=== PATIENT | female | born 1935 | race Caucasian/White ===

== ENCOUNTER 2017-03-10 08:57 | Inpatient (IN) | payer MEDICARE ==
[~2017-03-10] VITALS: Ht 162.6 cm; Wt 62.2 kg
[2017-03-10] VITALS (21 sets, daily range): BP systolic 81–125; BP diastolic 55–92; PULSE 80–148; RESP 16–28; TEMP 97.3–98.7; O2SAT 78–99
[~2017-03-10 08:57] MED LIST: ASPI325T PO; LEVO.1 PO; MEVA40TA PO
[2017-03-10] MEDS ORDERED: SODIUM CHLOR 0.9% 1000 ML INJ 1,000 ML IV SCH (09:13)
[2017-03-10] MEDS ORDERED: MORPHINE SULFATE 4 MG/ML INJ IV PUSH ONE (09:15)
[2017-03-10] MEDS ORDERED: ONDANSETRON HCL 4 MG/2 ML VIAL IVP ONE (09:15)
[2017-03-10] MEDS ORDERED: SODIUM CHLORIDE 0.9% FLUSH 10 ML FLUSH IVF PRN (09:15)
--- NOTE | 2017-03-10 09:28 | PD ---
HPI Chief Complaint: Abdominal Pain Time Seen by Provider: 09:09 Travel History International Travel<30 days: No Contact w/Intl Traveler<30days: No Traveled to known affect area: No History of Present Illness HPI patient was at pcp (dr vasquez) this am discussing her upper abdomen/epig region discomfort that she has had for almost 2months intermittently, pcp noted high heart rate and sent patient to er...pt denies any sob/cp/n/v/d/fever/cough at this time. PFSH Past Medical History Autoimmune Disease: No Blood Disorders: No Anxiety: No Depression: No Cancer: No Cardiovascular Problems: No Diminished Hearing: No Endocrine: No GERD: Yes Genitourinary: No Musculoskeletal: No Neurologic: No Psychiatric: No Respiratory: No Thyroid Disease: Yes ?: Not Past Surgical History Appendectomy: Yes Hysterectomy: Yes Joint Replacement: Yes (LEFT HIP) Pacemaker: No Other Surgery: Yes (TAILBONE) Social History Alcohol Use: No Tobacco Use: Yes Substance Use: No Allergies-Medications (Allergen,Severity, Reaction): Coded Allergies: No Known Allergies (Verified , 03/10/17) Reported Meds & Prescriptions Reported Meds & Active Scripts Active Reported Synthroid (Levothyroxine Sodium) 100 Mcg Tab 100 Mcg PO DAILY Lovastatin 40 Mg Tab 40 Mg PO DAILY Review of Systems Except as stated in HPI: all other systems reviewed are Neg Cardiovascular: Positive: Palpitations Gastrointestinal: Positive: Abdominal Pain Physical Exam Narrative GENERAL: SKIN: Warm and dry. HEAD: Atraumatic. Normocephalic. EYES: Pupils equal and round. No scleral icterus. No injection or drainage. ENT: No nasal bleeding or discharge. Mucous membranes pink and moist. NECK: Trachea midline. No JVD. CARDIOVASCULAR: tachycardia, irregular rhythm RESPIRATORY: No accessory muscle use. Clear to auscultation. Breath sounds equal bilaterally. GASTROINTESTINAL: Abdomen soft, mild epig region , nondistended. MUSCULOSKELETAL: Extremities without clubbing, cyanosis, or edema. No obvious deformities. NEUROLOGICAL: Awake and alert. No obvious cranial nerve deficits. Motor grossly within normal limits. Five out of 5 muscle strength in the arms and legs. Normal speech. PSYCHIATRIC: Appropriate mood and affect; insight and judgment normal. Data Data Last Documented VS Vital Signs Date Time Temp Pulse Resp B/P (MAP) Pulse Ox O2 Delivery O2 Flow Rate FiO2 03/10/17 11:54 115 17 93/62 (72) 95 Room Air 03/10/17 09:05 97.3 Orders Orders Electrocardiogram (03/10/17 09:13) B-Type Natriuretic Peptide (03/10/17 09:13) Ckmb (Isoenzyme) Profile (03/10/17 09:13) Complete Blood Count With Diff (03/10/17 09:13) Comprehensive Metabolic Panel (03/10/17 09:13) Prothrombin Time / Inr (Pt) (03/10/17 09:13) Act Partial Throm Time (Ptt) (03/10/17 09:13) Troponin I (03/10/17 09:13) Lipase (03/10/17 09:13) Chest, Single Ap (03/10/17 09:13) Ecg Monitoring (03/10/17 09:13) Bilateral Bp Monitoring (03/10/17 09:13) Iv Access Insert/Monitor (03/10/17 09:13) Oximetry (03/10/17 09:13) Oxygen Administration (03/10/17 09:13) Sodium Chloride 0.9% Flush (Ns Flush) (03/10/17 09:15) NPO (03/10/17 09:13) Morphine Inj (Morphine Inj) (03/10/17 09:15) Ondansetron Inj (Zofran Inj) (03/10/17 09:15) Sodium Chlor 0.9% 1000 Ml Inj (Ns 1000 M (03/10/17 09:13) Diltiazem Inj (Cardizem Inj) (03/10/17 09:30) Cta Thor Abd Aorta W Iv C W3d (03/10/17 09:29) Sodium Chlor 0.9% 1000 Ml Inj (Ns 1000 M (03/10/17 10:15) Sodium Chlorid 0.9% 500 Ml Inj (Ns 500 M (03/10/17 10:45) Iohexol 350 Inj (Omnipaque 350 Inj) (03/10/17 11:09) Admit Order (Ed Use Only) (03/10/17 12:01) Labs Laboratory Tests Test 03/10/17 10:04 White Blood Count 12.9 TH/MM3 Red Blood Count 4.15 MIL/MM3 Hemoglobin 11.2 GM/DL Hematocrit 33.9 % Mean Corpuscular Volume 81.6 FL Mean Corpuscular Hemoglobin 26.9 PG Mean Corpuscular Hemoglobin Concent 33.0 % Red Cell Distribution Width 14.4 % Platelet Count 336 TH/MM3 Mean Platelet Volume 9.7 FL Neutrophils (%) (Auto) 79.8 % Lymphocytes (%) (Auto) 9.2 % Monocytes (%) (Auto) 7.5 % Eosinophils (%) (Auto) 2.7 % Basophils (%) (Auto) 0.8 % Neutrophils # (Auto) 10.3 TH/MM3 Lymphocytes # (Auto) 1.2 TH/MM3 Monocytes # (Auto) 1.0 TH/MM3 Eosinophils # (Auto) 0.3 TH/MM3 Basophils # (Auto) 0.1 TH/MM3 CBC Comment DIFF FINAL Differential Comment Prothrombin Time 11.4 SEC Prothromb Time International Ratio 1.0 RATIO Activated Partial Thromboplast Time 21.9 SEC Blood Urea Nitrogen 14 MG/DL Creatinine 1.00 MG/DL Random Glucose 135 MG/DL Total Protein 7.8 GM/DL Albumin 3.2 GM/DL Calcium Level 8.5 MG/DL Alkaline Phosphatase 84 U/L Aspartate Amino Transf (AST/SGOT) 12 U/L Alanine Aminotransferase (ALT/SGPT) 15 U/L Total Bilirubin 0.6 MG/DL Sodium Level 131 MEQ/L Potassium Level 4.1 MEQ/L Chloride Level 95 MEQ/L Carbon Dioxide Level 24.9 MEQ/L Anion Gap 11 MEQ/L Estimat Glomerular Filtration Rate 53 ML/MIN Total Creatine Kinase 31 U/L Troponin I LESS THAN 0.02 NG/ML B-Type Natriuretic Peptide 604 PG/ML Lipase 82 U/L [facility] Medical Decision Making Medical Screen Exam Complete: Yes Emergency Medical Condition: Yes Medical Record Reviewed: Yes Interpretation(s) fib with rvr, inverted t waves on inf lateral leads Differential Diagnosis afib with rvr v stemi v nonstemi v aortic dissection v pancreatitis v sbo v perforated ulcer Narrative Course patient made aware of multiple findings on catscans (2.2 x 1.9 cm spiculated left lower lobe posterior lung mass with apparently centrally necrotic anterior tracheal mediastinal lymph node measuring 2.8 x 2.7 cm. Subcentimeter mediastinal and confluent partially calcified right hilar lymph nodes are more nonspecific may be due to prior granulomatous disease. 2. 2.7 x 2.0 cm left adnexal mass likely corresponding to the ovary. This is abnormal given patients advanced age. Further evaluation may be performed with ultrasound of the pelvis. 3. Otherwise, no evidence for distant metastatic disease. 4. Focal 4 cm length distal descending thoracic aortic aneurysm measuring up to 3.7 cm in axial dimension. 5. No aortic dissection.) patient will be admitted to dr lawton, however due to multiple specialty need patient will be transferred to [facility]. Critical Care Narrative CRITICAL CARE NOTE: With evaluation of the patient, labs, EKG, receipt of radiologic studies, administration of medications, reevaluation the patient and discussion of the patient with the admitting physicians, the total critical care time was [45] minutes. Time to perform other separately billable procedures was not included in the critical care time. Physician Communication Physician Communication discussed case with dr lawton Diagnosis Primary Impression: new onset afib with rvr Additional Impressions: left lower lobe mass left adnexal mass Descending thoracic aortic aneurysm Admitting Information Admitting Physician Requests: Admit Nam Valderrama MD Mar 10, 2017 09:28
[2017-03-10] MEDS ORDERED: DILTIAZEM HCL 25 MG/5 ML VIAL IV ONE ×2 (09:30→14:15)
--- NOTE | 2017-03-10 09:47 | RADRPT ---
EXAM DATE/TIME: 03/10/2017 09:37 [facility] COMPARISON: No previous studies available for comparison. INDICATIONS : Tachycardia, abdominal pain, nasuea. MEDICAL HISTORY : Gastroesophageal reflux disease. Thyroid disease. SURGICAL HISTORY : Appendectomy. Hysterectomy. Left hip. ENCOUNTER: Initial ACUITY: 1 day PAIN SCORE: 0/10 LOCATION: chest FINDINGS: Mild diffuse interstitial prominence. No significant focal pleural or parenchymal opacities. Cardiome diastinal contours are within normal limits. Bony thorax is intact. CONCLUSION: 1. Mild diffuse interstitial prominence, likely chronic. 2. Otherwise, no acute cardiopulmonary disease. Woo Covarrubias MD on March 10, 2017 at 9:44 Board Certified Radiologist. This report was verified electronically.
[2017-03-10] MEDS ORDERED: LEVO.1 PO (10:06)
[2017-03-10] MEDS ORDERED: LOVA40TA PO (10:06)
[2017-03-10] MEDS ORDERED: SODIUM CHLOR 0.9% 1000 ML INJ 1,000 ML IV ONE (10:15)
[2017-03-10 10:16] LABS: AUTOMATED NEUTROPHIL # 10.3 TH/MM3 (1.8-7.7); BASOPHIL # 0.1 TH/MM3 (0-0.2); BASOPHIL % 0.8 % (0.0-2.0); EOSINOPHIL # 0.3 TH/MM3 (0-0.4); EOSINOPHIL % 2.7 % (0.0-4.0); HEMATOCRIT 33.9 % (35.0-46.0); HEMO FLAGS DIFF FINAL; LYMPH % 9.2 % (9.0-44.0); LYMPHOCYTE # 1.2 TH/MM3 (1.0-4.8); MEAN CELL VOLUME 81.6 FL (80.0-100.0); MEAN CORPUSCULAR HEMOGLOBIN 26.9 PG (27.0-34.0); MONO % 7.5 % (0.0-8.0); NEUT % 79.8 % (16.0-70.0); PLATELET COUNT 336 TH/MM3 (150-450); RED BLOOD COUNT 4.15 MIL/MM3 (4.00-5.30); RED CELL DISTRIBUTION WIDTH 14.4 % (11.6-17.2); WHITE BLOOD COUNT 12.9 TH/MM3 (4.0-11.0)
[2017-03-10 10:27] LABS: CHLORIDE 95 MEQ/L (98-107); POTASSIUM 4.1 MEQ/L (3.5-5.1); SODIUM (NA) 131 MEQ/L (136-145)
[2017-03-10 10:30] LABS: ANION GAP 11 MEQ/L (5-15); APTT (PATIENT) 21.9 SEC (24.3-30.1); BICARBONATE 24.9 MEQ/L (21.0-32.0); PROTHROMBIN TIME - PATIENT 11.4 SEC (9.8-11.6)
[2017-03-10 10:31] LABS: BLOOD UREA NITROGEN 14 MG/DL (7-18)
[2017-03-10 10:33] LABS: ALT (GPT) 15 U/L (10-53); AST (GOT) 12 U/L (15-37); GLOMERULAR FILTRATION RATE 53 ML/MIN (>89)
[2017-03-10 10:35] LABS: TOTAL BILIRUBIN ADULT 0.6 MG/DL (0.2-1.0)
[2017-03-10 10:36] LABS: ALKALINE PHOSPHATASE 84 U/L (45-117)
[2017-03-10 10:37] LABS: CREATINE KINASE 31 U/L (26-192)
[2017-03-10] MEDS ORDERED: SODIUM CHLORID 0.9% 500 ML INJ 500 ML IV ONE (10:45)
[2017-03-10] MEDS ORDERED: IOHEXOL 350 MG/ML 10 ML VIAL (for RAD DIAG) IVCONTRAST ONE (11:09)
--- NOTE | 2017-03-10 11:43 | RADRPT ---
EXAM DATE/TIME: 03/10/2017 10:47 [facility] COMPARISON: CHEST SINGLE AP, March 10, 2017, 9:37. INDICATIONS : Mid abdominal pain with nausea for one month. Increased heartrate today. Evaluate fir aortic dissecti on. IV CONTRAST: 95 cc Omnipaque 350 (iohexol) IV RADIATION DOSE: 17.19 CTDIvol (mGy) MEDICAL HISTORY : Gastroesophageal reflux disease. SURGICAL HISTORY : Appendectomy. Hysterectomy.Orthopedic surgery. ENCOUNTER: Initial ACUITY: 1 month PAIN SCALE: 6/10 LOCATION: chest abdomen TECHNIQUE: Volumetric scanning was performed using a multi-row detector CT scanner. The data was post processed with a variety of visualization algorithms including full volume maximum intensity projection, multi -planar sliding thin slab reformation, curved planar reformation, and surface rendering techniques. Using automated exposure control and adjustment of the mA and/or kV according to patient size, radiat ion dose was kept as low as reasonably achievable to obtain optimal diagnostic quality images. DICOM format image data is available electronically for review and comparison. FINDINGS: LUNGS: Abnormal. There is a 2.2 x 1.9 cm spiculated mass in the left lower lobe posteriorly. Adjacent infero lateral linear parenchymal opacity likely reflects scarring. Mild upper lobe predominant centrilobula r emphysema. Small right and trace left pleural effusions. Small calcified granuloma in the right mary g. Mild patchy groundglass opacities in the lower lobes bilaterally likely reflects volume loss. MEDIASTINUM: Abnormal. Large anterior tracheal centrally necrotic lymph node measuring 2.8 x 2.7 cm. Multiple jimmie tional small mediastinal nodes. Partially calcified confluent right hilar lymph nodes. Heart is borde rline in size but otherwise unremarkable without significant pericardial effusion. Central pulmonary arteries are patent. ABDOMEN: Evaluation of the abdominal viscera is limited due to the early arterial technique. The liver and spl een are free of focal defects. The gallbladder and pancreas demonstrate no abnormality. The adrenal g lands are normal. The kidneys demonstrate no evidence of solid renal mass or hydronephrosis. No free fluid or abdominal masses are identified. Mild sigmoid diverticulosis. Subcentimeter retroperitoneal and mesenteric nodes do not meet CT size criteria. Bowel is otherwise unremarkable. PELVIS: Evaluation is limited due to beam hardening artifact from bilateral hip arthroplasties. Bladder is gr ossly unremarkable. Uterus is surgically absent. There is a 2.7 x 2.0 cm mass in the left adnexal reg ion which may reflect the ovary, more prominent than expected given patient's age. Degenerative spond ylosis of the lower lumbar spine. No definite focal lytic or blastic bony lesions. THORACIC AORTA: Descending aorta is normal in caliber without evidence for aneurysm. There is bovine type II vessel a [facility] anatomy. Proximal arch vessels are patent. Thoracic arch is mildly calcified but otherwise patent . Descending thoracic aorta is minimally ectatic measuring up to 2.8 cm with diffuse mixed plaque. Th ere is a focal 4 cm length aneurysm of the distal descending thoracic aorta measuring 3.7 x 3.6 cm in axial dimensions. No aortic dissection. ABDOMINAL AORTA: Abdominal aorta is moderately calcified with focal ectasia distally but is otherwise non-aneurysmal. No aortic dissection. Moderate stenosis at the celiac origin secondary to calcified plaque. SMA and I MA are patent. PELVIC VESSELS: The internal iliac and external iliac vessels are patent without aneurysm or stenosis. CONCLUSION: 1. 2.2 x 1.9 cm spiculated left lower lobe posterior lung mass with apparently centrally necrotic ant erior tracheal mediastinal lymph node measuring 2.8 x 2.7 cm. Subcentimeter mediastinal and confluent partially calcified right hilar lymph nodes are more nonspecific may be due to prior granulomatous d isease. 2. 2.7 x 2.0 cm left adnexal mass likely corresponding to the ovary. This is abnormal given patients advanced age. Further evaluation may be performed with ultrasound of the pelvis. 3. Otherwise, no evidence for distant metastatic disease. 4. Focal 4 cm length distal descending thoracic aortic aneurysm measuring up to 3.7 cm in axial dimen parveen. 5. No aortic dissection. 6. Additional ancillary findings, as above. Woo Covarrubias MD on March 10, 2017 at 11:28 Board Certified Radiologist. This report was verified electronically.
[2017-03-10] MEDS ORDERED: ONDANSETRON HCL 4 MG/2 ML VIAL IV PUSH ONE (13:30)
[2017-03-10 15:04] LABS: BLOOD GAS BASE EXCESS -8.2 mmol/L (-2-2); BLOOD GAS CARBOXYHEMOGLOBIN 1.1 % (0-4); BLOOD GAS HCO3 17 mmol/L (22-26); BLOOD GAS O2 HGB SATURATION 95 % (90-100); BLOOD GAS OXYGEN CONTENT 15.3 Vol % (12.0-20.0); BLOOD GAS PCO2 34 mmHg (38-42); BLOOD GAS PO2 111 mmHg (61-120); BLOOD GAS TOTAL HGB 11.4 G/DL (12.0-16.0); CRITICAL VALUE NO; DRAW SITE RT RADIAL; FIO2 100 %; LITER FLOW 15 L/M; NUMBER OF ARTERIAL PUNCTURES 1; STAT NO; TEMP CORR TO 98.6; ULNAR PULSE PRESENT
[2017-03-10] MEDS ORDERED: METOPROLOL TARTRATE 5 MG/5 ML VIAL ONE (15:07)
[2017-03-10] MEDS ORDERED: AMIODARONE INJ 150 MG in DEXTROSE 5% IN WATER 100ML INJ 100 ML IV ONE ×2 (15:12)
[2017-03-10] MEDS ORDERED: AMIODARONE INJ 450 MG in DEXTROSE 5% IN WATE(EXCEL) INJ 241 ML IV SCH ×2 (15:22)
[2017-03-10] MEDS ORDERED: ASPIRIN 81 MG CHEW TAB CHEW STA (15:23)
[2017-03-10] MEDS ORDERED: FUROSEMIDE 40 MG/4 ML VIAL IV PUSH ONE (15:30)
[2017-03-10] MEDS ORDERED: methylPREDNISolone SOD SUCC 125 MG/2 ML VIAL IV PUSH ONE (15:30)
[2017-03-10] MEDS: ONDANSETRON HCL 4 MG/2 ML VIAL IV PUSH PRN (15:38)
[2017-03-10] MEDS ORDERED: NITROGLYCERIN 0.4 MG SL 25 TABS/BTL SL PRN (15:45)
[2017-03-10] MEDS ORDERED: METOCLOPRAMIDE HCL 10 MG/2 ML VIAL IV PUSH PRN (16:00)
[2017-03-10] MEDS ORDERED: CHLORHEXIDINE GLUCONATE 2 % 1 PACK (2 CLOTHS) TOP PRN (16:00)
[2017-03-10] MEDS ORDERED: LACTULOSE SYRUP 20 GM/30 ML CUP PO PRN (16:00)
[2017-03-10] MEDS ORDERED: MISCELLANEOUS NURSING INFORMATION XX SCH (16:00)
[2017-03-10] MEDS ORDERED: SODIUM CHLORIDE 0.9% FLUSH 10 ML FLUSH IV FLUSH PRN (16:00)
[2017-03-10] MEDS ORDERED: ACETAMINOPHEN 325 MG TAB PO PRN (16:00)
[2017-03-10] MEDS ORDERED: RESP: IPRATROPIUM 0.5 MG/2.5 ML NEB INH PRN (16:00)
[2017-03-10] MEDS ORDERED: BISACODYL 10 MG SUPP RECTAL PRN (16:00)
[2017-03-10] MEDS ORDERED: SENNOSIDES 8.6 MG TAB PO PRN (16:00)
[2017-03-10] MEDS ORDERED: HEPARIN-D5W 25,000 U/250 ML 250 ML IV PRN (16:15)
[2017-03-10] MEDS ORDERED: HEPARIN SODIUM - IV 10,000 UNITS/10 ML VIAL IV PUSH ONE ×2 (16:15→16:45)
--- NOTE | 2017-03-10 16:19 | RADRPT ---
EXAM DATE/TIME: 03/10/2017 15:36 [facility] COMPARISON: CHEST SINGLE AP, March 10, 2017, 9:37. INDICATIONS : Pulmonary edema MEDICAL HISTORY : Gastroesophageal reflux disease. SURGICAL HISTORY : Appendectomy. Hysterectomy. ENCOUNTER: Initial ACUITY: 1 day PAIN SCORE: 0/10 LOCATION: Bilateral chest FINDINGS: The cardiac silhouette is enlarged in transverse diameter. There are findings of congestive heart marlene lure with interstitial and alveolar opacity bilaterally. This is new when compared with the prior exa m. Small bilateral pleural effusions are identified. CONCLUSION: 1. Cardiomegaly and findings of congestive heart failure. This is new when compared with the prior ex am. Chauncey Hutchison MD on March 10, 2017 at 16:17 Board Certified Radiologist. This report was verified electronically.
[2017-03-10] MEDS ORDERED: ETOMIDATE 40 MG/20 ML VIAL ONE (16:23)
[2017-03-10] MEDS ORDERED: SUCCINYLCHOLINE CHLORIDE 200 MG/10 ML VIAL ONE (16:26)
[2017-03-10] MEDS ORDERED: PROPOFOL 500 MG/50 ML INJ 50 ML ONE ×2 (16:47→22:03)
--- NOTE | 2017-03-10 16:51 | EKG ---
Date Performed: 03/10/2017 Time Performed: 09:19:30 PTAGE: 81 years EKG: ATRIAL FIBRILLATION WITH RAPID VENTRICULAR RESPONSE LOW QRS VOLTAGE IN EXTREMITY LEADS ST D EVIATION AND MODERATE T-WAVE ABNORMALITY, CONSIDER LATERAL ISCHEMIA Compared to previous tracing, the patient now is in atrial fibrillation with rapid ventricular rate. ST changes concerning for ischemi a Clinical correlation is recommended ABNORMAL ECG PREVIOUS TRACING : 07/13/2007 16.22 DOCTOR: Arcelia Adhikari Interpretating Date/Time 03/10/2017 16:49:19
[2017-03-10] MEDS ORDERED: TERBUTALINE INJ 1 MG/ML AMP SQ PRN (17:00)
[2017-03-10] MEDS ORDERED: MIDAZOLAM 100 MG/100 ML INJ 100 ML IV PRN (17:00)
[2017-03-10] MEDS: CARVEDILOL 12.5 MG TAB PO SCH (17:00)
[2017-03-10] MEDS ORDERED: fentaNYL DRIP 250 ML IV PRN (17:00)
[2017-03-10 17:10] LABS: BLOOD, URINE NEG (NEG); GLUCOSE,URINE 70 mg/dL (NEG); KETONE, URINE TRACE mg/dL (NEG); MUCUS URINE FEW /lpf (OCC); NITRITE,URINE NEG (NEG); PH, URINE 5.5 (5.0-8.5); SQUAMOUS EPITHELIAL CELL URINE 1 /hpf (0-5); URINE COLOR YELLOW (YELLW/STRAW)
[2017-03-10 17:15] LABS: COMMENT (UR) CATH-CULT NOT IND; CULTURE IF INDICATED CATH CULTURE NOT IND
--- NOTE | 2017-03-10 17:24 | RADRPT ---
EXAM DATE/TIME: 03/10/2017 17:12 [facility] COMPARISON: CHEST SINGLE AP, March 10, 2017, 15:36. INDICATIONS : ET tube placement. Post intubation. MEDICAL HISTORY : Gastroesophageal reflux disease. SURGICAL HISTORY : Appendectomy. ENCOUNTER: Subsequent ACUITY: 1 day PAIN SCORE: 0/10 LOCATION: Bilateral chest FINDINGS: ET tube with tip approximately 4 cm above the vikki. NGT coursing beyond the GE junction with tip om itted from the image. Improved diffuse interstitial prominence and patchy bilateral alveolar opacitie s. Cardiomedi cell contours are stable. Central pulmonary vascularity is indistinct. Remainder of the exam is unchanged. CONCLUSION: 1. ETT in good position. NGT beyond the GE junction with tip not imaged. 2. Improved pulmonary edema pattern. Woo Covarrubias MD on March 10, 2017 at 17:21 Board Certified Radiologist. This report was verified electronically.
[2017-03-10] MEDS ORDERED: MORPHINE SULFATE 8 MG/ML INJ ONE (17:27)
[2017-03-10] MEDS ORDERED: MIDAZOLAM HCL 2 MG/2 ML VIAL IV ONE (17:30)
--- NOTE | 2017-03-10 17:48 | ECHRPT ---
Indication: assess LVF CONCLUSIONS The left ventricular systolic function is severely reduced with an estimated ejection fraction of 10 -15%. There is diffuse global hypokinesis with distinct regional wall motion abnormalities. The right ventricular systoilc function is mildly decreased. Mild mitral valve regurgitation. There is mild tricuspid valve regurgitation. BP: / HR: Rhythm: MEASUREMENTS (Male / Female) Normal Values Technical Quality:Good 2D ECHO LV Diastolic Diameter PLAX 5.6 cm 4.2 - 5.9 / 3.9 - 5.3 cm LV Systolic Diameter PLAX 5.2 cm IVS Diastolic Thickness 0.7 cm 0.6 - 1.0 / 0.6 - 0.9 cm LVPW Diastolic Thickness 0.7 cm 0.6 - 1.0 / 0.6 - 0.9 cm LV Relative Wall Thickness 0.3 RV Internal Dim ED PLAX 2.6 cm M-MODE Aortic Root Diameter MM 3.5 cm LA Systolic Diameter MM 3.1 cm LA Ao Ratio MM 0.9 AV Cusp Separation MM 1.5 cm DOPPLER LV E' Lateral Velocity 5.7 cm/s LV E' Septal Velocity 4.9 cm/s TR Peak Velocity 244.0 cm/s TR Peak Gradient 23.8 mmHg Right Atrial Pressure 10.0 mmHg Pulmonary Artery Systolic Pressu 33.8 mmHg Right Ventricular Systolic Press 33.8 mmHg FINDINGS LEFT VENTRICLE The left ventricular systolic function is severely reduced with an estimated ejection fraction of 10 -15%. There is diffuse global hypokinesis with distinct regional wall motion abnormalities. Wall thickness is normal Mildly dilated left ventricle. RIGHT VENTRICLE The right ventricular size is normal. The right ventricular systoilc function is mildly decreased. LEFT ATRIUM The left atrial size is normal. RIGHT ATRIUM The right atrial size is normal. ATRIAL SEPTUM The interatrial septum not well visualized. AORTA The aortic root and proximal ascending aorta are normal in size on limited imaging. MITRAL VALVE Structurally normal mitral valve. Mild mitral valve regurgitation. AORTIC VALVE Trileaflet aortic valve. No aortic valve stenosis or regurgitation. TRICUSPID VALVE Structurally normal tricuspid valve. There is mild tricuspid valve regurgitation. The estimated pulmonary arterial pressure is 33.8 mmHg. PULMONARY VALVE The pulmonary valve is not well visualized. VESSELS The inferior vena cava is dilated. PERICARDIUM No pericardial effusion. Anthony Verma DO (Electronically Signed) Final Date:10 March 2017 17:47
[2017-03-10 18:44] LABS: BLOOD GAS BASE EXCESS -11.6 mmol/L (-2-2); BLOOD GAS CARBOXYHEMOGLOBIN 0.8 % (0-4); BLOOD GAS HCO3 14 mmol/L (22-26); BLOOD GAS METHEMOGLOBIN 1.1 % (0-2); BLOOD GAS O2 HGB SATURATION 97 % (90-100); BLOOD GAS OXYGEN CONTENT 15.3 Vol % (12.0-20.0); BLOOD GAS PCO2 35 mmHg (38-42); BLOOD GAS PO2 221 mmHg (61-120); BLOOD GAS TOTAL HGB 10.8 G/DL (12.0-16.0); CRITICAL VALUE YES; OXYGEN DEVICE VENTILATOR; TEMP CORR TO 98.6
[2017-03-10 18:45] LABS: DRAW SITE ART LINE; FIO2 100 %; STAT NO; VENT SETTINGS 500/20/PEEP 5
--- NOTE | 2017-03-10 18:56 | RADRPT ---
EXAM DATE/TIME: 03/10/2017 18:08 [facility] COMPARISON: CTA THORACIC ABDOMINAL AORTA W 3D RECON, March 10, 2017, 10:47. CHEST SINGLE AP, March 10, 2017, 17:12. INDICATIONS : Central line and ET tube placement. MEDICAL HISTORY : None. SURGICAL HISTORY : None. ENCOUNTER: Initial ACUITY: 1 day PAIN SCORE: Non-responsive. LOCATION: Bilateral chest FINDINGS: Endotracheal tube is present in satisfactory position with tip several centimeters above the vikki. Nasogastric tube descends into the stomach. A right neck central line descends into the SVC. There is increasing hazy I lateral pleural-parenchymal opacity which may reflect developing parenchymal edema . Cardiac contours are grossly stable accounting for some rotation with soft tissue prominence of the right suprahilar and paratracheal region. Parenchymal left lung mass is not well appreciated. CONCLUSION: Satisfactory central line positioning. No pneumothorax. Worsening aeration. Fermin Gonzalez MD on March 10, 2017 at 18:52 Board Certified Radiologist. This report was verified electronically.
--- NOTE | 2017-03-10 19:00 | RADRPT ---
EXAM DATE/TIME: 03/10/2017 18:19 [facility] COMPARISON: No previous studies available for comparison. INDICATIONS : Shortness of breath. MEDICAL HISTORY : Gastroesophageal reflux disease. Thyroid disease. SURGICAL HISTORY : Hysterectomy.Appendectomy. Left hip fracture repair. Left wrist fracture repair. Tailbone surgery. ENCOUNTER: Initial ACUITY: 1 day PAIN SCORE: Non-responsive LOCATION: Bilateral legs. TECHNIQUE: Venous ultrasound of the left and right leg was performed from the inguinal ligament to the proximal calf. Real-time, color Doppler and spectral tracing, compression and augmentation techniques were us ed. FINDINGS: RIGHT LEG: There is normal compressibility of the deep venous system from the inguinal region to the proximal ca lf. No echogenic clot is seen in the lumen of the common femoral, femoral, popliteal, and posterior tibial veins. There is a normal response of the venous system to proximal and distal augmentation an d respiration. LEFT LEG: There is normal compressibility of the deep venous system from the inguinal region to the proximal ca lf. No echogenic clot is seen in the lumen of the common femoral, femoral, popliteal, and posterior tibial veins. There is a normal response of the venous system to proximal and distal augmentation an d respiration. CONCLUSION: No DVT. Fermin Flores MD on March 10, 2017 at 18:58 Board Certified Radiologist. This report was verified electronically.
[2017-03-10] MEDS ORDERED: SODIUM BICARBONATE 8.4% INJ 50 MEQ/50 ML SYR IV PUSH ONE (19:15)
--- NOTE | 2017-03-10 19:29 | PD.PROCEDR ---
Central Line Procedure REASON FOR PROCEDURE Central venous access PROCEDURE PERFORMED Central line placement: Right IJ CONSENT Informed consent for procedure was obtained from patient's and documented on chart. ANESTHESIA Local injection of 1% Lidocaine DESCRIPTION OF THE PROCEDURE The patient was placed in supine, mild Trendelenburg position. The area was exposed and cleansed with ChloraPrep, times two. Large sterile drape was used to cover the patient, with the site exposed, under sterile conditions including cap, face mask, sterile gown, and sterile gloves. On single attempt, the introducer needle was inserted with negative pressure in syringe and venous flash was obtained. The guide wire was then advanced without any restriction and the needle was removed. The dilator was used without any complications. Using Seldinger technique a 20 cm antimicrobial coated triple lumen catheter was advanced over the guide wire to a depth of 17 centimeters. The guide wire was removed. All ports were aspirated with dark venous blood return and flushed easily with sterile saline. All ports were capped. Antibiotic disc was placed around central line at puncture site. The central line was secured to the skin with two interrupted 2.0 silk sutures. The area was bandaged with sterile see-through central line bandage. RADIOLOGICAL DATA Ultrasound guidance was used to locate the right internal jugular vein. COMPLICATIONS: No apparent complications ESTIMATED BLOOD LOSS: Less than 1 cc. Mejia Marroquin MD Mar 10, 2017 19:29
--- NOTE | 2017-03-10 19:30 | PD.PROCEDR ---
Procedure Note Procedure Procedure: Right axillary arterial catheter placement with ultrasound guidance Preop diagnosis: Cardiogenic shock Postop diagnosis: Same Anesthesia: 1% lidocaine for local infiltration anesthesia Procedure: After sterile prepping and draping using 1% lidocaine for local infiltration anesthesia, right axillary artery was visualized using ultrasound vessel finder and was cannulated using an introducer needle with bright pulsatile blood return. A guidewire was passed through the introducer needle without any resistance and the needle was then removed. A 12 cm 20-gauge arterial catheter was passed over the guidewire by modified Seldinger's technique up to the 12 cm reid and after removal of guidewire catheter was connected to transducer tubing with good waveform being obtained on the monitor. Biopatch was applied to the insertion site and catheter was sutured in place. Sterile Bi0-occlusive dressing was applied to the site. Patient tolerated the procedure well with no immediate competitions noted. Mejia Marroquin MD Mar 10, 2017 19:30
[2017-03-10 19:33] LABS: APTT (PATIENT) 54.9 SEC (24.3-30.1); INTERNATIONAL NORMALIZED RATIO 1.3 RATIO
--- NOTE | 2017-03-10 19:35 | PD.PROCEDR ---
Procedure Note Procedure Procedure: Endotracheal intubation Preop diagnosis: Cardiogenic shock, acute respiratory failure, A. fib Postop diagnosis: Same Sedation used: Etomidate 20 mg, fentanyl 100 mcg, succinylcholine 150 mg IV Procedure: Patient was preoxygenated with 100% oxygen via Ambu bag with bag mask ventilation, following induction of sedation and neuromuscular blockade, laryngoscopy was performed using a glide scope good visualization of vocal cords. An 8 Persian ET tube was passed through the vocal cords under direct visualization up to the 22 centimeter reid and after inflating cuff of ET tube, correct placement was confirmed using bagging with good color change on CO2 detector, 5 point auscultation and chest rise with ventilation. Patient was connected to mechanical ventilation. Patient tolerated the procedure well with no immediate complications noted. Postprocedure chest x-ray was ordered. Mejia Marroquin MD Mar 10, 2017 19:35
[2017-03-10 19:41] LABS: ANION GAP 12 MEQ/L (5-15); AST (GOT) 67 U/L (15-37); BICARBONATE 17.7 MEQ/L (21.0-32.0); BLOOD UREA NITROGEN 15 MG/DL (7-18); CHLORIDE 100 MEQ/L (98-107); GLOMERULAR FILTRATION RATE 44 ML/MIN (>89); SODIUM (NA) 130 MEQ/L (136-145)
[2017-03-10 19:42] LABS: ALT (GPT) 56 U/L (10-53)
[2017-03-10] MEDS ORDERED: GLUCAGON 1 MG/ML VIAL IM/SQ PRN (19:45)
[2017-03-10] MEDS ORDERED: DEXTROSE 50% IN WATER 50 ML SYRINGE IV PRN (19:45)
[2017-03-10 19:46] LABS: ALKALINE PHOSPHATASE 83 U/L (45-117); TOTAL BILIRUBIN ADULT 0.8 MG/DL (0.2-1.0)
[2017-03-10 19:48] LABS: CREATINE KINASE 35 U/L (26-192)
[2017-03-10] MEDS ORDERED: SODIUM BICARBONATE 8.4% INJ 50 MEQ/50 ML SYR IV ONE (20:00)
--- NOTE | 2017-03-10 20:09 | HHI.HP ---
HPI Service Critical Care Medicine Primary Care Physician Ronnell Vasquez MD Admission Diagnosis NEW ONSET AFIB WITH RVR,DESCENDING AORTIC ANEURYSM,LUNG MASS Diagnosis: Travel History International Travel<30 Days: No Contact w/Intl Traveler <30 Da: No Traveled to Known Affected Are: No History of Present Illness History of Present Illness HPI patient was at pcp (dr vasquez) this am discussing her upper abdomen/epig region discomfort that she has had for almost 2months intermittently, pcp noted high heart rate and sent patient to er...pt denies any sob/cp/n/v/d/fever/cough at this time. 81-year-old female who was evaluated by her PCP Dr. Vasquez who she saw for upper abdominal pain which has been going on for about 2 months today. PCP noted high heart rate and sent patient to the ER. Patient was evaluated in the ER at [place]. At that time she denied any chest pain shortness of breath nausea vomiting diarrhea fever or cough per documentation by ER physician. She was noted to be in A. fib with RVR. She was given Cardizem 5 mg IV and subsequently was transferred to [facility]. I was contacted by nursing staff following patient's arrival that her heart rate was in the 160s and she was on a nonrebreather facemask with O2 sats in the 80s. I had not been notified regarding this patient from either [place] [facility] or by any other accepting physician so I immediately went to patient's bedside to evaluate her. I contacted Dr[facility] Casas from [facility] as patient had been reportedly accepted by [facility] however he was not aware of any details. Patient was in obvious respiratory distress at the time of my evaluation. Patient underwent CTA aortogram at [place] [facility] and was found to have a left lower lobe spiculated lung mass with central necrosis suspicious for malignancy as well as a descending thoracic aortic aneurysm less than 4 cm in diameter with no dissection. Dr. Casas requested critical care consult. Patient was given Lopressor 5 mg IV with which her ventricular rate came down in the 90s. She did have borderline blood pressures with systolic SBP 90s. She continued to have worsening shortness of breath and appeared cold and clammy. She denied any chest pain however was complaining of epigastric pain. Per patient's she has lost 24 pounds in 3 months and has had a cough for 4 months. She has had abdominal pain for a year and has previously had an EGD which revealed a gastric ulcer 7 years ago. Patient was loaded with amiodarone and started on amiodarone drip. She is also given aspirin 324 mg stat as her EKG revealed T inversions in the lateral leads concerning for ischemia. Stat 2-D echo was ordered and patient was noted to have a LVEF 10-15% with global hypokinesis. Patient continued to be in significant respiratory distress using accessory muscles of respiration and became very diaphoretic and appeared to be worsening clinically hence was emergently intubated and placed on mechanical ventilation. She was initiated on full anticoagulation with heparin. I emergently placed a right IJ central venous catheter and right axillary a line. Dr. Willis from cardiology was consulted and I personally discussed the case, EKG and echo findings with Dr. Willis who will be evaluating patient. Prior to intubation, patient denied any prior cardiac history or previous history of CAD, arrhythmias or SD. She denied any history of COPD though she has been a long-standing smoker(60 pack years) and quit 3 years ago. History PFSH Past Medical History Autoimmune Disease: No Blood Disorders: No Anxiety: No Depression: No Cancer: No Cardiovascular Problems: No Diminished Hearing: No Endocrine: No GERD: Yes Genitourinary: No Musculoskeletal: No Neurologic: No Psychiatric: No Respiratory: No Thyroid Disease: Yes ?: Not Past Surgical History Appendectomy: Yes Hysterectomy: Yes Joint Replacement: Yes (LEFT HIP) Pacemaker: No Other Surgery: Yes (TAILBONE) Social History Alcohol Use: No Tobacco Use: Yes Substance Use: No Allergies-Medications Allergies-Medications (Allergen,Severity, Reaction): Coded Allergies: No Known Allergies (Verified , 03/10/17) Reported Meds & Prescriptions Reported Meds & Active Scripts Active Reported Synthroid (Levothyroxine Sodium) 100 Mcg Tab 100 Mcg PO DAILY Lovastatin 40 Mg Tab 40 Mg PO DAILY ROS Review of Systems Except as stated in HPI: all other systems reviewed are Neg Physical Exam Vital Signs Vital Signs Date Time Temp Pulse Resp B/P (MAP) Pulse Ox O2 Delivery O2 Flow Rate FiO2 03/10/17 16:38 97 100 03/10/17 16:06 110 108/70 03/10/17 16:00 97.7 88 28 114/57 (76) 96 03/10/17 15:38 147 123/91 03/10/17 14:46 97.6 148 26 125/92 (103) 96 03/10/17 14:27 03/10/17 14:11 122 22 110/82 (91) 92 Nasal Cannula 3.00 03/10/17 13:55 146 20 104/71 (82) 84 Nasal Cannula 2.00 03/10/17 13:40 146 20 104/80 (88) 78 Nasal Cannula 2.00 03/10/17 13:25 146 20 108/76 (87) 83 Nasal Cannula 2.00 03/10/17 13:10 134 20 105/76 (86) Nasal Cannula 2.00 03/10/17 12:55 122 20 98/64 (75) 87 Room Air 03/10/17 12:40 132 21 83/72 (76) 93 Room Air 03/10/17 12:25 130 18 110/69 (83) 89 Room Air 03/10/17 12:10 124 18 93/55 (68) 90 Room Air 03/10/17 11:54 115 17 93/62 (72) 95 Room Air 03/10/17 11:24 105 20 98/65 (76) 03/10/17 09:48 95 Room Air 03/10/17 09:46 92 18 96 Room Air 03/10/17 09:45 96 Room Air 03/10/17 09:31 114 18 81/62 (68) 98 90/71 (77) 03/10/17 09:20 142 18 85/63 (70) 96 Room Air 101/73 (82) 03/10/17 09:05 97.3 140 16 102/77 (85) 99 Physical Exam HEENT/ Neuro: Sedated, orally intubated, Pallor present, no icterus, tongue/ mucosa moist Neck: No JVD Chest/Pulm: on mech vent, good air entry bilaterally, no wheezing or crackles CVS: S1-S2 irregularly irregular, no murmur GI/abdomen: soft, nontender, bowel sounds sluggish Extremities: Cool bilaterally, no edema Skin: Cold and clammy Laboratory Laboratory Tests Test 03/10/17 10:04 03/10/17 14:56 03/10/17 16:10 03/10/17 16:30 White Blood Count 12.9 Red Blood Count 4.15 Hemoglobin 11.2 Hematocrit 33.9 Mean Corpuscular Volume 81.6 Mean Corpuscular Hemoglobin 26.9 Mean Corpuscular Hemoglobin Concent 33.0 Red Cell Distribution Width 14.4 Platelet Count 336 Mean Platelet Volume 9.7 Neutrophils (%) (Auto) 79.8 Lymphocytes (%) (Auto) 9.2 Monocytes (%) (Auto) 7.5 Eosinophils (%) (Auto) 2.7 Basophils (%) (Auto) 0.8 Neutrophils # (Auto) 10.3 Lymphocytes # (Auto) 1.2 Monocytes # (Auto) 1.0 Eosinophils # (Auto) 0.3 Basophils # (Auto) 0.1 CBC Comment DIFF FINAL Differential Comment Prothrombin Time 11.4 Prothromb Time International Ratio 1.0 Activated Partial Thromboplast Time 21.9 Blood Urea Nitrogen 14 Creatinine 1.00 Random Glucose 135 Total Protein 7.8 Albumin 3.2 Calcium Level 8.5 Alkaline Phosphatase 84 Aspartate Amino Transf (AST/SGOT) 12 Alanine Aminotransferase (ALT/SGPT) 15 Total Bilirubin 0.6 Sodium Level 131 Potassium Level 4.1 Chloride Level 95 Carbon Dioxide Level 24.9 Anion Gap 11 Estimat Glomerular Filtration Rate 53 Total Creatine Kinase 31 Troponin I LESS THAN 0.02 B-Type Natriuretic Peptide 604 Lipase 82 Blood Gas Puncture Site RT RADIAL Blood Gas Patient Temperature 98.6 Blood Gas HCO3 17 Blood Gas Base Excess -8.2 Blood Gas Oxygen Saturation 95 Arterial Blood pH 7.32 Arterial Blood Partial Pressure CO2 34 Arterial Blood Partial Pressure O2 111 Arterial Blood Oxygen Content 15.3 Arterial Blood Carboxyhemoglobin 1.1 Arterial Blood Methemoglobin 1.0 Blood Gas Hemoglobin 11.4 Oxygen Delivery Device Non-Rebreathing Mask Blood Gas Liter Flow 15 Blood Gas Inspired Oxygen 100 Urine Color YELLOW Urine Turbidity CLEAR Urine pH 5.5 Urine Specific [place] GREATER THAN 1.050 Urine Protein 30 Urine Glucose (UA) 70 Urine Ketones TRACE Urine Occult Blood NEG Urine Nitrite NEG Urine Bilirubin NEG Urine Urobilinogen LESS THAN 2.0 Urine Leukocyte Esterase NEG Urine RBC 1 Urine WBC 1 Urine Squamous Epithelial Cells 1 Urine Mucus FEW Microscopic Urinalysis Comment CATH-CULT NOT IND Nasal Screen MRSA (PCR) MRSA NOT DETECTED Test 03/10/17 18:00 03/10/17 18:25 Prothrombin Time 14.0 Prothromb Time International Ratio 1.3 Activated Partial Thromboplast Time 54.9 Blood Gas Puncture Site ART LINE Blood Gas Patient Temperature 98.6 Blood Gas HCO3 14 Blood Gas Base Excess -11.6 Blood Gas Oxygen Saturation 97 Arterial Blood pH 7.24 Arterial Blood Partial Pressure CO2 35 Arterial Blood Partial Pressure O2 221 Arterial Blood Oxygen Content 15.3 Arterial Blood Carboxyhemoglobin 0.8 Arterial Blood Methemoglobin 1.1 Blood Gas Hemoglobin 10.8 Oxygen Delivery Device VENTILATOR Blood Gas Ventilator Setting 500/20/PEEP 5 Blood Gas Inspired Oxygen 100 Date/Time Source Procedure Growth Status 03/10/17 16:33 Sputum Endotracheal Gram Stain Pending Received 03/10/17 16:33 Sputum Endotracheal Sputum Culture Pending Received Result Diagram: 03/10/17 1004 03/10/17 1004 Imaging Last Impressions Aorta CTA 03/10/17928 Signed Impressions: Service Date/Time: Friday, March 10, 2017 10:47 - CONCLUSION: 1. 2.2 x 1.9 cm spiculated left lower lobe posterior lung mass with apparently centrally necrotic anterior tracheal mediastinal lymph node measuring 2.8 x 2.7 cm. Subcentimeter mediastinal and confluent partially calcified right hilar lymph nodes are more nonspecific may be due to prior granulomatous disease. 2. 2.7 x 2.0 cm left adnexal mass likely corresponding to the ovary. This is abnormal given patients advanced age. Further evaluation may be performed with ultrasound of the pelvis. 3. Otherwise, no evidence for distant metastatic disease. 4. Focal 4 cm length distal descending thoracic aortic aneurysm measuring up to 3.7 cm in axial dimension. 5. No aortic dissection. 6. Additional ancillary findings, as above. Woo Covarrubias MD Chest X-Ray 03/10/17912 Signed Impressions: Service Date/Time: Friday, March 10, 2017 09:37 - CONCLUSION: 1. Mild diffuse interstitial prominence, likely chronic. 2. Otherwise, no acute cardiopulmonary disease. Woo Covarrubias MD Caprini VTE Risk Assessment Caprini VTE Risk Assessment: Mod/High Risk (score >= 2) Caprini Risk Assessment Model Point Value = 1 Point Value = 2 Point Value = 3 Point Value = 5 Age 41-60 Minor surgery BMI > 25 kg/m2 Swollen legs Varicose veins or History of unexplained or recurrent spontaneous Oral contraceptives or hormone replacement Sepsis (< 1 month) Serious lung disease, including pneumonia (< 1 month) Abnormal pulmonary function Acute myocardial infarction Congestive heart failure (< 1 month) History of inflammatory bowel disease Medical patient at bed rest Age 61-74 Arthroscopic surgery Major open surgery (> 45 min) Laparoscopic surgery (> 45 min) Malignancy Confined to bed (> 72 hours) Immobilizing plaster cast Central venous access Age >= 75 History of VTE Family history of VTE Factor V Leiden Prothrombin [id number] Lupus anticoagulant Anticardiolipin antibodies Elevated serum homocysteine Heparin-induced thrombocytopenia Other congenital or acquired thrombophilia Stroke (< 1 month) Elective arthroplasty Hip, pelvis, or leg fracture Acute spinal cord injury (< 1 month) Prophylaxis Regimen Total Risk Factor Score Risk Level Prophylaxis Regimen 0-1 Low Early ambulation 2 Moderate Order ONE of the following: *Sequential Compression Device (SCD) *Heparin 5000 units SQ BID 3-4 Higher Order ONE of the following medications: *Heparin 5000 units SQ TID *Enoxaparin/Lovenox 40 mg SQ daily (WT < 150 kg, CrCl > 30 mL/min) *Enoxaparin/Lovenox 30 mg SQ daily (WT < 150 kg, CrCl > 10-29 mL/min) *Enoxaparin/Lovenox 30 mg SQ BID (WT < 150 kg, CrCl > 30 mL/min) AND/OR *Sequential Compression Device (SCD) 5 or more Highest Order ONE of the following medications: *Heparin 5000 units SQ TID (Preferred with Epidurals) *Enoxaparin/Lovenox 40 mg SQ daily (WT < 150 kg, CrCl > 30 mL/min) *Enoxaparin/Lovenox 30 mg SQ daily (WT < 150 kg, CrCl > 10-29 mL/min) *Enoxaparin/Lovenox 30 mg SQ BID (WT < 150 kg, CrCl > 30 mL/min) AND *Sequential Compression Device (SCD) Assessment and Plan Assessment and Plan 81-year-old female with: A. fib with RVR Cardiomyopathy with LVEF 10-15% Cardiogenic shock Descending thoracic aortic aneurysm Acute respiratory failure on mechanical ventilation Left lower lobe lung mass suspicious for malignancy Metabolic acidosis Abdominal pain Left adnexal mass (2cm) on CT Hypothyroidism Plan: Neuro: Sedation with Versed and fentanyl while intubated, daily sedation vacation. Cardiovascular: Given Lasix 40 mg IV initially on arrival to ICU however subsequently in view of severe hypotension following intubation received a fluid bolus and was started on Levophed for pressor support. 2-D echo with global hypokinesis with LVEF 10-15%, RV appeared to have normal contractility. Ordered dobutamine gtt. Cycle cardiac enzymes. Patient received aspirin earlier. Started on full anticoagulation with heparin. Because of question of PE however hypotension appears to be secondary to severe LV dysfunction with normal-appearing RV making PE less likely. Also CT aortogram images reviewed and pulmonary trunk well visualized with no evidence of filling defect in pulmonary trunk. Lower extremity venous Dopplers ordered. Dr. Willis to decide further cardiac intervention. Initially started on amiodarone drip however this was held for hypotension subsequently. Will defer vascular surgery consultation regarding thoracic aortic aneurysm to Dr. Willis if he feels it is necessary following his evaluation. Pulmonary: Continue mechanical ventilation, vent bundle. Given Solu-Medrol 125 mg IV stat prior to intubation and will continue steroids no does not appear to have COPD as primary problem at this time. Pulmonary consult requested for left lower lobe lung mass suspicious for malignancy and discussed the case with Dr. Roberson at bedside. If patient stabilizes she will require a lung biopsy for further evaluation. GI/liver: Keep nothing by mouth. OG tube placed to low intermittent wall suction. Will eventually require further evaluation of left adnexal mass. Renal/: Initially given Lasix however in view of severe hypotension given fluid bolus. Strict intake output, monitor and replete electrolytes, follow BUN /creatinine. Starting bicarbonate drip after administering 2 A of bicarbonate for worsening metabolic acidosis. ID: Ordered blood cultures and sputum Gram stain and cultures as well as a UA. Doubt infection as etiology for critical status which appears to be cardiogenic. Heme: Follow CBC and coags. Started heparin for full anticoagulation for possible ACS versus PE in setting of severe cardiomyopathy of unclear etiology. Endocrine: SSI for glycemic control as needed. Check TSH. Will continue Synthroid if TSH within normal limits. Prophylaxis: PPI. Full anticoagulation with heparin gtt. SCDs if lower extremity venous Dopplers negative for DVT. Case discussed with [facility], Dr. willis, Dr. Zamora, patient's at bedside on multiple occasions I have discussed current clinical status with patient's including the fact that patient is extremely critical and he voiced understanding and was agreeable with plan of care. Time spent on critical care 150 minutes including discussion with multiple physicians, ICU staff, patient's (excluding procedures) Mejia Marroquin MD Mar 10, 2017 20:09
[2017-03-10] MEDS: SODIUM BICARBONATE 8.4% INJ 150 MEQ in WATER STERILE FOR INJ 850 ML IV SCH (20:52)
[2017-03-10] MEDS: DOCUSATE SODIUM 50 MG/SENNA 8.6 MG TAB PO SCH (21:00)
[2017-03-10] MEDS: RESP: ALBUTEROL 2.5 MG/IPRATROPIUM 0.5 MG NEB (SCH) NEB (21:11)
[2017-03-10] MEDS: methylPREDNISolone SOD SUCC 125 MG/2 ML VIAL IV PUSH SCH (21:29)
[2017-03-10] MEDS: DOBUTamine INJ 500 MG in DEXTROSE 5% IN WATER INJ 210 ML IV SCH ×2 (21:29)
[2017-03-10] MEDS: SODIUM CHLORIDE 0.9% FLUSH 10 ML FLUSH IV FLUSH SCH (21:30)
[2017-03-10 21:45] LABS: AUTOMATED NEUTROPHIL # 18.1 TH/MM3 (1.8-7.7); BASOPHIL # 0.1 TH/MM3 (0-0.2); BASOPHIL % 0.4 % (0.0-2.0); EOSINOPHIL % 0.1 % (0.0-4.0); HEMATOCRIT 31.9 % (35.0-46.0); HEMO FLAGS DIFF FINAL; LYMPH % 3.9 % (9.0-44.0); LYMPHOCYTE # 0.8 TH/MM3 (1.0-4.8); MEAN CELL VOLUME 83.6 FL (80.0-100.0); MEAN CORPUSCULAR HEMOGLOBIN 27.4 PG (27.0-34.0); MEAN CORPUSCULAR HGB CONC 32.8 % (32.0-36.0); NEUT % 90.6 % (16.0-70.0); PLATELET COUNT 308 TH/MM3 (150-450); RED BLOOD COUNT 3.82 MIL/MM3 (4.00-5.30); RED CELL DISTRIBUTION WIDTH 15.3 % (11.6-17.2)
[2017-03-10] MEDS: NOREPINEPHRINE-DEXTROSE DRIP 250 ML IV PRN (22:17)
[2017-03-10] MEDS: HEPARIN 25,000 UNITS-D5W 250 ML - PREMIX IV SCH (22:18)
[2017-03-10] MEDS: INSULIN ASPART SUPPLEMENTAL SCALE SQ SCH (22:56)
[2017-03-10] MEDS: PANTOPRAZOLE SODIUM 40 MG VIAL IV PUSH SCH (22:57)
[2017-03-11] VITALS (17 sets, daily range): BP systolic 102–146; BP diastolic 58–83; PULSE 87–106; RESP 14–18; TEMP 97.9–98.7; O2SAT 94–99
[2017-03-11] MEDS ORDERED: ALBUMIN HUMAN 25% 25 GM/100 ML BAGP IV ONE ×2 (01:21→02:30)
[2017-03-11] MEDS ORDERED: SODIUM CHLOR 0.9% 1000 ML INJ 1,000 ML IV SCH (01:45)
[2017-03-11] MEDS: NOREPINEPHRINE-DEXTROSE DRIP 250 ML IV PRN ×3 (02:44→18:44)
[2017-03-11] MEDS: PROPOFOL 1000 MG/100 ML IV PRN ×3 (02:45→22:44)
[2017-03-11] MEDS: CHLORHEXIDINE GLUCONATE 2 % 1 PACK (2 CLOTHS) TOP SCH (02:56)
[2017-03-11] MEDS: RESP: ALBUTEROL 2.5 MG/IPRATROPIUM 0.5 MG NEB (SCH) NEB ×4 (03:34→21:27)
[2017-03-11] MEDS: CARVEDILOL 12.5 MG TAB PO SCH ×2 (05:00→17:21)
[2017-03-11 05:16] LABS: BLOOD GAS BASE EXCESS -1.7 mmol/L (-2-2); BLOOD GAS CARBOXYHEMOGLOBIN 1.2 % (0-4); BLOOD GAS HCO3 22 mmol/L (22-26); BLOOD GAS METHEMOGLOBIN 1.2 % (0-2); BLOOD GAS O2 HGB SATURATION 93 % (90-100); BLOOD GAS OXYGEN CONTENT 13.7 Vol % (12.0-20.0); BLOOD GAS PCO2 30 mmHg (38-42); BLOOD GAS PO2 76 mmHg (61-120); BLOOD GAS TOTAL HGB 10.5 G/DL (12.0-16.0); CRITICAL VALUE NO; DRAW SITE ART LINE; FIO2 40 %; OXYGEN DEVICE VENTILATOR; STAT NO; TEMP CORR TO 98.6; VENT SETTINGS AC18/500/5PEEP
[2017-03-11 05:34] LABS: APTT (PATIENT) 55.3 SEC (24.3-30.1)
[2017-03-11 05:51] LABS: AUTOMATED NEUTROPHIL # 16.5 TH/MM3 (1.8-7.7); BASOPHIL # 0.1 TH/MM3 (0-0.2); BASOPHIL % 0.3 % (0.0-2.0); HEMATOCRIT 30.9 % (35.0-46.0); HEMO FLAGS DIFF FINAL; LYMPH % 6.1 % (9.0-44.0); LYMPHOCYTE # 1.1 TH/MM3 (1.0-4.8); MEAN CELL VOLUME 82.9 FL (80.0-100.0); MEAN CORPUSCULAR HEMOGLOBIN 27.9 PG (27.0-34.0); MEAN CORPUSCULAR HGB CONC 33.7 % (32.0-36.0); MONO % 3.9 % (0.0-8.0); NEUT % 89.7 % (16.0-70.0); PLATELET COUNT 242 TH/MM3 (150-450); RED BLOOD COUNT 3.73 MIL/MM3 (4.00-5.30); RED CELL DISTRIBUTION WIDTH 15.1 % (11.6-17.2); WHITE BLOOD COUNT 18.4 TH/MM3 (4.0-11.0)
[2017-03-11] MEDS: INSULIN ASPART SUPPLEMENTAL SCALE SQ SCH ×3 (06:00→18:00)
--- NOTE | 2017-03-11 06:02 | RADRPT ---
EXAM DATE/TIME: 03/11/2017 05:20 [place] COMPARISON: CHEST SINGLE AP, March 10, 2017, 18:08. INDICATIONS : Shortness of breath. MEDICAL HISTORY : None. SURGICAL HISTORY : None. ENCOUNTER: Subsequent ACUITY: 2 days PAIN SCORE: Non-responsive. LOCATION: Bilateral chest FINDINGS: There is left base infiltrate, slightly worse in the interim. Probably a small left pleural effusion. No pneumothorax. Heart size stable, upper limits of normal. Endotracheal tube tip is about 5 cm above the vikki. Nasogastric tube has its tip in the stomach. Th ere is a right internal jugular central venous catheter with tip at the intracaval junction. CONCLUSION: Worsening consolidation and small effusion at the left lung base. Lines and tubes unchanged, as above . Fermin Lux MD on March 11, 2017 at 5:59 Board Certified Radiologist. This report was verified electronically.
[2017-03-11 06:15] LABS: ALKALINE PHOSPHATASE 74 U/L (45-117); ALT (GPT) 1473 U/L (10-53); ANION GAP 10 MEQ/L (5-15); AST (GOT) 2048 U/L (15-37); BICARBONATE 23.9 MEQ/L (21.0-32.0); BLOOD UREA NITROGEN 19 MG/DL (7-18); CHLORIDE 97 MEQ/L (98-107); GLOMERULAR FILTRATION RATE 40 ML/MIN (>89); MAGNESIUM 1.8 MG/DL (1.5-2.5); SODIUM (NA) 131 MEQ/L (136-145)
[2017-03-11 06:17] LABS: CREATINE KINASE 35 U/L (26-192)
[2017-03-11] MEDS: SODIUM BICARBONATE 8.4% INJ 150 MEQ in WATER STERILE FOR INJ 850 ML IV SCH (06:38)
[2017-03-11] MEDS ORDERED: MAGNESIUM SULFATE INJ 4 GM in SODIUM CHLORIDE 0.9% INJ 92 ML IV PRN (07:00)
[2017-03-11] MEDS ORDERED: POTASSIUM PHOSPHATE INJ 30 MMOL in SODIUM CHLOR 0.9% 250 ML INJ 250 ML IV PRN (07:00)
[2017-03-11] MEDS ORDERED: POTASSIUM PHOSPHATE MONOBASIC 500 MG TAB PO PRN (07:00)
[2017-03-11] MEDS ORDERED: POTASSIUM CHLOR 20 MEQ PREMIX 100 ML IV PRN (07:00)
[2017-03-11] MEDS ORDERED: FUROSEMIDE 20 MG/2 ML VIAL IV PUSH SCH (07:00)
[2017-03-11] MEDS ORDERED: POTASSIUM CHLOR 40 MEQ PREMIX 100 ML IV PRN (07:00)
[2017-03-11] MEDS ORDERED: GLUCAGON 1 MG/ML VIAL IM/SQ PRN (07:00)
[2017-03-11] MEDS ORDERED: MAGNESIUM OXIDE 400 MG TAB PO PRN (07:00)
[2017-03-11] MEDS ORDERED: POTASSIUM PHOSPHATE MONOBASIC 500 MG TAB PO/TUBE PRN (07:00)
[2017-03-11] MEDS ORDERED: MAGNESIUM SULFATE INJ 2 GM in SODIUM CHLORIDE 0.9% INJ 96 ML IV PRN (07:00)
[2017-03-11] MEDS ORDERED: SODIUM PHOSPHATE INJ 30 MMOL in SODIUM CHLOR 0.9% 250 ML INJ 240 ML IV PRN (07:00)
[2017-03-11] MEDS ORDERED: DEXTROSE 50% IN WATER 50 ML VIAL(D50) IV PRN (07:00)
--- NOTE | 2017-03-11 07:55 | PD.CONS ---
HPI Service CV Consult Requested By Reason for Consult chest pain, a-fib RVR Primary Care Physician Ronnell Moyer MD History of Present Illness Here after seeing PCP for 2 months of upper abdominal pain. There her heart rate was high and she was sent to the ER. She was then found in A-fib RVR rate 160 and SpO2 80%. She was give IV metoprolol and her heart rate became better controlled although she continued to deteriorate. She was then intubated and mechanically ventilated. Echo was done revealing systolic heart function severely decreased with EF 10% to 15%. She also had t-wave inversion on ECG and prior to being intubated was complaining of chest pain. CTA Aorta has shown lung mass suspicious for malignancy and thoracic aortic aneurysm 4 cm X 3.7 cm . (Diogenes Burrows) Review of Systems ROS Limitations: Intubated (Diogenes Burrows) Past Family Social History Allergies: Coded Allergies: No Known Allergies (Verified , 03/10/17) Past Medical History GERD Thyroid disease Past Surgical History Appendectomy hysterectomy left hip arthroplasty other surgery - tailbone Reported Medications Reported Meds & Active Scripts Active Reported Synthroid (Levothyroxine Sodium) 100 Mcg Tab 100 Mcg PO DAILY Lovastatin 40 Mg Tab 40 Mg PO DAILY Active Ordered Medications Current Medications Medications (Trade) Dose Ordered Sig/Chris Route Start Time Stop Time Status Last Admin Amiodarone HCl 450 mg/Dextrose 250 ml @ 33.33 mls/ hr Q7H31M IV 03/10/17 15:22 Future Hold 03/10/17 16:06 (Zofran Inj) 4 mg Q6HR PRN IV PUSH 03/10/17 15:30 03/10/17 15:38 (SoluMEDROL INJ) 60 mg Q12HR IV PUSH 03/10/17 21:00 03/10/17 21:29 (Nitrostat Sl) 0.4 mg Q5M PRN SL 03/10/17 15:45 (NS Flush) 2 ml UNSCH PRN IV FLUSH 03/10/17 16:00 (NS Flush) 2 ml BID IV FLUSH 03/10/17 21:00 03/10/17 21:30 (Tylenol) 650 mg Q6H PRN PO 03/10/17 16:00 (Morphine Inj) 2 mg Q4H PRN IV PUSH 03/10/17 16:00 (Protonix Inj) 40 mg DAILY IV PUSH 03/10/17 16:00 03/10/17 22:57 (Reglan Inj) 10 mg Q6H PRN IV PUSH 03/10/17 16:00 (Atrovent Neb) 0.5 mg Q6HR NEB INH 03/10/17 16:00 (Atrovent Neb) 0.5 mg Q2HR NEB PRN INH 03/10/17 16:00 Miscellaneous Information 1 Q361D XX 03/10/17 16:00 (Chlorhexidine 2% Cloth) 3 pack Taper DAILY@04 TOP 03/11/17 04:00 03/07/18 03:59 (Chlorhexidine 2% Cloth) 3 pack UNSCH PRN TOP 03/10/17 16:00 (Libia-Colace) 1 tab BID PO 03/10/17 21:00 (Milk Of Magnesia Liq) 30 ml Q12H PRN PO 03/10/17 16:00 (Senokot) 17.2 mg Q12H PRN PO 03/10/17 16:00 (Dulcolax Supp) 10 mg DAILY PRN RECTAL 03/10/17 16:00 (Lactulose Liq) 30 ml DAILY PRN PO 03/10/17 16:00 (Coreg) 12.5 mg Q12H PO 03/10/17 17:00 Heparin Sodium/ Dextrose 250 ml @ 12 mls/hr TITRATE IV 03/10/17 17:00 03/10/17 22:18 Norepinephrine Bitartrate 250 ml @ 7.5 mls/hr TITRATE PRN IV 03/10/17 17:00 03/11/17 02:44 (Brethine Inj) 1 mg UNSCH PRN SQ 03/10/17 17:00 Midazolam HCl 100 ml @ 2 mls/hr TITRATE PRN IV 03/10/17 17:00 Fentanyl Citrate 250 ml @ 5 mls/hr TITRATE PRN IV 03/10/17 17:00 03/11/17 04:18 (Duoneb Neb) 1 ampule Q6HR NEB NEB 03/10/17 22:00 03/11/17 03:34 Sodium Bicarbonate 150 meq/Sterile Water 1,000 ml @ 50 mls/hr Q20H IV 03/10/17 19:30 03/11/17 06:38 Dobutamine HCl 500 mg/Dextrose 250 ml @ 4.86 mls/hr CONTINUOUS IV 03/10/17 19:30 03/10/17 21:29 Propofol 100 ml @ 1.944 mls/ hr TITRATE PRN IV 03/11/17 02:00 03/11/17 02:45 (NovoLOG SUPPLEMENTAL SCALE) 1 Q6HR SQ 03/11/17 12:00 (D50w (Vial) Inj) 25 ml UNSCH PRN IV 03/11/17 07:00 (Glucagon Inj) 1 mg UNSCH PRN IM/SQ 03/11/17 07:00 Potassium Chloride 100 ml @ 50 mls/hr Q2H PRN IV 03/11/17 07:00 Potassium Chloride 100 ml @ 50 mls/hr Q2H PRN IV 03/11/17 07:00 Potassium Chloride 100 ml @ 25 mls/hr UNSCH PRN IV 03/11/17 07:00 Potassium Chloride 100 ml @ 50 mls/hr Q2H PRN IV 03/11/17 07:00 Magnesium Sulfate 4 gm/Sodium Chloride 100 ml @ 50 mls/hr UNSCH PRN IV 03/11/17 07:00 (Mag-Ox) 800 mg UNSCH PRN PO 03/11/17 07:00 Magnesium Sulfate 2 gm/Sodium Chloride 100 ml @ 50 mls/hr UNSCH PRN IV 03/11/17 07:00 (K-Phos) 2,000 mg Q4H PRN PO 03/11/17 07:00 Sodium Phosphate 30 mmol/Sodium Chloride 250 ml @ 42 mls/hr UNSCH PRN IV 03/11/17 07:00 (K-Phos) 2,000 mg UNSCH PRN PO/TUBE 03/11/17 07:00 Potassium Phosphate 30 mmol/ Sodium Chloride 260 ml @ 42 mls/hr UNSCH PRN IV 03/11/17 07:00 (Lasix Inj) 20 mg Q8HR IV PUSH 03/11/17 07:00 (Diogenes Burrows) Physical Exam Vital Signs Vital Signs Date Time Temp Pulse Resp B/P (MAP) Pulse Ox O2 Delivery O2 Flow Rate FiO2 03/11/17 04:00 40 03/11/17 04:00 95 03/11/17 04:00 95 40 03/11/17 04:00 98.7 95 18 141/78 (99) 95 133/80 (97) 03/11/17 03:35 96 40 03/11/17 02:44 82 130/76 03/11/17 00:45 98 50 03/11/17 00:00 50 03/11/17 00:00 98.1 93 18 128/75 (92) 99 03/11/17 00:00 99 50 03/11/17 00:00 93 03/10/17 22:17 104 126/75 03/10/17 21:50 95 60 03/10/17 21:00 60 03/10/17 21:00 97 60 03/10/17 20:00 98.7 80 20 96/57 (70) 92 03/10/17 20:00 80 03/10/17 20:00 92 Mechanical Ventilator 100 03/10/17 20:00 100 03/10/17 16:38 97 100 03/10/17 16:06 110 108/70 03/10/17 16:00 97.7 88 28 114/57 (76) 96 03/10/17 15:38 147 123/91 03/10/17 14:46 97.6 148 26 125/92 (103) 96 03/10/17 14:27 03/10/17 14:11 122 22 110/82 (91) 92 Nasal Cannula 3.00 03/10/17 13:55 146 20 104/71 (82) 84 Nasal Cannula 2.00 03/10/17 13:40 146 20 104/80 (88) 78 Nasal Cannula 2.00 03/10/17 13:25 146 20 108/76 (87) 83 Nasal Cannula 2.00 03/10/17 13:10 134 20 105/76 (86) Nasal Cannula 2.00 03/10/17 12:55 122 20 98/64 (75) 87 Room Air 03/10/17 12:40 132 21 83/72 (76) 93 Room Air 03/10/17 12:25 130 18 110/69 (83) 89 Room Air 03/10/17 12:10 124 18 93/55 (68) 90 Room Air 03/10/17 11:54 115 17 93/62 (72) 95 Room Air 03/10/17 11:24 105 20 98/65 (76) 03/10/17 09:48 95 Room Air 03/10/17 09:46 92 18 96 Room Air 03/10/17 09:45 96 Room Air 03/10/17 09:31 114 18 81/62 (68) 98 90/71 (77) 03/10/17 09:20 142 18 85/63 (70) 96 Room Air 101/73 (82) 03/10/17 09:05 97.3 140 16 102/77 (85) 99 Physical Exam GENERAL: Well-nourished, well-developed patient in no apparent distress. NECK: No JVD. No carotid bruit. CARDIOVASCULAR: Regularly irregular. S1/S2 no murmur, rub, or gallop. RESPIRATORY: No accessory muscle use. Clear to auscultation. Breath sounds equal bilaterally. GASTROINTESTINAL: Abdomen soft, non-tender, nondistended. MUSCULOSKELETAL: Extremities without clubbing, cyanosis, or edema. Laboratory Laboratory Tests Test 03/10/17 10:04 03/10/17 14:56 03/10/17 16:10 03/10/17 16:30 White Blood Count 12.9 Red Blood Count 4.15 Hemoglobin 11.2 Hematocrit 33.9 Mean Corpuscular Volume 81.6 Mean Corpuscular Hemoglobin 26.9 Mean Corpuscular Hemoglobin Concent 33.0 Red Cell Distribution Width 14.4 Platelet Count 336 Mean Platelet Volume 9.7 Neutrophils (%) (Auto) 79.8 Lymphocytes (%) (Auto) 9.2 Monocytes (%) (Auto) 7.5 Eosinophils (%) (Auto) 2.7 Basophils (%) (Auto) 0.8 Neutrophils # (Auto) 10.3 Lymphocytes # (Auto) 1.2 Monocytes # (Auto) 1.0 Eosinophils # (Auto) 0.3 Basophils # (Auto) 0.1 CBC Comment DIFF FINAL Differential Comment Prothrombin Time 11.4 Prothromb Time International Ratio 1.0 Activated Partial Thromboplast Time 21.9 Blood Urea Nitrogen 14 Creatinine 1.00 Random Glucose 135 Total Protein 7.8 Albumin 3.2 Calcium Level 8.5 Alkaline Phosphatase 84 Aspartate Amino Transf (AST/SGOT) 12 Alanine Aminotransferase (ALT/SGPT) 15 Total Bilirubin 0.6 Sodium Level 131 Potassium Level 4.1 Chloride Level 95 Carbon Dioxide Level 24.9 Anion Gap 11 Estimat Glomerular Filtration Rate 53 Total Creatine Kinase 31 Troponin I LESS THAN 0.02 B-Type Natriuretic Peptide 604 Lipase 82 Blood Gas Puncture Site RT RADIAL Blood Gas Patient Temperature 98.6 Blood Gas HCO3 17 Blood Gas Base Excess -8.2 Blood Gas Oxygen Saturation 95 Arterial Blood pH 7.32 Arterial Blood Partial Pressure CO2 34 Arterial Blood Partial Pressure O2 111 Arterial Blood Oxygen Content 15.3 Arterial Blood Carboxyhemoglobin 1.1 Arterial Blood Methemoglobin 1.0 Blood Gas Hemoglobin 11.4 Oxygen Delivery Device Non-Rebreathing Mask Blood Gas Liter Flow 15 Blood Gas Inspired Oxygen 100 Urine Color YELLOW Urine Turbidity CLEAR Urine pH 5.5 Urine Specific [place] GREATER THAN 1.050 Urine Protein 30 Urine Glucose (UA) 70 Urine Ketones TRACE Urine Occult Blood NEG Urine Nitrite NEG Urine Bilirubin NEG Urine Urobilinogen LESS THAN 2.0 Urine Leukocyte Esterase NEG Urine RBC 1 Urine WBC 1 Urine Squamous Epithelial Cells 1 Urine Mucus FEW Microscopic Urinalysis Comment CATH-CULT NOT IND Nasal Screen MRSA (PCR) MRSA NOT DETECTED Test 03/10/17 18:00 03/10/17 18:25 03/10/17 21:15 03/11/17 04:45 Prothrombin Time 14.0 Prothromb Time International Ratio 1.3 Activated Partial Thromboplast Time 54.9 55.3 D-Dimer Quantitative (PE/DVT) 2.35 Blood Urea Nitrogen 15 19 Creatinine 1.19 1.29 Random Glucose 280 248 Total Protein 6.9 6.6 Albumin 2.8 3.2 Calcium Level 7.6 7.6 Phosphorus Level 6.1 4.2 Magnesium Level 2.0 1.8 Alkaline Phosphatase 83 74 Aspartate Amino Transf (AST/SGOT) 67 2048 Alanine Aminotransferase (ALT/SGPT) 56 1473 Total Bilirubin 0.8 1.0 Sodium Level 130 131 Potassium Level 5.0 4.0 Chloride Level 100 97 Carbon Dioxide Level 17.7 23.9 Anion Gap 12 10 Estimat Glomerular Filtration Rate 44 40 Total Creatine Kinase 35 39 35 Troponin I 0.05 0.07 0.07 Blood Gas Puncture Site ART LINE Blood Gas Patient Temperature 98.6 Blood Gas HCO3 14 Blood Gas Base Excess -11.6 Blood Gas Oxygen Saturation 97 Arterial Blood pH 7.24 Arterial Blood Partial Pressure CO2 35 Arterial Blood Partial Pressure O2 221 Arterial Blood Oxygen Content 15.3 Arterial Blood Carboxyhemoglobin 0.8 Arterial Blood Methemoglobin 1.1 Blood Gas Hemoglobin 10.8 Oxygen Delivery Device VENTILATOR Blood Gas Ventilator Setting 500/20/PEEP 5 Blood Gas Inspired Oxygen 100 White Blood Count 20.0 18.4 Red Blood Count 3.82 3.73 Hemoglobin 10.5 10.4 Hematocrit 31.9 30.9 Mean Corpuscular Volume 83.6 82.9 Mean Corpuscular Hemoglobin 27.4 27.9 Mean Corpuscular Hemoglobin Concent 32.8 33.7 Red Cell Distribution Width 15.3 15.1 Platelet Count 308 242 Mean Platelet Volume 8.9 9.8 Neutrophils (%) (Auto) 90.6 89.7 Lymphocytes (%) (Auto) 3.9 6.1 Monocytes (%) (Auto) 5.0 3.9 Eosinophils (%) (Auto) 0.1 0.0 Basophils (%) (Auto) 0.4 0.3 Neutrophils # (Auto) 18.1 16.5 Lymphocytes # (Auto) 0.8 1.1 Monocytes # (Auto) 1.0 0.7 Eosinophils # (Auto) 0.0 0.0 Basophils # (Auto) 0.1 0.1 CBC Comment DIFF FINAL DIFF FINAL Differential Comment Lactic Acid Level 3.7 Thyroid Stimulating Hormone 3rd Gen 0.095 Test 03/11/17 05:05 Blood Gas Puncture Site ART LINE Blood Gas Patient Temperature 98.6 Blood Gas HCO3 22 Blood Gas Base Excess -1.7 Blood Gas Oxygen Saturation 93 Arterial Blood pH 7.47 Arterial Blood Partial Pressure CO2 30 Arterial Blood Partial Pressure O2 76 Arterial Blood Oxygen Content 13.7 Arterial Blood Carboxyhemoglobin 1.2 Arterial Blood Methemoglobin 1.2 Blood Gas Hemoglobin 10.5 Oxygen Delivery Device VENTILATOR Blood Gas Ventilator Setting AC18/500/5PEEP Blood Gas Inspired Oxygen 40 Date/Time Source Procedure Growth Status 03/10/17 19:28 Blood Peripheral Aerobic Blood Culture Pending Received 03/10/17 19:28 Blood Peripheral Anaerobic Blood Culture Pending Received 03/10/17 16:33 Sputum Endotracheal Gram Stain Pending Received 03/10/17 16:33 Sputum Endotracheal Sputum Culture Pending Received (Diogenes Burrows) Result Diagram: 03/11/1744403/11/17444 Assessment and Plan Problem List: (1) Cardiomyopathy ICD Codes: I42.9 - Cardiomyopathy, unspecified (2) Chest pain ICD Codes: R07.9 - Chest pain, unspecified (3) Afib ICD Codes: I48.91 - Unspecified atrial fibrillation (4) Descending thoracic aortic aneurysm ICD Codes: I71.2 - Thoracic aortic aneurysm, without rupture Status: Acute Assessment and Plan A-fib - rate controlled hemodynamic instability - on Levophed 10 mcg/kg/min and dobutamine 3 mcg/kg min , will attempt to incrementally increase dobutamine, watching for arrhythmia, while decreasing Levophed. Chest pain - once of pressors and off the vent will plan coronary angiogram, Cardiomyopathy - likely nonischemic, continue supportive care. (Diogenes Burrows) Assessment and Plan cardiogenic shock acute systolic congestive heart failure cardiomyopathy, new onset, unknown etiology acute respiratory distress Ejection fraction < 20%. Global. Appearance not consistent with Takotsubo cardiomyopathy. acute onset. weight loss for last few months suspect nonischemic etiology. Troponin negative. EKG with nonspecific T wave inversion. Viral vs myocarditis vs ischemic (less likely) vs rate related (less likely). plan : wean levophed. cont dobutamine. continue supportive measures May consider left and right heart cath +/- IABP +/- Impella pending clinical recovery in next 24 hours (Ward Church MD) Diogenes Burrows Mar 11, 2017 07:55 Ward Church MD Mar 11, 2017 11:05
[2017-03-11] MEDS: PANTOPRAZOLE SODIUM 40 MG VIAL IV PUSH SCH (08:06)
[2017-03-11] MEDS: DOCUSATE SODIUM 50 MG/SENNA 8.6 MG TAB PO SCH ×2 (08:07→21:07)
[2017-03-11] MEDS: methylPREDNISolone SOD SUCC 125 MG/2 ML VIAL IV PUSH SCH ×2 (08:07→21:06)
[2017-03-11] MEDS: SODIUM CHLORIDE 0.9% FLUSH 10 ML FLUSH IV FLUSH SCH ×2 (08:07→21:00)
--- NOTE | 2017-03-11 10:28 | EKG ---
Date Performed: 03/10/2017 Time Performed: 15:42:22 PTAGE: 81 years EKG: Atrial fibrillation. Inferior/lateral ST-T changes may be due to myocardial ischemia Genera lized low QRS voltages Abnormal ECG PREVIOUS TRACING : 03/10/2017 09.19 DOCTOR: Ward Church Interpretating Date/Time 03/11/2017 10:27:55
--- NOTE | 2017-03-11 10:35 | HHI.CCPN ---
Subjective Remarks/Hospital Course 03/10: 81-year-old female who was evaluated by her PCP Dr. Moyer who she saw for upper abdominal pain which has been going on for about 2 months today. PCP noted high heart rate and sent patient to the ER. Patient was evaluated in the ER at [place]. At that time she denied any chest pain shortness of breath nausea vomiting diarrhea fever or cough per documentation by ER physician. She was noted to be in A. fib with RVR. She was given Cardizem 5 mg IV and subsequently was transferred to [facility] CVICU. I was contacted by nursing staff following patient's arrival that her heart rate was in the 160s and she was on a nonrebreather facemask with O2 sats in the 80s. I had not been notified regarding this patient from either [facility] or by any other accepting physician so I immediately went to patient's bedside to evaluate her. I contacted Dr. Casas from [facility] as patient had been reportedly accepted by [facility] however he was not aware of any details. Patient was in obvious respiratory distress at the time of my evaluation. Patient underwent CTA aortogram at [facility] and was found to have a left lower lobe spiculated lung mass with central necrosis suspicious for malignancy as well as a descending thoracic aortic aneurysm less than 4 cm in diameter with no dissection. Dr. Casas requested critical care consult. Patient was given Lopressor 5 mg IV with which her ventricular rate came down in the 90s. She did have borderline blood pressures with systolic SBP 90s. She continued to have worsening shortness of breath and appeared cold and clammy. She denied any chest pain however was complaining of epigastric pain. Per patient's she has lost 24 pounds in 3 months and has had a cough for 4 months. She has had abdominal pain for a year and has previously had an EGD which revealed a gastric ulcer 7 years ago. Patient was loaded with amiodarone and started on amiodarone drip. She is also given aspirin 324 mg stat as her EKG revealed T inversions in the lateral leads concerning for ischemia. Stat 2-D echo was ordered and patient was noted to have a LVEF 10-15% with global hypokinesis. Patient continued to be in significant respiratory distress using accessory muscles of respiration and became very diaphoretic and appeared to be worsening clinically hence was emergently intubated and placed on mechanical ventilation. She was initiated on full anticoagulation with heparin. I emergently placed a right IJ central venous catheter and right axillary a line. Dr. Church from cardiology was consulted and I personally discussed the case, EKG and echo findings with Dr. Church who will be evaluating patient. Prior to intubation, patient denied any prior cardiac history or previous history of CAD, arrhythmias or AR. She denied any history of COPD though she has been a long-standing smoker(60 pack years) and quit 3 years ago. 03/11: Remains sedated, orally intubated on mechanical ventilation. Was started on Levophed and dobutamine yesterday for cardiogenic shock as well as bicarbonate drip. Systolic blood pressure running in the 110-120 range, Levophed being titrated down, dobutamine at 2.5 mics per KG per minute - increased to 3 mics per KG per minute. Making urine about 30 cc per hour. Accu -Cheks running in the 200s. On 40% FiO2 PEEP +5. Objective Vital Signs Date Time Temp Pulse Resp B/P (MAP) Pulse Ox O2 Delivery O2 Flow Rate FiO2 03/11/17 09:17 100 124/73 03/11/17 08:00 40 03/11/17 07:43 95 03/11/17 07:00 Mechanical Ventilator 03/11/17 07:00 97.9 14 03/10/17 14:11 3.00 Intake and Output 03/11/17 03/11/17 03/12/17 08:00 16:00 00:00 Intake Total 1382 ml Output Total 305 ml Balance 1077 ml Result Diagram: 03/11/17 0445 03/11/17 0445 Other Results Laboratory Tests Test 03/10/17 14:56 03/10/17 18:25 03/11/17 05:05 Blood Gas Puncture Site RT RADIAL ART LINE ART LINE Blood Gas Patient Temperature 98.6 98.6 98.6 Blood Gas HCO3 17 mmol/L (22-26) 14 mmol/L (22-26) 22 mmol/L (22-26) Blood Gas Base Excess -8.2 mmol/L (-2-2) -11.6 mmol/L (-2-2) -1.7 mmol/L (-2-2) Blood Gas Oxygen Saturation 95 % (90-100) 97 % (90-100) 93 % (90-100) Arterial Blood pH 7.32 (7.380-7.420) 7.24 (7.380-7.420) 7.47 (7.380-7.420) Arterial Blood Partial Pressure CO2 34 mmHg (38-42) 35 mmHg (38-42) 30 mmHg (38-42) Arterial Blood Partial Pressure O2 111 mmHg (61-120) 221 mmHg (61-120) 76 mmHg (61-120) Arterial Blood Oxygen Content 15.3 Vol % (12.0-20.0) 15.3 Vol % (12.0-20.0) 13.7 Vol % (12.0-20.0) Arterial Blood Carboxyhemoglobin 1.1 % (0-4) 0.8 % (0-4) 1.2 % (0-4) Arterial Blood Methemoglobin 1.0 % (0-2) 1.1 % (0-2) 1.2 % (0-2) Blood Gas Hemoglobin 11.4 G/DL (12.0-16.0) 10.8 G/DL (12.0-16.0) 10.5 G/DL (12.0-16.0) Oxygen Delivery Device Non-Rebreathing Mask VENTILATOR VENTILATOR Blood Gas Liter Flow 15 L/M Blood Gas Inspired Oxygen 100 % 100 % 40 % Blood Gas Ventilator Setting 500/20/PEEP 5 AC18/500/5PEEP Imaging Last Impressions Aorta CTA 03/10/17 0929 Signed Impressions: Service Date/Time: Friday, March 10, 2017 10:47 - CONCLUSION: 1. 2.2 x 1.9 cm spiculated left lower lobe posterior lung mass with apparently centrally necrotic anterior tracheal mediastinal lymph node measuring 2.8 x 2.7 cm. Subcentimeter mediastinal and confluent partially calcified right hilar lymph nodes are more nonspecific may be due to prior granulomatous disease. 2. 2.7 x 2.0 cm left adnexal mass likely corresponding to the ovary. This is abnormal given patients advanced age. Further evaluation may be performed with ultrasound of the pelvis. 3. Otherwise, no evidence for distant metastatic disease. 4. Focal 4 cm length distal descending thoracic aortic aneurysm measuring up to 3.7 cm in axial dimension. 5. No aortic dissection. 6. Additional ancillary findings, as above. Woo Covarrubias MD Chest X-Ray 03/10/17 0913 Signed Impressions: Service Date/Time: Friday, March 10, 2017 09:37 - CONCLUSION: 1. Mild diffuse interstitial prominence, likely chronic. 2. Otherwise, no acute cardiopulmonary disease. Woo Covarrubias MD Objective Remarks HEENT/ Neuro: Sedated, orally intubated, Pallor present, no icterus, tongue/ mucosa moist Neck: No JVD Chest/Pulm: on mech vent, good air entry bilaterally, no wheezing or crackles. Scattered rhonchi CVS: S1-S2 irregularly irregular, no murmur GI/abdomen: soft, nontender, bowel sounds sluggish Extremities: warm bilaterally, no edema Skin: warm and dry Urinary Catheter: Yes Assessment to: Continue Chen insert reason: ICU Pt Getting Diuretics Vascular Central Line Catheter: Yes Assessment to: Continue Line: Central Venous Catheter Side: Right Location: Jugular A/P Assessment and Plan 81-year-old female with: A. fib with RVR Cardiomyopathy with LVEF 10-15% Cardiogenic shock Descending thoracic aortic aneurysm Acute respiratory failure on mechanical ventilation Left lower lobe lung mass suspicious for malignancy Suspected COPD Metabolic acidosis Hyperglycemia Abdominal pain Elevated LFTs - suspect shock liver/congestion Left adnexal mass (2cm) on CT Hypothyroidism Plan: Neuro: Sedation with Versed and fentanyl while intubated, daily sedation vacation. Titrate off propofol. Cardiovascular: 2-D echo with global hypokinesis with LVEF 10-15%, RV appeared to have normal contractility. On Levophed and dobutamine drips. Attempt to titrate off Levophed provided MAP greater than 65. Continue full anticoagulation with heparin. CT aortogram images reviewed and pulmonary trunk well visualized with no evidence of filling defect in pulmonary trunk. Lower extremity venous Dopplers negative for DVT. Initially started on amiodarone drip however this was held for hypotension subsequently. Cardiac enzymes negative, suspect nonischemic cardiomyopathy possibly viral. Discussed with Dr. Church - will decide if patient needs cath/ Impella if unable to wean off pressors or wean off vent. CVP 10 Pulmonary: Continue mechanical ventilation, vent bundle. Given Solu-Medrol 125 mg IV stat prior to intubation and will continue steroids. Does not appear to have COPD as primary problem at this time. Pulmonary consult requested for left lower lobe lung mass suspicious for malignancy and discussed the case with Dr. Zamora. If patient stabilizes she will require a lung biopsy for further evaluation. GI/liver: Keep nothing by mouth. OG tube placed to low intermittent wall suction. Will eventually require further evaluation of left adnexal mass. We' ll start trophic feeds later today if Levophed requirement coming down and no intervention planned by cardiology. Follow LFTs. Renal/: Initially given Lasix however in view of severe hypotension given fluid bolus. Strict intake output, monitor and replete electrolytes, follow BUN /creatinine. Decrease bicarbonate drip to 50 cc per hour Lasix 20 mg IV every 8 hourly to attempt even fluid balance . ID: Ordered blood cultures and sputum Gram stain and cultures as well as a UA. Suspect viral etiology for cardiomyopathy. Hemeonc: Follow CBC and coags. Started heparin for full anticoagulation for A. fib in setting of severe cardiomyopathy of unclear etiology. Will need lung biopsy eventually for left lower lobe lung mass which appears suspicious for malignancy as well as further evaluation of left adnexal mass on CT. Endocrine: SSI for glycemic control, changed to high dose SSI. Hold Synthroid as TSH low. Prophylaxis: PPI. Full anticoagulation with heparin gtt. SCDs. Case discussed with SPORTS CLERK, ICU charge,Dr. Church, patient's at bedside I have discussed current clinical status with patient's including the fact that patient is extremely critical and he voiced understanding and was agreeable with plan of care. Time spent on critical care 45 minutes including discussion with multiple physicians, ICU staff, patient's (excluding procedures) Mejia Marroquin MD Mar 11, 2017 10:35
[2017-03-11 12:26] LABS: APTT (PATIENT) 67.1 SEC (24.3-30.1)
--- NOTE | 2017-03-11 13:20 | MB ---
cc: IVAN HARTMAN DATE OF CONSULTATION 03/10/2017 REASON FOR CONSULTATION Respiratory failure and lung mass. PRESENT ILLNESS This is an 81-year-old white female who was admitted via the emergency room with a history of abdominal pains and shortness of breath with nausea and atrial fibrillation with RVR. The patient was initially at [facility] and was in atrial fibrillation and was given Cardizem and transferred to the intensive care unit at [facility]. Heart rate was in the 160's. She was also on non-rebreather mask, but her O2 sats were to low and thus she had to be emergently intubated, placed on ventilator support and sedated. She also had a central line placed. She was sent for a CT aortogram at the [facility] which showed a left lower lobe spiculated lung mass with central necrosis suspicious for a malignant lesion. The patient's heart rate did improve following IV Cardizem and Lopressor, but her blood pressure dropped. She was sedated with Versed and Fentanyl and has been given amiodarone. She is now on ventilator support with an FIO2 of 100% and EKG showed some ischemic changes as well. PAST HISTORY Has included: 1. Arthritis and joint replacement of the left hip. 2. History of fracture of the tail bone. 3. History of a prior appendectomy and hysterectomy. 4. Also has hypothyroidism. 5. Ischemic heart disease 6. Not known to have any significant lung disease. ALLERGIES None listed. HABITS The medication list: 1. Synthroid 100 mcg a day 2. Lovastatin 40 mg daily SYSTEM REVIEW The patient is intubated and unable to respond. FAMILY HISTORY Noncontributory PHYSICAL EXAMINATION This averagely built elderly white female is intubated and sedated assisting the ventilator. VITAL SIGNS: Blood pressure 92/30, heart rate was 100, respirations of 24 temperature 97.9. HEENT: Head normocephalic. Pupils are reactive. Sclerae were injected. Throat was clear. Nasal mucosae edematous. NECK: Supple. No venous distension. Trachea midline. CHEST: Distant breath sounds with expiratory wheezes bilaterally, prolonged expirations. No crackles. HEART: The heart sounds are irregularly irregular. S1-S2 with no murmur. ABDOMEN: Soft, nontender. Bowel sounds are active. No organomegaly. EXTREMITIES: No edema. Peripheral pulses are diminished. Reflexes not elicited as the patient is sedated. SKIN: Dry and cool. IMPRESSION 1. Acute hypoxemic respiratory failure. 2. Atrial fibrillation with RVR 3. Cardiogenic shock. 4. Cardiomyopathy with CHF 5. COPD 6. Left lower lobe lung mass, rule out malignancy 7. Hypothyroidism 8. Ascending aortic aneurysm PLAN The patient has been placed on ventilator support. We will keep her sedated. She will be placed on nebulized DuoNeb solution q.6 h. Antibiotic therapy has been instituted and the patient will have tracheal toilet and suctioning done. Solu-Medrol 60 mg b.i.d. was also started and a follow up chest x-ray obtained. As the patient is stabilized, we will need to get a biopsy of the left lower lung mass. We will continue with anticoagulation and try to control the cardiac rate and rhythm and get a cardiac evaluation completed. Thank you Dr. Marroquin for this consultation. I will follow the case with you. MD JUAN A Tejada/JANUSZ /12:43 PM /1:03 PM
[2017-03-11] MEDS: RESP: IPRATROPIUM 0.5 MG/2.5 ML NEB INH SCH ×2 (16:51→22:00)
[2017-03-11] MEDS: HEPARIN 25,000 UNITS-D5W 250 ML - PREMIX IV SCH (17:23)
--- NOTE | 2017-03-11 18:01 | HHI.PR ---
Subjective Remarks On Vent support. Better today. Has a good output. Objective Vital Signs Date Time Temp Pulse Resp B/P (MAP) Pulse Ox O2 Delivery O2 Flow Rate FiO2 03/11/17 16:52 98 40 03/11/17 16:00 40 03/11/17 15:00 98.7 104 14 121/58 (79) 96 115/72 (86) 03/11/17 15:00 106 03/11/17 15:00 95 Mechanical Ventilator 40 03/11/17 12:19 95 40 03/11/17 12:00 40 03/11/17 11:00 98.3 87 14 131/73 (92) 95 124/70 (88) 03/11/17 11:00 95 Mechanical Ventilator 40 03/11/17 11:00 103 03/11/17 09:47 96 40 03/11/17 09:17 100 124/73 03/11/17 08:00 105 136/77 (96) 124/73 (90) 03/11/17 08:00 40 03/11/17 07:43 95 40 03/11/17 07:00 95 Mechanical Ventilator 40 03/11/17 07:00 94 03/11/17 07:00 97.9 93 14 143/69 (93) 94 123/71 (88) 03/11/17 04:00 40 03/11/17 04:00 95 03/11/17 04:00 95 40 03/11/17 04:00 98.7 95 18 141/78 (99) 95 133/80 (97) 03/11/17 03:35 96 40 03/11/17 02:44 82 130/76 03/11/17 00:45 98 50 03/11/17 00:00 50 03/11/17 00:00 98.1 93 18 128/75 (92) 99 03/11/17 00:00 99 50 03/11/17 00:00 93 03/10/17 22:17 104 126/75 03/10/17 21:50 95 60 03/10/17 21:00 60 03/10/17 21:00 97 60 03/10/17 20:00 98.7 80 20 96/57 (70) 92 03/10/17 20:00 80 03/10/17 20:00 92 Mechanical Ventilator 100 03/10/17 20:00 100 I/O 03/10/17 03/10/17 03/10/17 03/11/17 03/11/17 03/11/17 07:00 15:00 23:00 07:00 15:00 23:00 Intake Total 2000 ml 539 ml 1382 ml 1459 ml Output Total 305 ml 1325 ml Balance 2000 ml 539 ml 1077 ml 134 ml Intake Oral 0 ml IV Total 2000 ml 539 ml 1382 ml 1269 ml Tube Feeding 90 ml Other 100 ml Output Urine Total 305 ml 1200 ml Gastric Drainage Total 125 ml # Bowel Movements 0 0 Result Diagram: 03/11/1744403/11/17 0445 Objective Remarks This averagely built elderly white female is intubated and sedated assisting the ventilator. HEENT: Head normocephalic. Pupils are reactive. Sclerae were injected. Throat was clear. Nasal mucosae edematous. NECK: Supple. No venous distension. Trachea midline. CHEST: Distant breath sounds with expiratory wheezes bilaterally, prolonged expirations. Occ basal crackles. HEART: The heart sounds are irregularly irregular. S1-S2 with no murmur. ABDOMEN: Soft, nontender. Bowel sounds are active. No organomegaly. EXTREMITIES: No edema. Peripheral pulses are diminished. Reflexes not elicited as the patient is sedated. SKIN: Dry and cool. Assessment and Plan Assessment and Plan IMPRESSION 1. Acute hypoxemic respiratory failure. 2. Atrial fibrillation with RVR 3. Cardiogenic shock. 4. Cardiomyopathy with CHF 5. COPD 6. Left lower lobe lung mass, rule out malignancy 7. Hypothyroidism 8. Ascending aortic aneurysm Plan : 1. Wean Fio2 to keep sat >92. 2. Nebs q6h , Duoneb. 3. CPAP trial in am. 4. Cont Diuresis and replace Potassium 5. Dobutamine drip/ Levophed. 6. CXR ,CBC,BMP in am 7. Solumedrol 60 mg IV BID Slime Salazar MD Mar 11, 2017 18:01
[2017-03-11] MEDS: FUROSEMIDE 20 MG/2 ML VIAL IV PUSH SCH (21:06)
[2017-03-11] MEDS: POTASSIUM CHLOR 20 MEQ PREMIX 100 ML IV PRN (22:36)
[2017-03-11] MEDS: SODIUM CHLOR 0.9% 1000 ML INJ 1,000 ML IV SCH (23:52)
[2017-03-12] VITALS (15 sets, daily range): BP systolic 94–130; BP diastolic 53–79; PULSE 96–119; RESP 10–20; TEMP 94.8–97.7; O2SAT 92–99
[2017-03-12] MEDS: CHLORHEXIDINE 0.12% (ORAL KIT) 15 ML CUP MT SCH ×3 (00:25→20:00)
[2017-03-12] MEDS: POTASSIUM CHLOR 20 MEQ PREMIX 100 ML IV PRN (00:36)
[2017-03-12] MEDS: NOREPINEPHRINE-DEXTROSE DRIP 250 ML IV PRN (03:11)
[2017-03-12] MEDS: RESP: IPRATROPIUM 0.5 MG/2.5 ML NEB INH SCH ×4 (03:20→22:00)
[2017-03-12] MEDS: RESP: ALBUTEROL 2.5 MG/IPRATROPIUM 0.5 MG NEB (SCH) NEB ×4 (03:20→22:00)
[2017-03-12] MEDS: CHLORHEXIDINE GLUCONATE 2 % 1 PACK (2 CLOTHS) TOP SCH (04:00)
[2017-03-12 04:49] LABS: BLOOD GAS BASE EXCESS 3.1 mmol/L (-2-2); BLOOD GAS CARBOXYHEMOGLOBIN 1.3 % (0-4); BLOOD GAS HCO3 26 mmol/L (22-26); BLOOD GAS METHEMOGLOBIN 1.1 % (0-2); BLOOD GAS O2 HGB SATURATION 96 % (90-100); BLOOD GAS OXYGEN CONTENT 13.4 Vol % (12.0-20.0); BLOOD GAS PCO2 32 mmHg (38-42); BLOOD GAS PO2 99 mmHg (61-120); BLOOD GAS TOTAL HGB 9.8 G/DL (12.0-16.0); CRITICAL VALUE YES; OXYGEN DEVICE VENTILATOR; TEMP CORR TO 98.6
[2017-03-12 04:50] LABS: DRAW SITE ART LINE; FIO2 40 %; STAT NO; VENT SETTINGS AC 14/500/5PEEP
[2017-03-12 05:00] LABS: AUTOMATED NEUTROPHIL # 22.8 TH/MM3 (1.8-7.7); BASOPHIL % 0.1 % (0.0-2.0); EOSINOPHIL % 0.1 % (0.0-4.0); HEMATOCRIT 30.5 % (35.0-46.0); HEMO FLAGS DIFF FINAL; LYMPH % 4.8 % (9.0-44.0); LYMPHOCYTE # 1.2 TH/MM3 (1.0-4.8); MEAN CORPUSCULAR HEMOGLOBIN 28.2 PG (27.0-34.0); MONO % 4.5 % (0.0-8.0); NEUT % 90.5 % (16.0-70.0); PLATELET COUNT 264 TH/MM3 (150-450); RED BLOOD COUNT 3.67 MIL/MM3 (4.00-5.30); RED CELL DISTRIBUTION WIDTH 15.2 % (11.6-17.2); WHITE BLOOD COUNT 25.2 TH/MM3 (4.0-11.0)
[2017-03-12] MEDS: CARVEDILOL 12.5 MG TAB PO SCH ×2 (05:00→17:36)
[2017-03-12 05:15] LABS: APTT (PATIENT) 71.3 SEC (24.3-30.1)
--- NOTE | 2017-03-12 05:32 | RADRPT ---
EXAM DATE/TIME: 03/12/2017 04:30 [facility] COMPARISON: CHEST SINGLE AP, March 11, 2017, 5:20. INDICATIONS : Shortness of breath, possible pulmonary disease. MEDICAL HISTORY : Gastroesophageal reflux disease. SURGICAL HISTORY : Hysterectomy. Appendectomy. ENCOUNTER: Subsequent ACUITY: 3 days PAIN SCORE: Non-responsive. LOCATION: Bilateral chest FINDINGS: Right base consolidation with small effusion developing. Similar findings seen on the left but not si gnificantly changed from yesterday. No pneumothorax on either side. Heart size stable, upper limits of normal to mildly enlarged. Endotracheal tube tip is approximately 4 cm above the vikki. Nasogastric tube has tip in the stomach . There is a right internal jugular central venous catheter are again seen, tip at the atriocaval magda ction. CONCLUSION: Bibasilar consolidation and small effusions, increased on the right and not significantly changed on the left. Fermin Lux MD on March 12, 2017 at 5:29 Board Certified Radiologist. This report was verified electronically.
[2017-03-12 05:34] LABS: ANION GAP 9 MEQ/L (5-15); AST (GOT) 785 U/L (15-37); BICARBONATE 29.4 MEQ/L (21.0-32.0); BLOOD UREA NITROGEN 19 MG/DL (7-18); CHLORIDE 95 MEQ/L (98-107); GLOMERULAR FILTRATION RATE 47 ML/MIN (>89); MAGNESIUM 1.9 MG/DL (1.5-2.5); SODIUM (NA) 133 MEQ/L (136-145)
[2017-03-12 05:51] LABS: ALKALINE PHOSPHATASE 71 U/L (45-117); ALT (GPT) 1288 U/L (10-53); TOTAL BILIRUBIN ADULT 0.5 MG/DL (0.2-1.0)
[2017-03-12] MEDS: INSULIN ASPART SUPPLEMENTAL SCALE SQ SCH ×4 (06:00→17:38)
[2017-03-12] MEDS: DOBUTamine INJ 500 MG in DEXTROSE 5% IN WATER INJ 210 ML IV SCH ×2 (07:41)
--- NOTE | 2017-03-12 07:49 | PD.CARD.PN ---
Subjective Subjective Remarks intubated, mechanically ventilated (Diogenes Burrows) Objective Vital Signs / I&O Vital Signs Date Time Temp Pulse Resp B/P (MAP) Pulse Ox O2 Delivery O2 Flow Rate FiO2 03/12/17 04:12 97 40 03/12/17 04:00 40 03/12/17 03:11 96 116/62 03/12/17 03:00 96 03/12/17 03:00 97 Mechanical Ventilator 40 03/12/17 03:00 97.7 96 14 116/62 (80) 97 94/54 (67) 03/12/17 01:51 97 40 03/12/17 00:00 40 03/11/17 23:00 97.9 98 14 146/83 (104) 97 121/70 (87) 03/11/17 23:00 97 Mechanical Ventilator 40 03/11/17 23:00 98 03/11/17 22:03 98.6 03/11/17 21:32 98 40 03/11/17 20:00 40 03/11/17 20:00 99 129/66 (87) 102/67 (79) 03/11/17 19:00 99 03/11/17 19:00 98.2 97 14 129/66 (87) 98 102/67 (79) 03/11/17 19:00 98 Mechanical Ventilator 40 03/11/17 18:44 102 118/71 03/11/17 16:52 98 40 03/11/17 16:00 40 03/11/17 15:00 98.7 104 14 121/58 (79) 96 115/72 (86) 03/11/17 15:00 106 03/11/17 15:00 95 Mechanical Ventilator 40 03/11/17 12:19 95 40 03/11/17 12:00 40 03/11/17 11:00 98.3 87 14 131/73 (92) 95 124/70 (88) 03/11/17 11:00 95 Mechanical Ventilator 40 03/11/17 11:00 103 03/11/17 09:47 96 40 03/11/17 09:17 100 124/73 03/11/17 08:00 105 136/77 (96) 124/73 (90) 03/11/17 08:00 40 I/O 10/4/17 10/4/17 03/11/17 03/12/17 03/12/17 03/12/17 07:00 15:00 23:00 07:00 15:00 23:00 Intake Total 1382 ml 1459 ml 3556 ml Output Total 305 ml 1325 ml 1330.0 ml Balance 1077 ml 134 ml 2226.0 ml Intake Oral 0 ml IV Total 1382 ml 1269 ml 3376 ml Tube Feeding 90 ml 180 ml Other 100 ml Output Urine Total 305 ml 1200 ml 1130 ml Gastric Drainage Total 125 ml 100 ml Tube Feeding Residual Discard 100.0 ml # Bowel Movements 0 0 Physical Exam GENERAL: Well-nourished, well-developed patient in no apparent distress. NECK: No JVD. No carotid bruit. CARDIOVASCULAR: Tachy Regularly irregular. S1/S2 no murmur, rub, or gallop. RESPIRATORY: No accessory muscle use. Clear to auscultation. Breath sounds equal bilaterally. GASTROINTESTINAL: Abdomen soft, non-tender, nondistended. MUSCULOSKELETAL: Extremities without clubbing, cyanosis, or edema. Laboratory Laboratory Tests Test 03/11/17 11:05 03/12/17 04:30 03/12/17 04:33 Activated Partial Thromboplast Time 67.1 SEC 71.3 SEC White Blood Count 25.2 TH/MM3 Red Blood Count 3.67 MIL/MM3 Hemoglobin 10.4 GM/DL Hematocrit 30.5 % Mean Corpuscular Volume 83.0 FL Mean Corpuscular Hemoglobin 28.2 PG Mean Corpuscular Hemoglobin Concent 34.0 % Red Cell Distribution Width 15.2 % Platelet Count 264 TH/MM3 Mean Platelet Volume 9.3 FL Neutrophils (%) (Auto) 90.5 % Lymphocytes (%) (Auto) 4.8 % Monocytes (%) (Auto) 4.5 % Eosinophils (%) (Auto) 0.1 % Basophils (%) (Auto) 0.1 % Neutrophils # (Auto) 22.8 TH/MM3 Lymphocytes # (Auto) 1.2 TH/MM3 Monocytes # (Auto) 1.1 TH/MM3 Eosinophils # (Auto) 0.0 TH/MM3 Basophils # (Auto) 0.0 TH/MM3 CBC Comment DIFF FINAL Differential Comment Blood Urea Nitrogen 19 MG/DL Creatinine 1.12 MG/DL Random Glucose 163 MG/DL Total Protein 6.4 GM/DL Albumin 2.9 GM/DL Calcium Level 7.6 MG/DL Phosphorus Level 3.1 MG/DL Magnesium Level 1.9 MG/DL Alkaline Phosphatase 71 U/L Aspartate Amino Transf (AST/SGOT) 785 U/L Alanine Aminotransferase (ALT/SGPT) 1288 U/L Total Bilirubin 0.5 MG/DL Sodium Level 133 MEQ/L Potassium Level 4.0 MEQ/L Chloride Level 95 MEQ/L Carbon Dioxide Level 29.4 MEQ/L Anion Gap 9 MEQ/L Estimat Glomerular Filtration Rate 47 ML/MIN Blood Gas Puncture Site ART LINE Blood Gas Patient Temperature 98.6 Blood Gas HCO3 26 mmol/L Blood Gas Base Excess 3.1 mmol/L Blood Gas Oxygen Saturation 96 % Arterial Blood pH 7.52 Arterial Blood Partial Pressure CO2 32 mmHg Arterial Blood Partial Pressure O2 99 mmHg Arterial Blood Oxygen Content 13.4 Vol % Arterial Blood Carboxyhemoglobin 1.3 % Arterial Blood Methemoglobin 1.1 % Blood Gas Hemoglobin 9.8 G/DL Oxygen Delivery Device VENTILATOR Blood Gas Ventilator Setting AC 14/500/5PEEP Blood Gas Inspired Oxygen 40 % (Diogenes Burrows) Assessment and Plan Problem List: (1) Cardiomyopathy ICD Codes: I42.9 - Cardiomyopathy, unspecified (2) Chest pain ICD Codes: R07.9 - Chest pain, unspecified (3) Afib ICD Codes: I48.91 - Unspecified atrial fibrillation (4) Descending thoracic aortic aneurysm ICD Codes: I71.2 - Thoracic aortic aneurysm, without rupture Status: Acute Assessment and Plan A-fib - not rate controlled secondary to need for pressors hemodynamic instability - on Levophed 5 mcg/kg/min and dobutamine 4 mcg/kg min, will continue to attempt to incrementally increase dobutamine, watching for arrhythmia, while decreasing Levophed. Chest pain - once of pressors and off the vent will plan coronary angiogram, Cardiomyopathy - likely nonischemic, continue supportive care. (Diogenes Burrows) Assessment and Plan improving. extubating weaning pressors cont heparin gtt for now plan for RLHC when clinically improved. ideally, plan when off pressors follow Cr & BP. ideally add entresto as BP tolerates CT guided biopsy of lung mass to follow. concerning for malignancy given weight loss (Ward Church MD) Diogenes Burrows Mar 12, 2017 07:49 Ward Church MD Mar 12, 2017 09:36
[2017-03-12] MEDS: SODIUM CHLORIDE 0.9% FLUSH 10 ML FLUSH IV FLUSH SCH ×2 (08:41→21:00)
[2017-03-12] MEDS: DOCUSATE SODIUM 50 MG/SENNA 8.6 MG TAB PO SCH ×2 (08:44→21:00)
[2017-03-12] MEDS: methylPREDNISolone SOD SUCC 125 MG/2 ML VIAL IV PUSH SCH (08:47)
[2017-03-12] MEDS: PANTOPRAZOLE SODIUM 40 MG VIAL IV PUSH SCH (08:47)
[2017-03-12] MEDS: FUROSEMIDE 20 MG/2 ML VIAL IV PUSH SCH ×2 (08:49→21:07)
[2017-03-12 09:27] LABS: BLOOD GAS BASE EXCESS 3.7 mmol/L (-2-2); BLOOD GAS CARBOXYHEMOGLOBIN 1.3 % (0-4); BLOOD GAS HCO3 27 mmol/L (22-26); BLOOD GAS METHEMOGLOBIN 1.2 % (0-2); BLOOD GAS O2 HGB SATURATION 96 % (90-100); BLOOD GAS OXYGEN CONTENT 14.2 Vol % (12.0-20.0); BLOOD GAS PCO2 35 mmHg (38-42); BLOOD GAS PO2 114 mmHg (61-120); BLOOD GAS TOTAL HGB 10.4 G/DL (12.0-16.0); CRITICAL VALUE NO; DRAW SITE ART LINE; FIO2 40 %; OXYGEN DEVICE VENTILATOR; TEMP CORR TO 98.6; VENT SETTINGS CPAP5/PS10
[2017-03-12 09:28] LABS: STAT NO
[2017-03-12] MEDS ORDERED: DIGOXIN 0.5 MG/2 ML VIAL IV PUSH ONE (09:45)
--- NOTE | 2017-03-12 10:11 | HHI.CCPN ---
Subjective Remarks/Hospital Course 03/10: 81-year-old female who was evaluated by her PCP Dr. Moyer who she saw for upper abdominal pain which has been going on for about 2 months today. PCP noted high heart rate and sent patient to the ER. Patient was evaluated in the ER at [facility]. At that time she denied any chest pain shortness of breath nausea vomiting diarrhea fever or cough per documentation by ER physician. She was noted to be in A. fib with RVR. She was given Cardizem 5 mg IV and subsequently was transferred to [facility]. I was contacted by nursing staff following patient's arrival that her heart rate was in the 160s and she was on a nonrebreather facemask with O2 sats in the 80s. I had not been notified regarding this patient from either [facility] or by any other accepting physician so I immediately went to patient's bedside to evaluate her. I contacted Dr. Casas from [facility] as patient had been reportedly accepted by [facility] however he was not aware of any details. Patient was in obvious respiratory distress at the time of my evaluation. Patient underwent CTA aortogram at [facility] and was found to have a left lower lobe spiculated lung mass with central necrosis suspicious for malignancy as well as a descending thoracic aortic aneurysm less than 4 cm in diameter with no dissection. Dr. Casas requested critical care consult. Patient was given Lopressor 5 mg IV with which her ventricular rate came down in the 90s. She did have borderline blood pressures with systolic SBP 90s. She continued to have worsening shortness of breath and appeared cold and clammy. She denied any chest pain however was complaining of epigastric pain. Per patient's she has lost 24 pounds in 3 months and has had a cough for 4 months. She has had abdominal pain for a year and has previously had an EGD which revealed a gastric ulcer 7 years ago. Patient was loaded with amiodarone and started on amiodarone drip. She is also given aspirin 324 mg stat as her EKG revealed T inversions in the lateral leads concerning for ischemia. Stat 2-D echo was ordered and patient was noted to have a LVEF 10-15% with global hypokinesis. Patient continued to be in significant respiratory distress using accessory muscles of respiration and became very diaphoretic and appeared to be worsening clinically hence was emergently intubated and placed on mechanical ventilation. She was initiated on full anticoagulation with heparin. I emergently placed a right IJ central venous catheter and right axillary a line. Dr. Church from cardiology was consulted and I personally discussed the case, EKG and echo findings with Dr. Church who will be evaluating patient. Prior to intubation, patient denied any prior cardiac history or previous history of CAD, arrhythmias or AR. She denied any history of COPD though she has been a long-standing smoker(60 pack years) and quit 3 years ago. 03/11: Remains sedated, orally intubated on mechanical ventilation. Was started on Levophed and dobutamine yesterday for cardiogenic shock as well as bicarbonate drip. Systolic blood pressure running in the 110-120 range, Levophed being titrated down, dobutamine at 2.5 mics per KG per minute - increased to 3 mics per KG per minute. Making urine about 30 cc per hour. Accu -Cheks running in the 200s. On 40% FiO2 PEEP +5. 03/12: Arouses off sedation, following commands. Orally intubated at the time of my evaluation this morning. On Levophed 3 mics per minute, dobutamine 4 mics per KG per minute this morning. Objective Vital Signs Date Time Temp Pulse Resp B/P (MAP) Pulse Ox O2 Delivery O2 Flow Rate FiO2 03/12/17 08:00 40 03/12/17 08:00 111 118/74 (89) 107/64 (78) 03/12/17 07:53 98 03/12/17 07:00 97.0 10 03/12/17 07:00 Mechanical Ventilator 03/10/17 14:11 3.00 Intake and Output 03/12/17 03/12/17 03/13/17 08:00 16:00 00:00 Intake Total 3218 ml Output Total 1330.0 ml Balance 1888.0 ml Result Diagram: 03/12/17 0430 03/12/17 0430 Other Results Laboratory Tests Test 03/11/17 11:05 03/12/17 04:30 03/12/17 04:33 03/12/17 09:05 Activated Partial Thromboplast Time 67.1 SEC 71.3 SEC White Blood Count 25.2 TH/MM3 Red Blood Count 3.67 MIL/MM3 Hemoglobin 10.4 GM/DL Hematocrit 30.5 % Mean Corpuscular Volume 83.0 FL Mean Corpuscular Hemoglobin 28.2 PG Mean Corpuscular Hemoglobin Concent 34.0 % Red Cell Distribution Width 15.2 % Platelet Count 264 TH/MM3 Mean Platelet Volume 9.3 FL Neutrophils (%) (Auto) 90.5 % Lymphocytes (%) (Auto) 4.8 % Monocytes (%) (Auto) 4.5 % Eosinophils (%) (Auto) 0.1 % Basophils (%) (Auto) 0.1 % Neutrophils # (Auto) 22.8 TH/MM3 Lymphocytes # (Auto) 1.2 TH/MM3 Monocytes # (Auto) 1.1 TH/MM3 Eosinophils # (Auto) 0.0 TH/MM3 Basophils # (Auto) 0.0 TH/MM3 CBC Comment DIFF FINAL Differential Comment Blood Urea Nitrogen 19 MG/DL Creatinine 1.12 MG/DL Random Glucose 163 MG/DL Total Protein 6.4 GM/DL Albumin 2.9 GM/DL Calcium Level 7.6 MG/DL Phosphorus Level 3.1 MG/DL Magnesium Level 1.9 MG/DL Alkaline Phosphatase 71 U/L Aspartate Amino Transf (AST/SGOT) 785 U/L Alanine Aminotransferase (ALT/SGPT) 1288 U/L Total Bilirubin 0.5 MG/DL Sodium Level 133 MEQ/L Potassium Level 4.0 MEQ/L Chloride Level 95 MEQ/L Carbon Dioxide Level 29.4 MEQ/L Anion Gap 9 MEQ/L Estimat Glomerular Filtration Rate 47 ML/MIN Blood Gas Puncture Site ART LINE ART LINE Blood Gas Patient Temperature 98.6 98.6 Blood Gas HCO3 26 mmol/L 27 mmol/L Blood Gas Base Excess 3.1 mmol/L 3.7 mmol/L Blood Gas Oxygen Saturation 96 % 96 % Arterial Blood pH 7.52 7.50 Arterial Blood Partial Pressure CO2 32 mmHg 35 mmHg Arterial Blood Partial Pressure O2 99 mmHg 114 mmHg Arterial Blood Oxygen Content 13.4 Vol % 14.2 Vol % Arterial Blood Carboxyhemoglobin 1.3 % 1.3 % Arterial Blood Methemoglobin 1.1 % 1.2 % Blood Gas Hemoglobin 9.8 G/DL 10.4 G/DL Oxygen Delivery Device VENTILATOR VENTILATOR Blood Gas Ventilator Setting AC 14/500/5PEEP CPAP5/PS10 Blood Gas Inspired Oxygen 40 % 40 % Imaging Last Impressions Aorta CTA 03/10/17 4106 Signed Impressions: Service Date/Time: Friday, March 10, 2017 10:47 - CONCLUSION: 1. 2.2 x 1.9 cm spiculated left lower lobe posterior lung mass with apparently centrally necrotic anterior tracheal mediastinal lymph node measuring 2.8 x 2.7 cm. Subcentimeter mediastinal and confluent partially calcified right hilar lymph nodes are more nonspecific may be due to prior granulomatous disease. 2. 2.7 x 2.0 cm left adnexal mass likely corresponding to the ovary. This is abnormal given patients advanced age. Further evaluation may be performed with ultrasound of the pelvis. 3. Otherwise, no evidence for distant metastatic disease. 4. Focal 4 cm length distal descending thoracic aortic aneurysm measuring up to 3.7 cm in axial dimension. 5. No aortic dissection. 6. Additional ancillary findings, as above. Woo Covarrubias MD Chest X-Ray 03/10/17 0913 Signed Impressions: Service Date/Time: Friday, March 10, 2017 09:37 - CONCLUSION: 1. Mild diffuse interstitial prominence, likely chronic. 2. Otherwise, no acute cardiopulmonary disease. Woo Covarrubias MD Objective Remarks Drips: Propofol/fentanyl off. Levophed 3 mics per minute, dobutamine 4 mics per KG per minute HEENT/ Neuro: Sedated, orally intubated, Pallor present, no icterus, tongue/ mucosa moist Neck: Right IJ central line in place Chest/Pulm: good air entry bilaterally, no wheezing or crackles. Scattered rhonchi. Extubated to nasal cannula CVS: S1-S2 irregularly irregular, no murmur GI/abdomen: soft, nontender, bowel sounds sluggish Extremities: warm bilaterally, no edema Skin: warm and dry Urinary Catheter: Yes Assessment to: Continue Vascular Central Line Catheter: Yes Assessment to: Continue Line: Central Venous Catheter Side: Right Location: Jugular A/P Assessment and Plan 81-year-old female with: A. fib with RVR Cardiomyopathy with LVEF 10-15% Cardiogenic shock Descending thoracic aortic aneurysm Acute respiratory failure on mechanical ventilation Left lower lobe lung mass suspicious for malignancy Suspected COPD Metabolic acidosis Hyperglycemia Abdominal pain Elevated LFTs - suspect shock liver/congestion Left adnexal mass (2cm) on CT Hypothyroidism Plan: Neuro: Started on sedation. Continue neuro checks Cardiovascular: 2-D echo with global hypokinesis with LVEF 10-15%, RV appeared to have normal contractility. On Levophed and dobutamine drips. Attempt to titrate off Levophed provided MAP greater than 65. Attempt to titrate down on dobutamine as tolerated. Continue full anticoagulation with heparin. Digoxin 0.5 mg IV stat ordered for A. fib with RVR on 03/12 for better rate control. CT aortogram images reviewed and pulmonary trunk well visualized with no evidence of filling defect in pulmonary trunk. Lower extremity venous Dopplers negative for DVT. Initially started on amiodarone drip however this was held for hypotension subsequently. Cardiac enzymes negative, suspect nonischemic cardiomyopathy possibly viral. Discussed with Dr. Cuhrch - planning cardiac catheterization on 03/13. Limited 2-D echo ordered for 03/12 to follow up on LVEF. Pulmonary: Extubated to nasal cannula. Does not appear to have COPD as primary problem at this time. Pulmonary following for left lower lobe lung mass suspicious for malignancy and discussed the case with Dr. Zamora. If patient stabilizes she will require a lung biopsy for further evaluation. Will start tapering Solu-Medrol GI/liver: Will eventually require further evaluation of left adnexal mass. LFTs improving. Was tolerating trophic feeds which were held this morning for extubation. If respiratory status remains stable we will consider advancing oral diet. Renal/: Initially given Lasix however in view of severe hypotension given fluid bolus. Strict intake output, monitor and replete electrolytes, follow BUN /creatinine. KVO IV fluids now and continue diuresis with Lasix. ID: Ordered blood cultures and sputum Gram stain and cultures as well as a UA. Suspect viral etiology for cardiomyopathy. Hemeonc: Follow CBC and coags. Started heparin for full anticoagulation for A. fib in setting of severe cardiomyopathy of unclear etiology. Will need lung biopsy eventually for left lower lobe lung mass which appears suspicious for malignancy as well as further evaluation of left adnexal mass on CT. Endocrine: SSI for glycemic control, changed to high dose SSI. Hold Synthroid as TSH low. Prophylaxis: PPI. Full anticoagulation with heparin gtt. SCDs. Case discussed with [employer], ICU charge,Dr. Church. Condition remains critical, patient remains in A. fib with RVR currently with hypotension requiring pressors and inotropes for cardiogenic shock due to severe cardiomyopathy with LVEF 10-15% Time spent on critical care 30 minutes including discussion with multiple physicians, ICU staff, patient's (excluding procedures) Mejia Marroquin MD Mar 12, 2017 10:11
[2017-03-12] MEDS: HEPARIN 25,000 UNITS-D5W 250 ML - PREMIX IV SCH (13:16)
--- NOTE | 2017-03-12 16:00 | ECHRPT ---
Indication: vegetations CONCLUSIONS Moderately dilated left ventricle. The left ventricular systolic function is severely reduced with an estimated ejection fraction less than 20%. The left atrial size is mildly dilated. Moderate mitral annular calcification. Moderate mitral valve stenosis. The tricuspid valve is not well visualized. The pulmonary valve is not well visualized. BP: 98 / 56 HR: 70 Rhythm: Sinus MEASUREMENTS (Male / Female) Normal Values Technical Quality:Fair 2D ECHO LV Diastolic Diameter PLAX 5.7 cm 4.2 - 5.9 / 3.9 - 5.3 cm LV Systolic Diameter PLAX 5.1 cm IVS Diastolic Thickness 1.0 cm 0.6 - 1.0 / 0.6 - 0.9 cm LVPW Diastolic Thickness 1.0 cm 0.6 - 1.0 / 0.6 - 0.9 cm LV Relative Wall Thickness 0.3 FINDINGS LEFT VENTRICLE Moderately dilated left ventricle. The left ventricular systolic function is severely reduced with an estimated ejection fraction less than 20%. RIGHT VENTRICLE Normal right ventricular size and systolic function. LEFT ATRIUM The left atrial size is mildly dilated. RIGHT ATRIUM The right atrial size is normal. ATRIAL SEPTUM Normal atrial septal thickness without atrial level shunting by limited color doppler interrogation. AORTA The aortic root and proximal ascending aorta are normal in size on limited imaging. MITRAL VALVE Structurally normal mitral valve. Moderate mitral annular calcification. Moderate mitral valve stenosis. AORTIC VALVE Trileaflet aortic valve. No aortic valve stenosis or regurgitation. TRICUSPID VALVE The tricuspid valve is not well visualized. PULMONARY VALVE The pulmonary valve is not well visualized. VESSELS The inferior vena cava is normal in size. PERICARDIUM No pericardial effusion. Ward Church MD, FACC (Electronically Signed) Final Date:12 March 2017 15:59
[2017-03-12] MEDS: ONDANSETRON HCL 4 MG/2 ML VIAL IV PUSH PRN (18:07)
--- NOTE | 2017-03-12 18:56 | HHI.PR ---
Subjective Remarks Extubated and on O2 4 L. Better today. Has a good output. Will go for cardiac cath. Objective Vital Signs Date Time Temp Pulse Resp B/P (MAP) Pulse Ox O2 Delivery O2 Flow Rate FiO2 03/12/17 17:56 97 Nasal Cannula 4.00 03/12/17 15:00 97.7 118 16 105/59 (74) 94 101/58 (72) 03/12/17 15:00 112 03/12/17 15:00 94 Nasal Cannula 4.00 03/12/17 11:00 97.5 109 16 107/53 (71) 95 98/56 (70) 03/12/17 11:00 108 03/12/17 11:00 95 Nasal Cannula 4.00 03/12/17 09:30 94 Nasal Cannula 2 03/12/17 08:00 40 03/12/17 08:00 111 118/74 (89) 107/64 (78) 03/12/17 07:53 98 40 03/12/17 07:10 96 40 03/12/17 07:00 109 03/12/17 07:00 97.0 111 10 118/74 (89) 96 107/64 (78) 03/12/17 07:00 96 Mechanical Ventilator 40 03/12/17 04:12 97 40 03/12/17 04:00 40 03/12/17 03:11 96 116/62 03/12/17 03:00 96 03/12/17 03:00 97 Mechanical Ventilator 40 03/12/17 03:00 97.7 96 14 116/62 (80) 97 94/54 (67) 03/12/17 01:51 97 40 03/12/17 00:00 40 03/11/17 23:00 97.9 98 14 146/83 (104) 97 121/70 (87) 03/11/17 23:00 97 Mechanical Ventilator 40 03/11/17 23:00 98 03/11/17 22:03 98.6 03/11/17 21:32 98 40 03/11/17 20:00 40 03/11/17 20:00 99 129/66 (87) 102/67 (79) 03/11/17 19:00 99 03/11/17 19:00 98.2 97 14 129/66 (87) 98 102/67 (79) 03/11/17 19:00 98 Mechanical Ventilator 40 I/O 03/11/17 03/11/17 03/11/17 03/12/17 03/12/17 03/12/17 07:00 15:00 23:00 07:00 15:00 23:00 Intake Total 1382 ml 1459 ml 3556 ml 97 ml 965 ml Output Total 305 ml 1325 ml 1330.0 ml 670 ml Balance 1077 ml 134 ml 2226.0 ml 97 ml 295 ml Intake Oral 0 ml 240 ml IV Total 1382 ml 1269 ml 3376 ml 97 ml 710 ml Tube Feeding 90 ml 180 ml 15 ml Other 100 ml Output Urine Total 305 ml 1200 ml 1130 ml 670 ml Gastric Drainage Total 125 ml 100 ml 0 ml Tube Feeding Residual Discard 100.0 ml # Bowel Movements 0 0 1 Result Diagram: 03/12/1742903/12/17429 Objective Remarks This averagely built elderly white female is alert and on O2 N/C HEENT: Head normocephalic. Pupils are reactive. Sclerae were clear. Throat was clear. Nasal mucosae edematous. NECK: Supple. No venous distension. Trachea midline. CHEST: Distant breath sounds with expiratory wheezes bilaterally, prolonged expirations,and basal crackles. HEART: The heart sounds are irregularly irregular. S1-S2 with no murmur. ABDOMEN: Soft, nontender. Bowel sounds are active. No organomegaly. EXTREMITIES: No edema. Peripheral pulses are diminished. Reflexes 1 + SKIN: Dry and cool. Assessment and Plan Assessment and Plan IMPRESSION 1. Acute hypoxemic respiratory failure. 2. Atrial fibrillation with RVR 3. Cardiogenic shock. 4. Cardiomyopathy with CHF 5. COPD 6. Left lower lobe lung mass, rule out malignancy 7. Hypothyroidism 8. Ascending aortic aneurysm Plan : 1. Wean Fio2 to keep sat >92. 2. Nebs q6h , Duoneb. 3. Cardiac cath per DR Church 4. Cont Diuresis and replace Potassium 5. Dobutamine drip 6. CXR ,CBC,BMP in am 7. Solumedrol 40 mg IV BID Slime Salazar MD Mar 12, 2017 18:56
[2017-03-12] MEDS: SODIUM CHLOR 0.9% 1000 ML INJ 1,000 ML IV SCH (19:45)
[2017-03-12] MEDS: methylPREDNISolone SOD SUCC 40 MG/1 ML VIAL IV PUSH SCH (21:07)
[2017-03-12] MEDS ORDERED: ACETAMINOPHEN/CODEINE ELIX 120 MG/12 MG/5 ML CUP PO ONE (22:30)
[2017-03-13] VITALS (15 sets, daily range): BP systolic 77–131; BP diastolic 53–69; PULSE 81–128; RESP 15–22; TEMP 98–98.4; O2SAT 91–98
[2017-03-13] MEDS: RESP: ALBUTEROL 2.5 MG/IPRATROPIUM 0.5 MG NEB (SCH) NEB ×4 (04:00→22:00)
[2017-03-13] MEDS: CHLORHEXIDINE GLUCONATE 2 % 1 PACK (2 CLOTHS) TOP SCH (04:00)
[2017-03-13] MEDS: RESP: IPRATROPIUM 0.5 MG/2.5 ML NEB INH SCH ×4 (04:24→22:30)
[2017-03-13] MEDS ORDERED: PIPERACIL-TAZO 4.5 GM PREMIX 100 ML IV SCH (04:45)
[2017-03-13] MEDS ORDERED: Vancomycin Consult Pharmacy 1 EA OTHER SCH (04:45)
[2017-03-13 04:52] LABS: BLOOD GAS BASE EXCESS 2.7 mmol/L (-2-2); BLOOD GAS CARBOXYHEMOGLOBIN 1.2 % (0-4); BLOOD GAS HCO3 27 mmol/L (22-26); BLOOD GAS METHEMOGLOBIN 1.2 % (0-2); BLOOD GAS O2 HGB SATURATION 96 % (90-100); BLOOD GAS PCO2 44 mmHg (38-42); BLOOD GAS PO2 113 mmHg (61-120); BLOOD GAS TOTAL HGB 10.2 G/DL (12.0-16.0); CRITICAL VALUE NO; DRAW SITE ART LINE; LITER FLOW 15 L/M; STAT YES; TEMP CORR TO 98.6
[2017-03-13] MEDS ORDERED: VANCOMYCIN INJ 1,000 MG in SODIUM CHLOR 0.9% 250 ML INJ 250 ML IV ONE (05:00)
[2017-03-13] MEDS ORDERED: AZITHROMYCIN INJ 500 MG in SODIUM CHLOR 0.9% 250 ML INJ 250 ML IV SCH (05:00)
[2017-03-13 05:12] LABS: HEMATOCRIT 30.8 % (35.0-46.0); MEAN CELL VOLUME 83.9 FL (80.0-100.0); MEAN CORPUSCULAR HEMOGLOBIN 27.8 PG (27.0-34.0); MEAN CORPUSCULAR HGB CONC 33.1 % (32.0-36.0); PLATELET COUNT 252 TH/MM3 (150-450); RED BLOOD COUNT 3.67 MIL/MM3 (4.00-5.30); RED CELL DISTRIBUTION WIDTH 15.8 % (11.6-17.2); REVIEW FLAG FINAL; WHITE BLOOD COUNT 24.6 TH/MM3 (4.0-11.0)
--- NOTE | 2017-03-13 05:23 | RADRPT ---
EXAM DATE/TIME: 03/13/2017 04:51 [facility] COMPARISON: CHEST SINGLE AP, March 12, 2017, 4:30. INDICATIONS : Shortness of breath MEDICAL HISTORY : Gastroesophageal reflux disease. SURGICAL HISTORY : Hysterectomy. Appendectomy. ENCOUNTER: Subsequent ACUITY: 3 days PAIN SCORE: 8/10 LOCATION: Bilateral chest FINDINGS: Single portable frontal view the chest shows diffuse bilateral pulmonary infiltrates more pronounced at the bases. Small effusions. Heart is mildly enlarged. Right-sided central line. A catheter overlie s the lower right chest which could relate to a small caliber right thoracostomy tube. CONCLUSION: Radiographic appearance consistent with pulmonary edema. Clifford Kahn Jr., MD on March 13, 2017 at 5:21 Board Certified Radiologist. This report was verified electronically.
[2017-03-13 05:24] LABS: APTT (PATIENT) 81.4 SEC (24.3-30.1)
[2017-03-13] MEDS ORDERED: BUMETANIDE INJ 1 MG/4 ML VIAL IV PUSH ONE (05:45)
[2017-03-13] MEDS: INSULIN ASPART SUPPLEMENTAL SCALE SQ SCH ×4 (06:00→18:00)
[2017-03-13] MEDS ORDERED: PIPERACIL-TAZO 3.375 GM PREMIX 50 ML IV SCH (06:00)
--- NOTE | 2017-03-13 07:31 | HHI.CCPN ---
Subjective Remarks/Hospital Course 03/10: 81-year-old female who was evaluated by her PCP Dr. Moyer who she saw for upper abdominal pain which has been going on for about 2 months today. PCP noted high heart rate and sent patient to the ER. Patient was evaluated in the ER at [facility]. At that time she denied any chest pain shortness of breath nausea vomiting diarrhea fever or cough per documentation by ER physician. She was noted to be in A. fib with RVR. She was given Cardizem 5 mg IV and subsequently was transferred to [facility] CVICU. I was contacted by nursing staff following patient's arrival that her heart rate was in the 160s and she was on a nonrebreather facemask with O2 sats in the 80s. I had not been notified regarding this patient from either [facility] ER or by any other accepting physician so I immediately went to patient's bedside to evaluate her. I contacted Dr. Casas from [facility] as patient had been reportedly accepted by [facility] however he was not aware of any details. Patient was in obvious respiratory distress at the time of my evaluation. Patient underwent CTA aortogram at [facility] ER and was found to have a left lower lobe spiculated lung mass with central necrosis suspicious for malignancy as well as a descending thoracic aortic aneurysm less than 4 cm in diameter with no dissection. Dr. Casas requested critical care consult. Patient was given Lopressor 5 mg IV with which her ventricular rate came down in the 90s. She did have borderline blood pressures with systolic SBP 90s. She continued to have worsening shortness of breath and appeared cold and clammy. She denied any chest pain however was complaining of epigastric pain. Per patient's she has lost 24 pounds in 3 months and has had a cough for 4 months. She has had abdominal pain for a year and has previously had an EGD which revealed a gastric ulcer 7 years ago. Patient was loaded with amiodarone and started on amiodarone drip. She is also given aspirin 324 mg stat as her EKG revealed T inversions in the lateral leads concerning for ischemia. Stat 2-D echo was ordered and patient was noted to have a LVEF 10-15% with global hypokinesis. Patient continued to be in significant respiratory distress using accessory muscles of respiration and became very diaphoretic and appeared to be worsening clinically hence was emergently intubated and placed on mechanical ventilation. She was initiated on full anticoagulation with heparin. I emergently placed a right IJ central venous catheter and right axillary a line. Dr. Church from cardiology was consulted and I personally discussed the case, EKG and echo findings with Dr. Church who will be evaluating patient. Prior to intubation, patient denied any prior cardiac history or previous history of CAD, arrhythmias or TN. She denied any history of COPD though she has been a long-standing smoker(60 pack years) and quit 3 years ago. 03/11: Remains sedated, orally intubated on mechanical ventilation. Was started on Levophed and dobutamine yesterday for cardiogenic shock as well as bicarbonate drip. Systolic blood pressure running in the 110-120 range, Levophed being titrated down, dobutamine at 2.5 mics per KG per minute - increased to 3 mics per KG per minute. Making urine about 30 cc per hour. Accu -Cheks running in the 200s. On 40% FiO2 PEEP +5. 03/12: Arouses off sedation, following commands. Orally intubated at the time of my evaluation this morning. On Levophed 3 mics per minute, dobutamine 4 mics per KG per minute this morning. 03/13: Beta-2 nasal cannula yesterday. Was on 4 L nasal cannula overnight. This morning became more short of breath and was placed on BiPAP. She is given Bumex 1 mg IV as well as empiric antibiotics including bank/Zosyn/Zithromax were initiated. Chest x-ray reveals worsening pulmonary edema. No fevers overnight. Patient is awake and alert on BiPAP with full face mask at the time of my evaluation. She appears to be tolerating it well currently. Remains in atrial fibrillation. On dobutamine at 2 mics per KG per minute. Objective Vital Signs Date Time Temp Pulse Resp B/P (MAP) Pulse Ox O2 Delivery O2 Flow Rate FiO2 03/13/17 04:24 91 Nasal Cannula 5.00 03/13/17 03:44 128 03/13/17 03:00 98.3 20 131/66 (87) 115/69 (84) 03/12/17 08:00 40 Intake and Output 03/13/17 03/13/17 03/14/17 08:00 16:00 00:00 Intake Total 1266 ml Output Total 425 ml Balance 841 ml Result Diagram: 03/13/17 0445 03/12/17 0430 Other Results Laboratory Tests Test 03/12/17 09:05 03/13/17 04:35 03/13/17 04:45 Blood Gas Puncture Site ART LINE ART LINE Blood Gas Patient Temperature 98.6 98.6 Blood Gas HCO3 27 mmol/L 27 mmol/L Blood Gas Base Excess 3.7 mmol/L 2.7 mmol/L Blood Gas Oxygen Saturation 96 % 96 % Arterial Blood pH 7.50 7.40 Arterial Blood Partial Pressure CO2 35 mmHg 44 mmHg Arterial Blood Partial Pressure O2 114 mmHg 113 mmHg Arterial Blood Oxygen Content 14.2 Vol % 14.0 Vol % Arterial Blood Carboxyhemoglobin 1.3 % 1.2 % Arterial Blood Methemoglobin 1.2 % 1.2 % Blood Gas Hemoglobin 10.4 G/DL 10.2 G/DL Oxygen Delivery Device VENTILATOR Non-Rebreathing Mask Blood Gas Ventilator Setting CPAP5/PS10 Blood Gas Inspired Oxygen 40 % Blood Gas Liter Flow 15 L/M White Blood Count 24.6 TH/MM3 Red Blood Count 3.67 MIL/MM3 Hemoglobin 10.2 GM/DL Hematocrit 30.8 % Mean Corpuscular Volume 83.9 FL Mean Corpuscular Hemoglobin 27.8 PG Mean Corpuscular Hemoglobin Concent 33.1 % Red Cell Distribution Width 15.8 % Platelet Count 252 TH/MM3 Mean Platelet Volume 9.4 FL Activated Partial Thromboplast Time 81.4 SEC Imaging Last 48 hours Impressions Chest X-Ray 03/13/17 0000 Signed Impressions: Service Date/Time: Monday, March 13, 2017 04:51 - CONCLUSION: Radiographic appearance consistent with pulmonary edema. Clifford Kahn Jr., MD Chest X-Ray 03/12/17 0600 Signed Impressions: Service Date/Time: March 04:30 - CONCLUSION: Bibasilar consolidation and small effusions, increased on the right and not significantly changed on the left. Fermin Lux MD Last Impressions Aorta CTA 03/10/17 09 Signed Impressions: Service Date/Time: Friday, March 10, 2017 10:47 - CONCLUSION: 1. 2.2 x 1.9 cm spiculated left lower lobe posterior lung mass with apparently centrally necrotic anterior tracheal mediastinal lymph node measuring 2.8 x 2.7 cm. Subcentimeter mediastinal and confluent partially calcified right hilar lymph nodes are more nonspecific may be due to prior granulomatous disease. 2. 2.7 x 2.0 cm left adnexal mass likely corresponding to the ovary. This is abnormal given patients advanced age. Further evaluation may be performed with ultrasound of the pelvis. 3. Otherwise, no evidence for distant metastatic disease. 4. Focal 4 cm length distal descending thoracic aortic aneurysm measuring up to 3.7 cm in axial dimension. 5. No aortic dissection. 6. Additional ancillary findings, as above. Woo Covarrubias MD Chest X-Ray 03/10/17 0913 Signed Impressions: Service Date/Time: Friday, March 10, 2017 09:37 - CONCLUSION: 1. Mild diffuse interstitial prominence, likely chronic. 2. Otherwise, no acute cardiopulmonary disease. Woo Covarrubias MD Objective Remarks Drips: Propofol/fentanyl off. Levophed off, dobutamine 2 mics per KG per minute HEENT/ Neuro: Pallor present, no icterus, tongue/ mucosa moist. Awake alert oriented 3, on BiPAP with full facemask, moves all 4 extremities. Neck: Right IJ central line in place Chest/Pulm: Air entry decreased bilaterally at bases, no wheezing or crackles. Scattered rhonchi. Extubated to nasal cannula CVS: S1-S2 irregularly irregular, no murmur GI/abdomen: soft, nontender, bowel sounds sluggish Extremities: warm bilaterally, no edema Skin: warm and dry Urinary Catheter: Yes Assessment to: Continue Chen insert reason: ICU Pt Getting Diuretics Vascular Central Line Catheter: Yes Assessment to: Continue Line: Central Venous Catheter Side: Right Location: Jugular A/P Assessment and Plan 81-year-old female with: A. fib with RVR Cardiomyopathy with LVEF 10-15% Acute decompensated systolic CHF Cardiogenic shock Descending thoracic aortic aneurysm Acute respiratory failure on mechanical ventilation Left lower lobe lung mass suspicious for malignancy Suspected COPD Metabolic acidosis Hyperglycemia Abdominal pain Elevated LFTs - suspect shock liver/congestion Left adnexal mass (2cm) on CT Hypothyroidism Plan: Neuro: Follow neuro status. Off all sedation. Pain medications as needed Cardiovascular: 2-D echo with global hypokinesis with LVEF 10-15%, RV appeared to have normal contractility. On dobutamine drip which will be increased from 2 to 3 mics per KG per minute. Off Levophed. Continue full anticoagulation with heparin. Started on digoxin for A. fib with RVR for better rate control on 03/12. CT aortogram images reviewed and pulmonary trunk well visualized with no evidence of filling defect in pulmonary trunk. Lower extremity venous Dopplers negative for DVT. Cardiac enzymes negative, suspect nonischemic cardiomyopathy possibly viral. Discussed with Dr. Church - planning cardiac catheterization on 03/13. May require Impella if not responding to diuretics. Limited 2-D echo ordered for 03/12 to follow up on LVEF. Pulmonary: Extubated to nasal cannula on 03/12. Started on BiPAP on 03/13 for worsening respiratory status with pulmonary edema. Does not appear to have COPD as primary problem at this time. Pulmonary following for left lower lobe lung mass suspicious for malignancy and discussed the case with Dr. Zamora. If patient stabilizes she will require a lung biopsy for further evaluation. On Solu-Medrol 40 mg IV every 12 hourly. GI/liver: Will eventually require further evaluation of left adnexal mass. LFTs improving. Was tolerating trophic feeds which were held this morning for extubation. If respiratory status remains stable we will consider advancing oral diet. Renal/: Initially given Lasix however in view of severe hypotension given fluid bolus. Strict intake output, monitor and replete electrolytes, follow BUN /creatinine. KVO IV fluids now and continue diuresis with Lasix. ID: Ordered blood cultures and sputum Gram stain and cultures as well as a UA. Suspect viral etiology for cardiomyopathy. Started on empiric azithromycin/ vancomycin/Zosyn this morning (03/13). Changed antibiotic regimen to Levaquin IV. Hemeonc: Follow CBC and coags. Started heparin for full anticoagulation for A. fib in setting of severe cardiomyopathy of unclear etiology. Will need lung biopsy eventually for left lower lobe lung mass which appears suspicious for malignancy as well as further evaluation of left adnexal mass on CT. Endocrine: SSI for glycemic control, changed to high dose SSI. Hold Synthroid as TSH low. Prophylaxis: PPI. Full anticoagulation with heparin gtt. SCDs. Case discussed with REHABILITATION PHYSICIAN Condition remains critical, patient remains in A. fib with RVR, decompensated CHF, acute respiratory failure requiring BiPAP requiring inotropes for cardiogenic shock due to severe cardiomyopathy with LVEF 10-15% Time spent on critical care 40 minutes excluding procedures Nemani,Mejia K. MD Mar 13, 2017 07:31
[2017-03-13] MEDS: CHLORHEXIDINE 0.12% (ORAL KIT) 15 ML CUP MT SCH ×2 (08:00→20:00)
[2017-03-13 08:01] LABS: ALT (GPT) 872 U/L (10-53); ANION GAP 8 MEQ/L (5-15); AST (GOT) 222 U/L (15-37); BICARBONATE 27.6 MEQ/L (21.0-32.0); BLOOD UREA NITROGEN 28 MG/DL (7-18); CHLORIDE 97 MEQ/L (98-107); GLOMERULAR FILTRATION RATE 50 ML/MIN (>89); POTASSIUM 4.1 MEQ/L (3.5-5.1); SODIUM (NA) 133 MEQ/L (136-145)
[2017-03-13 08:03] LABS: ALKALINE PHOSPHATASE 79 U/L (45-117); TOTAL BILIRUBIN ADULT 0.7 MG/DL (0.2-1.0)
[2017-03-13] MEDS: SODIUM CHLORIDE 0.9% FLUSH 10 ML FLUSH IV FLUSH SCH ×2 (08:48→21:24)
[2017-03-13] MEDS: ONDANSETRON HCL 4 MG/2 ML VIAL IV PUSH PRN ×2 (08:52→15:15)
[2017-03-13] MEDS: methylPREDNISolone SOD SUCC 40 MG/1 ML VIAL IV PUSH SCH ×2 (08:53→21:24)
[2017-03-13] MEDS: PANTOPRAZOLE SODIUM 40 MG VIAL IV PUSH SCH (08:53)
[2017-03-13] MEDS: DOCUSATE SODIUM 50 MG/SENNA 8.6 MG TAB PO SCH ×2 (08:54→21:25)
[2017-03-13] MEDS: DIGOXIN 0.125 MG TAB PO SCH (08:54)
[2017-03-13] MEDS: FUROSEMIDE 20 MG/2 ML VIAL IV PUSH SCH ×3 (08:54→18:35)
[2017-03-13] MEDS: CARVEDILOL 12.5 MG TAB PO SCH ×2 (08:54→18:37)
--- NOTE | 2017-03-13 10:05 | PD.CARD.PN ---
Subjective Subjective Remarks short of breath Objective Vital Signs / I&O Vital Signs Date Time Temp Pulse Resp B/P (MAP) Pulse Ox O2 Delivery O2 Flow Rate FiO2 03/13/17 09:45 95 50 03/13/17 09:26 94 Nasal Cannula 5.00 03/13/17 08:00 91 115/56 (75) 91/61 (71) 03/13/17 07:00 94 Bi-Pap 50 03/13/17 07:00 91 03/13/17 07:00 98.0 91 20 115/56 (75) 94 91/61 (71) 03/13/17 05:24 97 50 03/13/17 04:24 91 Nasal Cannula 5.00 03/13/17 03:44 128 03/13/17 03:00 90 Nasal Cannula 4.00 03/13/17 03:00 98.3 121 20 131/66 (87) 92 115/69 (84) 03/13/17 00:00 109 03/12/17 23:44 20 03/12/17 23:00 95.4 119 20 130/79 (96) 92 117/68 (84) 03/12/17 23:00 92 Nasal Cannula 4.00 03/12/17 21:53 99 Nasal Cannula 4.00 03/12/17 20:00 100 111/58 (75) 98/53 (68) 03/12/17 19:00 94.8 105 20 111/58 (75) 93 114/66 (82) 03/12/17 19:00 93 Nasal Cannula 4.00 03/12/17 19:00 105 03/12/17 17:56 97 Nasal Cannula 4.00 03/12/17 15:00 97.7 118 16 105/59 (74) 94 101/58 (72) 03/12/17 15:00 112 03/12/17 15:00 94 Nasal Cannula 4.00 03/12/17 11:00 97.5 109 16 107/53 (71) 95 98/56 (70) 03/12/17 11:00 108 03/12/17 11:00 95 Nasal Cannula 4.00 I/O 03/12/17 03/12/17 03/12/17 03/13/17 03/13/17 03/13/17 07:00 15:00 23:00 07:00 15:00 23:00 Intake Total 3556 ml 97 ml 965 ml 1266 ml 250 ml Output Total 1330.0 ml 670 ml 425 ml Balance 2226.0 ml 97 ml 295 ml 841 ml 250 ml Intake Oral 240 ml IV Total 3376 ml 97 ml 710 ml 1266 ml 250 ml Tube Feeding 180 ml 15 ml Output Urine Total 1130 ml 670 ml 425 ml Gastric Drainage Total 100 ml 0 ml Tube Feeding Residual Discard 100.0 ml # Bowel Movements 1 Physical Exam GENERAL: Well-nourished, well-developed patient in no apparent distress. NECK: No JVD. No carotid bruit. CARDIOVASCULAR: Tachy Regularly irregular. S1/S2 no murmur, rub, or gallop. RESPIRATORY: No accessory muscle use. Clear to auscultation. Breath sounds equal bilaterally. GASTROINTESTINAL: Abdomen soft, non-tender, nondistended. MUSCULOSKELETAL: Extremities without clubbing, cyanosis, or edema. Laboratory Laboratory Tests Test 03/13/17 04:35 03/13/17 04:45 Blood Gas Puncture Site ART LINE Blood Gas Patient Temperature 98.6 Blood Gas HCO3 27 mmol/L Blood Gas Base Excess 2.7 mmol/L Blood Gas Oxygen Saturation 96 % Arterial Blood pH 7.40 Arterial Blood Partial Pressure CO2 44 mmHg Arterial Blood Partial Pressure O2 113 mmHg Arterial Blood Oxygen Content 14.0 Vol % Arterial Blood Carboxyhemoglobin 1.2 % Arterial Blood Methemoglobin 1.2 % Blood Gas Hemoglobin 10.2 G/DL Oxygen Delivery Device Non-Rebreathing Mask Blood Gas Liter Flow 15 L/M White Blood Count 24.6 TH/MM3 Red Blood Count 3.67 MIL/MM3 Hemoglobin 10.2 GM/DL Hematocrit 30.8 % Mean Corpuscular Volume 83.9 FL Mean Corpuscular Hemoglobin 27.8 PG Mean Corpuscular Hemoglobin Concent 33.1 % Red Cell Distribution Width 15.8 % Platelet Count 252 TH/MM3 Mean Platelet Volume 9.4 FL Activated Partial Thromboplast Time 81.4 SEC Blood Urea Nitrogen 28 MG/DL Creatinine 1.05 MG/DL Random Glucose 138 MG/DL Total Protein 6.7 GM/DL Albumin 3.1 GM/DL Calcium Level 7.9 MG/DL Alkaline Phosphatase 79 U/L Aspartate Amino Transf (AST/SGOT) 222 U/L Alanine Aminotransferase (ALT/SGPT) 872 U/L Total Bilirubin 0.7 MG/DL Sodium Level 133 MEQ/L Potassium Level 4.1 MEQ/L Chloride Level 97 MEQ/L Carbon Dioxide Level 27.6 MEQ/L Anion Gap 8 MEQ/L Estimat Glomerular Filtration Rate 50 ML/MIN Assessment and Plan Problem List: (1) Cardiomyopathy ICD Codes: I42.9 - Cardiomyopathy, unspecified (2) Chest pain ICD Codes: R07.9 - Chest pain, unspecified (3) Afib ICD Codes: I48.91 - Unspecified atrial fibrillation (4) Descending thoracic aortic aneurysm ICD Codes: I71.2 - Thoracic aortic aneurysm, without rupture Status: Acute Assessment and Plan A-fib - better controlled hemodynamic instability - better, now off Levophed. On dobutamine 3 mcg/kg min, Chest pain - once of pressors and off the vent will plan coronary angiogram, Cardiomyopathy - likely nonischemic, continue supportive care, continue diuresis to try to wean BiPAP. Plan for LHC when CHF improves Diogenes Burrows Mar 13, 2017 10:05
[2017-03-13] MEDS: LEVOFLOXACIN 750 MG PREMIX INJ 150 ML IV SCH (12:02)
[2017-03-13] MEDS: HEPARIN 25,000 UNITS-D5W 250 ML - PREMIX IV SCH (13:11)
[2017-03-13 13:48] LABS: APTT (PATIENT) 57.4 SEC (24.3-30.1)
[2017-03-13 22:05] LABS: APTT (PATIENT) 53.4 SEC (24.3-30.1)
[2017-03-14] VITALS (16 sets, daily range): BP systolic 92–114; BP diastolic 50–72; PULSE 68–99; RESP 16–22; TEMP 96.9–99.2; O2SAT 91–96
[2017-03-14] MEDS: FUROSEMIDE 20 MG/2 ML VIAL IV PUSH SCH ×5 (00:27→23:37)
[2017-03-14] MEDS: ACETAMINOPHEN/CODEINE ELIX 120 MG/12 MG/5 ML CUP PO PRN ×2 (00:33→23:35)
[2017-03-14] MEDS: CHLORHEXIDINE GLUCONATE 2 % 1 PACK (2 CLOTHS) TOP SCH ×2 (04:00→19:44)
[2017-03-14] MEDS: RESP: IPRATROPIUM 0.5 MG/2.5 ML NEB INH SCH (04:58)
[2017-03-14 05:33] LABS: AUTOMATED NEUTROPHIL # 12.7 TH/MM3 (1.8-7.7); BASOPHIL % 0.1 % (0.0-2.0); HEMATOCRIT 28.4 % (35.0-46.0); HEMO FLAGS DIFF FINAL; LYMPHOCYTE # 0.8 TH/MM3 (1.0-4.8); MEAN CELL VOLUME 83.7 FL (80.0-100.0); MEAN CORPUSCULAR HGB CONC 33.4 % (32.0-36.0); MONO % 4.4 % (0.0-8.0); NEUT % 89.5 % (16.0-70.0); PLATELET COUNT 205 TH/MM3 (150-450); RED CELL DISTRIBUTION WIDTH 15.7 % (11.6-17.2); WHITE BLOOD COUNT 14.2 TH/MM3 (4.0-11.0)
[2017-03-14 05:46] LABS: ALT (GPT) 536 U/L (10-53); ANION GAP 9 MEQ/L (5-15); AST (GOT) 79 U/L (15-37); BICARBONATE 34.5 MEQ/L (21.0-32.0); BLOOD UREA NITROGEN 27 MG/DL (7-18); CHLORIDE 90 MEQ/L (98-107); GLOMERULAR FILTRATION RATE 47 ML/MIN (>89); POTASSIUM 3.2 MEQ/L (3.5-5.1); SODIUM (NA) 133 MEQ/L (136-145)
[2017-03-14 05:51] LABS: ALKALINE PHOSPHATASE 75 U/L (45-117); TOTAL BILIRUBIN ADULT 0.9 MG/DL (0.2-1.0)
[2017-03-14] MEDS: CARVEDILOL 12.5 MG TAB PO SCH ×2 (05:57→16:39)
[2017-03-14] MEDS: POTASSIUM CHLOR 40 MEQ PREMIX 100 ML IV PRN ×2 (06:03→07:58)
[2017-03-14] MEDS: INSULIN ASPART SUPPLEMENTAL SCALE SQ SCH ×5 (06:04→23:35)
[2017-03-14 07:05] LABS: APTT (PATIENT) 49.1 SEC (24.3-30.1)
[2017-03-14] MEDS: CHLORHEXIDINE 0.12% (ORAL KIT) 15 ML CUP MT SCH ×2 (08:00→19:42)
--- NOTE | 2017-03-14 08:19 | PD.CARD.PN ---
Subjective Subjective Remarks i feel better no cv complaints Objective Medications Current Medications Medications (Trade) Dose Ordered Sig/Chris Route Start Time Stop Time Status Last Admin (Zofran Inj) 4 mg Q6HR PRN IV PUSH 03/10/17 15:30 03/13/17 15:15 (Nitrostat Sl) 0.4 mg Q5M PRN SL 03/10/17 15:45 (NS Flush) 2 ml UNSCH PRN IV FLUSH 03/10/17 16:00 (NS Flush) 2 ml BID IV FLUSH 03/10/17 21:00 03/13/17 21:24 (Tylenol) 650 mg Q6H PRN PO 03/10/17 16:00 (Morphine Inj) 2 mg Q4H PRN IV PUSH 03/10/17 16:00 (Reglan Inj) 10 mg Q6H PRN IV PUSH 03/10/17 16:00 03/12/17 22:25 (Atrovent Neb) 0.5 mg Q6HR NEB INH 03/10/17 16:00 03/14/17 04:58 (Atrovent Neb) 0.5 mg Q2HR NEB PRN INH 03/10/17 16:00 Miscellaneous Information 1 Q361D XX 03/10/17 16:00 (Chlorhexidine 2% Cloth) 3 pack Taper DAILY@04 TOP 03/11/17 04:00 03/07/18 03:59 03/14/17 04:00 (Chlorhexidine 2% Cloth) 3 pack UNSCH PRN TOP 03/10/17 16:00 (Libia-Colace) 1 tab BID PO 03/10/17 21:00 03/13/17 21:25 (Milk Of Magnesia Liq) 30 ml Q12H PRN PO 03/10/17 16:00 (Senokot) 17.2 mg Q12H PRN PO 03/10/17 16:00 (Dulcolax Supp) 10 mg DAILY PRN RECTAL 03/10/17 16:00 (Lactulose Liq) 30 ml DAILY PRN PO 03/10/17 16:00 (Coreg) 12.5 mg Q12H PO 03/10/17 17:00 03/14/17 05:57 Heparin Sodium/ Dextrose 250 ml @ 12 mls/hr TITRATE IV 03/10/17 17:00 03/13/17 13:11 Fentanyl Citrate 250 ml @ 5 mls/hr TITRATE PRN IV 03/10/17 17:00 03/11/17 04:18 Dobutamine HCl 500 mg/Dextrose 250 ml @ 4.86 mls/hr CONTINUOUS IV 03/10/17 19:30 03/12/17 07:41 (NovoLOG SUPPLEMENTAL SCALE) 1 Q6HR SQ 03/11/17 12:00 03/14/17 06:04 (D50w (Vial) Inj) 25 ml UNSCH PRN IV 03/11/17 07:00 (Glucagon Inj) 1 mg UNSCH PRN IM/SQ 03/11/17 07:00 Potassium Chloride 100 ml @ 50 mls/hr Q2H PRN IV 03/11/17 07:00 03/14/17 07:58 Potassium Chloride 100 ml @ 50 mls/hr Q2H PRN IV 03/11/17 07:00 Potassium Chloride 100 ml @ 25 mls/hr UNSCH PRN IV 03/11/17 07:00 Potassium Chloride 100 ml @ 50 mls/hr Q2H PRN IV 03/11/17 07:00 03/12/17 00:36 Magnesium Sulfate 4 gm/Sodium Chloride 100 ml @ 50 mls/hr UNSCH PRN IV 03/11/17 07:00 (Mag-Ox) 800 mg UNSCH PRN PO 03/11/17 07:00 Magnesium Sulfate 2 gm/Sodium Chloride 100 ml @ 50 mls/hr UNSCH PRN IV 03/11/17 07:00 (K-Phos) 2,000 mg Q4H PRN PO 03/11/17 07:00 Sodium Phosphate 30 mmol/Sodium Chloride 250 ml @ 42 mls/hr UNSCH PRN IV 03/11/17 07:00 (K-Phos) 2,000 mg UNSCH PRN PO/TUBE 03/11/17 07:00 Potassium Phosphate 30 mmol/ Sodium Chloride 260 ml @ 42 mls/hr UNSCH PRN IV 03/11/17 07:00 (Peridex 0.12% Liq) 15 ml BID@08,20 MT 03/11/17 20:00 03/12/17 08:04 (Lanoxin) 0.125 mg DAILY PO 03/13/17 09:00 03/13/17 08:54 (SoluMEDROL INJ) 40 mg Q12HR IV PUSH 03/12/17 21:00 03/13/17 21:24 (Tylenol - Codeine 120-12 Liq) 12.5 ml Q6H PRN PO 03/12/17 22:45 03/14/17 00:33 Levofloxacin/ Dextrose 150 ml @ 100 mls/hr Q24H IV 03/13/17 12:00 03/13/17 12:02 (Lasix Inj) 40 mg Q6HR IV PUSH 03/13/17 12:00 03/14/17 05:56 (Duoneb Neb) 1 ampule Q6HR NEB NEB 03/14/17 10:00 UNV (Pepcid) 20 mg BID PO 03/14/17 09:00 UNV (Diamox Inj) 500 mg Q8H IV PUSH 03/14/17 08:15 03/15/17 00:16 UNV Vital Signs / I&O Vital Signs Date Time Temp Pulse Resp B/P (MAP) Pulse Ox O2 Delivery O2 Flow Rate FiO2 03/14/17 04:00 97.9 80 22 104/53 (70) 96 101/50 (67) 03/14/17 03:45 99 03/14/17 03:30 95 Nasal Cannula 5.00 03/14/17 01:35 20 03/14/17 00:00 93 03/14/17 00:00 99.2 87 20 114/72 (86) 92 100/52 (68) 03/14/17 00:00 99 Nasal Cannula 5.00 03/13/17 23:30 93 03/13/17 22:44 98 50 03/13/17 22:31 92 Nasal Cannula 5.00 03/13/17 22:00 92 Bi-Pap 50 03/13/17 20:00 94 Nasal Cannula 5.00 03/13/17 20:00 81 116/62 (80) 98/53 (68) 03/13/17 20:00 88 03/13/17 20:00 98.3 88 22 116/60 (78) 95 98/53 (68) 03/13/17 15:00 88 03/13/17 15:00 98.3 88 15 107/60 (76) 93 77/61 (66) 03/13/17 15:00 93 Nasal Cannula 4.00 03/13/17 11:00 99 03/13/17 11:00 98 Bi-Pap 50 03/13/17 11:00 98.4 105 17 121/60 (80) 98 108/61 (77) 03/13/17 09:45 95 50 03/13/17 09:26 94 Nasal Cannula 5.00 I/O 03/13/17 03/13/17 03/13/17 03/14/17 03/14/17 03/14/17 07:00 15:00 23:00 07:00 15:00 23:00 Intake Total 1266 ml 400 ml 268 ml 378 ml Output Total 425 ml 3450 ml 2350 ml Balance 841 ml 400 ml -3182 ml -1972 ml Intake Oral 60 ml 12 ml IV Total 1266 ml 400 ml 208 ml 366 ml Tube Feeding 0 ml Output Urine Total 425 ml 3450 ml 2350 ml # Bowel Movements 0 0 Physical Exam GENERAL: Well-nourished, well-developed patient. SKIN: Warm and dry. HEAD: Normocephalic. EYES: No scleral icterus. No injection or drainage. NECK: Supple, trachea midline. No JVD or lymphadenopathy. CARDIOVASCULAR: Regular rate and rhythm without murmurs, gallops, or rubs. RESPIRATORY: Breath sounds equal bilaterally. No accessory muscle use. GASTROINTESTINAL: Abdomen soft, non-tender, nondistended. EXTREMITIES: No cyanosis, or edema. NEUROLOGICAL: Awake, alert, and oriented x 3. Non-focal. Laboratory Laboratory Tests Test 03/13/17 12:50 03/13/17 21:31 03/14/17 04:45 Activated Partial Thromboplast Time 57.4 SEC 53.4 SEC 49.1 SEC White Blood Count 14.2 TH/MM3 Red Blood Count 3.40 MIL/MM3 Hemoglobin 9.5 GM/DL Hematocrit 28.4 % Mean Corpuscular Volume 83.7 FL Mean Corpuscular Hemoglobin 28.0 PG Mean Corpuscular Hemoglobin Concent 33.4 % Red Cell Distribution Width 15.7 % Platelet Count 205 TH/MM3 Mean Platelet Volume 9.1 FL Neutrophils (%) (Auto) 89.5 % Lymphocytes (%) (Auto) 6.0 % Monocytes (%) (Auto) 4.4 % Eosinophils (%) (Auto) 0.0 % Basophils (%) (Auto) 0.1 % Neutrophils # (Auto) 12.7 TH/MM3 Lymphocytes # (Auto) 0.8 TH/MM3 Monocytes # (Auto) 0.6 TH/MM3 Eosinophils # (Auto) 0.0 TH/MM3 Basophils # (Auto) 0.0 TH/MM3 CBC Comment DIFF FINAL Differential Comment Blood Urea Nitrogen 27 MG/DL Creatinine 1.12 MG/DL Random Glucose 157 MG/DL Total Protein 6.5 GM/DL Albumin 2.9 GM/DL Calcium Level 8.0 MG/DL Alkaline Phosphatase 75 U/L Aspartate Amino Transf (AST/SGOT) 79 U/L Alanine Aminotransferase (ALT/SGPT) 536 U/L Total Bilirubin 0.9 MG/DL Sodium Level 133 MEQ/L Potassium Level 3.2 MEQ/L Chloride Level 90 MEQ/L Carbon Dioxide Level 34.5 MEQ/L Anion Gap 9 MEQ/L Estimat Glomerular Filtration Rate 47 ML/MIN Imaging Last Impressions Chest X-Ray 03/13/17 0000 Signed Impressions: Service Date/Time: Monday, March 13, 2017 04:51 - CONCLUSION: Radiographic appearance consistent with pulmonary edema. Clifford Kahn Jr., MD Aorta CTA 03/10/17 0929 Signed Impressions: Service Date/Time: Friday, March 10, 2017 10:47 - CONCLUSION: 1. 2.2 x 1.9 cm spiculated left lower lobe posterior lung mass with apparently centrally necrotic anterior tracheal mediastinal lymph node measuring 2.8 x 2.7 cm. Subcentimeter mediastinal and confluent partially calcified right hilar lymph nodes are more nonspecific may be due to prior granulomatous disease. 2. 2.7 x 2.0 cm left adnexal mass likely corresponding to the ovary. This is abnormal given patients advanced age. Further evaluation may be performed with ultrasound of the pelvis. 3. Otherwise, no evidence for distant metastatic disease. 4. Focal 4 cm length distal descending thoracic aortic aneurysm measuring up to 3.7 cm in axial dimension. 5. No aortic dissection. 6. Additional ancillary findings, as above. Woo Covarrubias MD Lower Extremity Ultrasound 03/10/17 0000 Signed Impressions: Service Date/Time: Friday, March 10, 2017 18:19 - CONCLUSION: No DVT. Fermin Flores MD Assessment and Plan Problem List: (1) Cardiomyopathy ICD Codes: I42.9 - Cardiomyopathy, unspecified Plan: A-fib - better controlled. No CV complaints. Off Levophed. On dobutamine Recommendations: Continue supportive care and diuresis. Plan for [facility] next week D/C dobutamine (2) Chest pain ICD Codes: R07.9 - Chest pain, unspecified (3) Afib ICD Codes: I48.91 - Unspecified atrial fibrillation (4) Descending thoracic aortic aneurysm ICD Codes: I71.2 - Thoracic aortic aneurysm, without rupture Status: Acute Shelton-Keron Jay MD Mar 14, 2017 08:19
--- NOTE | 2017-03-14 08:23 | HHI.CCPN ---
Subjective Remarks/Hospital Course 03/10: 81-year-old female who was evaluated by her PCP Dr. Moyer who she saw for upper abdominal pain which has been going on for about 2 months today. PCP noted high heart rate and sent patient to the ER. Patient was evaluated in the ER at [place]. At that time she denied any chest pain shortness of breath nausea vomiting diarrhea fever or cough per documentation by ER physician. She was noted to be in A. fib with RVR. She was given Cardizem 5 mg IV and subsequently was transferred to [facility] CVICU. I was contacted by nursing staff following patient's arrival that her heart rate was in the 160s and she was on a nonrebreather facemask with O2 sats in the 80s. I had not been notified regarding this patient from either [facility] [facility] or by any other accepting physician so I immediately went to patient's bedside to evaluate her. I contacted Dr. Casas from [facility] as patient had been reportedly accepted by [facility] however he was not aware of any details. Patient was in obvious respiratory distress at the time of my evaluation. Patient underwent CTA aortogram at [place] [facility] and was found to have a left lower lobe spiculated lung mass with central necrosis suspicious for malignancy as well as a descending thoracic aortic aneurysm less than 4 cm in diameter with no dissection. Dr. Casas requested critical care consult. Patient was given Lopressor 5 mg IV with which her ventricular rate came down in the 90s. She did have borderline blood pressures with systolic SBP 90s. She continued to have worsening shortness of breath and appeared cold and clammy. She denied any chest pain however was complaining of epigastric pain. Per patient's she has lost 24 pounds in 3 months and has had a cough for 4 months. She has had abdominal pain for a year and has previously had an EGD which revealed a gastric ulcer 7 years ago. Patient was loaded with amiodarone and started on amiodarone drip. She is also given aspirin 324 mg stat as her EKG revealed T inversions in the lateral leads concerning for ischemia. Stat 2-D echo was ordered and patient was noted to have a LVEF 10-15% with global hypokinesis. Patient continued to be in significant respiratory distress using accessory muscles of respiration and became very diaphoretic and appeared to be worsening clinically hence was emergently intubated and placed on mechanical ventilation. She was initiated on full anticoagulation with heparin. I emergently placed a right IJ central venous catheter and right axillary a line. Dr. Church from cardiology was consulted and I personally discussed the case, EKG and echo findings with Dr. Church who will be evaluating patient. Prior to intubation, patient denied any prior cardiac history or previous history of CAD, arrhythmias or ID. She denied any history of COPD though she has been a long-standing smoker(60 pack years) and quit 3 years ago. 03/11: Remains sedated, orally intubated on mechanical ventilation. Was started on Levophed and dobutamine yesterday for cardiogenic shock as well as bicarbonate drip. Systolic blood pressure running in the 110-120 range, Levophed being titrated down, dobutamine at 2.5 mics per KG per minute - increased to 3 mics per KG per minute. Making urine about 30 cc per hour. Accu -Cheks running in the 200s. On 40% FiO2 PEEP +5. 03/12: Arouses off sedation, following commands. Orally intubated at the time of my evaluation this morning. On Levophed 3 mics per minute, dobutamine 4 mics per KG per minute this morning. 03/13: Beta-2 nasal cannula yesterday. Was on 4 L nasal cannula overnight. This morning became more short of breath and was placed on BiPAP. She is given Bumex 1 mg IV as well as empiric antibiotics including bank/Zosyn/Zithromax were initiated. Chest x-ray reveals worsening pulmonary edema. No fevers overnight. Patient is awake and alert on BiPAP with full face mask at the time of my evaluation. She appears to be tolerating it well currently. Remains in atrial fibrillation. On dobutamine at 2 mics per KG per minute. 03/14: dobutamine still at 3 mcg/kg/min. states she feels much better this morning. on bedside critical care ultrasound: LV function still severely reduced , IVC still dilated > 2cm without respiratory variation. RV function preserved. Objective Vital Signs Date Time Temp Pulse Resp B/P (MAP) Pulse Ox O2 Delivery O2 Flow Rate FiO2 03/14/17 04:00 97.9 80 22 104/53 (70) 96 101/50 (67) 03/14/17 03:30 Nasal Cannula 5.00 03/13/17 22:44 50 Intake and Output 03/14/17 03/14/17 03/14/17 07:59 15:59 23:59 Intake Total 378 ml Output Total 2350 ml Balance -1972 ml Result Diagram: 03/14/17 0445 03/14/17 0445 Imaging Last 48 hours Impressions Chest X-Ray 03/13/17 0000 Signed Impressions: Service Date/Time: Monday, March 13, 2017 04:51 - CONCLUSION: Radiographic appearance consistent with pulmonary edema. Clifford Kahn Jr., MD Chest X-Ray 03/12/17 0600 Signed Impressions: Service Date/Time: March 04:30 - CONCLUSION: Bibasilar consolidation and small effusions, increased on the right and not significantly changed on the left. Fermin Lux MD Last Impressions Aorta CTA 03/10/17 0929 Signed Impressions: Service Date/Time: Friday, March 10, 2017 10:47 - CONCLUSION: 1. 2.2 x 1.9 cm spiculated left lower lobe posterior lung mass with apparently centrally necrotic anterior tracheal mediastinal lymph node measuring 2.8 x 2.7 cm. Subcentimeter mediastinal and confluent partially calcified right hilar lymph nodes are more nonspecific may be due to prior granulomatous disease. 2. 2.7 x 2.0 cm left adnexal mass likely corresponding to the ovary. This is abnormal given patients advanced age. Further evaluation may be performed with ultrasound of the pelvis. 3. Otherwise, no evidence for distant metastatic disease. 4. Focal 4 cm length distal descending thoracic aortic aneurysm measuring up to 3.7 cm in axial dimension. 5. No aortic dissection. 6. Additional ancillary findings, as above. Woo Covarrubias MD Chest X-Ray 03/10/1713 Signed Impressions: Service Date/Time: Friday, March 10, 2017 09:37 - CONCLUSION: 1. Mild diffuse interstitial prominence, likely chronic. 2. Otherwise, no acute cardiopulmonary disease. Woo Covarrubais MD Objective Remarks HEENT/ Neuro: Pallor present, no icterus, tongue/ mucosa moist. Awake alert oriented 3, on nc o2, moves all 4 extremities. Neck: Right IJ central line in place Chest/Pulm: equal chest rise. unlabored CVS: normal rate, irregularly irregular, afib by tele. GI/abdomen: soft, nontender, nondistended. no guarding. Extremities: warm bilaterally, no edema Skin: warm and dry A/P Assessment and Plan 81-year-old female with new-onset atrial fibrillation and acute cardiomyopathy of unknown etiology, in cardiogenic shock. now starting to improve. good diuresis yesterday and will continue that today as she has clinical exam evidence of ongoing intravascular volume overload. will slowly attempt to wean dobutamine today. remain in ICU. highly complex with multiple acute medical problems. A. fib with RVR- resolving. Acute Cardiomyopathy, unknown type, with LVEF 10-15% Acute decompensated systolic CHF Cardiogenic shock Acute intravascular volume overload Descending thoracic aortic aneurysm Acute hypoxic respiratory failure - resolving. Left lower lobe lung mass suspicious for malignancy Suspected COPD Metabolic acidosis - resolving Acute Kidney Injury Hyperglycemia Abdominal pain Elevated LFTs - suspect shock liver/congestion- resolving. Left adnexal mass (2cm) on CT Hypothyroidism Plan: Neuro: Follow neuro status. Off all sedation. Pain medications as needed Cardiovascular: 2-D echo with global hypokinesis with LVEF 10-15%, RV appeared to have normal contractility. will slowly start to wean dobutamine by 1 mcg/kg/ min ever 4-6 hours and attempt to wean to off throughout the day. continue forced diuresis with lasix. continue heparin anticoagulation. plan for LHC/RHC thursday. continue digoxin and get f/u dig level tomorrow (day 3). CT aortogram images reviewed and pulmonary trunk well visualized with no evidence of filling defect in pulmonary trunk. Lower extremity venous Dopplers negative for DVT. Cardiac enzymes negative, suspect nonischemic cardiomyopathy. Pulmonary: Extubated to nasal cannula on 03/12. continue aggressive pulmonary toilet. ongoing diuresis for pulmonary edema. Pulmonary following for left lower lobe lung mass suspicious for malignancy and discussed the case with Dr. Violette Cali. If patient stabilizes she will require a lung biopsy for further evaluation. On Solu-Medrol 40 mg IV every 12 hourly. GI/liver: Will eventually require further evaluation of left adnexal mass. LFTs improving. advance diet as tolerated. Renal/: forced diuresis with lasix. add diamox 500mg iv x 3 doses for contraction alkalosis. goal at least net -2L/24h. Strict intake output, monitor and replete electrolytes, follow BUN/creatinine. ID: Ordered blood cultures and sputum Gram stain and cultures as well as a UA. initially on azithro/vanc/zosyn empirically, changed to Levaquin when negative cultures. plan on empiric 7 day course of Levaquin. (anticipated stop date 03/16) Hemeonc: Follow CBC and coags. Started heparin for full anticoagulation for A. fib in setting of severe cardiomyopathy of unclear etiology. Will need lung biopsy eventually for left lower lobe lung mass which appears suspicious for malignancy as well as further evaluation of left adnexal mass on CT. Endocrine: SSI for glycemic control, changed to high dose SSI. Hold Synthroid as TSH low. Prophylaxis: change to pepcid. Full anticoagulation with heparin gtt. SCDs. Case discussed with [employer] Remain in ICU. highly complex. multiple organs involved. Jasvir Garcia MD Mar 14, 2017 08:23
[2017-03-14] MEDS: RESP: ALBUTEROL 2.5 MG/IPRATROPIUM 0.5 MG NEB (SCH) NEB ×3 (09:30→21:11)
[2017-03-14] MEDS: methylPREDNISolone SOD SUCC 40 MG/1 ML VIAL IV PUSH SCH ×2 (09:54→20:18)
[2017-03-14] MEDS: DIGOXIN 0.125 MG TAB PO SCH (09:54)
[2017-03-14] MEDS: DOCUSATE SODIUM 50 MG/SENNA 8.6 MG TAB PO SCH ×2 (09:54→20:18)
[2017-03-14] MEDS: FAMOTIDINE 20 MG TAB PO SCH ×2 (09:54→20:18)
[2017-03-14] MEDS: SODIUM CHLORIDE 0.9% FLUSH 10 ML FLUSH IV FLUSH SCH ×2 (09:55→20:18)
[2017-03-14] MEDS ORDERED: RESP: ALBUTEROL 2.5 MG/IPRATROPIUM 0.5 MG NEB (SCH) NEB (10:00)
[2017-03-14] MEDS: DOBUTamine INJ 500 MG in DEXTROSE 5% IN WATER INJ 210 ML IV SCH ×2 (10:43)
[2017-03-14] MEDS: LEVOFLOXACIN 750 MG PREMIX INJ 150 ML IV SCH (12:17)
[2017-03-14] MEDS: HEPARIN 25,000 UNITS-D5W 250 ML - PREMIX IV SCH (14:08)
[2017-03-14 16:32] LABS: MAGNESIUM 1.9 MG/DL (1.5-2.5); POTASSIUM 3.5 MEQ/L (3.5-5.1)
--- NOTE | 2017-03-14 20:03 | HHI.PR ---
Subjective Remarks ALERT NO SOB AT REST Objective Vital Signs Date Time Temp Pulse Resp B/P (MAP) Pulse Ox O2 Delivery O2 Flow Rate FiO2 03/14/17 17:00 96.9 80 16 96/56 (69) 92 105/58 (74) 03/14/17 15:00 97.7 71 18 99/55 (70) 92 109/54 (72) 03/14/17 15:00 71 03/14/17 15:00 Nasal Cannula 5.00 03/14/17 11:00 98.1 72 18 94/50 (65) 92 102/55 (71) 03/14/17 11:00 72 03/14/17 11:00 92 Nasal Cannula 5.00 03/14/17 09:30 91 Nasal Cannula 4.00 03/14/17 08:00 82 105/56 (72) 100/57 (71) 03/14/17 07:00 97.9 79 18 105/56 (72) 94 100/57 (71) 03/14/17 07:00 94 Nasal Cannula 5.00 03/14/17 07:00 79 03/14/17 04:00 97.9 80 22 104/53 (70) 96 101/50 (67) 03/14/17 03:45 99 03/14/17 03:30 95 Nasal Cannula 5.00 03/14/17 01:35 20 03/14/17 00:00 93 03/14/17 00:00 99.2 87 20 114/72 (86) 92 100/52 (68) 03/14/17 00:00 99 Nasal Cannula 5.00 03/13/17 23:30 93 03/13/17 22:44 98 50 03/13/17 22:31 92 Nasal Cannula 5.00 03/13/17 22:00 92 Bi-Pap 50 I/O 03/13/17 03/13/17 03/13/17 03/14/17 03/14/17 03/14/17 07:00 15:00 23:00 07:00 15:00 23:00 Intake Total 1266 ml 400 ml 268 ml 378 ml 660 ml Output Total 425 ml 3450 ml 2350 ml 1700 ml Balance 841 ml 400 ml -3182 ml -1972 ml -1040 ml Intake Oral 60 ml 12 ml 240 ml IV Total 1266 ml 400 ml 208 ml 366 ml 420 ml Tube Feeding 0 ml Output Urine Total 425 ml 3450 ml 2350 ml 1700 ml # Bowel Movements 0 0 0 Result Diagram: 03/14/17 0445 03/14/17 1600 Objective Remarks GENERAL: SKIN: Warm and dry. HEAD: Atraumatic. Normocephalic. EYES: Pupils equal and round. No scleral icterus. No injection or drainage. ENT: No nasal bleeding or discharge. Mucous membranes pink and moist. NECK: Trachea midline. No JVD. CARDIOVASCULAR: Regular rate and rhythm. RESPIRATORY: No accessory muscle use. Clear to auscultation. Breath sounds equal bilaterally. GASTROINTESTINAL: Abdomen soft, non-tender, nondistended. Hepatic and splenic margins not palpable. MUSCULOSKELETAL: Extremities without clubbing, cyanosis, or edema. No obvious deformities. NEUROLOGICAL: Awake and alert. No obvious cranial nerve deficits. Motor grossly within normal limits. Five out of 5 muscle strength in the arms and legs. Normal speech. PSYCHIATRIC: Appropriate mood and affect; insight and judgment normal. Assessment and Plan Assessment and Plan COPD LUNG MASS CHF AFIB PLAN O2 NEEDED W/U FOR LUNG MASS IN PROGRESS Dimas Cochran MD Mar 14, 2017 20:03
[2017-03-15] VITALS (32 sets, daily range): BP systolic 87–102; BP diastolic 52–61; PULSE 56–126; RESP 18; TEMP 97.5–98.9; O2SAT 91–98
[2017-03-15] MEDS: RESP: ALBUTEROL 2.5 MG/IPRATROPIUM 0.5 MG NEB (SCH) NEB ×4 (03:10→21:01)
[2017-03-15 05:09] LABS: APTT (PATIENT) 73.9 SEC (24.3-30.1)
[2017-03-15 05:18] LABS: HEMATOCRIT 30.5 % (35.0-46.0); MEAN CELL VOLUME 84.7 FL (80.0-100.0); MEAN CORPUSCULAR HEMOGLOBIN 28.1 PG (27.0-34.0); MEAN CORPUSCULAR HGB CONC 33.2 % (32.0-36.0); PLATELET COUNT 206 TH/MM3 (150-450); RED CELL DISTRIBUTION WIDTH 15.9 % (11.6-17.2); REVIEW FLAG FINAL; WHITE BLOOD COUNT 12.2 TH/MM3 (4.0-11.0)
[2017-03-15 05:36] LABS: BICARBONATE 33.5 MEQ/L (21.0-32.0); POTASSIUM 3.2 MEQ/L (3.5-5.1)
[2017-03-15 05:50] LABS: DIGOXIN 1.2 NG/ML (0.8-2.0)
[2017-03-15] MEDS: INSULIN ASPART SUPPLEMENTAL SCALE SQ SCH ×3 (05:54→23:10)
[2017-03-15] MEDS: POTASSIUM CHLOR 40 MEQ PREMIX 100 ML IV PRN (06:02)
[2017-03-15] MEDS: CARVEDILOL 12.5 MG TAB PO SCH ×2 (06:04→18:07)
[2017-03-15] MEDS: FUROSEMIDE 20 MG/2 ML VIAL IV PUSH SCH (06:05)
--- NOTE | 2017-03-15 08:17 | PD.CARD.PN ---
Subjective Subjective Remarks No CV complaints No overnight events Objective Medications Current Medications Medications (Trade) Dose Ordered Sig/Chris Route Start Time Stop Time Status Last Admin (Zofran Inj) 4 mg Q6HR PRN IV PUSH 03/10/17 15:30 03/13/17 15:15 (Nitrostat Sl) 0.4 mg Q5M PRN SL 03/10/17 15:45 (NS Flush) 2 ml UNSCH PRN IV FLUSH 03/10/17 16:00 (NS Flush) 2 ml BID IV FLUSH 03/10/17 21:00 03/14/17 20:18 (Tylenol) 650 mg Q6H PRN PO 03/10/17 16:00 (Morphine Inj) 2 mg Q4H PRN IV PUSH 03/10/17 16:00 (Reglan Inj) 10 mg Q6H PRN IV PUSH 03/10/17 16:00 03/12/17 22:25 (Atrovent Neb) 0.5 mg Q2HR NEB PRN INH 03/10/17 16:00 Miscellaneous Information 1 Q361D XX 03/10/17 16:00 (Chlorhexidine 2% Cloth) 3 pack Taper DAILY@04 TOP 03/11/17 04:00 03/07/18 03:59 03/14/17 04:00 (Chlorhexidine 2% Cloth) 3 pack UNSCH PRN TOP 03/10/17 16:00 (Libia-Colace) 1 tab BID PO 03/10/17 21:00 03/14/17 20:18 (Milk Of Magnesia Liq) 30 ml Q12H PRN PO 03/10/17 16:00 (Senokot) 17.2 mg Q12H PRN PO 03/10/17 16:00 (Dulcolax Supp) 10 mg DAILY PRN RECTAL 03/10/17 16:00 (Lactulose Liq) 30 ml DAILY PRN PO 03/10/17 16:00 (Coreg) 12.5 mg Q12H PO 03/10/17 17:00 03/15/17 06:04 Heparin Sodium/ Dextrose 250 ml @ 12 mls/hr TITRATE IV 03/10/17 17:00 03/14/17 14:08 Fentanyl Citrate 250 ml @ 5 mls/hr TITRATE PRN IV 03/10/17 17:00 03/11/17 04:18 Dobutamine HCl 500 mg/Dextrose 250 ml @ 4.86 mls/hr CONTINUOUS IV 03/10/17 19:30 03/14/17 10:43 (NovoLOG SUPPLEMENTAL SCALE) 1 Q6HR SQ 03/11/17 12:00 03/14/17 23:35 (D50w (Vial) Inj) 25 ml UNSCH PRN IV 03/11/17 07:00 (Glucagon Inj) 1 mg UNSCH PRN IM/SQ 03/11/17 07:00 Potassium Chloride 100 ml @ 50 mls/hr Q2H PRN IV 03/11/17 07:00 03/15/17 06:02 Potassium Chloride 100 ml @ 50 mls/hr Q2H PRN IV 03/11/17 07:00 Potassium Chloride 100 ml @ 25 mls/hr UNSCH PRN IV 03/11/17 07:00 03/14/17 16:48 Potassium Chloride 100 ml @ 50 mls/hr Q2H PRN IV 03/11/17 07:00 03/12/17 00:36 Magnesium Sulfate 4 gm/Sodium Chloride 100 ml @ 50 mls/hr UNSCH PRN IV 03/11/17 07:00 (Mag-Ox) 800 mg UNSCH PRN PO 03/11/17 07:00 Magnesium Sulfate 2 gm/Sodium Chloride 100 ml @ 50 mls/hr UNSCH PRN IV 03/11/17 07:00 (K-Phos) 2,000 mg Q4H PRN PO 03/11/17 07:00 Sodium Phosphate 30 mmol/Sodium Chloride 250 ml @ 42 mls/hr UNSCH PRN IV 03/11/17 07:00 (K-Phos) 2,000 mg UNSCH PRN PO/TUBE 03/11/17 07:00 Potassium Phosphate 30 mmol/ Sodium Chloride 260 ml @ 42 mls/hr UNSCH PRN IV 03/11/17 07:00 (Peridex 0.12% Liq) 15 ml BID@08,20 MT 03/11/17 20:00 03/12/17 08:04 (Lanoxin) 0.125 mg DAILY PO 03/13/17 09:00 03/14/17 09:54 (SoluMEDROL INJ) 40 mg Q12HR IV PUSH 03/12/17 21:00 03/14/17 20:18 (Tylenol - Codeine 120-12 Liq) 12.5 ml Q6H PRN PO 03/12/17 22:45 03/14/17 23:35 Levofloxacin/ Dextrose 150 ml @ 100 mls/hr Q24H IV 03/13/17 12:00 03/14/17 12:17 (Lasix Inj) 40 mg Q6HR IV PUSH 03/13/17 12:00 03/15/17 06:05 (Duoneb Neb) 1 ampule Q6HR NEB NEB 03/14/17 10:00 03/15/17 03:10 (Pepcid) 20 mg BID PO 03/14/17 09:00 03/14/17 20:18 Vital Signs / I&O Vital Signs Date Time Temp Pulse Resp B/P (MAP) Pulse Ox O2 Delivery O2 Flow Rate FiO2 03/15/17 06:00 77 03/15/17 05:00 60 03/15/17 04:00 75 03/15/17 03:30 96 Nasal Cannula 4.00 03/15/17 03:30 97.6 66 18 95/58 (70) 96 102/61 (75) 03/15/17 03:10 95 Nasal Cannula 2.00 03/15/17 03:00 70 03/15/17 02:00 62 03/15/17 01:14 126 03/15/17 01:00 72 03/15/17 00:00 77 03/14/17 23:00 93 Nasal Cannula 4.00 03/14/17 23:00 79 03/14/17 23:00 98.0 71 18 109/58 (75) 93 03/14/17 22:00 78 03/14/17 21:11 96 Nasal Cannula 4.00 03/14/17 21:00 92 03/14/17 20:00 68 03/14/17 19:45 97.8 70 18 92/57 (69) 94 Automatic Cuff 03/14/17 19:45 94 Nasal Cannula 4.00 03/14/17 19:00 70 03/14/17 17:00 96.9 80 16 96/56 (69) 92 105/58 (74) 03/14/17 15:00 97.7 71 18 99/55 (70) 92 109/54 (72) 03/14/17 15:00 71 03/14/17 15:00 Nasal Cannula 5.00 03/14/17 11:00 98.1 72 18 94/50 (65) 92 102/55 (71) 03/14/17 11:00 72 03/14/17 11:00 92 Nasal Cannula 5.00 03/14/17 09:30 91 Nasal Cannula 4.00 03/14/17 08:00 82 105/56 (72) 100/57 (71) I/O 03/14/17 03/14/17 03/14/17 03/15/17 03/15/17 03/15/17 07:00 15:00 23:00 07:00 15:00 23:00 Intake Total 378 ml 760 ml 359 ml Output Total 2350 ml 1700 ml 2000 ml Balance -1972 ml -940 ml -1641 ml Intake Oral 12 ml 240 ml 240 ml IV Total 366 ml 520 ml 119 ml Output Urine Total 2350 ml 1700 ml 2000 ml # Bowel Movements 0 0 0 Physical Exam GENERAL: Well-nourished, well-developed patient. SKIN: Warm and dry. HEAD: Normocephalic. EYES: No scleral icterus. No injection or drainage. NECK: Supple, trachea midline. No JVD or lymphadenopathy. CARDIOVASCULAR: Regular rate and rhythm without murmurs, gallops, or rubs. RESPIRATORY: Breath sounds equal bilaterally. No accessory muscle use. GASTROINTESTINAL: Abdomen soft, non-tender, nondistended. EXTREMITIES: No cyanosis, or edema. NEUROLOGICAL: Awake, alert, and oriented x 3. Non-focal. Laboratory Laboratory Tests Test 03/14/17 16:00 03/15/17 04:40 Potassium Level 3.5 MEQ/L 3.2 MEQ/L Magnesium Level 1.9 MG/DL White Blood Count 12.2 TH/MM3 Red Blood Count 3.60 MIL/MM3 Hemoglobin 10.1 GM/DL Hematocrit 30.5 % Mean Corpuscular Volume 84.7 FL Mean Corpuscular Hemoglobin 28.1 PG Mean Corpuscular Hemoglobin Concent 33.2 % Red Cell Distribution Width 15.9 % Platelet Count 206 TH/MM3 Mean Platelet Volume 9.3 FL Activated Partial Thromboplast Time 73.9 SEC Blood Urea Nitrogen 35 MG/DL Creatinine 1.18 MG/DL Random Glucose 141 MG/DL Calcium Level 8.9 MG/DL Sodium Level 134 MEQ/L Chloride Level 92 MEQ/L Carbon Dioxide Level 33.5 MEQ/L Anion Gap 9 MEQ/L Estimat Glomerular Filtration Rate 44 ML/MIN Digoxin Level 1.2 NG/ML Imaging Last Impressions Chest X-Ray 03/13/17 0000 Signed Impressions: Service Date/Time: Monday, March 13, 2017 04:51 - CONCLUSION: Radiographic appearance consistent with pulmonary edema. Clifford Kahn Jr., MD Aorta CTA 03/10/17 0929 Signed Impressions: Service Date/Time: Friday, March 10, 2017 10:47 - CONCLUSION: 1. 2.2 x 1.9 cm spiculated left lower lobe posterior lung mass with apparently centrally necrotic anterior tracheal mediastinal lymph node measuring 2.8 x 2.7 cm. Subcentimeter mediastinal and confluent partially calcified right hilar lymph nodes are more nonspecific may be due to prior granulomatous disease. 2. 2.7 x 2.0 cm left adnexal mass likely corresponding to the ovary. This is abnormal given patients advanced age. Further evaluation may be performed with ultrasound of the pelvis. 3. Otherwise, no evidence for distant metastatic disease. 4. Focal 4 cm length distal descending thoracic aortic aneurysm measuring up to 3.7 cm in axial dimension. 5. No aortic dissection. 6. Additional ancillary findings, as above. Woo Covarrubias MD Lower Extremity Ultrasound 03/10/17 0000 Signed Impressions: Service Date/Time: Friday, March 10, 2017 18:19 - CONCLUSION: No DVT. Fermin Flores MD Assessment and Plan Problem List: (1) Cardiomyopathy ICD Codes: I42.9 - Cardiomyopathy, unspecified Status: Acute Plan: A-fib - better controlled. No CV complaints. Off Levophed. On dobutamine Recommendations: Continue supportive care and diuresis. Plan for [facility] next week Dr. Curran to f/u in AM (2) Chest pain ICD Codes: R07.9 - Chest pain, unspecified (3) Afib ICD Codes: I48.91 - Unspecified atrial fibrillation Status: Acute (4) Descending thoracic aortic aneurysm ICD Codes: I71.2 - Thoracic aortic aneurysm, without rupture Status: Acute Shelton-Keron Jay MD Mar 15, 2017 07:45
[2017-03-15] MEDS: SODIUM CHLORIDE 0.9% FLUSH 10 ML FLUSH IV FLUSH SCH ×2 (09:00→20:04)
--- NOTE | 2017-03-15 09:24 | HHI.PR ---
Subjective Remarks feeling better no complaints Objective Vitals heart irreg lung good air entry abd s/nt ext no edema cvl, art line,arguello Vital Signs Date Time Temp Pulse Resp B/P (MAP) Pulse Ox O2 Delivery O2 Flow Rate FiO2 03/15/17 06:00 77 03/15/17 05:00 60 03/15/17 04:00 75 03/15/17 03:30 96 Nasal Cannula 4.00 03/15/17 03:30 97.6 66 18 95/58 (70) 96 102/61 (75) 03/15/17 03:10 95 Nasal Cannula 2.00 03/15/17 03:00 70 03/15/17 02:00 62 03/15/17 01:14 126 03/15/17 01:00 72 03/15/17 00:00 77 03/14/17 23:00 93 Nasal Cannula 4.00 03/14/17 23:00 79 03/14/17 23:00 98.0 71 18 109/58 (75) 93 03/14/17 22:00 78 03/14/17 21:11 96 Nasal Cannula 4.00 03/14/17 21:00 92 03/14/17 20:00 68 03/14/17 19:45 97.8 70 18 92/57 (69) 94 Automatic Cuff 03/14/17 19:45 94 Nasal Cannula 4.00 03/14/17 19:00 70 03/14/17 17:00 96.9 80 16 96/56 (69) 92 105/58 (74) 03/14/17 15:00 97.7 71 18 99/55 (70) 92 109/54 (72) 03/14/17 15:00 71 03/14/17 15:00 Nasal Cannula 5.00 03/14/17 11:00 98.1 72 18 94/50 (65) 92 102/55 (71) 03/14/17 11:00 72 03/14/17 11:00 92 Nasal Cannula 5.00 03/14/17 09:30 91 Nasal Cannula 4.00 Result Diagram: 03/15/1743903/15/17439 A/P Problem List: (1) Respiratory failure ICD Codes: J96.90 - Respiratory failure, unspecified, unspecified whether with hypoxia or hypercapnia Plan: Presented to [facility] and transferred to [facility] with RVR- controlled Acute Cardiomyopathy, decompensated systolic chf, with LVEF 10-15% Cardiogenic shock Acute intravascular volume overload Descending thoracic aortic aneurysm Acute hypoxic respiratory failure - resolving. Left lower lobe lung mass suspicious for malignancy Suspected COPD Metabolic acidosis - resolving Acute Kidney Injury/ ckd 3 Elevated LFTs - suspect shock liver/congestion- resolving. Left adnexal mass (2cm) on CT Hypothyroidism cardiology and pulmonary following plan for [facility] this week if stable..?Thursday d/c art line cont heparin gtt lasix...iv to po cont digoxin solumedrol/nebs/abx..?stop ssi for steroid hyperglycemia replace electrolytes PT. OOB to chair (2) Cardiogenic shock ICD Codes: R57.0 - Cardiogenic shock Status: Acute (3) Lung mass ICD Codes: R91.8 - Other nonspecific abnormal finding of lung field Status: Acute (4) Cardiomyopathy ICD Codes: I42.9 - Cardiomyopathy, unspecified Status: Acute (5) Afib ICD Codes: I48.91 - Unspecified atrial fibrillation Status: Acute (6) Descending thoracic aortic aneurysm ICD Codes: I71.2 - Thoracic aortic aneurysm, without rupture Status: Acute (7) Hypothyroid ICD Codes: E03.9 - Hypothyroidism, unspecified Status: Chronic Danny Cabrera MD Mar 15, 2017 09:24
[2017-03-15] MEDS: DOCUSATE SODIUM 50 MG/SENNA 8.6 MG TAB PO SCH ×2 (11:10→20:03)
[2017-03-15] MEDS: DIGOXIN 0.125 MG TAB PO SCH (11:10)
[2017-03-15] MEDS ORDERED: PILL SPLITTER OTHER PRN (11:15)
--- NOTE | 2017-03-15 16:09 | HHI.PR ---
Subjective Remarks ALERT NO SOB AT REST Objective Vital Signs Date Time Temp Pulse Resp B/P (MAP) Pulse Ox O2 Delivery O2 Flow Rate FiO2 03/15/17 10:06 98 Nasal Cannula 4.00 03/15/17 06:00 77 03/15/17 05:00 60 03/15/17 04:00 75 03/15/17 03:30 96 Nasal Cannula 4.00 03/15/17 03:30 97.6 66 18 95/58 (70) 96 102/61 (75) 03/15/17 03:10 95 Nasal Cannula 2.00 03/15/17 03:00 70 03/15/17 02:00 62 03/15/17 01:14 126 03/15/17 01:00 72 03/15/17 00:00 77 03/14/17 23:00 93 Nasal Cannula 4.00 03/14/17 23:00 79 03/14/17 23:00 98.0 71 18 109/58 (75) 93 03/14/17 22:00 78 03/14/17 21:11 96 Nasal Cannula 4.00 03/14/17 21:00 92 03/14/17 20:00 68 03/14/17 19:45 97.8 70 18 92/57 (69) 94 Automatic Cuff 03/14/17 19:45 94 Nasal Cannula 4.00 03/14/17 19:00 70 03/14/17 17:00 96.9 80 16 96/56 (69) 92 105/58 (74) I/O 03/14/17 03/14/17 03/14/17 03/15/17 03/15/17 03/15/17 07:00 15:00 23:00 07:00 15:00 23:00 Intake Total 378 ml 760 ml 359 ml Output Total 2350 ml 1700 ml 2000 ml Balance -1972 ml -940 ml -1641 ml Intake Oral 12 ml 240 ml 240 ml IV Total 366 ml 520 ml 119 ml Output Urine Total 2350 ml 1700 ml 2000 ml # Bowel Movements 0 0 0 Result Diagram: 03/15/1743903/15/17439 Objective Remarks GENERAL: SKIN: Warm and dry. HEAD: Atraumatic. Normocephalic. EYES: Pupils equal and round. No scleral icterus. No injection or drainage. ENT: No nasal bleeding or discharge. Mucous membranes pink and moist. NECK: Trachea midline. No JVD. CARDIOVASCULAR: Regular rate and rhythm. RESPIRATORY: No accessory muscle use. Clear to auscultation. Breath sounds equal bilaterally. GASTROINTESTINAL: Abdomen soft, non-tender, nondistended. Hepatic and splenic margins not palpable. MUSCULOSKELETAL: Extremities without clubbing, cyanosis, or edema. No obvious deformities. NEUROLOGICAL: Awake and alert. No obvious cranial nerve deficits. Motor grossly within normal limits. Five out of 5 muscle strength in the arms and legs. Normal speech. PSYCHIATRIC: Appropriate mood and affect; insight and judgment normal. Assessment and Plan Assessment and Plan COPD LUNG MASS CHF AFIB PLAN O2 NEEDED W/U FOR LUNG MASS IN PROGRESS Dimas Cochran MD Mar 15, 2017 16:09
[2017-03-15] MEDS ORDERED: FUROSEMIDE 40 MG TAB PO SCH (18:00)
[2017-03-15] MEDS: CHLORHEXIDINE GLUCONATE 2 % 1 PACK (2 CLOTHS) TOP SCH (19:24)
[2017-03-15] MEDS: CHLORHEXIDINE 0.12% (ORAL KIT) 15 ML CUP MT SCH (19:24)
[2017-03-15] MEDS: POTASSIUM CHLORIDE 20 MEQ CONTROLLED RELEASE TAB PO SCH (20:03)
[2017-03-15] MEDS: methylPREDNISolone SOD SUCC 40 MG/1 ML VIAL IV PUSH SCH (20:03)
[2017-03-15] MEDS: FAMOTIDINE 20 MG TAB PO SCH (20:04)
[2017-03-15] MEDS: ACETAMINOPHEN/CODEINE ELIX 120 MG/12 MG/5 ML CUP PO PRN (23:10)
[2017-03-16] VITALS (22 sets, daily range): BP systolic 90–104; BP diastolic 51–59; PULSE 51–83; RESP 16–18; TEMP 97.6–98.2; O2SAT 92–97
[2017-03-16] MEDS: RESP: ALBUTEROL 2.5 MG/IPRATROPIUM 0.5 MG NEB (SCH) NEB ×4 (04:00→22:10)
[2017-03-16 05:16] LABS: HEMATOCRIT 31.9 % (35.0-46.0); MEAN CELL VOLUME 84.5 FL (80.0-100.0); MEAN CORPUSCULAR HEMOGLOBIN 27.7 PG (27.0-34.0); MEAN CORPUSCULAR HGB CONC 32.7 % (32.0-36.0); PLATELET COUNT 222 TH/MM3 (150-450); RED BLOOD COUNT 3.77 MIL/MM3 (4.00-5.30); REVIEW FLAG FINAL; WHITE BLOOD COUNT 12.3 TH/MM3 (4.0-11.0)
[2017-03-16 05:25] LABS: APTT (PATIENT) 80.2 SEC (24.3-30.1)
[2017-03-16 05:40] LABS: ANION GAP 7 MEQ/L (5-15); AST (GOT) 32 U/L (15-37); BICARBONATE 30.5 MEQ/L (21.0-32.0); BLOOD UREA NITROGEN 42 MG/DL (7-18); CHLORIDE 96 MEQ/L (98-107); GLOMERULAR FILTRATION RATE 49 ML/MIN (>89); POTASSIUM 3.7 MEQ/L (3.5-5.1); SODIUM (NA) 133 MEQ/L (136-145)
[2017-03-16 05:41] LABS: ALT (GPT) 274 U/L (10-53)
[2017-03-16 05:43] LABS: ALKALINE PHOSPHATASE 85 U/L (45-117); INDIRECT BILIRUBIN 0.4 MG/DL (0.0-0.8); TOTAL BILIRUBIN ADULT 0.6 MG/DL (0.2-1.0)
[2017-03-16] MEDS: INSULIN ASPART SUPPLEMENTAL SCALE SQ SCH ×3 (05:56→16:42)
[2017-03-16] MEDS: CARVEDILOL 12.5 MG TAB PO SCH (06:05)
[2017-03-16] MEDS ORDERED: FUROSEMIDE 20 MG TAB PO SCH (09:00)
--- NOTE | 2017-03-16 09:06 | PD.CARD.PN ---
Subjective Subjective Remarks no complaints sitting up in bed off pressors Objective Medications Active Medications Famotidine (Pepcid) 10 mg BID PO Last administered on 03/15/17 20:04; Admin Dose 10 MG; Start 03/15/17 at 11:15 Furosemide (Lasix) 20 mg DAILY PO; Start 03/16/17 at 09:00 Furosemide (Lasix) 40 mg BID@09,18 PO Last administered on 03/15/17 18:07; Admin Dose 40 MG; Start 03/15/17 at 18:00; Stop 03/16/17 at 08:47; Status DC Levofloxacin/ Dextrose 150 ml @ 100 mls/hr Q48H IV; Start 03/16/17 at 12:00 Miscellaneous (Pill Splitter) 1 ea UNSCH PRN OTHER; Start 03/15/17 at 11:15 Potassium Chloride (KCl) 20 meq Q12HR PO Last administered on 03/15/17 20:03; Admin Dose 20 MEQ; Start 03/15/17 at 21:00 Vital Signs / I&O Vital Signs Date Time Temp Pulse Resp B/P (MAP) Pulse Ox O2 Delivery O2 Flow Rate FiO2 03/16/17 06:00 64 03/16/17 05:00 64 03/16/17 04:00 69 03/16/17 03:10 97.6 65 16 95/52 (66) 96 03/16/17 03:10 96 Nasal Cannula 5.00 03/16/17 03:00 51 03/16/17 02:00 55 03/16/17 01:00 55 03/16/17 00:00 54 03/15/17 23:05 93 Nasal Cannula 5.00 03/15/17 23:00 91 Nasal Cannula 3.00 03/15/17 23:00 65 03/15/17 23:00 97.7 70 18 95/55 (68) 91 03/15/17 22:00 66 03/15/17 21:03 95 Nasal Cannula 3.00 03/15/17 21:00 64 03/15/17 20:00 64 03/15/17 19:45 97 Nasal Cannula 3.00 03/15/17 19:45 97.5 76 18 96/55 (69) 97 03/15/17 19:00 65 03/15/17 18:00 68 03/15/17 17:00 74 03/15/17 16:00 64 03/15/17 15:30 62 03/15/17 15:30 97.9 62 18 95/55 (68) 94 03/15/17 15:30 94 Nasal Cannula 3.00 03/15/17 15:00 62 03/15/17 14:00 60 03/15/17 13:00 62 03/15/17 12:00 62 03/15/17 11:30 69 03/15/17 11:30 94 Nasal Cannula 3.00 03/15/17 11:30 98.9 69 18 90/54 (66) 94 03/15/17 11:00 70 03/15/17 10:06 98 Nasal Cannula 4.00 03/15/17 10:00 68 I/O 03/15/17 03/15/17 03/15/17 03/16/17 03/16/17 03/16/17 07:00 15:00 23:00 07:00 15:00 23:00 Intake Total 359 ml 1016 ml 253 ml Output Total 2000 ml 1175 ml 525 ml Balance -1641 ml -159 ml -272 ml Intake Oral 240 ml 780 ml 150 ml IV Total 119 ml 236 ml 103 ml Output Urine Total 2000 ml 1175 ml 525 ml # Bowel Movements 0 0 0 Physical Exam GENERAL: SKIN: Warm and dry. HEAD: Normocephalic. EYES: No scleral icterus. No injection or drainage. NECK: Supple, trachea midline. No JVD or lymphadenopathy. CARDIOVASCULAR: Regular rate and rhythm without murmurs, gallops, or rubs. RESPIRATORY: Breath sounds equal bilaterally. No accessory muscle use. GASTROINTESTINAL: Abdomen soft, non-tender, nondistended. MUSCULOSKELETAL: No cyanosis, or edema. BACK: Nontender without obvious deformity. No CVA tenderness. Laboratory Laboratory Tests Test 03/15/17 16:58 03/16/17 04:55 Potassium Level 3.5 MEQ/L 3.7 MEQ/L White Blood Count 12.3 TH/MM3 Red Blood Count 3.77 MIL/MM3 Hemoglobin 10.4 GM/DL Hematocrit 31.9 % Mean Corpuscular Volume 84.5 FL Mean Corpuscular Hemoglobin 27.7 PG Mean Corpuscular Hemoglobin Concent 32.7 % Red Cell Distribution Width 16.0 % Platelet Count 222 TH/MM3 Mean Platelet Volume 8.7 FL Activated Partial Thromboplast Time 80.2 SEC Blood Urea Nitrogen 42 MG/DL Creatinine 1.08 MG/DL Random Glucose 119 MG/DL Total Protein 6.7 GM/DL Albumin 2.9 GM/DL Calcium Level 8.5 MG/DL Alkaline Phosphatase 85 U/L Aspartate Amino Transf (AST/SGOT) 32 U/L Alanine Aminotransferase (ALT/SGPT) 274 U/L Total Bilirubin 0.6 MG/DL Direct Bilirubin 0.2 MG/DL Sodium Level 133 MEQ/L Chloride Level 96 MEQ/L Carbon Dioxide Level 30.5 MEQ/L Anion Gap 7 MEQ/L Estimat Glomerular Filtration Rate 49 ML/MIN Indirect Bilirubin 0.4 MG/DL Assessment and Plan Problem List: (1) Cardiomyopathy ICD Codes: I42.9 - Cardiomyopathy, unspecified Status: Acute (2) Chest pain ICD Codes: R07.9 - Chest pain, unspecified (3) Afib ICD Codes: I48.91 - Unspecified atrial fibrillation Status: Acute (4) Descending thoracic aortic aneurysm ICD Codes: I71.2 - Thoracic aortic aneurysm, without rupture Status: Acute Assessment and Plan [facility] today hold BB due to hypotension and procedure planned hold heparin gtt CT guided biopsy of lung mass to follow. concerning for malignancy given weight loss Ward Church MD Mar 16, 2017 09:06
[2017-03-16] MEDS: DIGOXIN 0.125 MG TAB PO SCH (09:15)
[2017-03-16] MEDS: FAMOTIDINE 20 MG TAB PO SCH ×2 (09:15→21:00)
[2017-03-16] MEDS: POTASSIUM CHLORIDE 20 MEQ CONTROLLED RELEASE TAB PO SCH ×2 (09:15→21:00)
[2017-03-16] MEDS: DOCUSATE SODIUM 50 MG/SENNA 8.6 MG TAB PO SCH ×2 (09:15→21:00)
[2017-03-16] MEDS: methylPREDNISolone SOD SUCC 40 MG/1 ML VIAL IV PUSH SCH (09:17)
[2017-03-16] MEDS: SODIUM CHLORIDE 0.9% FLUSH 10 ML FLUSH IV FLUSH SCH ×2 (09:17→21:00)
[2017-03-16 10:12] LABS: HEMOGLOBIN A1b 1.7 %; HEMOGLOBIN Ao 85.1 %; HEMOGLOBIN LA1C 2.1 %; HEMOGLOBIN P3 3.8 %
[2017-03-16] MEDS ORDERED: LEVOFLOXACIN 750 MG PREMIX INJ 150 ML IV SCH (12:00)
[2017-03-16] MEDS ORDERED: MIDAZOLAM HCL 2 MG/2 ML VIAL ONE (14:23)
[2017-03-16] MEDS ORDERED: SODIUM CHLOR 0.9% 1000 ML INJ 1,000 ML IV SCH (14:50)
[2017-03-16] MEDS ORDERED: MISC INFORMATION XX ONE (15:00)
--- NOTE | 2017-03-16 15:11 | CATHPROC ---
[employer] HIS Report Study Information Study Number Scheduled Start Study Start [id number] 03/16/2017 Mar 16 2017 1:59PM Referring Institution Admit Source Facility Department 1 Other [facility] - Engineer Internship Physician and Clinical Staff Initial Ward Arrington [facility] House Worker Traci Roa,ANA LAURA Other cathlab, cathlab Recorder Clayton Lynch RCIS(BS) Scrub Andrew, Winter,PUNCHBOARD FILLING MACHINE OPERATOR TECH2 Procedures Performed Procedure Location (Site) Vessel Name Coronary Angiograms LCA Left Coronary Coronary Angiograms RCA Right Coronary L Heart Cath Wire insertion Fem Art (right) Femoral Art Equipment Time Dressmaker Or Tailor Description Size Mfg Part Number Used/Scraped TRANSDUCER, TRUWAVE [id number] 14:09 TREJO OAKES * Used W/STOCKCOCK *[id number] *[id number] [id number] *[id number] WIRE, HYDROSTEER 150CM [id number] 14:32 DAIG/[employer] 150CM Used ANGLED GLIDE *[id number] WIRE, HYDROSTEER 260CM [id number] 14:36 DAIG/[employer] 260CM Used ANGLED GLIDE *[id number] 14:09 [employer] INDUSTRIES PACK, CCL CUSTOM * Used *[id number] 14:09 ACHICA SUPPORT, ARTERIAL ADULT 99130 *[id number] Used [id number] 14:09 [employer] PACER PEN, SKIN DUAL W/ RULER * Used *[id number] BAND, RADIAL COMPRESSION TR [id number] 14:40 [employer] MEDICAL 24CM Used SHORT 24 *[id number] 14:09 Jobyal WIRE, EXCHANGE 260CM 3MMJ 260CM Used *[id number] 14:09 NYCOMED OMNIPAQUE, 350 MG, 150ML 150ML [id number] Used [id number] 14:09 [employer] BLANKET,WARM AIR CCL * Used *[id number] SHEATH, FR6 TRANSRADIAL RM*[id number] 14:14 TERUMAblynx MEDICAL FR 6 Used SLENDER 10CM *[id number] Equipment Model, Serial, Lot Number and Expiration Data Description Model Number Serial Number Lot Number Expiration Date WIRE, HYDROSTEER 260CM [id number] 07-08-2019 ANGLED GLIDE History: Current Medications Medication Dosage/Unit Route Frequency Last Date/Time Taken LASIX History: Allergies Allergy Reaction No Known Allergies History: Risk Factors Family History of Hypertension Dyslipidemia Previous SC Previous Heart Failure Premature CAD No Yes No No No Prior Valve Prior PCI Prior CABG Surgery No No No Cerebrovascular Peripheral Artery Chronic Lung On Dialysis Diabetes Disease Disease Disease No No No No No History: Stress Tests Stress or Imaging Studies Performed No History: Other Current Smoker No Labs Hgb (g/dl) Hct (%) WBC (l/cumm) Platelets (thousands) 11.60-17.00 35.00-51.00 4.00-11.00 150.00-450.00 10.4 31.9 12.3 222 Glucose (mg/dl) BUN (mg/dl) Creatinine (mg/dl) BUN:Creatinine (1:x) 74.00-106.00 7.00-18.00 0.50-1.30 10.00-20.00 119 42 1.0 42 Na (meq/l) K (meq/l) 136.00-145.00 3.50-5.10 133 3.7 INR (PTT:PT) 0.90-1.10 0.07 Troponin I (ng/ml) CPK-MB (ng/ML) 0.02-0.05 0.50-3.60 35 Not Drawn Medication Medication Total Dose (Bolus/Oral) Medication Total Dosage/Unit 1% XYLOCAINE 3 mL NTG (IC) 200 mcg VERSED 1 mg Medications (Bolus/Oral) Medication Time Given Dosage/Unit Administered By Reason VERSED 03/16/2017 2:24:58 PM 1 mg Traci Roa 1 mg VERSED given by Traci Roa, RN via Central IV. Ordered by Ward Church. 1% XYLOCAINE 03/16/2017 2:26:53 PM 3 mL Ward Church 3 mL 1% XYLOCAINE given in lab by Ward Church in Right Radial via Subcutaneous. NTG (IC) 03/16/2017 2:28:53 PM 200 mcg Ward Church 200 mcg NTG (IC) given in lab by Ward Church in Right Radial via Intra-arterial. Medication (Drip) Medication Time Given Dosage/Unit Concentration/Unit Diluent (ml) Solution IV Solutions 03/16/2017 1:59:33 PM 0 mL (IV) 500 NaCl .9 Patient arrived on IV Solutions via Central IV. Pump/Drip Flow = 20 ml/hr using NaCl .9. Initial Case Assessment Cardiovascular HR Rhythm NIBP Chest Pain 71 nsr 95/65 0 Edema Present Skin color Skin None Normal Warm Dry Circulatory - Right Pulses Dorsalis Pedis Femoral Radial 2 2 2 Scale (0,1,2,3,4,d) Circulatory - Left Pulses Dorsalis Pedis Femoral Radial 2 2 Scale (0,1,2,3,4,d) Neurological State Oriented to time-place- Alert Moves all extremities person Respiration - General Respiration Rate SpO2 (%) (B/min) 15 93 Final Case Assessment Cardiovascular HR Rhythm NIBP Chest Pain 77 nsr 50/52 0 Edema Present Skin color Skin None Normal Warm Dry Circulatory - Right Pulses Dorsalis Pedis Femoral Radial 2 2 2 Scale (0,1,2,3,4,d) Circulatory - Left Pulses Dorsalis Pedis Femoral Radial 2 2 Scale (0,1,2,3,4,d) Neurological State Oriented to time-place- Alert Moves all extremities person Respiration - General Respiration Rate SpO2 (%) (B/min) 15 93 Chronological Log Time Study Chronological Log 13:59:23 Patient arrived via Bed. 13:59:24 Patient Name, D.O.B, / Armband Verified By R.N. 13:59:24 Consent signed by the physician and the patient and verified by the Engineer Internship staff. 13:59:25 Pre-op and post- op instructions given; patient acknowledges understanding of instructions. 13:59:25 Verbal Stimulation=2 Physical Stimulation=2 Airway=2 Respiration=2 TOTAL=8. (0=absent, 1=li mited, 2=present) 13:59:26 Presedation assessment performed by Engineer Internship RN. 13:59:27 Allens test performed on the right radial and ulnar artery. 13:59:28 Immediate Presedation assesment performed by physician. 13:59:28 Patient has been NPO for Less than 6Hrs. 13:59:29 Skin Breakdown- 13:59:29 Patient Warmer Placed on the Table. 13:59:31 Diego Prominences Protected 13:59:32 A # 16 IV was noted in the Jugular Vein (right). Grade = 0 13:59:33 Patient arrived on IV Solutions via Central IV. Pump/Drip Flow = 20 ml/hr using NaCl .9. 13:59:34 History and physical on the chart or being dictated. Vitals capture started with the following parameters, Patient=Adult, Interval=5 min, Initial Pr hcrmmt=343 mmHg, 14:12:05 Deflation Rate=5 mmHg, Cuff placed on Right Arm 14:12:38 HR=53 bpm, NIBP=95/65 mmhg, SpO2=92.0 %, Resp=17 B/min, Pain=0, Manuel=10, Vicente=2 Assessment: Initial Case, HR=71 BPM, Rhythm=nsr, NIBP=95/65 mmhg, Chest Pain=0, Edema=None, Col or=Normal, Skin = Warm, Dry Right Pulses: Chuy Ped=2, Femoral=2, Radial=2 14:14:05 Left Pulses: Chuy Ped=2, Femoral=2 Neurological: State=Alert, Ox3, BENAVIDES Respiration: Resp=15 B/min, SpO2=93 % 14:14:31 Reference ECG taken 14:17:33 HR=54 bpm, NIBP=95/56 mmhg, SpO2=93 %, Resp=15 B/min, Pain=0, Manuel=10, Vicente=2 14:22:34 HR=77 bpm, RDYI=019/59 mmhg, SpO2=93.0 %, Resp=17 B/min, Pain=0, Manuel=10, Vicente=2 14:22:35 MD arrived. 14:23:12 Pressure channel 1 zeroed. 14:23:16 Contrast Scanned 14:23:17 Immediate Presedation assesment performed by physician. 14:24:58 1 mg VERSED given by Traci Roa, ANA LAURA via Central IV. Ordered by Ward Church. Time Out. Correct patient, correct procedure, correct physician, power injector not loaded with contrast with surgical 14:25:49 team present. Time Out Concurred by MD and individual staff in procedure. 14:25:58 Case Start 14:26:00 Verbal Stimulation=2 Physical Stimulation=2 Airway=2 Respiration=2 TOTAL=8. (0=absent, 1=li mited, 2=present) 14:26:53 3 mL 1% XYLOCAINE given in lab by Ward Church in Right Radial via Subcutaneous. 14:27:35 HR=56 bpm, SZVV=069/58 mmhg, SpO2=94.0 %, Resp=13 B/min, Pain=0, Manuel=10, Vicente=2 14:27:40 Access site was Right Radial Artery. A SHEATH, FR6 TRANSRADIAL SLENDER 10CM FR 6 was advanced into the Radial (right) using the Perc utaneous 14:27:49 technique. 14:28:53 200 mcg NTG (IC) given in lab by Ward Church in Right Radial via Intra-arterial. A JR 5.0 INFINITI CATHETER FR 5 was advanced over a wire. OMNIPAQUE, 350 MG, 150ML 150ML was us ed for 14:29:36 injections. 14:31:35 A WIRE, HYDROSTEER 150CM ANGLED GLIDE 150CM was inserted via Fem Art (right). 14:32:36 HR=54 bpm, NIBP=86/51 mmhg, SpO2=95 %, Resp=16 B/min, Pain=0, Manuel=10, Vicente=2 14:32:55 Wire removed Recorded Pressure: LV, HR=58, Condition=Condition 1 14:34:00 (Left Ventricle) LV 79/0/5 Recorded Pressure: LV, Ao, HR=69, Condition=Condition 1 14:34:30 (Left Ventricle) LV 78/-6/1, (Aorta) Ao 76/40/59 14:34:41 The RCA was injected and visualized at various angles. OMNIPAQUE, 350 MG, 150ML 150ML used . Recorded Pressure: Ao, HR=71, Condition=Condition 1 14:34:47 (Aorta) Ao 79/46/60 14:37:33 HR=58 bpm, NIBP=90/52 mmhg, SpO2=95 %, Resp=15 B/min, Pain=0, Manuel=10, Vicente=2 After removing the current catheter a JL 3.5 INFINITI CATHETER FR 5 was advanced over a WIRE, H YDROSTEER 14:37:42 260CM ANGLED GLIDE 260CM. 14:38:10 The LCA was injected and visualized at various angles. OMNIPAQUE, 350 MG, 150ML 150ML used . 14:39:57 Catheter was removed 14:40:00 Case End Assessment: Final Case, HR=77 BPM, Rhythm=nsr, NIBP=50/52 mmhg, Chest Pain=0, Edema=None, Color =Normal, Skin = Warm, Dry Right Pulses: Chuy Ped=2, Femoral=2, Radial=2 14:40:06 Left Pulses: Chuy Ped=2, Femoral=2 Neurological: State=Alert, Ox3, BENAVIDES Respiration: Resp=15 B/min, SpO2=93 % 14:40:20 Catheter(s) removed without difficulty Radial Compression Device Used. 12 mLs of air placed in BAND, RADIAL COMPRESSION TR SHORT 24 2 4CM. Affected 14:40:21 hand 95 % O2 saturation. 14:40:36 Sterile dressing applied to site 14:40:37 No case complications noted. 14:40:38 Cine recording checked. 14:40:43 Bedside Report will be given. 14:40:48 Contrast Scanned 14:40:48 Verbal Stimulation=2 Physical Stimulation=2 Airway=2 Respiration=2 TOTAL=8. (0=absent, 1=l imited, 2=present) 14:40:53 A Left Heart Cath was performed. 14:42:34 HR=55 bpm, NIBP=93/54 mmhg, SpO2=93 %, Resp=11 B/min, Pain=0, Manuel=10, Vicente=2 14:46:35 Vitals capture stopped. 14:46:36 [facility] - Contrast Media Used In Study Contrast Total Opened (mL) Total Used (mL) Total Wasted (mL) Omnipaque 40 40 0 End Study - Maximum Contrast Load Max Contrast Load (mL) 305.5 End Study - Radiation Exposure Fluoro Time (minutes) 2.9 End Study - Patient Disposition Complications Transferred To Interventional Outcome No Telemetry Bed No attempt made
--- NOTE | 2017-03-16 15:24 | MA ---
cc: KACEY DIAZ DATE: 03/16/2017 INDICATION Cardiogenic shock, congestive heart failure, cardiomyopathy. METHOD Risks, benefits and alternatives were discussed with the patient. The patient understood and consented to the procedure. The patient was brought to the catheterization lab and placed on the catheterization table. Right wrist was prepped and draped in sterile fashion. Right wrist was anesthetized with 2% lidocaine. Right radial artery was cannulated and a 6-New Zealander slender sheath was placed without difficulty. PROCEDURE PERFORMED 1. Fluoroscopy with interpretation. 2. Left heart catheterization. 3. Left ventriculography. LEFT HEART CATHETERIZATION Intraventricular hemodynamics measured 78/1 mmHg. Left ventricular end-diastolic pressure 4 mmHg. No aortic stenosis by transaortic valvular pullback gradient. CORONARY ANGIOGRAPHY 1. Left main coronary is angiographically normal. 2. Left anterior descending coronary has some minor luminal irregularities proximally, in the mid segment, 30% stenosis and some tortuosity. The diagonal branch is also tortuous but angiographically normal. 3. Left circumflex gives rise to an obtuse marginal branch which has minor luminal irregularities, otherwise circumflex is relatively free of disease. 4. Right coronary is occluded in the proximal segment but well collateralized via septal perforators from [id number]. CONCLUSION 1. Nonischemic cardiomyopathy with severely reduced ejection fraction. 2. Right coronary artery occlusion with good collateralization. 3. Normal left-sided filling pressures. PLAN We can hold off on the diuretics given her low left ventricular end-diastolic pressure. She needs optimal medical management. Her cardiomyopathy is clearly nonischemic etiology. We will follow her blood pressures and hopefully will tolerate initiation of Entresto in the near future. MD GRAY Davies/YASSINE /2:47 PM /3:05 PM
[2017-03-16] MEDS ORDERED: IOHEXOL 350 MG/ML 50 ML BTL (for Cath Lab) OTHER ONE (16:54)
--- NOTE | 2017-03-16 17:26 | HHI.PR ---
Subjective Remarks No new complaints. Objective Vitals Vital Signs Date Time Temp Pulse Resp B/P (MAP) Pulse Ox O2 Delivery O2 Flow Rate FiO2 03/16/17 16:00 98.2 77 16 91/59 (70) 97 03/16/17 16:00 Nasal Cannula 2.00 03/16/17 16:00 77 03/16/17 15:00 70 03/16/17 11:30 93 Room Air 4.00 03/16/17 11:30 83 03/16/17 11:30 98.0 83 18 95/59 (71) 93 03/16/17 10:11 Nasal Cannula 4.00 03/16/17 07:50 53 03/16/17 07:50 93 Room Air 4.00 03/16/17 07:50 97.8 53 18 100/54 (69) 93 03/16/17 06:00 64 03/16/17 05:00 64 03/16/17 04:00 69 03/16/17 03:10 97.6 65 16 95/52 (66) 96 03/16/17 03:10 96 Nasal Cannula 5.00 03/16/17 03:00 51 03/16/17 02:00 55 03/16/17 01:00 55 03/16/17 00:00 54 03/15/17 23:05 93 Nasal Cannula 5.00 03/15/17 23:00 91 Nasal Cannula 3.00 03/15/17 23:00 65 03/15/17 23:00 97.7 70 18 95/55 (68) 91 03/15/17 22:00 66 03/15/17 21:03 95 Nasal Cannula 3.00 03/15/17 21:00 64 03/15/17 20:00 64 03/15/17 19:45 97 Nasal Cannula 3.00 03/15/17 19:45 97.5 76 18 96/55 (69) 97 03/15/17 19:00 65 03/15/17 18:00 68 03/16/17 03/16/17 03/17/17 14:59 22:59 06:59 Intake Total 540 ml Output Total 950 ml Balance -410 ml Intake Oral 240 ml IV Total 300 ml Output Urine Total 950 ml # Bowel Movements 0 Result Diagram: 03/16/17 04503/16/17 045 Imaging Last Impressions Chest X-Ray 03/13/17 0000 Signed Impressions: Service Date/Time: Monday, March 13, 2017 04:51 - CONCLUSION: Radiographic appearance consistent with pulmonary edema. Clifford Kahn Jr., MD Aorta CTA 03/10/17 0929 Signed Impressions: Service Date/Time: Friday, March 10, 2017 10:47 - CONCLUSION: 1. 2.2 x 1.9 cm spiculated left lower lobe posterior lung mass with apparently centrally necrotic anterior tracheal mediastinal lymph node measuring 2.8 x 2.7 cm. Subcentimeter mediastinal and confluent partially calcified right hilar lymph nodes are more nonspecific may be due to prior granulomatous disease. 2. 2.7 x 2.0 cm left adnexal mass likely corresponding to the ovary. This is abnormal given patients advanced age. Further evaluation may be performed with ultrasound of the pelvis. 3. Otherwise, no evidence for distant metastatic disease. 4. Focal 4 cm length distal descending thoracic aortic aneurysm measuring up to 3.7 cm in axial dimension. 5. No aortic dissection. 6. Additional ancillary findings, as above. Woo Covarrubias MD Lower Extremity Ultrasound 03/10/17 0000 Signed Impressions: Service Date/Time: Friday, March 10, 2017 18:19 - CONCLUSION: No DVT. Fermin Flores MD Objective Remarks GENERAL: This is a well-nourished, well-developed patient, in no apparent distress. CARDIOVASCULAR: Regular rate and rhythm without murmurs, gallops, or rubs. RESPIRATORY: Clear to auscultation. Breath sounds equal bilaterally. No wheezes , rales, or rhonchi. GASTROINTESTINAL: Abdomen soft, non-tender, nondistended. Normal active bowel sounds MUSCULOSKELETAL: Extremities without clubbing, cyanosis, or edema. NEURO: Alert & Oriented x4 to person, place, time, situation. Moves all ext x4 A/P Problem List: (1) Respiratory failure ICD Codes: J96.90 - Respiratory failure, unspecified, unspecified whether with hypoxia or hypercapnia Plan: Presented to [facility] and transferred to [facility] with RVR- controlled Acute Cardiomyopathy, decompensated systolic chf, with LVEF 10-15% Cardiogenic shock Acute intravascular volume overload Descending thoracic aortic aneurysm Acute hypoxic respiratory failure - resolving. Left lower lobe lung mass suspicious for malignancy Suspected COPD Metabolic acidosis - resolving Acute Kidney Injury/ ckd 3 Elevated LFTs - suspect shock liver/congestion- resolving. Left adnexal mass (2cm) on CT Hypothyroidism cardiology and pulmonary following cont heparin gtt lasix po cont digoxin solumedrol/nebs/levaquin ssi for steroid hyperglycemia PT. OOB to chair [facility] (03/16/17) with Dr. Church 1. Left main coronary is angiographically normal. 2. Left anterior descending coronary has some minor luminal irregularities proximally, in the mid segment, 30% stenosis and some tortuosity. The diagonal branch is also tortuous but angiographically normal. 3. Left circumflex gives rise to an obtuse marginal branch which has minor luminal irregularities, otherwise circumflex is relatively free of disease. 4. Right coronary is occluded in the proximal segment but well collateralized via septal perforators from [id number]. - Case d/w Dr. Church (03/16/17) - Non-ischemic cardiomyopathy - ASA, Entresto (2) Cardiogenic shock ICD Codes: R57.0 - Cardiogenic shock Status: Resolved Plan: - see above (3) Lung mass ICD Codes: R91.8 - Other nonspecific abnormal finding of lung field Status: Acute Plan: - once more clinically stable, consider lung biopsy - request Palliative Consult for clarification of goals (4) Cardiomyopathy ICD Codes: I42.9 - Cardiomyopathy, unspecified Status: Acute Plan: - see above (5) Afib ICD Codes: I48.91 - Unspecified atrial fibrillation Status: Chronic Plan: - digoxin (6) Descending thoracic aortic aneurysm ICD Codes: I71.2 - Thoracic aortic aneurysm, without rupture Status: Chronic (7) Hypothyroid ICD Codes: E03.9 - Hypothyroidism, unspecified Status: Chronic Edgard Estrada DO Mar 16, 2017 17:26
--- NOTE | 2017-03-16 17:48 | HHI.PR ---
Subjective Remarks Remains and on O2 4 L. Better today. Has a good output. Had cardiac cath. findings noted . No further intervention planned. Objective Vital Signs Date Time Temp Pulse Resp B/P (MAP) Pulse Ox O2 Delivery O2 Flow Rate FiO2 03/16/17 16:00 98.2 77 16 91/59 (70) 97 03/16/17 16:00 Nasal Cannula 2.00 03/16/17 16:00 77 03/16/17 15:00 70 03/16/17 11:30 93 Room Air 4.00 03/16/17 11:30 83 03/16/17 11:30 98.0 83 18 95/59 (71) 93 03/16/17 10:11 Nasal Cannula 4.00 03/16/17 07:50 53 03/16/17 07:50 93 Room Air 4.00 03/16/17 07:50 97.8 53 18 100/54 (69) 93 03/16/17 06:00 64 03/16/17 05:00 64 03/16/17 04:00 69 03/16/17 03:10 97.6 65 16 95/52 (66) 96 03/16/17 03:10 96 Nasal Cannula 5.00 03/16/17 03:00 51 03/16/17 02:00 55 03/16/17 01:00 55 03/16/17 00:00 54 03/15/17 23:05 93 Nasal Cannula 5.00 03/15/17 23:00 91 Nasal Cannula 3.00 03/15/17 23:00 65 03/15/17 23:00 97.7 70 18 95/55 (68) 91 03/15/17 22:00 66 03/15/17 21:03 95 Nasal Cannula 3.00 03/15/17 21:00 64 03/15/17 20:00 64 03/15/17 19:45 97 Nasal Cannula 3.00 03/15/17 19:45 97.5 76 18 96/55 (69) 97 03/15/17 19:00 65 03/15/17 18:00 68 I/O 03/15/17 03/15/17 03/15/17 03/16/17 03/16/17 03/16/17 07:00 15:00 23:00 07:00 15:00 23:00 Intake Total 359 ml 1016 ml 253 ml 540 ml Output Total 2000 ml 1175 ml 525 ml 950 ml Balance -1641 ml -159 ml -272 ml -410 ml Intake Oral 240 ml 780 ml 150 ml 240 ml IV Total 119 ml 236 ml 103 ml 300 ml Output Urine Total 2000 ml 1175 ml 525 ml 950 ml # Bowel Movements 0 0 0 0 Result Diagram: 03/16/1745403/16/17454 Objective Remarks This averagely built elderly white female is alert and oriented HEENT: Head normocephalic. Pupils are reactive. Sclerae were clear. Throat was clear. Nasal mucosae edematous. NECK: Supple. No venous distension. Trachea midline. CHEST: Distant breath sounds with expiratory wheezes bilaterally, prolonged expirations. HEART: The heart sounds are irregular. S1-S2 with no murmur. ABDOMEN: Soft, nontender. Bowel sounds are active. No organomegaly. EXTREMITIES: No edema. Peripheral pulses are diminished. Reflexes 1 + SKIN: Dry and cool. Assessment and Plan Assessment and Plan IMPRESSION 1. Acute hypoxemic respiratory failure.Resolved 2. Atrial fibrillation with RVR 3. Cardiogenic shock. 4. Cardiomyopathy with CHF 5. COPD 6. Left lower lobe lung mass, rule out malignancy 7. Hypothyroidism 8. Ascending aortic aneurysm Plan : 1. Wean Fio2 to keep sat >92. 2. Nebs q6h , Duoneb. 3. Plan on CT guided Needle biopsy of lung lesion if OK with cardiology 4. Cont Diuresis and replace Potassium 5. Hold anticoagulants 6. CXR ,CBC,BMP in am 7. D/C Slime Garay MD Mar 16, 2017 17:48
[2017-03-16] MEDS: SACUBITRIL/VALSARTAN 24 MG-26 MG TAB PO SCH (21:00)
[2017-03-16] MEDS: ACETAMINOPHEN/CODEINE ELIX 120 MG/12 MG/5 ML CUP PO PRN (22:07)
[2017-03-17] VITALS (27 sets, daily range): BP systolic 90–107; BP diastolic 46–71; PULSE 64–90; RESP 18–20; TEMP 97.8–98.6; O2SAT 94–97
--- NOTE | 2017-03-17 05:09 | RADRPT ---
EXAM DATE/TIME: 03/17/2017 04:33 [place] COMPARISON: CHEST SINGLE AP, March 13, 2017, 4:51. INDICATIONS : Shortness of breath. MEDICAL HISTORY : Gastroesophageal reflux disease. SURGICAL HISTORY : Hysterectomy. Appendectomy. ENCOUNTER: Subsequent ACUITY: 1 week PAIN SCORE: 0/10 LOCATION: Bilateral chest FINDINGS: Right central line is stable in good position. There has been slight interval decrease in hazy bilate ral pleuroparenchymal opacities. Visualized cardiac contours are grossly stable. CONCLUSION: Slight improvement in aeration Fermin Gonzalez MD on March 17, 2017 at 5:07 Board Certified Radiologist. This report was verified electronically.
[2017-03-17] MEDS: INSULIN ASPART SUPPLEMENTAL SCALE SQ SCH ×4 (06:00→18:14)
[2017-03-17 07:03] LABS: APTT (PATIENT) 25.1 SEC (24.3-30.1)
[2017-03-17 07:15] LABS: AUTOMATED NEUTROPHIL # 10.9 TH/MM3 (1.8-7.7); BASOPHIL % 0.1 % (0.0-2.0); EOSINOPHIL # 0.2 TH/MM3 (0-0.4); EOSINOPHIL % 1.3 % (0.0-4.0); HEMATOCRIT 34.4 % (35.0-46.0); LYMPH % 10.1 % (9.0-44.0); LYMPHOCYTE # 1.4 TH/MM3 (1.0-4.8); MEAN CELL VOLUME 84.1 FL (80.0-100.0); MEAN CORPUSCULAR HEMOGLOBIN 27.9 PG (27.0-34.0); MEAN CORPUSCULAR HGB CONC 33.2 % (32.0-36.0); MONO % 7.9 % (0.0-8.0); NEUT % 80.6 % (16.0-70.0); PLATELET COUNT 223 TH/MM3 (150-450); RED BLOOD COUNT 4.09 MIL/MM3 (4.00-5.30); RED CELL DISTRIBUTION WIDTH 15.9 % (11.6-17.2); WHITE BLOOD COUNT 13.5 TH/MM3 (4.0-11.0)
[2017-03-17 07:18] LABS: BICARBONATE 25.3 MEQ/L (21.0-32.0); HEMO FLAGS AUTO DIFF; MAGNESIUM 2.3 MG/DL (1.5-2.5); POTASSIUM 3.8 MEQ/L (3.5-5.1)
[2017-03-17 07:33] LABS: DIGOXIN 1.1 NG/ML (0.8-2.0)
[2017-03-17 07:59] LABS: BANDS 2 % (0-6); BASOPHILS 1 % (0-2); NEUTROPHIL # MANUAL DIFF 10.4 TH/MM3 (1.8-7.7); OVALOCYTES 1+ (NORMAL); PLATELET ESTIMATE SMEAR NORMAL (NORMAL); PLATELET MORPHOLOGY NORMAL (NORMAL); POLYS (SEG NEUTROPHILS) 75 % (16-70); SCAN/DIFF FINAL DIFF MANUAL; WBC DIFF SAMPLE 100
[2017-03-17] MEDS: CHLORHEXIDINE 0.12% (ORAL KIT) 15 ML CUP MT SCH ×2 (08:00→20:00)
--- NOTE | 2017-03-17 09:32 | HHI.PR ---
Subjective Remarks No new complaints. Objective Vitals Vital Signs Date Time Temp Pulse Resp B/P (MAP) Pulse Ox O2 Delivery O2 Flow Rate FiO2 03/17/17 06:24 97.8 68 18 90/58 (69) 95 03/17/17 06:00 72 03/17/17 05:00 68 03/17/17 04:48 94 Room Air 03/17/17 04:00 72 03/17/17 03:00 70 03/17/17 02:00 74 03/17/17 01:00 72 03/17/17 00:35 97.8 82 18 92/62 (72) 95 03/17/17 00:34 94 Room Air 03/17/17 00:00 74 03/16/17 23:08 20 03/16/17 23:00 71 03/16/17 22:10 92 03/16/17 22:00 80 03/16/17 21:30 90/51 (64) 03/16/17 21:00 74 03/16/17 20:00 72 03/16/17 19:42 97.8 74 18 104/55 (71) 94 03/16/17 19:00 70 03/16/17 18:00 78 03/16/17 17:00 70 03/16/17 16:00 98.2 77 16 91/59 (70) 97 03/16/17 16:00 Nasal Cannula 2.00 03/16/17 16:00 77 03/16/17 15:00 70 03/16/17 11:30 93 Room Air 4.00 03/16/17 11:30 83 03/16/17 11:30 98.0 83 18 95/59 (71) 93 03/16/17 10:11 Nasal Cannula 4.00 Result Diagram: 03/17/17 0503/17/17 0520 Imaging Last Impressions Chest X-Ray 03/13/17 0000 Signed Impressions: Service Date/Time: Monday, March 13, 2017 04:51 - CONCLUSION: Radiographic appearance consistent with pulmonary edema. Clifford Kahn Jr., MD Aorta CTA 03/10/17 0929 Signed Impressions: Service Date/Time: Friday, March 10, 2017 10:47 - CONCLUSION: 1. 2.2 x 1.9 cm spiculated left lower lobe posterior lung mass with apparently centrally necrotic anterior tracheal mediastinal lymph node measuring 2.8 x 2.7 cm. Subcentimeter mediastinal and confluent partially calcified right hilar lymph nodes are more nonspecific may be due to prior granulomatous disease. 2. 2.7 x 2.0 cm left adnexal mass likely corresponding to the ovary. This is abnormal given patients advanced age. Further evaluation may be performed with ultrasound of the pelvis. 3. Otherwise, no evidence for distant metastatic disease. 4. Focal 4 cm length distal descending thoracic aortic aneurysm measuring up to 3.7 cm in axial dimension. 5. No aortic dissection. 6. Additional ancillary findings, as above. Woo Covarrubias MD Lower Extremity Ultrasound 03/10/17 0000 Signed Impressions: Service Date/Time: Friday, March 10, 2017 18:19 - CONCLUSION: No DVT. Fermin Flores MD Objective Remarks GENERAL: This is a well-nourished, well-developed patient, in no apparent distress. CARDIOVASCULAR: Regular rate and rhythm without murmurs, gallops, or rubs. RESPIRATORY: Clear to auscultation. Breath sounds equal bilaterally. No wheezes , rales, or rhonchi. GASTROINTESTINAL: Abdomen soft, non-tender, nondistended. Normal active bowel sounds MUSCULOSKELETAL: Extremities without clubbing, cyanosis, or edema. NEURO: Alert & Oriented x4 to person, place, time, situation. Moves all ext x4 A/P Problem List: (1) Respiratory failure ICD Codes: J96.90 - Respiratory failure, unspecified, unspecified whether with hypoxia or hypercapnia Plan: - comgmt with Cardiology and Pulmonary Medicine - Presented to [facility] and transferred to [facility] - Pt admitted with A. fib RVR - now rate controlled - Pt admitted with Acute Cardiomyopathy, decompensated systolic chf, with LVEF 10-15% - Pt admitted with Cardiogenic shock, now resolved - Acute intravascular volume overload, resolved - Acute hypoxic respiratory failure - resolved - Metabolic acidosis - resolved - Elevated LFTs - shock liver/congestion- resolving. - Left lower lobe lung mass suspicious for malignancy, consider biopsy once more stable - Left adnexal mass (2cm) on CT - Descending thoracic aortic aneurysm - Suspected underlying COPD - CKD III - hypothyroidism - course of IV solumedrol and antibiotics completed [facility] (03/16/17) with Dr. Church 1. Left main coronary is angiographically normal. 2. Left anterior descending coronary has some minor luminal irregularities proximally, in the mid segment, 30% stenosis and some tortuosity. The diagonal branch is also tortuous but angiographically normal. 3. Left circumflex gives rise to an obtuse marginal branch which has minor luminal irregularities, otherwise circumflex is relatively free of disease. 4. Right coronary is occluded in the proximal segment but well collateralized via septal perforators from [id number]. - Case d/w Dr. Church (03/16/17) - Non-ischemic cardiomyopathy - ASA, Entresto PT. OOB to chair (2) Cardiomyopathy ICD Codes: I42.9 - Cardiomyopathy, unspecified Status: Acute Plan: - see above (3) Cardiogenic shock ICD Codes: R57.0 - Cardiogenic shock Status: Resolved Plan: - see above (4) Lung mass ICD Codes: R91.8 - Other nonspecific abnormal finding of lung field Status: Acute Plan: - once more clinically stable, consider lung biopsy - request Palliative Consult for clarification of goals - If pt/family want continued aggressive care after d/w Palliative, then will pursue Lung Biopsy in 2-3 days. (5) Afib ICD Codes: I48.91 - Unspecified atrial fibrillation Status: Chronic Plan: - digoxin (6) Descending thoracic aortic aneurysm ICD Codes: I71.2 - Thoracic aortic aneurysm, without rupture Status: Chronic (7) Hypothyroid ICD Codes: E03.9 - Hypothyroidism, unspecified Status: Chronic Edgard Estrada DO Mar 17, 2017 09:32
[2017-03-17] MEDS: DOCUSATE SODIUM 50 MG/SENNA 8.6 MG TAB PO SCH ×2 (10:06→21:47)
[2017-03-17] MEDS: POTASSIUM CHLORIDE 20 MEQ CONTROLLED RELEASE TAB PO SCH ×2 (10:07→21:47)
[2017-03-17] MEDS: DIGOXIN 0.125 MG TAB PO SCH (10:07)
[2017-03-17] MEDS: FAMOTIDINE 20 MG TAB PO SCH ×2 (10:07→21:47)
[2017-03-17] MEDS: ASPIRIN EC 81 MG TABEC PO SCH (10:07)
[2017-03-17] MEDS: SODIUM CHLORIDE 0.9% FLUSH 10 ML FLUSH IV FLUSH SCH ×2 (10:08→21:47)
[2017-03-17] MEDS: SACUBITRIL/VALSARTAN 24 MG-26 MG TAB PO SCH ×2 (10:10→21:00)
[2017-03-17] MEDS: RESP: ALBUTEROL 2.5 MG/IPRATROPIUM 0.5 MG NEB (SCH) NEB ×3 (10:29→21:30)
--- NOTE | 2017-03-17 12:15 | PD.CONS ---
Consult Service Palliative Care Consult Requested By Dr Estrada . Primary Care Physician Ronnell Moyer MD Reason for Consultation a. To assist with evaluation and management of symptoms including: malnutrition, chest pain b. To assist medical decision maker(s) with: better understanding of current medical conditions; weighing benefits/burdens of medical treatment options; making medical treatment decisions. HPI History of Present Illness This pt presented to ED 03/10/17 sent from primary care provider due to tachycardia. She apparently was seeing Dr Moyer that morning for a visit related to abdominal/epigastric discomfort for 2 months intermittently, when elevated heart rate was noted prompting referral to ER. She denies shortness of breath, chest pain, nausea, vomiting, diarrhea, fever, cough. * ED EKG notable for A. fib with RVR inverted T waves. BNP 604. Troponin less than 0.02, total CK 31. BUN 14, creatinine 1.0. WBC 12.9. * Aorta CTA notable for: 1. 2.2 x 1.9 cm spiculated left lower lobe posterior lung mass with apparently centrally necrotic anterior tracheal mediastinal lymph node measuring 2.8 x 2.7 cm. Subcentimeter mediastinal and confluent partially calcified right hilar lymph nodes are more nonspecific may be due to prior granulomatous disease. 2. 2.7 x 2.0 cm left adnexal mass likely corresponding to the ovary. This is abnormal given patients advanced age. Further evaluation may be performed with ultrasound of the pelvis. 3. Otherwise , no evidence for distant metastatic disease. 4. Focal 4 cm length distal descending thoracic aortic aneurysm measuring up to 3.7 cm in axial dimension. 5. No aortic dissection * 03/10 2-D echo Left ventricular systolic function severely reduced EF 10-15%, diffuse global hypokinesis with distinct regional wall motion abnormalities. Right ventricular systolic function mildly decreased. Mild mitral valve regurg. Mild tricuspid valve regurg. She was treated with IV Lopressor for ventricular rate. Patient with respiratory distress, diaphoresis clinical deterioration, she was emergently intubated. Cardiology consulted. Pulmonology consulted. Additional history per /pt reported to critical care patient w/ 24 pound weight loss in 3 months, cough 4 months. Apparently denied any prior cardiac history, CAD history, arrhythmias or DC. Also denied COPD though was known to be a long time smoker. * Patient was admitted for further evaluation and management, she was transferred from [facility] to [facility] ICU * Cardiology: Patient noted with hemodynamic instability requiring Levophed, dobutamine. Plan for coronary angiogram is off of pressors. Cardiomyopathy felt to be likely nonischemic. Continue supportive care and management. Troponins negative. Myopathy: Viral vs myocarditis vs ischemic vs rate related. * Pulmonology: Continue antibiotics, DuoNeb's, ventilator support following imaging, clinical condition. Once stabilized /clinical improvement will need to obtain biopsy left lower lobe lung mass. * 2-D echo repeated 03/12 notes moderately dilated left ventricle left ventricular systolic function severely reduced with EF less than 20%. Left atrial size mildly dilated. Moderate mitral valve stenosis. Moderate mitral annular calcification. * 03/12 extubated tolerate nasal cannula overnight but then again the next day became increasingly short of breath requiring BiPAP, received Bumex, ongoing antibiotics, CXR indicating worsening pulmonary edema. Still with atrial fibrillation. Still requiring dobutamine. * 03/14 heart rate controlled (afib). Off pressors, dobutamine. CV plans for left heart cath the following week. * 03/16 underwent cardiac catheterization-left heart catheter, left ventriculography : Findings of nonischemic cardiomyopathy with severely reduced ejection fraction, right coronary artery occlusion with good collateralization, normal left-sided filling pressures. Plan to further hold off on diuretics due to low left ventricular end-diastolic pressure, continue optimizing medical management cardiomyopathy "clearly nonischemic etiology "follow blood pressures. Plan for initiation Entresto. Pulmonology continues to follow, plans for CT-guided needle biopsy when okayed by cardiology. * 03/17 tolerating nasal cannula. Stable. Entresto has been started. Palliative care is consulted to assist with clarification of goals of treatment , pending goals lung biopsy may be planned in another 2-3 days. Cardiology further notes may consider life vest pending lung workup. Cardiovascular has cleared for needle biopsy of lung mass. Patient seen in room at bedside. She is alert and mostly oriented though forgetful at times. Very pleasant, cooperative. Denies any complaints today other than dryness/soreness in her nares(07/10 02?) . No chest pain or dyspnea. No GI complaints. Endorses overall feeling better than she has been. Met with patient and at length at bedside. . Function/Cognitive Trajectory Prior to this admission lives at home with her spouse, independent with all ADLs. Review of Systems Constitutional: COMPLAINS OF: Weight loss (24+ lbs in 3 mos), Change in appetite (decreased over the past couple months), DENIES: Fever, Generalized weakness, Sleep problems Endocrine: COMPLAINS OF: Heat/cold intolerance Eyes: DENIES: Vision loss Ears, nose, mouth, throat: DENIES: Oral lesions, Throat pain, Hoarseness Respiratory: DENIES: Cough, Sputum production, Shortness of breath (patient denies though indicates some dyspnea) Gastrointestinal: COMPLAINS OF: Abdominal pain (epigastric pain leading up to current admission), Anorexia (decreased appetite for a few months), DENIES: Constipation, Diarrhea, Nausea, Vomiting, Difficulty Swallowing Musculoskeletal: DENIES: Joint pain, Back pain Integumentary: DENIES: Rash Hematologic/Lymphatics: DENIES: Bruising Neurologic: DENIES: Headache, Localized weakness Psychiatric: DENIES: Anxiety Other ROS: Dryness in the nares Past Family Social History Coded Allergies: No Known Allergies (Verified , 03/10/17) Past Medical History GERD Hypothyroid Past Surgical History left hip replacement 2004 Tailbone surgery Appendectomy Hysterectomy Skin lesion on face removal 2010 Left wrist ORIF 2002 Reported Medications Synthroid (Levothyroxine Sodium) 100 Mcg Tab 100 Mcg PO DAILY Lovastatin 40 Mg Tab 40 Mg PO DAILY . Current Medications Medications (Trade) Dose Ordered Sig/Chris Route Start Time Stop Time Status Last Admin (Zofran Inj) 4 mg Q6HR PRN IV PUSH 03/10/17 15:30 03/13/17 15:15 (Nitrostat Sl) 0.4 mg Q5M PRN SL 03/10/17 15:45 (NS Flush) 2 ml UNSCH PRN IV FLUSH 03/10/17 16:00 (NS Flush) 2 ml BID IV FLUSH 03/10/17 21:00 03/17/17 10:08 (Tylenol) 650 mg Q6H PRN PO 03/10/17 16:00 (Morphine Inj) 2 mg Q4H PRN IV PUSH 03/10/17 16:00 (Reglan Inj) 10 mg Q6H PRN IV PUSH 03/10/17 16:00 03/12/17 22:25 (Atrovent Neb) 0.5 mg Q2HR NEB PRN INH 03/10/17 16:00 Miscellaneous Information 1 Q361D XX 03/10/17 16:00 (Chlorhexidine 2% Cloth) Taper DAILY@04 TOP 03/11/17 04:00 03/07/18 03:59 03/14/17 04:00 (Chlorhexidine 2% Cloth) 3 pack UNSCH PRN TOP 03/10/17 16:00 (Libia-Colace) 1 tab BID PO 03/10/17 21:00 03/17/17 10:06 (Milk Of Magnesia Liq) 30 ml Q12H PRN PO 03/10/17 16:00 (Senokot) 17.2 mg Q12H PRN PO 03/10/17 16:00 (Dulcolax Supp) 10 mg DAILY PRN RECTAL 03/10/17 16:00 (Lactulose Liq) 30 ml DAILY PRN PO 03/10/17 16:00 (NovoLOG SUPPLEMENTAL SCALE) 1 Q6HR SQ 03/11/17 12:00 03/16/17 16:42 (D50w (Vial) Inj) 25 ml UNSCH PRN IV 03/11/17 07:00 (Glucagon Inj) 1 mg UNSCH PRN IM/SQ 03/11/17 07:00 (Peridex 0.12% Liq) 15 ml BID@08,20 MT 03/11/17 20:00 03/12/17 08:04 (Lanoxin) 0.125 mg DAILY PO 03/13/17 09:00 03/17/17 10:07 (Tylenol - Codeine 120-12 Liq) 12.5 ml Q6H PRN PO 03/12/17 22:45 03/16/17 22:07 (Duoneb Neb) 1 ampule Q6HR NEB NEB 03/14/17 10:00 03/17/17 10:29 (KCl) 20 meq Q12HR PO 03/15/17 21:00 03/17/17 10:07 (Pepcid) 10 mg BID PO 03/15/17 11:15 03/17/17 10:07 (Pill Splitter) 1 ea UNSCH PRN OTHER 03/15/17 11:15 (Ecotrin Ec) 81 mg DAILY PO 03/17/17 09:00 03/17/17 10:07 (Entresto 24-26 Mg) 1 tab BID PO 10/9/17 21:00 Family History Father secondary to stomach cancer, mother with heart disease but lived to age 91 . Substance Use Tobacco: [id number] smoking history, quit 3 years ago Alcohol: Prescription med abuse: Illicits: Psychosocial History , has 2 sons. Originally from [place] though has lived in [place] for 40+ years. Supported by her of 62 years. Retired, formerly worked at [employer]. One son lives in [place], one son is local, patient remains close with both of them. Spiritual/Cultural Factors Congregation--patient indicates receptionist scheduler known to them has been in and providing adequate support Living Will: Completed, but not made available Health Care Surrogate: Completed, but not made available Health Care Surrogate(s): Patient indicates is first surrogate with morenita Kevin listed as secondary. Ethical and Legal Issues Patient appears capacitated and able to make her own decisions. Should she lose capacity, her is reported to be designated as first healthcare surrogate, with morenita Kevin as a secondary. If healthcare surrogate documents could not be located per [place] statutes would be healthcare surrogate. Physical Exam Vital Signs Date Time Temp Pulse Resp B/P (MAP) Pulse Ox O2 Delivery O2 Flow Rate FiO2 03/17/17 06:24 97.8 68 18 90/58 (69) 95 03/17/17 06:00 72 03/17/17 05:00 68 03/17/17 04:48 94 Room Air 03/17/17 04:00 72 03/17/17 03:00 70 03/17/17 02:00 74 03/17/17 01:00 72 03/17/17 00:35 97.8 82 18 92/62 (72) 95 03/17/17 00:34 94 Room Air 03/17/17 00:00 74 03/16/17 23:08 20 03/16/17 23:00 71 03/16/17 22:10 92 03/16/17 22:00 80 03/16/17 21:30 90/51 (64) 03/16/17 21:00 74 03/16/17 20:00 72 03/16/17 19:42 97.8 74 18 104/55 (71) 94 03/16/17 19:00 70 03/16/17 18:00 78 03/16/17 17:00 70 03/16/17 16:00 98.2 77 16 91/59 (70) 97 03/16/17 16:00 Nasal Cannula 2.00 03/16/17 16:00 77 03/16/17 15:00 70 Exam CONSTITUTIONAL/GENERAL: This is a thin, pleasant elderly lady TUBES/LINES/DRAINS: Peripheral IV upper extremity, right IJ, nasal cannula O2 SKIN: Pale. No jaundice, rashes, or lesions. No wounds seen anteriorly. Skin warm, though feet are cool. HEAD: Atraumatic. Normocephalic. EYES: Pupils equal and round and reactive. Extraocular motions intact. No scleral icterus. No injection or drainage. Fundi not examined. ENT: Slightly hard of hearing. Nose without bleeding or purulent drainage. Throat without visible erythema, exudates, masses, or lesions.+ Few small areas of whitish coating on tongue not clearly thrush, maybe secondary to dry mouth, lack of oral care. NECK: Trachea midline. Supple, nontender. No palpable thyroid enlargement or nodularity. CARDIOVASCULAR: irregular, no murmur. Atrial fibrillation observed on telemetry. Rate controlled, 70s. No JVD. Peripheral pulses symmetric. Pedal pulses faint. RESPIRATORY/CHEST: Symmetric, unlabored respirations. Clear to auscultation. Breath sounds equal bilaterally. On 3.5 L nasal cannula GASTROINTESTINAL: Abdomen soft, non-tender, nondistended. No hepato-splenomegaly , or palpable masses. No guarding. Bowel sounds hypoactive. GENITOURINARY: Without palpable bladder distension. Patient indicates voiding adequately MUSCULOSKELETAL: Extremities without clubbing, cyanosis, or edema. No joint tenderness or effusion noted. No mottling or clubbing. LYMPHATICS: No palpable cervical or supraclavicular adenopathy. NEUROLOGICAL: Awake and alert. Oriented 3, forgetful at times. Motor and sensory grossly within normal limits. Follows commands. Moves all extremities. PSYCHIATRIC: No obvious anxiety/depression. no apparent hallucinations or other psychotic thought process. Diagnostic Tests Laboratory Laboratory Tests Test 03/14/17 16:00 03/15/17 04:40 03/15/17 16:58 03/16/17 04:55 Potassium Level 3.5 MEQ/L (3.5-5.1) 3.2 MEQ/L (3.5-5.1) 3.5 MEQ/L (3.5-5.1) 3.7 MEQ/L (3.5-5.1) Magnesium Level 1.9 MG/DL (1.5-2.5) White Blood Count 12.2 TH/MM3 (4.0-11.0) 12.3 TH/MM3 (4.0-11.0) Red Blood Count 3.60 MIL/MM3 (4.00-5.30) 3.77 MIL/MM3 (4.00-5.30) Hemoglobin 10.1 GM/DL (11.6-15.3) 10.4 GM/DL (11.6-15.3) Hematocrit 30.5 % (35.0-46.0) 31.9 % (35.0-46.0) Mean Corpuscular Volume 84.7 FL (80.0-100.0) 84.5 FL (80.0-100.0) Mean Corpuscular Hemoglobin 28.1 PG (27.0-34.0) 27.7 PG (27.0-34.0) Mean Corpuscular Hemoglobin Concent 33.2 % (32.0-36.0) 32.7 % (32.0-36.0) Red Cell Distribution Width 15.9 % (11.6-17.2) 16.0 % (11.6-17.2) Platelet Count 206 TH/MM3 (150-450) 222 TH/MM3 (150-450) Mean Platelet Volume 9.3 FL (7.0-11.0) 8.7 FL (7.0-11.0) Activated Partial Thromboplast Time 73.9 SEC (24.3-30.1) 80.2 SEC (24.3-30.1) Blood Urea Nitrogen 35 MG/DL (7-18) 42 MG/DL (7-18) Creatinine 1.18 MG/DL (0.50-1.00) 1.08 MG/DL (0.50-1.00) Random Glucose 141 MG/DL (74-106) 119 MG/DL (74-106) Calcium Level 8.9 MG/DL (8.5-10.1) 8.5 MG/DL (8.5-10.1) Sodium Level 134 MEQ/L (136-145) 133 MEQ/L (136-145) Chloride Level 92 MEQ/L (98-107) 96 MEQ/L (98-107) Carbon Dioxide Level 33.5 MEQ/L (21.0-32.0) 30.5 MEQ/L (21.0-32.0) Anion Gap 9 MEQ/L (5-15) 7 MEQ/L (5-15) Estimat Glomerular Filtration Rate 44 ML/MIN (>89) 49 ML/MIN (>89) Digoxin Level 1.2 NG/ML (0.8-2.0) Total Protein 6.7 GM/DL (6.4-8.2) Albumin 2.9 GM/DL (3.4-5.0) Alkaline Phosphatase 85 U/L (45-117) Aspartate Amino Transf (AST/SGOT) 32 U/L (15-37) Alanine Aminotransferase (ALT/SGPT) 274 U/L (10-53) Total Bilirubin 0.6 MG/DL (0.2-1.0) Direct Bilirubin 0.2 MG/DL (0.0-0.2) Hemoglobin A1c 6.0 % (4.3-6.0) Indirect Bilirubin 0.4 MG/DL (0.0-0.8) Test 03/17/17 05:20 White Blood Count 13.5 TH/MM3 (4.0-11.0) Red Blood Count 4.09 MIL/MM3 (4.00-5.30) Hemoglobin 11.4 GM/DL (11.6-15.3) Hematocrit 34.4 % (35.0-46.0) Mean Corpuscular Volume 84.1 FL (80.0-100.0) Mean Corpuscular Hemoglobin 27.9 PG (27.0-34.0) Mean Corpuscular Hemoglobin Concent 33.2 % (32.0-36.0) Red Cell Distribution Width 15.9 % (11.6-17.2) Platelet Count 223 TH/MM3 (150-450) Mean Platelet Volume 9.4 FL (7.0-11.0) Neutrophils (%) (Auto) 80.6 % (16.0-70.0) Lymphocytes (%) (Auto) 10.1 % (9.0-44.0) Monocytes (%) (Auto) 7.9 % (0.0-8.0) Eosinophils (%) (Auto) 1.3 % (0.0-4.0) Basophils (%) (Auto) 0.1 % (0.0-2.0) Neutrophils # (Auto) 10.9 TH/MM3 (1.8-7.7) Lymphocytes # (Auto) 1.4 TH/MM3 (1.0-4.8) Monocytes # (Auto) 1.1 TH/MM3 (0-0.9) Eosinophils # (Auto) 0.2 TH/MM3 (0-0.4) Basophils # (Auto) 0.0 TH/MM3 (0-0.2) CBC Comment AUTO DIFF Differential Total Cells Counted 100 Neutrophils % (Manual) 75 % (16-70) Band Neutrophils % 2 % (0-6) Lymphocytes % 11 % (9-44) Monocytes % 11 % (0-8) Basophils % 1 % (0-2) Neutrophils # (Manual) 10.4 TH/MM3 (1.8-7.7) Differential Comment FINAL DIFF MANUAL Platelet Estimate NORMAL (NORMAL) Platelet Morphology Comment NORMAL (NORMAL) Ovalocytes 1+ (NORMAL) Activated Partial Thromboplast Time 25.1 SEC (24.3-30.1) Blood Urea Nitrogen 39 MG/DL (7-18) Creatinine 0.98 MG/DL (0.50-1.00) Random Glucose 93 MG/DL (74-106) Calcium Level 8.7 MG/DL (8.5-10.1) Magnesium Level 2.3 MG/DL (1.5-2.5) Sodium Level 132 MEQ/L (136-145) Potassium Level 3.8 MEQ/L (3.5-5.1) Chloride Level 97 MEQ/L (98-107) Carbon Dioxide Level 25.3 MEQ/L (21.0-32.0) Anion Gap 10 MEQ/L (5-15) Estimat Glomerular Filtration Rate 54 ML/MIN (>89) Digoxin Level 1.1 NG/ML (0.8-2.0) Result Diagram: 03/17/1751903/17/17519 Microbiology Microbiology Date/Time Source Procedure Growth Status 03/10/17 19:28 Blood Peripheral Aerobic Blood Culture - Final NO GROWTH IN 5 DAYS Complete 03/10/17 19:28 Blood Peripheral Anaerobic Blood Culture - Final NO GROWTH IN 5 DAYS Complete 03/10/17 16:33 Sputum Endotracheal Gram Stain - Final Complete 03/10/17 16:33 Sputum Endotracheal Sputum Culture - Final HEAVY GROWTH NORMAL RESPIRATORY JENA Complete Imaging Last Impressions Chest X-Ray 03/17/17 0600 Signed Impressions: Service Date/Time: Friday, March 17, 2017 04:33 - CONCLUSION: Slight improvement in aeration Fermin Gonzalez MD Aorta CTA 03/10/17 0929 Signed Impressions: Service Date/Time: Friday, March 10, 2017 10:47 - CONCLUSION: 1. 2.2 x 1.9 cm spiculated left lower lobe posterior lung mass with apparently centrally necrotic anterior tracheal mediastinal lymph node measuring 2.8 x 2.7 cm. Subcentimeter mediastinal and confluent partially calcified right hilar lymph nodes are more nonspecific may be due to prior granulomatous disease. 2. 2.7 x 2.0 cm left adnexal mass likely corresponding to the ovary. This is abnormal given patients advanced age. Further evaluation may be performed with ultrasound of the pelvis. 3. Otherwise, no evidence for distant metastatic disease. 4. Focal 4 cm length distal descending thoracic aortic aneurysm measuring up to 3.7 cm in axial dimension. 5. No aortic dissection. 6. Additional ancillary findings, as above. Woo Covarrubias MD Lower Extremity Ultrasound 03/10/17 0000 Signed Impressions: Service Date/Time: Friday, March 10, 2017 18:19 - CONCLUSION: No DVT. Fermin Flores MD Procedures 03/10 central line right IJ, arterial line 3 intubated Patient/Family Conference Present at Family Conference: Patient, Family Conference Time (mins): 40 Family Conference Location: Bedside Issues Discussed: Met with patient and her at bedside. Discussion included The following: * Palliative care role, purpose, approach * Additional medical, psychosocial, and spiritual history * Patients general health, functional status, and cognitive changes in the months leading up to the current hospitalization * Patient/family understanding of the current medical problems--cardiac condition, treatments, life vest etc. reviewed, review of some of the possibilities regarding the lung mass though definitive information would be dependent on biopsy * Patient/family understanding of prognosis * Patients goals of care * HCS/advance directive-patient indicates has been his designated as primary, with son is secondary * Current medical treatment options and benefits/burdens of those options * Likely scenarios comparing ongoing aggressive care with a transition to comfort measures only-gentle/brief exploration that if patient did not desire further invasive testing or procedures then she would have the options for comfort measures only * Questions answered to the best of my ability * Palliative care contact information provided Met with patient and , lengthy discussion regarding cardiac conditions , overall prognosis and limitations of medical management. Review of CPR and risks/benefits/limitations. Review of lung mass findings and trajectory following biopsy, possible oncology consult, not known what (if any) treatment options that would be. At this time patient feels she is getting a little better, they wish to proceed with biopsy in order to gain more information about her lung condition and any potential options. At this time goals are aggressive they would want to continue to maximize whatever treatments are available, patient indicates she is "not ready to ", however they are also open to ongoing discussions as the clinical course evolves. Patient seems to have some limited understanding regarding the severity of her heart condition, as she indicates to me that her heart is "better" than it was. She indicates she is going to cooperate and try to do what she can to get better. She wishes to work with physical therapy. While she is in fact much more stable and is no longer in cardiogenic shock her severe cardiomyopathy remains. Patient and are going to further discuss CODE STATUS/possible DNR status. Assessment and Plan Disease Oriented Problem List: (1) Cardiomyopathy (2) Lung mass (3) Respiratory failure Comment: resolved (4) Hypothyroid (5) Cardiogenic shock Comment: resolved (6) Afib (7) Descending thoracic aortic aneurysm Symptom Scale: (1) Chest pain (2) Malnutrition Comment: malnutrition/weight loss. Pertinent Non-Medical Issues Psychosocial:, has 2 sons. Originally from [place] though has lived in [place] for 40+ years. Supported by her of 62 years. Retired, formerly worked at [employer]. One son lives in [place], one son is local, patient remains close with both of them. Spiritual: Congregation--well supported by receptionist scheduler known to them Legal:Patient appears capacitated and able to make her own decisions. Should she lose capacity, her is reported to be designated as first healthcare surrogate, with son Herberth as a secondary. If healthcare surrogate documents could not be located per [place] statutes would be healthcare surrogate. Ethical issues impacting care: None identified Important Contacts FABRICE ARANGO [phone] , Son Herberth Arango [phone] . Prognosis This patient was admitted for new atrial fibrillation with RVR. She underwent cardiovascular workup with findings of nonischemic cardiomyopathy with severely reduced ejection fraction (<20% per repeat echo), right coronary artery occlusion with good collateralization, normal left-sided filling pressures. She is not a candidate for additional cardiovascular procedures though cardiology indicates they may consider a life vest in the future. She has additional findings on chest imaging of a new lung mass has not yet been biopsied. Given cardiac findings patient is high risk for clinical deterioration and decompensation secondary to her cardiac status. Not known at this time if mass in lung is malignancy, or what potential treatment options would be, if any given the severity of cardiac disease. Given her advanced age , cardiovascular condition, and the possibility of a malignancy she appears very high risk for decline in the coming weeks to months. Code Status: Full Code Plan * Legal decision maker:Patient appears capacitated and able to make her own decisions. Should she lose capacity, her is reported to be designated as first healthcare surrogate, with son Herberth as a secondary. If healthcare surrogate documents could not be located per [place] statutes would be healthcare surrogate. * Goals: Met with patient and , lengthy discussion regarding cardiac conditions, overall prognosis and limitations of medical management. Review of CPR and risks/benefits/limitations. Review of lung mass findings and trajectory following biopsy, possible oncology consult, not known what if any treatment options that would be. At this time patient feels she is getting a little better, they wish to proceed with biopsy in order to gain more information about her lung condition and any potential options. At this time goals are aggressive they would want to continue to maximize whatever treatments are available, patient indicates she is "not ready to ", however they are also open to ongoing discussions as the clinical course evolves. Patient and are going to further discuss CODE STATUS/possible DNR status. * CODE STATUS: Remains full code * SYMPTOMS: --Chest/epigastric pain-+ new findings atrial fibrillation RVR;nonischemic cardiomyopathy with severely reduced ejection fraction, right coronary artery occlusion with good collateralization, not a candidate for additional cardiovascular procedures. May require LifeVest in the future. Patient today denies chest pain or abdominal pain or other discomfort; will continue to evaluate --Weight loss/malnutrition- reported approximately 24 pound weight loss in 3 months. Albumin 2.9. + New mass findings left lung; ? Malignancy, has not yet been [id number] biopsy pending. Overall poor appetite and weight loss over a few months. No specific GI complaints. Would benefit from nutritional supplement such as ensure with meals to maximize calories and protein. * Recommend PT to mobilize and minimize further weakness and debility; this is been ordered earlier today. Patient may require rehabilitation before returning home. * Palliative care will continue to follow during hospital course as condition evolves, to assist patient/decision-maker with understanding of medical conditions, weighing benefits/burdens of treatment options, for clarification of goals of treatment. Additionally will assist with any symptoms of palliative concern . Time Spent Total Floor Time (mins): 60 Thank you for the opportunity to participate in the care of Ms. Arango. Attestation To help prompt me to consider important information that might be impacting today's encounter and assessment, information from prior notes written by myself or my colleagues may have been "brought forward" into today's note. My signature on this note, however, is an attestation that I personally performed the exam, history, and/or decision-making noted today, and, unless otherwise indicated, the interactions with patient, family, and staff as well as the review of records all occurred today. I also attest that the listed assessment and stated plan reflect my best clinical judgment today based on the combination of historical information, prior notes, and today's exam/ interactions. When time spent is documented, it refers only to time spent today by the signer, or if indicated, combined time spent today by collaborating physician/nurse practitioner. Karoline Douglas Mar 17, 2017 12:15
--- NOTE | 2017-03-17 12:40 | PD.CARD.PN ---
Subjective Subjective Remarks symptomatically doing well Objective Medications Active Medications Aspirin (Ecotrin Ec) 81 mg DAILY PO Last administered on 03/17/17 10:07; Admin Dose 81 MG; Start 03/17/17 at 09:00 Fentanyl Citrate (fentaNYL INJ) 100 mcg STK-MED ONCE .ROUTE; Start 03/16/17 at 14:24; Stop 03/16/17 at 14:25; Status DC Iohexol (OMNIPAQUE 350 INJ (Bench Molder)) 50 ml STK-MED ONCE OTHER; Start 03/16/17 at 16:54; Stop 03/16/17 at 16:55; Status DC Midazolam HCl (Versed Inj) 2 mg STK-MED ONCE .ROUTE; Start 03/16/17 at 14:23; Stop 03/16/17 at 14:24; Status DC Miscellaneous Information 1 ONCE ONCE XX Last administered on 03/16/17 15:00; Admin Dose 1; Start 03/16/17 at 15:00; Stop 03/16/17 at 15:01; Status DC Sacubitril/ Valsartan (Entresto 24-26 Mg) 1 tab BID PO; Start 03/16/17 at 21:00 Sodium Chloride 1,000 ml @ 100 mls/hr Q10H IV Last administered on 03/16/17 14 :50; Admin Dose 100 MLS/HR; Start 03/16/17 at 14:50; Stop 03/16/17 at 19:49; Status DC Vital Signs / I&O Vital Signs Date Time Temp Pulse Resp B/P (MAP) Pulse Ox O2 Delivery O2 Flow Rate FiO2 03/17/17 06:24 97.8 68 18 90/58 (69) 95 03/17/17 06:00 72 03/17/17 05:00 68 03/17/17 04:48 94 Room Air 03/17/17 04:00 72 03/17/17 03:00 70 03/17/17 02:00 74 03/17/17 01:00 72 03/17/17 00:35 97.8 82 18 92/62 (72) 95 03/17/17 00:34 94 Room Air 03/17/17 00:00 74 03/16/17 23:08 20 03/16/17 23:00 71 03/16/17 22:10 92 03/16/17 22:00 80 03/16/17 21:30 90/51 (64) 03/16/17 21:00 74 03/16/17 20:00 72 03/16/17 19:42 97.8 74 18 104/55 (71) 94 03/16/17 19:00 70 03/16/17 18:00 78 03/16/17 17:00 70 03/16/17 16:00 98.2 77 16 91/59 (70) 97 03/16/17 16:00 Nasal Cannula 2.00 03/16/17 16:00 77 03/16/17 15:00 70 I/O 03/16/17 03/16/17 03/16/17 03/17/17 03/17/17 03/17/17 07:00 15:00 23:00 07:00 15:00 23:00 Intake Total 253 ml 540 ml 480 ml Output Total 525 ml 950 ml 320 ml Balance -272 ml -410 ml 160 ml Intake Oral 150 ml 240 ml 480 ml IV Total 103 ml 300 ml Output Urine Total 525 ml 950 ml 320 ml # Bowel Movements 0 0 Physical Exam GENERAL: SKIN: Warm and dry. HEAD: Normocephalic. EYES: No scleral icterus. No injection or drainage. NECK: Supple, trachea midline. No JVD or lymphadenopathy. CARDIOVASCULAR: Regular rate and rhythm without murmurs, gallops, or rubs. RESPIRATORY: Breath sounds equal bilaterally. No accessory muscle use. GASTROINTESTINAL: Abdomen soft, non-tender, nondistended. MUSCULOSKELETAL: No cyanosis, or edema. BACK: Nontender without obvious deformity. No CVA tenderness. Laboratory Laboratory Tests Test 03/17/17 05:20 White Blood Count 13.5 TH/MM3 Red Blood Count 4.09 MIL/MM3 Hemoglobin 11.4 GM/DL Hematocrit 34.4 % Mean Corpuscular Volume 84.1 FL Mean Corpuscular Hemoglobin 27.9 PG Mean Corpuscular Hemoglobin Concent 33.2 % Red Cell Distribution Width 15.9 % Platelet Count 223 TH/MM3 Mean Platelet Volume 9.4 FL Neutrophils (%) (Auto) 80.6 % Lymphocytes (%) (Auto) 10.1 % Monocytes (%) (Auto) 7.9 % Eosinophils (%) (Auto) 1.3 % Basophils (%) (Auto) 0.1 % Neutrophils # (Auto) 10.9 TH/MM3 Lymphocytes # (Auto) 1.4 TH/MM3 Monocytes # (Auto) 1.1 TH/MM3 Eosinophils # (Auto) 0.2 TH/MM3 Basophils # (Auto) 0.0 TH/MM3 CBC Comment AUTO DIFF Differential Total Cells Counted 100 Neutrophils % (Manual) 75 % Band Neutrophils % 2 % Lymphocytes % 11 % Monocytes % 11 % Basophils % 1 % Neutrophils # (Manual) 10.4 TH/MM3 Differential Comment FINAL DIFF MANUAL Platelet Estimate NORMAL Platelet Morphology Comment NORMAL Ovalocytes 1+ Activated Partial Thromboplast Time 25.1 SEC Blood Urea Nitrogen 39 MG/DL Creatinine 0.98 MG/DL Random Glucose 93 MG/DL Calcium Level 8.7 MG/DL Magnesium Level 2.3 MG/DL Sodium Level 132 MEQ/L Potassium Level 3.8 MEQ/L Chloride Level 97 MEQ/L Carbon Dioxide Level 25.3 MEQ/L Anion Gap 10 MEQ/L Estimat Glomerular Filtration Rate 54 ML/MIN Digoxin Level 1.1 NG/ML Imaging Last Impressions Chest X-Ray 03/17/17 0600 Signed Impressions: Service Date/Time: Friday, March 17, 2017 04:33 - CONCLUSION: Slight improvement in aeration Fermin Gonzalez MD Aorta CTA 03/10/17 0929 Signed Impressions: Service Date/Time: Friday, March 10, 2017 10:47 - CONCLUSION: 1. 2.2 x 1.9 cm spiculated left lower lobe posterior lung mass with apparently centrally necrotic anterior tracheal mediastinal lymph node measuring 2.8 x 2.7 cm. Subcentimeter mediastinal and confluent partially calcified right hilar lymph nodes are more nonspecific may be due to prior granulomatous disease. 2. 2.7 x 2.0 cm left adnexal mass likely corresponding to the ovary. This is abnormal given patients advanced age. Further evaluation may be performed with ultrasound of the pelvis. 3. Otherwise, no evidence for distant metastatic disease. 4. Focal 4 cm length distal descending thoracic aortic aneurysm measuring up to 3.7 cm in axial dimension. 5. No aortic dissection. 6. Additional ancillary findings, as above. Woo Covarrubias MD Lower Extremity Ultrasound 03/10/17 0000 Signed Impressions: Service Date/Time: Friday, March 10, 2017 18:19 - CONCLUSION: No DVT. Fermin Flores MD Assessment and Plan Problem List: (1) Cardiomyopathy ICD Codes: I42.9 - Cardiomyopathy, unspecified Status: Acute (2) Chest pain ICD Codes: R07.9 - Chest pain, unspecified (3) Afib ICD Codes: I48.91 - Unspecified atrial fibrillation Status: Chronic (4) Descending thoracic aortic aneurysm ICD Codes: I71.2 - Thoracic aortic aneurysm, without rupture Status: Chronic Assessment and Plan nonischemic cardiomyopathy RCA occluded and collateralized no statin due to LFTs hold BB due to BP 3 mo echo for EF. hope for improvement may consider LifeVest pending lung workup clear from cardio standpoint for fine needle biopsy of lung mass will sign off call with further questions cont entresto and PUJA OPD on DC Ward Church MD Mar 17, 2017 12:40
--- NOTE | 2017-03-17 12:59 | HHI.PR ---
Subjective Remarks Now on O2 3 L. Better today. Feels OK. Had cardiac cath. findings noted . No further intervention planned.Cleared for Lung biopsy Objective Vital Signs Date Time Temp Pulse Resp B/P (MAP) Pulse Ox O2 Delivery O2 Flow Rate FiO2 03/17/17 06:24 97.8 68 18 90/58 (69) 95 03/17/17 06:00 72 03/17/17 05:00 68 03/17/17 04:48 94 Room Air 03/17/17 04:00 72 03/17/17 03:00 70 03/17/17 02:00 74 03/17/17 01:00 72 03/17/17 00:35 97.8 82 18 92/62 (72) 95 03/17/17 00:34 94 Room Air 03/17/17 00:00 74 03/16/17 23:08 20 03/16/17 23:00 71 03/16/17 22:10 92 03/16/17 22:00 80 03/16/17 21:30 90/51 (64) 03/16/17 21:00 74 03/16/17 20:00 72 03/16/17 19:42 97.8 74 18 104/55 (71) 94 03/16/17 19:00 70 03/16/17 18:00 78 03/16/17 17:00 70 03/16/17 16:00 98.2 77 16 91/59 (70) 97 03/16/17 16:00 Nasal Cannula 2.00 03/16/17 16:00 77 03/16/17 15:00 70 I/O 03/16/17 03/16/17 03/16/17 03/17/17 03/17/17 03/17/17 07:00 15:00 23:00 07:00 15:00 23:00 Intake Total 253 ml 540 ml 480 ml Output Total 525 ml 950 ml 320 ml Balance -272 ml -410 ml 160 ml Intake Oral 150 ml 240 ml 480 ml IV Total 103 ml 300 ml Output Urine Total 525 ml 950 ml 320 ml # Bowel Movements 0 0 Result Diagram: 03/17/1751903/17/17519 Objective Remarks This averagely built elderly white female is alert and oriented HEENT: Head normocephalic. Pupils are reactive. Sclerae were clear. Throat was clear. Nasal mucosae clear NECK: Supple. No venous distension. Trachea midline. CHEST: Distant breath sounds with prolonged expirations. HEART: The heart sounds are irregular. S1-S2 with no murmur. ABDOMEN: Soft, nontender. Bowel sounds are active. No organomegaly. EXTREMITIES: No edema. Peripheral pulses are diminished. Reflexes 1 + SKIN: Dry and cool. Assessment and Plan Assessment and Plan IMPRESSION 1. Acute hypoxemic respiratory failure.Resolved 2. Atrial fibrillation with RVR 3. Cardiogenic shock. 4. Cardiomyopathy with CHF 5. COPD 6. Left lower lobe lung mass, rule out malignancy 7. Hypothyroidism 8. Ascending aortic aneurysm Plan : 1. Wean Fio2 to keep sat >92. 2. Nebs q6h , Duoneb. 3. Plan on CT guided Needle biopsy of lung lesion 4. Cont Diuresis and replace Potassium 5. Hold anticoagulants 6. CXR ,CBC,BMP in am 7. PFT with Broncho Slime Salazar MD Mar 17, 2017 12:59
[2017-03-17] MEDS: CHLORHEXIDINE GLUCONATE 2 % 1 PACK (2 CLOTHS) TOP SCH (16:42)
[2017-03-17] MEDS: ACETAMINOPHEN/CODEINE ELIX 120 MG/12 MG/5 ML CUP PO PRN (21:50)
[2017-03-18] VITALS (33 sets, daily range): BP systolic 86–114; BP diastolic 34–70; PULSE 66–107; RESP 17–20; TEMP 97.6–98.5; O2SAT 94–99
[2017-03-18] MEDS: RESP: ALBUTEROL 2.5 MG/IPRATROPIUM 0.5 MG NEB (SCH) NEB (03:45)
[2017-03-18] MEDS: CHLORHEXIDINE GLUCONATE 2 % 1 PACK (2 CLOTHS) TOP SCH ×2 (04:00→22:52)
[2017-03-18] MEDS: INSULIN ASPART SUPPLEMENTAL SCALE SQ SCH ×4 (06:00→18:00)
[2017-03-18 06:16] LABS: MEAN CORPUSCULAR HEMOGLOBIN 27.9 PG (27.0-34.0); MEAN CORPUSCULAR HGB CONC 33.2 % (32.0-36.0); PLATELET COUNT 247 TH/MM3 (150-450); RED BLOOD COUNT 4.41 MIL/MM3 (4.00-5.30); REVIEW FLAG FINAL; WHITE BLOOD COUNT 17.5 TH/MM3 (4.0-11.0)
[2017-03-18 06:45] LABS: BICARBONATE 23.1 MEQ/L (21.0-32.0); POTASSIUM 3.9 MEQ/L (3.5-5.1)
--- NOTE | 2017-03-18 07:28 | HHI.PR ---
Subjective Remarks no new complaints. aware of the need for lung bx Objective Vitals heart reg lung good air entry abd s/nt ext no edema Vital Signs Date Time Temp Pulse Resp B/P (MAP) Pulse Ox O2 Delivery O2 Flow Rate FiO2 03/18/17 06:00 68 03/18/17 05:00 80 03/18/17 04:00 99 Nasal Cannula 3.00 03/18/17 04:00 82 03/18/17 04:00 98.5 67 18 90/45 (60) 99 03/18/17 03:00 66 03/18/17 02:00 76 03/18/17 01:00 81 03/18/17 00:00 86 03/18/17 00:00 98 Nasal Cannula 3.00 03/18/17 00:00 98.1 76 18 106/69 (81) 98 03/17/17 23:00 90 03/17/17 22:00 86 03/17/17 21:35 96 Nasal Cannula 3.50 03/17/17 21:00 80 03/17/17 20:00 84 03/17/17 20:00 94 Nasal Cannula 2.00 03/17/17 20:00 98.6 72 18 97/62 (74) 94 03/17/17 19:00 86 03/17/17 18:00 76 03/17/17 17:00 78 03/17/17 16:04 Nasal Cannula 3.50 03/17/17 16:00 76 03/17/17 15:00 98.2 79 20 107/71 (83) 95 03/17/17 15:00 72 03/17/17 14:00 64 03/17/17 13:00 70 03/17/17 12:00 72 03/17/17 11:00 98.2 73 18 100/48 (65) 97 03/17/17 11:00 72 03/17/17 10:00 70 03/17/17 09:00 72 03/17/17 08:00 72 Result Diagram: 03/18/17 0504 03/18/17 0504 Imaging Last Impressions Chest X-Ray 03/13/17 0000 Signed Impressions: Service Date/Time: Monday, March 13, 2017 04:51 - CONCLUSION: Radiographic appearance consistent with pulmonary edema. Clifford Kahn Jr., MD Aorta CTA 03/10/17 0929 Signed Impressions: Service Date/Time: Friday, March 10, 2017 10:47 - CONCLUSION: 1. 2.2 x 1.9 cm spiculated left lower lobe posterior lung mass with apparently centrally necrotic anterior tracheal mediastinal lymph node measuring 2.8 x 2.7 cm. Subcentimeter mediastinal and confluent partially calcified right hilar lymph nodes are more nonspecific may be due to prior granulomatous disease. 2. 2.7 x 2.0 cm left adnexal mass likely corresponding to the ovary. This is abnormal given patients advanced age. Further evaluation may be performed with ultrasound of the pelvis. 3. Otherwise, no evidence for distant metastatic disease. 4. Focal 4 cm length distal descending thoracic aortic aneurysm measuring up to 3.7 cm in axial dimension. 5. No aortic dissection. 6. Additional ancillary findings, as above. Woo Covarrubias MD Lower Extremity Ultrasound 03/10/17 0000 Signed Impressions: Service Date/Time: Friday, March 10, 2017 18:19 - CONCLUSION: No DVT. Fermin Flores MD A/P Problem List: (1) Respiratory failure ICD Codes: J96.90 - Respiratory failure, unspecified, unspecified whether with hypoxia or hypercapnia Plan: - Presented to [facility] and transferred to Main - Pt admitted with A. fib RVR - now rate controlled - Pt admitted with Acute Cardiomyopathy, decompensated systolic chf, with LVEF 10-15% ...nonischemic CM. [facility] neg for cad - Pt admitted with Cardiogenic shock, now resolved - Acute intravascular volume overload, resolved - Acute hypoxic respiratory failure - resolved - Metabolic acidosis - resolved - Elevated LFTs - shock liver/congestion- resolving. - Left lower lobe lung mass suspicious for malignancy, consider biopsy once more stable - Left adnexal mass (2cm) on CT - Descending thoracic aortic aneurysm - Suspected underlying COPD - CKD III - hypothyroidism [facility] (03/16/17) with Dr. Church 1. Left main coronary is angiographically normal. 2. Left anterior descending coronary has some minor luminal irregularities proximally, in the mid segment, 30% stenosis and some tortuosity. The diagonal branch is also tortuous but angiographically normal. 3. Left circumflex gives rise to an obtuse marginal branch which has minor luminal irregularities, otherwise circumflex is relatively free of disease. 4. Right coronary is occluded in the proximal segment but well collateralized via septal perforators from [id number]. - cardiology and pulmonary following palliative care has been consulted to clarify goals. - await CT guided lung bx -heparin off for bx -cont dig for afib -pt on asa and entresto per cardiology. monitor bp as it remains low. -arguello replaced last night after failed attempt at removal (2) Cardiomyopathy ICD Codes: I42.9 - Cardiomyopathy, unspecified Status: Acute Plan: - see above (3) Cardiogenic shock ICD Codes: R57.0 - Cardiogenic shock Status: Resolved Plan: - see above (4) Lung mass ICD Codes: R91.8 - Other nonspecific abnormal finding of lung field Status: Acute Plan: -see above (5) Afib ICD Codes: I48.91 - Unspecified atrial fibrillation Status: Chronic Plan: - digoxin (6) Descending thoracic aortic aneurysm ICD Codes: I71.2 - Thoracic aortic aneurysm, without rupture Status: Chronic (7) Hypothyroid ICD Codes: E03.9 - Hypothyroidism, unspecified Status: Chronic Danny Cabrera MD Mar 18, 2017 07:28
[2017-03-18] MEDS: CHLORHEXIDINE 0.12% (ORAL KIT) 15 ML CUP MT SCH ×2 (08:00→20:00)
[2017-03-18] MEDS: SACUBITRIL/VALSARTAN 24 MG-26 MG TAB PO SCH ×2 (08:33→20:46)
[2017-03-18] MEDS: ASPIRIN EC 81 MG TABEC PO SCH (08:33)
[2017-03-18] MEDS: FAMOTIDINE 20 MG TAB PO SCH ×2 (08:35→20:46)
[2017-03-18] MEDS: POTASSIUM CHLORIDE 20 MEQ CONTROLLED RELEASE TAB PO SCH ×2 (08:35→20:46)
[2017-03-18] MEDS: DIGOXIN 0.125 MG TAB PO SCH (08:35)
[2017-03-18] MEDS: DOCUSATE SODIUM 50 MG/SENNA 8.6 MG TAB PO SCH ×2 (08:35→20:46)
[2017-03-18] MEDS: SODIUM CHLORIDE 0.9% FLUSH 10 ML FLUSH IV FLUSH SCH ×2 (08:36→20:47)
[2017-03-18] MEDS ORDERED: LIDOCAINE HCL 1% 20 ML VIAL ONE (14:19)
[2017-03-18] MEDS ORDERED: MIDAZOLAM HCL 2 MG/2 ML VIAL ONE (14:41)
--- NOTE | 2017-03-18 15:33 | PD.RAD ---
Post CT Procedure Prog Note Pre Procedure Diagnosis: (1) Lung mass Post Procedure Diagnosis: (1) Lung mass Procedure Date: Mar 18, 2017 Supervising Radiologist: Clifford Kahn JR Anesthesia: Conscious Sedation Plan of Activity Patient to Unit: Critical Care Patient Condition: Good See PACS Report for procedural detail/treatment Biopsy Imaging Guidance: CT Side: Left Biopsy Procedure: Lung Specimen: Core Biopsy Findings: Left lower lobe lung mass core biopsy and culture obtained. Tiny PTX on post bx CT images. Plan F/U CXR Jr. Femi,Clifford Peralta MD Mar 18, 2017 15:33
--- NOTE | 2017-03-18 16:04 | RADRPT ---
EXAM DATE/TIME: 03/18/2017 15:07 [facility] COMPARISON: No previous studies available for comparison. INDICATIONS : Left lung mass. SEDATION TIME: 30 minutes BIOPSY SITE: Left flank MEDICATION(S): 1.) 0.5 mg midazolam (Versed) IV 2.) 25 mcg fentanyl (Sublimaze) IV DEVICE(S): 1.) 19 gauge micropuncture introducer 2.) 20 gauge Temno core biopsy needle MEDICAL HISTORY : Cardiovascular disease. Aneurysm, abdominal. Chronic obstructive pulmonary disease. SURGICAL HISTORY : Appendectomy. Hysterectomy. ENCOUNTER: Initial ACUITY: 1 day PAIN SCORE: 0/10 LOCATION: chest A total of two core specimen(s) were obtained and sent to the laboratory for pathologic evaluation. PROCEDURE: 1. CT guided lung biopsy. Prior to the procedure informed consent was obtained. Any appropriate prior imaging studies were rev iewed. An approximate 2 cm left lower lobe pulmonary mass was targeted during the biopsy. Using autom ated exposure control and adjustment of the mA and/or kV according to patient size, radiation dose wa s kept as low as reasonably achievable to obtain optimal diagnostic quality images. DICOM format HERMEL DELOR data is available electronically for review and comparison. The site was prepped in a sterile fashion. Full sterile technique was used, including cap, mask, alex rile gloves and gown and a large sterile sheet. Hand hygiene and 2% chlorhexidine and/or betadine/al cohol prep was utilized per protocol for cutaneous antisepsis. The skin and subcutaneous tissues wer e infiltrated with local anesthetic solution. With CT guidance the previously identified target was localized. Biopsy was performed using the presc ribed needle as above. Samples placed in histology as well as culture media performed. Adequate hemo stasis was obtained with compression at the puncture site. Follow-up CT scan reveals a tiny subpulmonic pneumothorax. Conscious sedation was performed with the prescribed dosages and duration as above in the presence of an independent trained radiology nurse to assist in the monitoring of the patient. EKG and oximetry remained stable throughout the procedure. The patient tolerated the procedure well and there were no complications. The patient was sent to Radiology Outpatient Unit in stable condition. CONCLUSION: 1. Histology and culture specimens obtained of a left lower lobe pulmonary mass. 2. Tiny subpulmonic pneumothorax. Clifford Kahn Jr., MD on March 18, 2017 at 16:01 Board Certified Radiologist. This report was verified electronically.
--- NOTE | 2017-03-18 17:15 | RADRPT ---
EXAM DATE/TIME: 03/18/2017 16:10 [facility] COMPARISON: No previous studies available for comparison. INDICATIONS : Post left lung biopsy. Evaluate for pneumothorax. MEDICAL HISTORY : Gastroesophageal reflux disease. Thyroid disease. SURGICAL HISTORY : Hysterectomy.Appendectomy. Left hip fracture repair. Left wrist fracture repair. Tailbone surgery. ENCOUNTER: Subsequent ACUITY: 1 day PAIN SCORE: 3/10 LOCATION: Bilateral chest FINDINGS: The cardiac silhouette is enlarged in transverse diameter. There is left lower lobe atelectasis versu s pneumonia. Small bilateral pleural effusions are present right greater than left. There is no evid ence of pneumothorax. CONCLUSION: 1. There is no evidence of pneumothorax. Chauncey Hutchison MD on March 18, 2017 at 17:13 Board Certified Radiologist. This report was verified electronically.
--- NOTE | 2017-03-18 18:16 | HHI.PR ---
Subjective Remarks No new complaints. Objective Vitals Vital Signs Date Time Temp Pulse Resp B/P (MAP) Pulse Ox O2 Delivery O2 Flow Rate FiO2 03/18/17 17:02 98.3 81 17 99/43 (61) 95 03/18/17 16:32 98.1 85 18 86/50 (62) 95 03/18/17 16:17 98.1 70 18 89/34 (52) 96 03/18/17 16:02 97.7 72 18 99/46 (63) 98 03/18/17 16:00 Nasal Cannula 2.00 03/18/17 12:16 96 03/18/17 12:00 95 Room Air 03/18/17 12:00 98.2 86 20 92/55 (67) 98 03/18/17 10:12 96 Nasal Cannula 2.50 03/18/17 08:04 Nasal Cannula 3.00 03/18/17 08:04 98.2 84 20 106/70 (82) 95 03/18/17 07:26 93 03/18/17 06:00 68 03/18/17 05:00 80 03/18/17 04:00 99 Nasal Cannula 3.00 03/18/17 04:00 82 03/18/17 04:00 98.5 67 18 90/45 (60) 99 03/18/17 03:00 66 03/18/17 02:00 76 03/18/17 01:00 81 03/18/17 00:00 86 03/18/17 00:00 98 Nasal Cannula 3.00 03/18/17 00:00 98.1 76 18 106/69 (81) 98 03/17/17 23:00 90 03/17/17 22:00 86 03/17/17 21:35 96 Nasal Cannula 3.50 03/17/17 21:00 80 03/17/17 20:00 84 03/17/17 20:00 94 Nasal Cannula 2.00 03/17/17 20:00 98.6 72 18 97/62 (74) 94 03/17/17 19:00 86 03/18/17 03/18/17 03/19/17 14:59 22:59 06:59 Intake Total 100 ml Output Total 350 ml Balance -250 ml Intake Oral 100 ml Output Urine Total 350 ml # Bowel Movements 0 Result Diagram: 03/18/17 0504 03/18/17 0504 Imaging Last Impressions Chest X-Ray 03/13/17 0000 Signed Impressions: Service Date/Time: Monday, March 13, 2017 04:51 - CONCLUSION: Radiographic appearance consistent with pulmonary edema. Clifford Kahn Jr., MD Aorta CTA 03/10/17 0929 Signed Impressions: Service Date/Time: Friday, March 10, 2017 10:47 - CONCLUSION: 1. 2.2 x 1.9 cm spiculated left lower lobe posterior lung mass with apparently centrally necrotic anterior tracheal mediastinal lymph node measuring 2.8 x 2.7 cm. Subcentimeter mediastinal and confluent partially calcified right hilar lymph nodes are more nonspecific may be due to prior granulomatous disease. 2. 2.7 x 2.0 cm left adnexal mass likely corresponding to the ovary. This is abnormal given patients advanced age. Further evaluation may be performed with ultrasound of the pelvis. 3. Otherwise, no evidence for distant metastatic disease. 4. Focal 4 cm length distal descending thoracic aortic aneurysm measuring up to 3.7 cm in axial dimension. 5. No aortic dissection. 6. Additional ancillary findings, as above. Woo Covarrubias MD Lower Extremity Ultrasound 03/10/17 0000 Signed Impressions: Service Date/Time: Friday, March 10, 2017 18:19 - CONCLUSION: No DVT. Fermin Flores MD A/P Problem List: (1) Respiratory failure ICD Codes: J96.90 - Respiratory failure, unspecified, unspecified whether with hypoxia or hypercapnia Plan: - Presented to [facility] and transferred to Main - Pt admitted with A. fib RVR - now rate controlled - Pt admitted with Acute Cardiomyopathy, decompensated systolic chf, with LVEF 10-15% ...nonischemic CM. [facility] neg for cad - Pt admitted with Cardiogenic shock, now resolved - Acute intravascular volume overload, resolved - Acute hypoxic respiratory failure - resolved - Metabolic acidosis - resolved - Elevated LFTs - shock liver/congestion- resolving. - Left lower lobe lung mass suspicious for malignancy, consider biopsy once more stable - Left adnexal mass (2cm) on CT - Descending thoracic aortic aneurysm - Suspected underlying COPD - CKD III - hypothyroidism [facility] (03/16/17) with Dr. Church 1. Left main coronary is angiographically normal. 2. Left anterior descending coronary has some minor luminal irregularities proximally, in the mid segment, 30% stenosis and some tortuosity. The diagonal branch is also tortuous but angiographically normal. 3. Left circumflex gives rise to an obtuse marginal branch which has minor luminal irregularities, otherwise circumflex is relatively free of disease. 4. Right coronary is occluded in the proximal segment but well collateralized via septal perforators from [id number]. - cardiology and pulmonary following palliative care has been consulted to clarify goals. - await CT guided lung bx -heparin off for bx -cont dig for afib -pt on asa and entresto per cardiology. monitor bp as it remains low. -arguello replaced last night after failed attempt at removal 03/18/17 - Received call from [facility] requesting discharge. Appreciate input. - Pt underwent CT guided lung biopsy today - observe overnight - IF pt stable in AM, then will discharge to SNF 03/19 (2) Cardiomyopathy ICD Codes: I42.9 - Cardiomyopathy, unspecified Status: Acute Plan: - see above (3) Cardiogenic shock ICD Codes: R57.0 - Cardiogenic shock Status: Resolved Plan: - see above (4) Lung mass ICD Codes: R91.8 - Other nonspecific abnormal finding of lung field Status: Acute Plan: -see above (5) Afib ICD Codes: I48.91 - Unspecified atrial fibrillation Status: Chronic Plan: - digoxin (6) Descending thoracic aortic aneurysm ICD Codes: I71.2 - Thoracic aortic aneurysm, without rupture Status: Chronic (7) Hypothyroid ICD Codes: E03.9 - Hypothyroidism, unspecified Status: Chronic Edgard Estrada DO Mar 18, 2017 18:16
--- NOTE | 2017-03-18 19:02 | HHI.PR ---
Subjective Remarks ALERT NO SOB AT REST Objective Vital Signs Date Time Temp Pulse Resp B/P (MAP) Pulse Ox O2 Delivery O2 Flow Rate FiO2 03/18/17 18:32 98.1 80 18 114/64 (81) 95 03/18/17 18:02 98.1 78 18 98/53 (68) 94 03/18/17 17:32 98.3 76 18 87/52 (64) 94 03/18/17 17:02 98.3 81 17 99/43 (61) 95 03/18/17 16:32 98.1 85 18 86/50 (62) 95 03/18/17 16:17 98.1 70 18 89/34 (52) 96 03/18/17 16:02 97.7 72 18 99/46 (63) 98 03/18/17 16:00 97.7 72 18 99/46 (63) 98 03/18/17 16:00 Nasal Cannula 2.00 03/18/17 16:00 79 03/18/17 13:00 100 03/18/17 12:16 96 03/18/17 12:00 95 Room Air 03/18/17 12:00 102 03/18/17 12:00 98.2 86 20 92/55 (67) 98 03/18/17 11:00 86 03/18/17 10:12 96 Nasal Cannula 2.50 03/18/17 10:00 82 03/18/17 09:00 80 03/18/17 08:04 Nasal Cannula 3.00 03/18/17 08:04 98.2 84 20 106/70 (82) 95 03/18/17 08:00 82 03/18/17 07:26 93 03/18/17 06:00 68 03/18/17 05:00 80 03/18/17 04:00 99 Nasal Cannula 3.00 03/18/17 04:00 82 03/18/17 04:00 98.5 67 18 90/45 (60) 99 03/18/17 03:00 66 03/18/17 02:00 76 03/18/17 01:00 81 03/18/17 00:00 86 03/18/17 00:00 98 Nasal Cannula 3.00 03/18/17 00:00 98.1 76 18 106/69 (81) 98 03/17/17 23:00 90 03/17/17 22:00 86 03/17/17 21:35 96 Nasal Cannula 3.50 03/17/17 21:00 80 03/17/17 20:00 84 03/17/17 20:00 94 Nasal Cannula 2.00 03/17/17 20:00 98.6 72 18 97/62 (74) 94 I/O 03/17/17 03/17/17 03/17/17 03/18/17 03/18/17 03/18/17 06:59 14:59 22:59 06:59 14:59 22:59 Intake Total 480 ml 580 ml 240 ml 100 ml Output Total 320 ml 500 ml 565 ml 350 ml Balance 160 ml 80 ml -325 ml -250 ml Intake Oral 480 ml 580 ml 240 ml 100 ml Output Urine Total 320 ml 500 ml 565 ml 350 ml Bladder Scan Volume Amount 495 ml # Bowel Movements 0 0 0 Result Diagram: 03/18/17 0504 03/18/17 0504 Objective Remarks GENERAL: SKIN: Warm and dry. HEAD: Atraumatic. Normocephalic. EYES: Pupils equal and round. No scleral icterus. No injection or drainage. ENT: No nasal bleeding or discharge. Mucous membranes pink and moist. NECK: Trachea midline. No JVD. CARDIOVASCULAR: Regular rate and rhythm. RESPIRATORY: No accessory muscle use. Clear to auscultation. Breath sounds equal bilaterally. GASTROINTESTINAL: Abdomen soft, non-tender, nondistended. Hepatic and splenic margins not palpable. MUSCULOSKELETAL: Extremities without clubbing, cyanosis, or edema. No obvious deformities. NEUROLOGICAL: Awake and alert. No obvious cranial nerve deficits. Motor grossly within normal limits. Five out of 5 muscle strength in the arms and legs. Normal speech. PSYCHIATRIC: Appropriate mood and affect; insight and judgment normal. Assessment and Plan Assessment and Plan COPD LUNG MASS CHF AFIB PLAN O2 NEEDED W/U FOR LUNG MASS IN PROGRESS Dimas Cochran MD Mar 18, 2017 19:02
[2017-03-18] MEDS: MAGNESIUM HYDROXIDE SUSP 30 ML CUP PO PRN (20:46)
[2017-03-18] MEDS: MORPHINE SULFATE 4 MG/ML INJ IV PUSH PRN (20:47)
[2017-03-19] VITALS (25 sets, daily range): BP systolic 83–105; BP diastolic 41–62; PULSE 63–90; RESP 16–18; TEMP 96.6–98.3; O2SAT 94–100
[2017-03-19 05:09] LABS: HEMATOCRIT 39.2 % (35.0-46.0); MEAN CELL VOLUME 84.2 FL (80.0-100.0); MEAN CORPUSCULAR HEMOGLOBIN 28.4 PG (27.0-34.0); MEAN CORPUSCULAR HGB CONC 33.7 % (32.0-36.0); PLATELET COUNT 265 TH/MM3 (150-450); RED BLOOD COUNT 4.65 MIL/MM3 (4.00-5.30); RED CELL DISTRIBUTION WIDTH 16.2 % (11.6-17.2); REVIEW FLAG FINAL; WHITE BLOOD COUNT 22.4 TH/MM3 (4.0-11.0)
[2017-03-19 05:22] LABS: BICARBONATE 23.8 MEQ/L (21.0-32.0); POTASSIUM 4.3 MEQ/L (3.5-5.1)
[2017-03-19] MEDS: INSULIN ASPART SUPPLEMENTAL SCALE SQ SCH ×5 (05:50→23:26)
--- NOTE | 2017-03-19 07:40 | HHI.DCPOC ---
Discharge Care Plan Diagnosis: (1) Respiratory failure (2) Cardiomyopathy (3) Cardiogenic shock (4) Descending thoracic aortic aneurysm (5) Lung mass Goals to Promote Your Health * To prevent worsening of your condition and complications * To maintain your health at the optimal level Directions to Meet Your Goals Take your medications as prescribed Follow your dietary instruction Follow activity as directed Keep your appointments as scheduled Take your immunizations and boosters as scheduled If your symptoms worsen call your PCP, if no PCP go to Urgent Care Center or Emergency Room Smoking is Dangerous to Your Health. Avoid second hand smoke Call the 24-hour hour crisis hotline for domestic abuse at Deann Reyna Mar 19, 2017 07:40 Edgard Estrada DO Mar 22, 2017 00:46
[2017-03-19] MEDS ORDERED: DIGO0.12 PO (07:54)
[2017-03-19] MEDS ORDERED: FAMO20TA2 PO (07:54)
[2017-03-19] MEDS ORDERED: LEVO75TA3 PO (07:54)
[2017-03-19] MEDS ORDERED: SACU1TAB PO (07:54)
[2017-03-19] MEDS ORDERED: ASPI-99 PO (07:54)
[2017-03-19] MEDS ORDERED: WALKER WHEELS/F1 MIS (07:58)
--- NOTE | 2017-03-19 07:58 | HHI.DS ---
Discharge Summary Admission Date Mar 10, 2017 at 12:03 Discharge Date: Mar 23, 2017 Admitting Diagnosis NEW ONSET AFIB WITH RVR,DESCENDING AORTIC ANEURYSM,LUNG MASS (1) Respiratory failure ICD Codes: J96.90 - Respiratory failure, unspecified, unspecified whether with hypoxia or hypercapnia (2) Cardiomyopathy ICD Codes: I42.9 - Cardiomyopathy, unspecified Status: Acute (3) Cardiogenic shock ICD Codes: R57.0 - Cardiogenic shock Status: Resolved (4) Lung mass ICD Codes: R91.8 - Other nonspecific abnormal finding of lung field Status: Acute (5) Afib ICD Codes: I48.91 - Unspecified atrial fibrillation Status: Chronic (6) Descending thoracic aortic aneurysm ICD Codes: I71.2 - Thoracic aortic aneurysm, without rupture Status: Chronic (7) Hypothyroid ICD Codes: E03.9 - Hypothyroidism, unspecified Status: Chronic Consultants Dr. Ranjit Kahn Procedures [facility] (03/16/17) with Dr. Church Left lower lobe lung mass core biopsy and culture obtained. (03/18/17) Dr. Kahn Brief History Per Dr. Marroquin initial H&P: patient was at pcp (dr vasquez) this am discussing her upper abdomen/epig region discomfort that she has had for almost 2months intermittently, pcp noted high heart rate and sent patient to er...pt denies any sob/cp/n/v/d/fever/cough at this time. 81-year-old female who was evaluated by her PCP Dr. Vasquez who she saw for upper abdominal pain which has been going on for about 2 months today. PCP noted high heart rate and sent patient to the ER. Patient was evaluated in the ER at [place]. At that time she denied any chest pain shortness of breath nausea vomiting diarrhea fever or cough per documentation by ER physician. She was noted to be in A. fib with RVR. She was given Cardizem 5 mg IV and subsequently was transferred to [facility] CVICU. I was contacted by nursing staff following patient's arrival that her heart rate was in the 160s and she was on a nonrebreather facemask with O2 sats in the 80s. I had not been notified regarding this patient from either [place] ER or by any other accepting physician so I immediately went to patient's bedside to evaluate her. I contacted Dr. Casas from [facility] as patient had been reportedly accepted by [facility] however he was not aware of any details. Patient was in obvious respiratory distress at the time of my evaluation. Patient underwent CTA aortogram at [facility] and was found to have a left lower lobe spiculated lung mass with central necrosis suspicious for malignancy as well as a descending thoracic aortic aneurysm less than 4 cm in diameter with no dissection. Dr. Casas requested critical care consult. Patient was given Lopressor 5 mg IV with which her ventricular rate came down in the 90s. She did have borderline blood pressures with systolic SBP 90s. She continued to have worsening shortness of breath and appeared cold and clammy. She denied any chest pain however was complaining of epigastric pain. Per patient's she has lost 24 pounds in 3 months and has had a cough for 4 months. She has had abdominal pain for a year and has previously had an EGD which revealed a gastric ulcer 7 years ago. Patient was loaded with amiodarone and started on amiodarone drip. She is also given aspirin 324 mg stat as her EKG revealed T inversions in the lateral leads concerning for ischemia. Stat 2-D echo was ordered and patient was noted to have a LVEF 10-15% with global hypokinesis. Patient continued to be in significant respiratory distress using accessory muscles of respiration and became very diaphoretic and appeared to be worsening clinically hence was emergently intubated and placed on mechanical ventilation. She was initiated on full anticoagulation with heparin. I emergently placed a right IJ central venous catheter and right axillary a line. Dr. Church from cardiology was consulted and I personally discussed the case, EKG and echo findings with Dr. Church who will be evaluating patient. Prior to intubation, patient denied any prior cardiac history or previous history of CAD, arrhythmias or MS. She denied any history of COPD though she has been a long-standing smoker(60 pack years) and quit 3 years ago. CBC/BMP: 03/19/17 0452 03/19/17 0452 Significant Findings Laboratory Tests Test 03/17/17 05:20 03/18/17 05:04 03/19/17 04:52 White Blood Count 13.5 TH/MM3 (4.0-11.0) 17.5 TH/MM3 (4.0-11.0) 22.4 TH/MM3 (4.0-11.0) Hemoglobin 11.4 GM/DL (11.6-15.3) Hematocrit 34.4 % (35.0-46.0) Neutrophils (%) (Auto) 80.6 % (16.0-70.0) Neutrophils # (Auto) 10.9 TH/MM3 (1.8-7.7) Monocytes # (Auto) 1.1 TH/MM3 (0-0.9) Neutrophils % (Manual) 75 % (16-70) Monocytes % 11 % (0-8) Neutrophils # (Manual) 10.4 TH/MM3 (1.8-7.7) Ovalocytes 1+ (NORMAL) Blood Urea Nitrogen 39 MG/DL (7-18) 29 MG/DL (7-18) 34 MG/DL (7-18) Sodium Level 132 MEQ/L (136-145) 131 MEQ/L (136-145) 133 MEQ/L (136-145) Chloride Level 97 MEQ/L (98-107) Estimat Glomerular Filtration Rate 54 ML/MIN (>89) 79 ML/MIN (>89) 60 ML/MIN (>89) Random Glucose 125 MG/DL (74-106) Calcium Level 8.4 MG/DL (8.5-10.1) Imaging Last Impressions Chest X-Ray 03/18/17 1545 Signed Impressions: Service Date/Time: Saturday, March 18, 2017 16:10 - CONCLUSION: 1. There is no evidence of pneumothorax. Chauncey Hutchison MD Lung Biopsy CT 03/18/17 0000 Signed Impressions: Service Date/Time: Saturday, March 18, 2017 15:07 - CONCLUSION: 1. Histology and culture specimens obtained of a left lower lobe pulmonary mass. 2. Tiny subpulmonic pneumothorax. Clifford Kahn Jr., MD Aorta CTA 03/10/17 0929 Signed Impressions: Service Date/Time: Friday, March 10, 2017 10:47 - CONCLUSION: 1. 2.2 x 1.9 cm spiculated left lower lobe posterior lung mass with apparently centrally necrotic anterior tracheal mediastinal lymph node measuring 2.8 x 2.7 cm. Subcentimeter mediastinal and confluent partially calcified right hilar lymph nodes are more nonspecific may be due to prior granulomatous disease. 2. 2.7 x 2.0 cm left adnexal mass likely corresponding to the ovary. This is abnormal given patients advanced age. Further evaluation may be performed with ultrasound of the pelvis. 3. Otherwise, no evidence for distant metastatic disease. 4. Focal 4 cm length distal descending thoracic aortic aneurysm measuring up to 3.7 cm in axial dimension. 5. No aortic dissection. 6. Additional ancillary findings, as above. Woo Covarrubias MD Lower Extremity Ultrasound 03/10/17 0000 Signed Impressions: Service Date/Time: Friday, March 10, 2017 18:19 - CONCLUSION: No DVT. Fermin Flores MD PE at Discharge General: frail 81 year old female Cardiac: irregular Respiratory: diminished bilateral bases Abdomen: s/nt ext: no edema Hospital Course Respiratory failure - Presented to [facility] and transferred to [facility] - Pt admitted with A. fib RVR - now rate controlled - Pt admitted with Acute Cardiomyopathy, decompensated systolic chf, with LVEF 10-15% ...nonischemic CM. [facility] neg for cad - Pt admitted with Cardiogenic shock, now resolved - Acute intravascular volume overload, resolved - Acute hypoxic respiratory failure - resolved - Metabolic acidosis - resolved - Elevated LFTs - shock liver/congestion- resolving. - Left adnexal mass (2cm) on CT - Descending thoracic aortic aneurysm - Suspected underlying COPD - CKD III - hypothyroidism [facility] (03/16/17) with Dr. Church 1. Left main coronary is angiographically normal. 2. Left anterior descending coronary has some minor luminal irregularities proximally, in the mid segment, 30% stenosis and some tortuosity. The diagonal branch is also tortuous but angiographically normal. 3. Left circumflex gives rise to an obtuse marginal branch which has minor luminal irregularities, otherwise circumflex is relatively free of disease. 4. Right coronary is occluded in the proximal segment but well collateralized via septal perforators from [id number]. - cardiology, pulmonary, and palliative medicine following palliative care has been consulted to clarify goals. -cont dig for afib -pt on asa and entresto per cardiology. monitor bp as it remains low. -arguello replaced last night after failed attempt at removal - discharge to SNF held d/t hypotensive with increasing WBC concern for infection/sepsis - Pt given IVF and abx vancomycin and zosyn - BP stabilized - NO obvious source of infection identified - ABX and fluids stopped 03/21/17 - follow cultures - pathology results reveal Spindle cell carcinoma - appreciate input from Oncology - Pt with Stage III Pulmonary Cancer - Pt with poor functional status & NOT a candidate for chemotherapy until strengthened - Case d/w pt//son/and [id number] at length 03/21/17 and again 03/22 - then possibly Hospice 03/22/17 - Patient had 9 beat run of NSVT, Dr. Estrada discussed with patient and family. Patient and family do not want further work up or lifevest. Patient and family wish to go home with hospice tomorrow 03/23/17 - patient DC home with Hospice Pt Condition on Discharge: Deteriorating Discharge Disposition: Hospice/ Home Discharge Instructions DIET: Follow Instructions for: Heart Healthy Diet Activities you can perform: Regular-No Restrictions Follow up Referrals: Cardiology - [address] Church PCP Follow-up - [address] Vasquez Pulmonology - [address] Salazar New Medications: Levothyroxine (Levothyroxine) 75 Mcg Tab 75 MCG PO DAILY for Thyroid, #30 TAB 0 Refills Walker with Front Wheels (Walker with Front Wheels) 1 Mis Mis EA .ROUTE DIRECTED, #1 0 Refills Acetaminophen (Eq Acetaminophen) 325 Mg Tab 650 MG PO Q6H PRN for PAIN 1-10 AND/OR FEVER >101F, #60 TAB [address] (Adult Aspirin EC Low Strength) 81 Mg Tabec 81 MG PO DAILY for blood thinner, #30 TAB 0 Refills Digoxin (Digoxin) 0.125 Mg Tab 0.125 MG PO DAILY for A Fib, #30 TAB 0 Refills Famotidine (Famotidine) 20 Mg Tab 10 MG PO BID for stomach , #60 TAB 0 Refills Ipratropium Neb (Ipratropium Neb) 0.5 Mg/2.5 Ml Amp 0.5 MG INH Q2HR NEB PRN for WHEEZING, #100 ML 0 Refills Potassium Chloride Microencaps (Potassium Chloride Microencaps) 20 Meq Tab 20 MEQ PO DAILY for potassium supplement, #30 TAB 0 Refills Sacubitril-Valsartan (Entresto) 24-26 Mg Tab 1 TAB PO BID for Heart, #60 TAB 0 Refills Hold for SBP <90 Discontinued Medications: Levothyroxine (Synthroid) 100 Mcg Tab 100 MCG PO DAILY for Thyroid, #30 TAB 0 Refills Lovastatin (Lovastatin) 40 Mg Tab 40 MG PO DAILY for Cholesterol Management, #30 TAB 0 Refills Additional Information Patient examined. Assessment and plan formulated with Deann Reyna PA-C. I agree with the above. Deann Reyna Mar 19, 2017 07:58 Edgard Estrada DO Mar 25, 2017 11:13
[2017-03-19] MEDS: CHLORHEXIDINE 0.12% (ORAL KIT) 15 ML CUP MT SCH ×2 (08:14→20:00)
--- NOTE | 2017-03-19 08:27 | HHI.PR ---
Subjective Remarks Patient resting in bed able to awake easily with verbal stimuli reports mild soreness in chest after bx yesterday relieved with pain medication denies feeling dizzy or lightheaded offers no other complaints Objective Vitals Vital Signs Date Time Temp Pulse Resp B/P (MAP) Pulse Ox O2 Delivery O2 Flow Rate FiO2 03/19/17 07:51 77 03/19/17 07:51 97.8 74 16 88/41 (57) 100 03/19/17 06:00 69 03/19/17 05:00 69 03/19/17 04:00 76 03/19/17 04:00 99 Nasal Cannula 3.00 03/19/17 04:00 97.0 71 18 83/52 (62) 97 03/19/17 03:00 88 03/19/17 02:00 84 03/19/17 01:00 90 03/19/17 00:00 99 Nasal Cannula 3.00 03/19/17 00:00 89 03/19/17 00:00 97.6 77 18 85/62 (70) 97 03/18/17 23:00 95 03/18/17 22:00 92 03/18/17 21:00 95 03/18/17 20:31 Nasal Cannula 3.00 03/18/17 20:00 97.6 107 18 94/59 (71) 99 03/18/17 20:00 94 Nasal Cannula 3.00 03/18/17 20:00 75 03/18/17 19:00 85 03/18/17 18:32 98.1 80 18 114/64 (81) 95 03/18/17 18:02 98.1 78 18 98/53 (68) 94 03/18/17 18:00 86 03/18/17 17:32 98.3 76 18 87/52 (64) 94 03/18/17 17:02 98.3 81 17 99/43 (61) 95 03/18/17 17:00 88 03/18/17 16:32 98.1 85 18 86/50 (62) 95 03/18/17 16:17 98.1 70 18 89/34 (52) 96 03/18/17 16:02 97.7 72 18 99/46 (63) 98 03/18/17 16:00 97.7 72 18 99/46 (63) 98 03/18/17 16:00 Nasal Cannula 2.00 03/18/17 16:00 79 03/18/17 13:00 100 03/18/17 12:16 96 03/18/17 12:00 95 Room Air 03/18/17 12:00 102 03/18/17 12:00 98.2 86 20 92/55 (67) 98 03/18/17 11:00 86 03/18/17 10:12 96 Nasal Cannula 2.50 03/18/17 10:00 82 03/18/17 09:00 80 Result Diagram: 03/19/17 0452 03/19/17 0452 Other Results Laboratory Tests Test 03/17/17 05:20 03/18/17 05:04 03/19/17 04:52 White Blood Count 13.5 TH/MM3 17.5 TH/MM3 22.4 TH/MM3 Red Blood Count 4.09 MIL/MM3 4.41 MIL/MM3 4.65 MIL/MM3 Hemoglobin 11.4 GM/DL 12.3 GM/DL 13.2 GM/DL Hematocrit 34.4 % 37.0 % 39.2 % Mean Corpuscular Volume 84.1 FL 84.0 FL 84.2 FL Mean Corpuscular Hemoglobin 27.9 PG 27.9 PG 28.4 PG Mean Corpuscular Hemoglobin Concent 33.2 % 33.2 % 33.7 % Red Cell Distribution Width 15.9 % 16.0 % 16.2 % Platelet Count 223 TH/MM3 247 TH/MM3 265 TH/MM3 Mean Platelet Volume 9.4 FL 9.1 FL 9.0 FL Neutrophils (%) (Auto) 80.6 % Lymphocytes (%) (Auto) 10.1 % Monocytes (%) (Auto) 7.9 % Eosinophils (%) (Auto) 1.3 % Basophils (%) (Auto) 0.1 % Neutrophils # (Auto) 10.9 TH/MM3 Lymphocytes # (Auto) 1.4 TH/MM3 Monocytes # (Auto) 1.1 TH/MM3 Eosinophils # (Auto) 0.2 TH/MM3 Basophils # (Auto) 0.0 TH/MM3 CBC Comment AUTO DIFF Differential Total Cells Counted 100 Neutrophils % (Manual) 75 % Band Neutrophils % 2 % Lymphocytes % 11 % Monocytes % 11 % Basophils % 1 % Neutrophils # (Manual) 10.4 TH/MM3 Differential Comment FINAL DIFF MANUAL Platelet Estimate NORMAL Platelet Morphology Comment NORMAL Ovalocytes 1+ Activated Partial Thromboplast Time 25.1 SEC Blood Urea Nitrogen 39 MG/DL 29 MG/DL 34 MG/DL Creatinine 0.98 MG/DL 0.71 MG/DL 0.90 MG/DL Random Glucose 93 MG/DL 92 MG/DL 125 MG/DL Calcium Level 8.7 MG/DL 8.7 MG/DL 8.4 MG/DL Magnesium Level 2.3 MG/DL Sodium Level 132 MEQ/L 131 MEQ/L 133 MEQ/L Potassium Level 3.8 MEQ/L 3.9 MEQ/L 4.3 MEQ/L Chloride Level 97 MEQ/L 99 MEQ/L 102 MEQ/L Carbon Dioxide Level 25.3 MEQ/L 23.1 MEQ/L 23.8 MEQ/L Anion Gap 10 MEQ/L 9 MEQ/L 7 MEQ/L Estimat Glomerular Filtration Rate 54 ML/MIN 79 ML/MIN 60 ML/MIN Digoxin Level 1.1 NG/ML Imaging Last Impressions Chest X-Ray 03/13/17 0000 Signed Impressions: Service Date/Time: Monday, March 13, 2017 04:51 - CONCLUSION: Radiographic appearance consistent with pulmonary edema. Clifford Kahn Jr., MD Aorta CTA 03/10/17 0929 Signed Impressions: Service Date/Time: Friday, March 10, 2017 10:47 - CONCLUSION: 1. 2.2 x 1.9 cm spiculated left lower lobe posterior lung mass with apparently centrally necrotic anterior tracheal mediastinal lymph node measuring 2.8 x 2.7 cm. Subcentimeter mediastinal and confluent partially calcified right hilar lymph nodes are more nonspecific may be due to prior granulomatous disease. 2. 2.7 x 2.0 cm left adnexal mass likely corresponding to the ovary. This is abnormal given patients advanced age. Further evaluation may be performed with ultrasound of the pelvis. 3. Otherwise, no evidence for distant metastatic disease. 4. Focal 4 cm length distal descending thoracic aortic aneurysm measuring up to 3.7 cm in axial dimension. 5. No aortic dissection. 6. Additional ancillary findings, as above. Woo Covarrubias MD Lower Extremity Ultrasound 03/10/17 0000 Signed Impressions: Service Date/Time: Friday, March 10, 2017 18:19 - CONCLUSION: No DVT. Fermin Flores MD Objective Remarks General: frail 81 year old female Cardiac: irregular Respiratory: clear with good air entry Abdomen: s/nt ext: no edema Procedures [facility] (03/16/17) with Dr. Church Left lower lobe lung mass core biopsy and culture obtained. (03/18/17) Dr. Kahn A/P Problem List: (1) Respiratory failure ICD Codes: J96.90 - Respiratory failure, unspecified, unspecified whether with hypoxia or hypercapnia Plan: - Presented to [facility] and transferred to [facility] - Pt admitted with A. fib RVR - now rate controlled - Pt admitted with Acute Cardiomyopathy, decompensated systolic chf, with LVEF 10-15% ...nonischemic CM. [facility] neg for cad - Pt admitted with Cardiogenic shock, now resolved - Acute intravascular volume overload, resolved - Acute hypoxic respiratory failure - resolved - Metabolic acidosis - resolved - Elevated LFTs - shock liver/congestion- resolving. - Left lower lobe lung mass suspicious for malignancy, consider biopsy once more stable - Left adnexal mass (2cm) on CT - Descending thoracic aortic aneurysm - Suspected underlying COPD - CKD III - hypothyroidism [facility] (03/16/17) with Dr. Church 1. Left main coronary is angiographically normal. 2. Left anterior descending coronary has some minor luminal irregularities proximally, in the mid segment, 30% stenosis and some tortuosity. The diagonal branch is also tortuous but angiographically normal. 3. Left circumflex gives rise to an obtuse marginal branch which has minor luminal irregularities, otherwise circumflex is relatively free of disease. 4. Right coronary is occluded in the proximal segment but well collateralized via septal perforators from [id number]. - cardiology and pulmonary following palliative care has been consulted to clarify goals. - await CT guided lung bx -heparin off for bx -cont dig for afib -pt on asa and entresto per cardiology. monitor bp as it remains low. -arguello replaced last night after failed attempt at removal 03/18/17 - Received call from [facility] Physician requesting discharge. Appreciate input. - Pt underwent CT guided lung biopsy today - observe overnight - IF pt stable in AM, then will discharge to SNF 03/1903/19/17 - hypotensive with increasing WBC concern for infection/sepsis - start 1/2NS with 20 KCL at 100 ml/H - monitor BP trend - CXR 03/18 reviewed no acute findings - repeat blood cultures - UA C&S if indicated - continue to monitor for now - Dr. Estrada started Vancomycin and Zosyn IV (2) Cardiomyopathy ICD Codes: I42.9 - Cardiomyopathy, unspecified Status: Acute Plan: - see above (3) Cardiogenic shock ICD Codes: R57.0 - Cardiogenic shock Status: Resolved Plan: - see above (4) Lung mass ICD Codes: R91.8 - Other nonspecific abnormal finding of lung field Status: Acute Plan: -see above (5) Afib ICD Codes: I48.91 - Unspecified atrial fibrillation Status: Chronic Plan: - digoxin (6) Descending thoracic aortic aneurysm ICD Codes: I71.2 - Thoracic aortic aneurysm, without rupture Status: Chronic (7) Hypothyroid ICD Codes: E03.9 - Hypothyroidism, unspecified Status: Chronic Assessment and Plan Patient examined. Assessment and plan formulated with Deann Reyna PA-C. I agree with the above. Deann Reyna Mar 19, 2017 08:27 Edgard Estrada DO Mar 21, 2017 10:48
[2017-03-19] MEDS: POTASSIUM CHLORIDE 20 MEQ CONTROLLED RELEASE TAB PO SCH ×2 (09:19→21:00)
[2017-03-19] MEDS: ASPIRIN EC 81 MG TABEC PO SCH (09:19)
[2017-03-19] MEDS: SACUBITRIL/VALSARTAN 24 MG-26 MG TAB PO SCH ×2 (09:20→21:00)
[2017-03-19] MEDS: DIGOXIN 0.125 MG TAB PO SCH (09:20)
[2017-03-19] MEDS: DOCUSATE SODIUM 50 MG/SENNA 8.6 MG TAB PO SCH ×2 (09:20→21:00)
[2017-03-19] MEDS: FAMOTIDINE 20 MG TAB PO SCH ×2 (09:20→21:00)
[2017-03-19] MEDS: SODIUM CHLORIDE 0.9% FLUSH 10 ML FLUSH IV FLUSH SCH ×2 (09:23→21:00)
[2017-03-19] MEDS: 1/2 NS + KCL 20 MEQ INJ 1,000 ML IV SCH ×2 (09:23→23:18)
[2017-03-19] MEDS ORDERED: Vancomycin Consult Pharmacy 1 EA OTHER SCH (12:00)
[2017-03-19] MEDS: PIPERACIL-TAZO 3.375 GM PREMIX 50 ML IV SCH ×3 (12:39→23:19)
[2017-03-19] MEDS ORDERED: VANCOMYCIN INJ 1,000 MG in SODIUM CHLOR 0.9% 250 ML INJ 250 ML IV ONE (13:00)
[2017-03-19 13:27] LABS: BACTERIA, URINE RARE /hpf; BLOOD, URINE NEG (NEG); GLUCOSE,URINE NEG (NEG); HYALINE CAST, URINE 4 /lpf (RARE); KETONE, URINE NEG (NEG); MUCUS URINE FEW /lpf (OCC); NITRITE,URINE NEG (NEG); URINE COLOR YELLOW (YELLW/STRAW)
[2017-03-19 13:36] LABS: COMMENT (UR) CATH-CULTURE IND; CULTURE IF INDICATED CATH CULTURE IND
--- NOTE | 2017-03-19 16:21 | HHI.PR ---
Subjective Remarks ALERT NO SOB AT REST Objective Vital Signs Date Time Temp Pulse Resp B/P (MAP) Pulse Ox O2 Delivery O2 Flow Rate FiO2 03/19/17 16:07 98.3 74 16 91/53 (66) 94 03/19/17 16:07 94 Nasal Cannula 3.00 03/19/17 16:07 72 03/19/17 14:00 74 03/19/17 13:00 72 03/19/17 12:00 72 03/19/17 12:00 98.2 76 18 99/55 (70) 98 03/19/17 12:00 98 Nasal Cannula 3.00 03/19/17 11:00 69 03/19/17 10:31 Nasal Cannula 3.00 03/19/17 10:00 70 03/19/17 09:38 105/55 (72) 03/19/17 09:00 76 03/19/17 08:00 100 Nasal Cannula 3.00 03/19/17 08:00 79 03/19/17 08:00 97.8 78 16 91/46 (61) 100 03/19/17 07:51 77 03/19/17 07:51 97.8 74 16 88/41 (57) 100 03/19/17 06:00 69 03/19/17 05:00 69 03/19/17 04:00 76 03/19/17 04:00 99 Nasal Cannula 3.00 03/19/17 04:00 97.0 71 18 83/52 (62) 97 03/19/17 03:00 88 03/19/17 02:00 84 03/19/17 01:00 90 03/19/17 00:00 99 Nasal Cannula 3.00 03/19/17 00:00 89 03/19/17 00:00 97.6 77 18 85/62 (70) 97 03/18/17 23:00 95 03/18/17 22:00 92 03/18/17 21:00 95 03/18/17 20:31 Nasal Cannula 3.00 03/18/17 20:00 97.6 107 18 94/59 (71) 99 03/18/17 20:00 94 Nasal Cannula 3.00 03/18/17 20:00 75 03/18/17 19:00 85 03/18/17 18:32 98.1 80 18 114/64 (81) 95 03/18/17 18:02 98.1 78 18 98/53 (68) 94 03/18/17 18:00 86 03/18/17 17:32 98.3 76 18 87/52 (64) 94 03/18/17 17:02 98.3 81 17 99/43 (61) 95 03/18/17 17:00 88 03/18/17 16:32 98.1 85 18 86/50 (62) 95 I/O 03/18/17 03/18/17 03/18/17 03/19/17 03/19/17 03/19/17 07:00 15:00 23:00 07:00 15:00 23:00 Intake Total 240 ml 100 ml 400 ml 300 ml Output Total 565 ml 350 ml 225 ml Balance -325 ml -250 ml 175 ml 300 ml Intake Oral 240 ml 100 ml 400 ml IV Total 300 ml Output Urine Total 565 ml 350 ml 225 ml # Bowel Movements 0 0 0 Result Diagram: 03/19/1745103/19/17451 Objective Remarks GENERAL: SKIN: Warm and dry. HEAD: Atraumatic. Normocephalic. EYES: Pupils equal and round. No scleral icterus. No injection or drainage. ENT: No nasal bleeding or discharge. Mucous membranes pink and moist. NECK: Trachea midline. No JVD. CARDIOVASCULAR: Regular rate and rhythm. RESPIRATORY: No accessory muscle use. Clear to auscultation. Breath sounds equal bilaterally. GASTROINTESTINAL: Abdomen soft, non-tender, nondistended. Hepatic and splenic margins not palpable. MUSCULOSKELETAL: Extremities without clubbing, cyanosis, or edema. No obvious deformities. NEUROLOGICAL: Awake and alert. No obvious cranial nerve deficits. Motor grossly within normal limits. Five out of 5 muscle strength in the arms and legs. Normal speech. PSYCHIATRIC: Appropriate mood and affect; insight and judgment normal. Assessment and Plan Assessment and Plan COPD LUNG MASS CHF AFIB PLAN O2 NEEDED W/U FOR LUNG MASS IN PROGRESS Dimas Cochran MD Mar 19, 2017 16:21
[2017-03-19] MEDS ORDERED: ACETAMINOPHEN 500 MG CPLT PO ONE (18:30)
[2017-03-20] VITALS (18 sets, daily range): BP systolic 88–104; BP diastolic 46–69; PULSE 66–95; RESP 16–18; TEMP 96.6–98.1; O2SAT 94–96
[2017-03-20] MEDS: CHLORHEXIDINE GLUCONATE 2 % 1 PACK (2 CLOTHS) TOP SCH (04:00)
--- NOTE | 2017-03-20 05:02 | RADRPT ---
EXAM DATE/TIME: 03/20/2017 04:37 [place] COMPARISON: CHEST SINGLE AP, March 17, 2017, 4:33. INDICATIONS : Shortness of breath MEDICAL HISTORY : Gastroesophageal reflux disease. Thyroid disease SURGICAL HISTORY : Hysterectomy.Appendectomy. Left hip fracture repair. Left wrist fracture ENCOUNTER: Subsequent ACUITY: 2 days PAIN SCORE: 8/10 LOCATION: Bilateral chest FINDINGS: A single view of the chest demonstrates basilar airspace disease, left greater than right similar to March 17. No pneumothorax. Heart size enlarged. Tortuous aorta. CONCLUSION: 1. Basilar airspace disease, left greater than right similar to March 17. Marc Shelton MD on March 20, 2017 at 4:59 Board Certified Radiologist. This report was verified electronically.
[2017-03-20] MEDS: INSULIN ASPART SUPPLEMENTAL SCALE SQ SCH ×3 (06:00→16:39)
[2017-03-20 06:29] LABS: HEMATOCRIT 39.5 % (35.0-46.0); MEAN CELL VOLUME 85.1 FL (80.0-100.0); MEAN CORPUSCULAR HGB CONC 32.9 % (32.0-36.0); PLATELET COUNT 221 TH/MM3 (150-450); RED BLOOD COUNT 4.64 MIL/MM3 (4.00-5.30); RED CELL DISTRIBUTION WIDTH 16.1 % (11.6-17.2); REVIEW FLAG FINAL; WHITE BLOOD COUNT 19.5 TH/MM3 (4.0-11.0)
[2017-03-20] MEDS: PIPERACIL-TAZO 3.375 GM PREMIX 50 ML IV SCH ×3 (06:46→16:39)
[2017-03-20 07:15] LABS: BICARBONATE 22.8 MEQ/L (21.0-32.0); POTASSIUM 4.4 MEQ/L (3.5-5.1)
[2017-03-20] MEDS: CHLORHEXIDINE 0.12% (ORAL KIT) 15 ML CUP MT SCH ×2 (07:28→20:00)
[2017-03-20] MEDS: 1/2 NS + KCL 20 MEQ INJ 1,000 ML IV SCH ×2 (07:35→20:23)
[2017-03-20] MEDS: SACUBITRIL/VALSARTAN 24 MG-26 MG TAB PO SCH ×2 (08:32→21:43)
[2017-03-20] MEDS: POTASSIUM CHLORIDE 20 MEQ CONTROLLED RELEASE TAB PO SCH ×2 (08:32→21:45)
[2017-03-20] MEDS: ASPIRIN EC 81 MG TABEC PO SCH (08:32)
[2017-03-20] MEDS: DOCUSATE SODIUM 50 MG/SENNA 8.6 MG TAB PO SCH ×2 (08:32→20:23)
[2017-03-20] MEDS: FAMOTIDINE 20 MG TAB PO SCH ×2 (08:32→21:44)
[2017-03-20] MEDS: DIGOXIN 0.125 MG TAB PO SCH (08:32)
[2017-03-20] MEDS: SODIUM CHLORIDE 0.9% FLUSH 10 ML FLUSH IV FLUSH SCH ×2 (08:32→20:16)
[2017-03-20] MEDS: MAGNESIUM HYDROXIDE SUSP 30 ML CUP PO PRN (08:43)
--- NOTE | 2017-03-20 10:10 | HHI.PR ---
Subjective Remarks Patient sitting up in chair with at bedside Patient reports feeling fatigued asking to get back in bed no other complaints Objective Vitals Vital Signs Date Time Temp Pulse Resp B/P (MAP) Pulse Ox O2 Delivery O2 Flow Rate FiO2 03/20/17 08:00 97.2 75 16 103/63 (76) 96 03/20/17 08:00 Nasal Cannula 3.00 03/20/17 08:00 91 03/20/17 07:10 75 03/20/17 05:16 97.8 68 18 95/69 (78) 96 03/20/17 05:15 96 Nasal Cannula 3.00 03/20/17 02:00 78 03/20/17 01:55 99 Nasal Cannula 3.00 03/20/17 01:00 75 03/20/17 00:00 66 03/20/17 00:00 96.6 69 18 100/64 (76) 94 03/19/17 23:00 74 03/19/17 22:00 70 03/19/17 21:00 72 03/19/17 20:30 96.6 74 18 105/58 (74) 94 03/19/17 20:30 98 Nasal Cannula 3.00 03/19/17 20:00 70 03/19/17 19:00 63 03/19/17 18:00 75 03/19/17 17:48 72 03/19/17 16:07 98.3 74 16 91/53 (66) 94 03/19/17 16:07 94 Nasal Cannula 3.00 03/19/17 16:07 72 03/19/17 14:00 74 03/19/17 13:00 72 03/19/17 12:00 72 03/19/17 12:00 98.2 76 18 99/55 (70) 98 03/19/17 12:00 98 Nasal Cannula 3.00 03/19/17 11:00 69 03/19/17 10:31 Nasal Cannula 3.00 03/20/17 03/20/17 03/21/17 15:00 23:00 07:00 Intake Total 120 ml Balance 120 ml Intake Oral 120 ml Result Diagram: 03/20/17 0515 03/20/17 0515 Other Results Laboratory Tests Test 03/18/17 05:04 03/19/17 04:52 03/19/17 12:20 03/20/17 05:15 White Blood Count 17.5 TH/MM3 22.4 TH/MM3 19.5 TH/MM3 Red Blood Count 4.41 MIL/MM3 4.65 MIL/MM3 4.64 MIL/MM3 Hemoglobin 12.3 GM/DL 13.2 GM/DL 13.0 GM/DL Hematocrit 37.0 % 39.2 % 39.5 % Mean Corpuscular Volume 84.0 FL 84.2 FL 85.1 FL Mean Corpuscular Hemoglobin 27.9 PG 28.4 PG 28.0 PG Mean Corpuscular Hemoglobin Concent 33.2 % 33.7 % 32.9 % Red Cell Distribution Width 16.0 % 16.2 % 16.1 % Platelet Count 247 TH/MM3 265 TH/MM3 221 TH/MM3 Mean Platelet Volume 9.1 FL 9.0 FL 9.6 FL Blood Urea Nitrogen 29 MG/DL 34 MG/DL 26 MG/DL Creatinine 0.71 MG/DL 0.90 MG/DL 0.72 MG/DL Random Glucose 92 MG/DL 125 MG/DL 93 MG/DL Calcium Level 8.7 MG/DL 8.4 MG/DL 8.0 MG/DL Sodium Level 131 MEQ/L 133 MEQ/L 132 MEQ/L Potassium Level 3.9 MEQ/L 4.3 MEQ/L 4.4 MEQ/L Chloride Level 99 MEQ/L 102 MEQ/L 102 MEQ/L Carbon Dioxide Level 23.1 MEQ/L 23.8 MEQ/L 22.8 MEQ/L Anion Gap 9 MEQ/L 7 MEQ/L 7 MEQ/L Estimat Glomerular Filtration Rate 79 ML/MIN 60 ML/MIN 78 ML/MIN Urine Color YELLOW Urine Turbidity CLEAR Urine pH 6.0 Urine Specific [place] 1.025 Urine Protein NEG mg/dL Urine Glucose (UA) NEG mg/dL Urine Ketones NEG mg/dL Urine Occult Blood NEG Urine Nitrite NEG Urine Bilirubin NEG Urine Urobilinogen LESS THAN 2.0 MG/DL Urine Leukocyte Esterase NEG Urine RBC 1 /hpf Urine WBC 2 /hpf Urine Bacteria RARE /hpf Urine Hyaline Casts 4 /lpf Urine Mucus FEW /lpf Microscopic Urinalysis Comment CATH-CULTURE IND Imaging Last Impressions Chest X-Ray 03/13/17 0000 Signed Impressions: Service Date/Time: Monday, March 13, 2017 04:51 - CONCLUSION: Radiographic appearance consistent with pulmonary edema. Clifford Kahn Jr., MD Aorta CTA 03/10/17 0929 Signed Impressions: Service Date/Time: Friday, March 10, 2017 10:47 - CONCLUSION: 1. 2.2 x 1.9 cm spiculated left lower lobe posterior lung mass with apparently centrally necrotic anterior tracheal mediastinal lymph node measuring 2.8 x 2.7 cm. Subcentimeter mediastinal and confluent partially calcified right hilar lymph nodes are more nonspecific may be due to prior granulomatous disease. 2. 2.7 x 2.0 cm left adnexal mass likely corresponding to the ovary. This is abnormal given patients advanced age. Further evaluation may be performed with ultrasound of the pelvis. 3. Otherwise, no evidence for distant metastatic disease. 4. Focal 4 cm length distal descending thoracic aortic aneurysm measuring up to 3.7 cm in axial dimension. 5. No aortic dissection. 6. Additional ancillary findings, as above. Woo Covarrubias MD Lower Extremity Ultrasound 03/10/17 0000 Signed Impressions: Service Date/Time: Friday, March 10, 2017 18:19 - CONCLUSION: No DVT. Fermin Flores MD Objective Remarks General: frail 81 year old female Cardiac: irregular Respiratory: diminished bilateral bases Abdomen: s/nt ext: no edema Procedures [facility] (03/16/17) with Dr. Church Left lower lobe lung mass core biopsy and culture obtained. (03/18/17) Dr. Kahn A/P Problem List: (1) Respiratory failure ICD Codes: J96.90 - Respiratory failure, unspecified, unspecified whether with hypoxia or hypercapnia Plan: - Presented to [facility] and transferred to [facility] - Pt admitted with A. fib RVR - now rate controlled - Pt admitted with Acute Cardiomyopathy, decompensated systolic chf, with LVEF 10-15% ...nonischemic CM. [facility] neg for cad - Pt admitted with Cardiogenic shock, now resolved - Acute intravascular volume overload, resolved - Acute hypoxic respiratory failure - resolved - Metabolic acidosis - resolved - Elevated LFTs - shock liver/congestion- resolving. - Left lower lobe lung mass suspicious for malignancy, consider biopsy once more stable - Left adnexal mass (2cm) on CT - Descending thoracic aortic aneurysm - Suspected underlying COPD - CKD III - hypothyroidism [facility] (03/16/17) with Dr. Church 1. Left main coronary is angiographically normal. 2. Left anterior descending coronary has some minor luminal irregularities proximally, in the mid segment, 30% stenosis and some tortuosity. The diagonal branch is also tortuous but angiographically normal. 3. Left circumflex gives rise to an obtuse marginal branch which has minor luminal irregularities, otherwise circumflex is relatively free of disease. 4. Right coronary is occluded in the proximal segment but well collateralized via septal perforators from [id number]. - cardiology and pulmonary following palliative care has been consulted to clarify goals. - await CT guided lung bx -heparin off for bx -cont dig for afib -pt on asa and entresto per cardiology. monitor bp as it remains low. -arguello replaced last night after failed attempt at removal 03/18/17 - Received call from [facility] Physician requesting discharge. Appreciate input. - Pt underwent CT guided lung biopsy today - observe overnight - IF pt stable in AM, then will discharge to SNF 03/1903/19/17 - hypotensive with increasing WBC concern for infection/sepsis - start 1/2NS with 20 KCL at 100 ml/H - monitor BP trend - CXR 03/18 reviewed no acute findings - repeat blood cultures - UA C&S if indicated - continue to monitor for now - Dr. 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 maybe hospice candidate (2) Cardiomyopathy ICD Codes: I42.9 - Cardiomyopathy, unspecified Status: Acute Plan: - see above (3) Cardiogenic shock ICD Codes: R57.0 - Cardiogenic shock Status: Resolved Plan: - see above (4) Lung mass ICD Codes: R91.8 - Other nonspecific abnormal finding of lung field Status: Acute Plan: -see above (5) Afib ICD Codes: I48.91 - Unspecified atrial fibrillation Status: Chronic Plan: - digoxin (6) Descending thoracic aortic aneurysm ICD Codes: I71.2 - Thoracic aortic aneurysm, without rupture Status: Chronic (7) Hypothyroid ICD Codes: E03.9 - Hypothyroidism, unspecified Status: Chronic Assessment and Plan Patient examined. Assessment and plan formulated with Deann Reyna PA-C. I agree with the above. Pt extremely debilitated. 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 Case d/w Oncology. Dr. Louise will consult this afternoon. Unclear if pt could tolerate aggressive treatment. Will meet with family 03/21 at 11AM. Anticipate discharge to [facility] 03/21 - Case d/w Dr. Louise at length - Pt stage III lung cancer - Pt has abeen loosing weight and quite debilitated - Pt's functional status is too poor for chemotherapy at this time - However, pt does want treatment at this time - CA 125 is NOT elevated - Pt will need outpt PET scan - After discharge, pt will f/u with Dr. Louise in 2 weeks Deann Reyna Mar 20, 2017 10:10 Edgard Estrada DO Mar 20, 2017 12:59
[2017-03-20] MEDS ORDERED: VANCOMYCIN 1,000 MG/NS 250 ML IV SCH ×2 (13:00)
--- NOTE | 2017-03-20 15:01 | HHI.HCPN ---
Reason for visit a. To assist with evaluation and management of symptoms including: malnutrition, chest pain b. To assist medical decision maker(s) with: better understanding of current medical conditions; weighing benefits/burdens of medical treatment options; making medical treatment decisions. Subjective/Interval History Patient seen today to follow-up on comfort, goals. Patient was being prepared for possible discharge yesterday. However She had some hypotension, WBC elevated to 19.5. she was started on IV fluids, continued on Vanco, Zosyn. Discharge held. CXR 03/18 with no acute findings. Blood cultures, UA obtained. 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 Oncology today, as of time of my visit oncology has not seen yet. Patient seen today in room with at bedside. She is alert and oriented. She is withdrawn, sad. He indicates that she has not gotten good news today regarding cancer findings. They wonder when oncology will be in. Explore them that often the oncologist comes after offices rounds so may likely be later afternoon. Gentle exploration of her underlying cardiac conditions, new findings of cancer , oncology consult pending. Not known at this time if oncology will have any systemic treatment options. Not clear this time if there will be curative options and a potentially be palliative options. Alternatively review with her that there may be no treatment options in which case she would be recommended for comfort measures, gentle review of hospice role, philosophy, services provided. Explore that given her underlying cardiac condition her health status was already quite fragile and she may not have oncologic treatment options 2/2 to her underlying health. They are eager to meet with oncology today, understandably they don't wish to make any decisions regarding goals of treatment until they have met with oncology. Patient denies pain. Denies dyspnea. Complains of upset stomach, having frequent bowel movements today. (2/2 lactulose). No other complaints. Advance Directives Living Will: Completed, but not made available Health Care Surrogate: Completed, but not made available Advance Directive Specifics Health Care Surrogate(s): Patient indicates is first surrogate with son Herberth listed as secondary. Objective Vital Signs Date Time Temp Pulse Resp B/P (MAP) Pulse Ox O2 Delivery O2 Flow Rate FiO2 03/20/17 12:00 Nasal Cannula 3.00 03/20/17 12:00 97.6 95 18 88/53 (65) 96 10/13/17 12:00 87 03/20/17 11:00 74 03/20/17 10:00 82 03/20/17 09:00 94 03/20/17 08:00 97.2 75 16 103/63 (76) 96 03/20/17 08:00 Nasal Cannula 3.00 03/20/17 08:00 91 03/20/17 07:10 75 03/20/17 07:00 74 03/20/17 05:16 97.8 68 18 95/69 (78) 96 03/20/17 05:15 96 Nasal Cannula 3.00 03/20/17 02:00 78 03/20/17 01:55 99 Nasal Cannula 3.00 03/20/17 01:00 75 03/20/17 00:00 66 03/20/17 00:00 96.6 69 18 100/64 (76) 94 03/19/17 23:00 74 03/19/17 22:00 70 03/19/17 21:00 72 03/19/17 20:30 96.6 74 18 105/58 (74) 94 03/19/17 20:30 98 Nasal Cannula 3.00 03/19/17 20:00 70 03/19/17 19:00 63 03/19/17 18:00 75 03/19/17 17:48 72 03/19/17 16:07 98.3 74 16 91/53 (66) 94 03/19/17 16:07 94 Nasal Cannula 3.00 03/19/17 16:07 72 Intake & Output 03/20/17 03/20/17 07:00 19:00 Intake Total 900 ml 420 ml Balance 900 ml 420 ml Intake Oral 120 ml IV Total 900 ml 300 ml Physical Exam CONSTITUTIONAL/GENERAL: This is a thin, elderly lady TUBES/LINES/DRAINS: Peripheral IV upper extremity, nasal cannula O2 SKIN: Pale. No jaundice, rashes, or lesions. Skin warm, though feet are cool. CARDIOVASCULAR: irregular, no murmur. Atrial fibrillation observed on telemetry. Rate controlled. No JVD. Peripheral pulses symmetric. Pedal pulses faint. RESPIRATORY/CHEST: Symmetric, unlabored respirations. Clear to auscultation. Breath sounds equal bilaterally. On 3L nasal cannula GASTROINTESTINAL: Abdomen soft, non-tender, nondistended. No hepato-splenomegaly , or palpable masses. No guarding. Bowel sounds normoactive. GENITOURINARY: Without palpable bladder distension. Patient indicates voiding adequately MUSCULOSKELETAL: Extremities without clubbing, cyanosis, or edema. No joint tenderness or effusion noted. No mottling or clubbing. NEUROLOGICAL: Awake and alert. Oriented 3, forgetful at times. Motor and sensory grossly within normal limits. Follows commands. Moves all extremities. PSYCHIATRIC: Depressed/ sad/ no apparent hallucinations or other psychotic thought process. Diagnostic Tests Laboratory Laboratory Tests Test 03/18/17 05:04 03/19/17 04:52 03/19/17 12:20 03/20/17 05:15 White Blood Count 17.5 TH/MM3 (4.0-11.0) 22.4 TH/MM3 (4.0-11.0) 19.5 TH/MM3 (4.0-11.0) Red Blood Count 4.41 MIL/MM3 (4.00-5.30) 4.65 MIL/MM3 (4.00-5.30) 4.64 MIL/MM3 (4.00-5.30) Hemoglobin 12.3 GM/DL (11.6-15.3) 13.2 GM/DL (11.6-15.3) 13.0 GM/DL (11.6-15.3) Hematocrit 37.0 % (35.0-46.0) 39.2 % (35.0-46.0) 39.5 % (35.0-46.0) Mean Corpuscular Volume 84.0 FL (80.0-100.0) 84.2 FL (80.0-100.0) 85.1 FL (80.0-100.0) Mean Corpuscular Hemoglobin 27.9 PG (27.0-34.0) 28.4 PG (27.0-34.0) 28.0 PG (27.0-34.0) Mean Corpuscular Hemoglobin Concent 33.2 % (32.0-36.0) 33.7 % (32.0-36.0) 32.9 % (32.0-36.0) Red Cell Distribution Width 16.0 % (11.6-17.2) 16.2 % (11.6-17.2) 16.1 % (11.6-17.2) Platelet Count 247 TH/MM3 (150-450) 265 TH/MM3 (150-450) 221 TH/MM3 (150-450) Mean Platelet Volume 9.1 FL (7.0-11.0) 9.0 FL (7.0-11.0) 9.6 FL (7.0-11.0) Blood Urea Nitrogen 29 MG/DL (7-18) 34 MG/DL (7-18) 26 MG/DL (7-18) Creatinine 0.71 MG/DL (0.50-1.00) 0.90 MG/DL (0.50-1.00) 0.72 MG/DL (0.50-1.00) Random Glucose 92 MG/DL (74-106) 125 MG/DL (74-106) 93 MG/DL (74-106) Calcium Level 8.7 MG/DL (8.5-10.1) 8.4 MG/DL (8.5-10.1) 8.0 MG/DL (8.5-10.1) Sodium Level 131 MEQ/L (136-145) 133 MEQ/L (136-145) 132 MEQ/L (136-145) Potassium Level 3.9 MEQ/L (3.5-5.1) 4.3 MEQ/L (3.5-5.1) 4.4 MEQ/L (3.5-5.1) Chloride Level 99 MEQ/L (98-107) 102 MEQ/L (98-107) 102 MEQ/L (98-107) Carbon Dioxide Level 23.1 MEQ/L (21.0-32.0) 23.8 MEQ/L (21.0-32.0) 22.8 MEQ/L (21.0-32.0) Anion Gap 9 MEQ/L (5-15) 7 MEQ/L (5-15) 7 MEQ/L (5-15) Estimat Glomerular Filtration Rate 79 ML/MIN (>89) 60 ML/MIN (>89) 78 ML/MIN (>89) Urine Color YELLOW (YELLW/STRAW) Urine Turbidity CLEAR (CLEAR) Urine pH 6.0 (5.0-8.5) Urine Specific [place] 1.025 (1.002-1.035) Urine Protein NEG mg/dL (NEG-TRACE) Urine Glucose (UA) NEG mg/dL (NEG) Urine Ketones NEG mg/dL (NEG) Urine Occult Blood NEG (NEG) Urine Nitrite NEG (NEG) Urine Bilirubin NEG (NEG) Urine Urobilinogen LESS THAN 2.0 MG/DL (LESS Urine Leukocyte Esterase NEG (NEG) Urine RBC 1 /hpf (0-3) Urine WBC 2 /hpf (0-5) Urine Bacteria RARE /hpf (NONE) Urine Hyaline Casts 4 /lpf (RARE) Urine Mucus FEW /lpf (OCC) Microscopic Urinalysis Comment CATH-CULTURE IND Result Diagram: 03/20/1751403/20/17514 Microbiology Microbiology Date/Time Source Procedure Growth Status 03/19/17 11:38 Blood Peripheral Aerobic Blood Culture - Preliminary NO GROWTH IN 1 DAY Resulted 03/19/17 11:38 Blood Peripheral Anaerobic Blood Culture - Final QNS - SEE AEROBE REPORT Resulted 03/19/17 10:31 Blood Peripheral Aerobic Blood Culture - Preliminary NO GROWTH IN 1 DAY Resulted 03/19/17 10:31 Blood Peripheral Anaerobic Blood Culture - Preliminary NO GROWTH IN 1 DAY Resulted 03/19/17 12:20 Urine Catheterized Urine Urine Culture - Preliminary NO GROWTH IN 24 HOURS. Resulted 03/18/17 15:30 Wound Lung Fungal Smear - Final NO FUNGAL ELEMENTS SEEN. Resulted 03/18/17 15:30 Wound Lung Fungal Culture Pending Resulted 03/18/17 15:30 Wound Lung Acid Fast Stain - Final NO ACID FAST BACILLI SEEN Resulted 03/18/17 15:30 Wound Lung Mycobacterial Culture Pending Resulted 03/18/17 15:30 Wound Lung Gram Stain - Final Resulted 03/18/17 15:30 Wound Lung Wound Culture - Preliminary NO GROWTH IN 48 HOURS. Resulted Imaging Last Impressions Chest X-Ray 03/20/17 0600 Signed Impressions: Service Date/Time: Monday, March 20, 2017 04:37 - CONCLUSION: 1. Basilar airspace disease, left greater than right similar to March 17. Marc Shelton MD Lung Biopsy CT 03/18/17 0000 Signed Impressions: Service Date/Time: Saturday, March 18, 2017 15:07 - CONCLUSION: 1. Histology and culture specimens obtained of a left lower lobe pulmonary mass. 2. Tiny subpulmonic pneumothorax. Clifford Kahn Jr., MD Aorta CTA 03/10/17 0929 Signed Impressions: Service Date/Time: Friday, March 10, 2017 10:47 - CONCLUSION: 1. 2.2 x 1.9 cm spiculated left lower lobe posterior lung mass with apparently centrally necrotic anterior tracheal mediastinal lymph node measuring 2.8 x 2.7 cm. Subcentimeter mediastinal and confluent partially calcified right hilar lymph nodes are more nonspecific may be due to prior granulomatous disease. 2. 2.7 x 2.0 cm left adnexal mass likely corresponding to the ovary. This is abnormal given patients advanced age. Further evaluation may be performed with ultrasound of the pelvis. 3. Otherwise, no evidence for distant metastatic disease. 4. Focal 4 cm length distal descending thoracic aortic aneurysm measuring up to 3.7 cm in axial dimension. 5. No aortic dissection. 6. Additional ancillary findings, as above. Woo Covarrubias MD Lower Extremity Ultrasound 03/10/17 0000 Signed Impressions: Service Date/Time: Friday, March 10, 2017 18:19 - CONCLUSION: No DVT. Fermin Flores MD Procedures 03/10 central line right IJ, arterial line 03/10 intubated Assessment and Plan Disease Oriented Problem List: (1) Cardiomyopathy (2) Lung mass (3) Respiratory failure Comment: resolved (4) Hypothyroid (5) Cardiogenic shock Comment: resolved (6) Afib (7) Descending thoracic aortic aneurysm Symptom Scale: (1) Chest pain (2) Malnutrition Comment: malnutrition/weight loss. Pertinent Non-Medical Issues Psychosocial:, has 2 sons. Originally from [place] though has lived in [place] for 40+ years. Supported by her of 62 years. Retired, formerly worked at [email or web address]. One son lives in [place], one son is local, patient remains close with both of them. 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 Should she lose capacity, her is reported to be designated as first healthcare surrogate, with son Herberth as a secondary. If healthcare surrogate documents could not be located per [place] statutes would be healthcare surrogate. Ethical issues impacting care: None identified Important Contacts MARC ARANGO [phone] , Son Herberth Arango [phone] . Prognosis This patient was admitted for new atrial fibrillation with RVR. She underwent cardiovascular workup with findings of nonischemic cardiomyopathy with severely reduced ejection fraction (<20% per repeat echo), right coronary artery occlusion with good collateralization, normal left-sided filling pressures. She is not a candidate for additional cardiovascular procedures though cardiology indicates they may consider a life vest in the future. She has additional findings on chest imaging of a new lung mass has not yet been biopsied. Given cardiac findings patient is high risk for clinical deterioration and decompensation secondary to her cardiac status. Not known at this time if mass in lung is malignancy, or what potential treatment options would be, if any given the severity of cardiac disease. Given her advanced age , cardiovascular condition, and the possibility of a malignancy she appears very high risk for decline in the coming weeks to months. Code Status: Full Code Plan * Legal decision maker:Patient appears capacitated and able to make her own decisions. Should she lose capacity, her is reported to be designated as first healthcare surrogate, with son Herberth as a secondary. If healthcare surrogate documents could not be located per [place] statutes would be healthcare surrogate. * Goals: Upon initial consultation Met with patient and , lengthy discussion regarding cardiac conditions, overall prognosis and limitations of medical management. Review of CPR and risks/benefits/limitations. goals were aggressive; they would want to continue to maximize whatever treatments are available, patient indicates she is "not ready to ", however they are also open to ongoing discussions as the clinical course evolves. Patient and are going to further discuss CODE STATUS/possible DNR status. 03/20/17- met with patient and again at bedside today exploration of pathology findings oncology consult pending. Exploration that there may be potential treatment options however there may not be treatment options, and any treatment options might be further limited by her underlying cardiac disease status. Gentle exploration of hospice as a potential option pending oncology consult. They don't wish to make any decisions regarding goals of treatment until they have met with oncology. * CODE STATUS: Remains full code * SYMPTOMS: --Chest/epigastric pain-+ new findings atrial fibrillation RVR;nonischemic cardiomyopathy with severely reduced ejection fraction, right coronary artery occlusion with good collateralization, not a candidate for additional cardiovascular procedures. May require LifeVest in the future. Patient today denies chest pain or abdominal pain or other discomfort; will continue to evaluate --Weight loss/malnutrition- reported approximately 24 pound weight loss in 3 months. Albumin 2.9. + New mass findings left lung; ? Malignancy, has not yet been [id number] biopsy 03/18. Pathology= spindle cell carcinoma.Oncology consult pending. Overall poor appetite and weight loss over a few months. No specific GI complaints. Would benefit from nutritional supplement such as ensure with meals to maximize calories and protein. * Palliative care will continue to follow during hospital course as condition evolves, to assist patient/decision-maker with understanding of medical conditions, weighing benefits/burdens of treatment options, for clarification of goals of treatment. Additionally will assist with any symptoms of palliative concern . Time Spent Total Floor Time (mins): 25 Attestation To help prompt me to consider important information that might be impacting today's encounter and assessment, information from prior notes written by myself or my colleagues may have been "brought forward" into today's note. My signature on this note, however, is an attestation that I personally performed the exam, history, and/or decision-making noted today, and, unless otherwise indicated, the interactions with patient, family, and staff as well as the review of records all occurred today. I also attest that the listed assessment and stated plan reflect my best clinical judgment today based on the combination of historical information, prior notes, and today's exam/ interactions. When time spent is documented, it refers only to time spent today by the signer, or if indicated, combined time spent today by collaborating physician/nurse practitioner. Karoline Douglas Mar 20, 2017 15:01
--- NOTE | 2017-03-20 17:54 | HHI.PR ---
Subjective Remarks Now on O2 3 L. Needs Home O2 . has Spindle cell Squamous cell Ca. Had cardiac cath. findings noted . No further intervention planned.Cleared for Lung biopsy Objective Vital Signs Date Time Temp Pulse Resp B/P (MAP) Pulse Ox O2 Delivery O2 Flow Rate FiO2 03/20/17 16:00 98.1 78 16 104/46 (65) 96 03/20/17 16:00 Nasal Cannula 3.00 03/20/17 16:00 93 03/20/17 15:00 76 03/20/17 14:00 70 03/20/17 13:00 70 03/20/17 12:00 Nasal Cannula 3.00 03/20/17 12:00 97.6 95 18 88/53 (65) 96 03/20/17 12:00 87 03/20/17 11:00 74 03/20/17 10:00 82 03/20/17 09:00 94 03/20/17 08:00 97.2 75 16 103/63 (76) 96 03/20/17 08:00 Nasal Cannula 3.00 03/20/17 08:00 91 03/20/17 07:10 75 03/20/17 07:00 74 03/20/17 05:16 97.8 68 18 95/69 (78) 96 03/20/17 05:15 96 Nasal Cannula 3.00 03/20/17 02:00 78 03/20/17 01:55 99 Nasal Cannula 3.00 03/20/17 01:00 75 03/20/17 00:00 66 03/20/17 00:00 96.6 69 18 100/64 (76) 94 03/19/17 23:00 74 03/19/17 22:00 70 03/19/17 21:00 72 03/19/17 20:30 96.6 74 18 105/58 (74) 94 03/19/17 20:30 98 Nasal Cannula 3.00 03/19/17 20:00 70 03/19/17 19:00 63 03/19/17 18:00 75 I/O 03/19/17 03/19/17 03/19/17 03/20/17 03/20/17 03/20/17 07:00 15:00 23:00 07:00 15:00 23:00 Intake Total 400 ml 300 ml 620 ml 900 ml 420 ml 120 ml Output Total 225 ml 400 ml 600 ml Balance 175 ml 300 ml 220 ml 900 ml 420 ml -480 ml Intake Oral 400 ml 520 ml 120 ml 120 ml IV Total 300 ml 100 ml 900 ml 300 ml Output Urine Total 225 ml 400 ml 600 ml # Bowel Movements 0 5 Result Diagram: 03/20/1751403/20/17514 Objective Remarks This averagely built elderly white female is alert and oriented HEENT: Head normocephalic. Pupils are reactive. Sclerae were clear. Throat was clear. Nasal mucosae clear NECK: Supple. No venous distension. Trachea midline. CHEST: Distant breath sounds with prolonged expirations.Occ wheeze heard. HEART: The heart sounds are irregular. S1-S2 with no murmur. ABDOMEN: Soft, nontender. Bowel sounds are active. No organomegaly. EXTREMITIES: No edema. Peripheral pulses are diminished. Reflexes 1 + SKIN: Dry and cool. Assessment and Plan Assessment and Plan IMPRESSION 1. Acute hypoxemic respiratory failure.Resolved 2. Atrial fibrillation with RVR 3. Cardiogenic shock. 4. Cardiomyopathy with CHF 5. COPD 6. Left lower lobe lung mass, rule out malignancy 7. Hypothyroidism 8. Ascending aortic aneurysm Plan : 1. Wean Fio2 to keep sat >92. 2. Nebs q6h , Duoneb. 3. Oncology Evaluation 4. Cont Diuresis and replace Potassium 5. Cont anticoagulants 6. CBC,BMP in am 7. To rehab soon. Slime Salazar MD Mar 20, 2017 17:54
[2017-03-20] MEDS ORDERED: GADODIAMIDE PF 287 MG/ML 10 ML VIAL (for RAD MRI) IVCONTRAST ONE (20:26)
--- NOTE | 2017-03-20 21:17 | RADRPT ---
EXAM DATE/TIME: 03/20/2017 20:16 [facility] COMPARISON: No previous studies available for comparison. INDICATIONS : Metastatic disease. CONTRAST: 10 cc Omniscan (gadodiamide) IV MEDICAL HISTORY : Diabetes mellitus type 2. Chronic obstructive pulmonary disease. Congestive heart failure. SURGICAL HISTORY : Appendectomy. Hysterectomy. ENCOUNTER: Initial ACUITY: 1 day PAIN SCORE: 0/10 LOCATION: cranial TECHNIQUE: Multiplanar, multisequence MRI of the brain was performed both prior to and following the administrat ion of paramagnetic contrast. FINDINGS: CEREBRUM: The ventricles and cortical sulci are widened. No evidence of midline shift, mass lesion, hemorrhage or acute infarction. No extraaxial fluid collections are seen. The pituitary gland and suprasellar cistern are normal in configuration. WHITE MATTER: There are numerous punctate areas of increased signal seen throughout the cerebral and pontine white matter. POSTERIOR FOSSA: The cerebellum and brainstem are intact. The 4th ventricle is midline. The cerebellopontine angle is unremarkable. The cerebellar tonsils are normal in position. DIFFUSION IMAGING: No focal areas of restricted diffusion are seen. No evidence of acute infarction. EXTRACRANIAL: The visualized portions of the orbits and paranasal sinuses are unremarkable. POST-CONTRAST: No abnormal areas of parenchymal or dural enhancement. No evidence of blood-brain barrier breakdown. CONCLUSION: 1. No acute intracranial abnormality or mass is seen. 2. Atrophy. 3. Numerous small punctate areas of demyelination likely related to small vessel ischemic change. Fermin Flores MD on March 20, 2017 at 21:12 Board Certified Radiologist. This report was verified electronically.
[2017-03-21] VITALS (8 sets, daily range): BP systolic 93–115; BP diastolic 53–80; PULSE 75–86; RESP 16–18; TEMP 96.8–98.6; O2SAT 94–98
[2017-03-21] MEDS: PIPERACIL-TAZO 3.375 GM PREMIX 50 ML IV SCH ×2 (00:24→04:40)
--- NOTE | 2017-03-21 00:35 | MB ---
cc: ANTHONY BURNETTE M.D. DATE OF CONSULTATION 03/19/17 REASON FOR CONSULTATION Consult requested by Dr. Estrada for evaluation of her recently diagnosed non-small cell lung cancer. HISTORY OF PRESENT ILLNESS Tricia is a pleasant 81-year-old frail white female. She has a history of hypothyroidism, hypercholesterolemia, peptic ulcer disease. She was in her usual status of health up until about 2-3 months ago, she developed anorexia and early satiety. She also noticed around 20 pounds of weight loss for the last 2 months or so. She stated prior to coming to the hospital she was functioning well. She was able to walk and doing the ADLs. She went to see her primary physician, Dr. Moyer. At that visit the patient was found to have atrial fibrillation and she was advised to come to the emergency room. In the emergency room the patient was found to have rapid ventricular response with atrial fibrillation. She was admitted to the hospital. She was started on Cardizem drip. The patient became hypotensive and then she went into respiratory failure which required intubation. She was on the ventilator. She was successfully extubated. On the day of admission she had a CT angiogram of the aorta which showed 2.2 x 1.9 cm spiculated left lower lobe lung mass with essentially necrotic anterior tracheal mediastinal lymph node measuring 2.8 x 2.7 cm. There was also 2.7 x 2 centimeter left adnexal mass noted as well likely corresponding to the ovary. Malignancy was suspected. Once the patient was extubated and was stable she underwent biopsy of the lung mass 2 days ago. 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 I have been asked to see the patient for further evaluation. The patient states that she is slowly recovering from the ventilator support. However, she is still very weak. She is unable to walk. She has severe weakness in both lower legs. Her was present at the bedside. The patient states that prior to coming to the hospital her symptoms were just anorexia and weight loss, other than that she was feeling much better as she was feeling fine. She did not have any pulmonary symptoms. The rest of the review of systems is negative. PAST MEDICAL HISTORY Hypothyroidism, hypercholesterolemia, peptic ulcer disease. PAST SURGICAL HISTORY Bilateral hip replacement, wrist surgery, appendectomy. Hysterectomy at age of 27. The patient is not sure whether she had one ovary left behind or not. ALLERGIES None. MEDICATIONS Please see EMR. FAMILY HISTORY Father from colon cancer. Mother of unknown cancer. The patient has one brother who from dementia. The patient does not have any sisters or any daughters. She has two sons, both are alive and well. SOCIAL HISTORY The patient is . She used to smoke cigarettes one pack a day for at least 60 years, quit about 3 years ago. She does not drink alcohol. She used to work at [employer]. PHYSICAL EXAMINATION GENERAL: This is an elderly frail white female in no apparent distress. VITAL SIGNS: Temperature 98.1, heart rate is 78, blood pressure 104/46, O2 saturation 96% on 3 liters nasal cannula. HEENT: PERRLA, EOMI, anicteric. No oral lesions noted. NECK: No lymphadenopathy noted. LUNGS: Lungs are clear. No wheezing, rhonchi or rales. HEART: Heart is regular rate and rhythm. ABDOMEN: Abdomen is soft, nontender. No hepatosplenomegaly. EXTREMITIES: No pedal edema. NEUROLOGIC: Awake, alert, oriented times three. SKIN: No significant lesions are noted. ASSESSMENT 1. 2.2 x 1.9 cm left lower lobe lung mass with left hilar and mediastinal lymphadenopathy. 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 Clinically, she has at least stage III lung cancer. 2. 2.7 x 2.0 cm mass in the left adnexa suspicious for ovarian cancer until proven otherwise. 3. COPD. 4. Deconditioning due to recent hospitalization and being on the ventilator for the last 10 days she has been in the hospital. PLAN I have reviewed her available records and I had an extensive discussion with the patient and her regarding the diagnosis and treatment of lung cancer. We discussed about the staging of lung cancer. She has left lower lobe lung mass, left hilar lymphadenopathy and mediastinal lymphadenopathy. This is consistent with stage III lung cancer. However, the patient would require a PET scan as an outpatient to complete the staging workup. She will also need MRI of the brain to evaluate for any brain metastasis. My recommendation is to obtain MRI of the brain. If the patient has brain metastasis, then I would not recommend any treatment and hospice will be very appropriate. However, if the MRI of the brain is negative then one could offer her combined concurrent radiation and chemotherapy provided her functional status improve. The patient is unable to walk. She would need rehab. I have discussed with Dr. Estrada that as far as I am concerned the patient could be discharged to rehab to get aggressive physical therapy to improve her functional status. If that happens, then the patient will come to our office and we will order the PET scan to stage her lung cancer. Depending on the PET scan results we will decide about further treatment plan. Regarding the left adnexal mass I will get the CA-125. The patient will be getting a PET scan as an outpatient and that will also show whether the left adnexal mass is malignant or not. The patient desired to have treatment. She states that she wants to live. She does not want to give up. If there is a chance that she could stay alive she wants to do that if this requires her to have radiation or chemotherapy. The patient states that her son from out of state is coming tomorrow and they have plans to meet with Dr. Estrada. Further recommendations based on the hospital stay. Thank you for asking my opinion. Leigha Burnette MD /EO /11:04 PM /12:13 AM [facility]
[2017-03-21] MEDS: CHLORHEXIDINE GLUCONATE 2 % 1 PACK (2 CLOTHS) TOP SCH (03:20)
[2017-03-21] MEDS: INSULIN ASPART SUPPLEMENTAL SCALE SQ SCH ×4 (04:55→16:50)
[2017-03-21 05:17] LABS: HEMATOCRIT 34.8 % (35.0-46.0); MEAN CELL VOLUME 84.2 FL (80.0-100.0); MEAN CORPUSCULAR HEMOGLOBIN 28.1 PG (27.0-34.0); MEAN CORPUSCULAR HGB CONC 33.4 % (32.0-36.0); PLATELET COUNT 252 TH/MM3 (150-450); RED BLOOD COUNT 4.13 MIL/MM3 (4.00-5.30); RED CELL DISTRIBUTION WIDTH 16.3 % (11.6-17.2); REVIEW FLAG FINAL; WHITE BLOOD COUNT 19.9 TH/MM3 (4.0-11.0)
[2017-03-21 05:40] LABS: BICARBONATE 22.4 MEQ/L (21.0-32.0); POTASSIUM 4.3 MEQ/L (3.5-5.1)
[2017-03-21] MEDS: CHLORHEXIDINE 0.12% (ORAL KIT) 15 ML CUP MT SCH ×2 (08:00→20:00)
[2017-03-21] MEDS: DOCUSATE SODIUM 50 MG/SENNA 8.6 MG TAB PO SCH ×2 (09:00→21:00)
[2017-03-21] MEDS: SODIUM CHLORIDE 0.9% FLUSH 10 ML FLUSH IV FLUSH SCH ×2 (09:00→21:36)
[2017-03-21] MEDS: SACUBITRIL/VALSARTAN 24 MG-26 MG TAB PO SCH ×2 (09:00→21:33)
[2017-03-21] MEDS: POTASSIUM CHLORIDE 20 MEQ CONTROLLED RELEASE TAB PO SCH ×2 (09:23→21:36)
[2017-03-21] MEDS: FAMOTIDINE 20 MG TAB PO SCH ×2 (09:23→21:33)
[2017-03-21] MEDS: DIGOXIN 0.125 MG TAB PO SCH (09:24)
[2017-03-21] MEDS: ASPIRIN EC 81 MG TABEC PO SCH (09:24)
--- NOTE | 2017-03-21 12:56 | PD.ONC.PN ---
Subjective Subjective Remarks Afebrile overnight. Patient resting in room in nad. at bedside. Objective Data Date Time Temp Pulse Resp B/P (MAP) Pulse Ox O2 Delivery O2 Flow Rate FiO2 03/21/17 12:28 97.8 84 18 115/80 (92) 98 03/21/17 10:01 81 03/21/17 09:19 96.8 78 18 96/64 (75) 94 03/21/17 06:35 2.00 03/21/17 04:49 97.8 79 16 95/53 (67) 97 03/21/17 00:29 97.6 86 18 93/58 (70) 94 03/21/17 00:26 75 03/20/17 23:26 Nasal Cannula 2.00 50 03/20/17 21:40 Nasal Cannula 2.00 03/20/17 21:11 80 03/20/17 18:00 80 03/20/17 17:00 80 03/20/17 16:00 98.1 78 16 104/46 (65) 96 03/20/17 16:00 Nasal Cannula 3.00 03/20/17 16:00 93 03/20/17 15:00 76 03/20/17 14:00 70 03/20/17 13:00 70 03/21/17 03/21/17 03/21/17 07:00 15:00 23:00 Intake Total 260 ml Balance 260 ml Result Diagram: 03/21/17 0433 03/21/17 0433 Laboratory Results Laboratory Tests Test 03/20/17 21:13 03/21/17 04:33 CA 125 Antigen 22.6 U/ML White Blood Count 19.9 TH/MM3 Red Blood Count 4.13 MIL/MM3 Hemoglobin 11.6 GM/DL Hematocrit 34.8 % Mean Corpuscular Volume 84.2 FL Mean Corpuscular Hemoglobin 28.1 PG Mean Corpuscular Hemoglobin Concent 33.4 % Red Cell Distribution Width 16.3 % Platelet Count 252 TH/MM3 Mean Platelet Volume 9.1 FL Blood Urea Nitrogen 18 MG/DL Creatinine 0.58 MG/DL Random Glucose 88 MG/DL Calcium Level 7.8 MG/DL Sodium Level 132 MEQ/L Potassium Level 4.3 MEQ/L Chloride Level 102 MEQ/L Carbon Dioxide Level 22.4 MEQ/L Anion Gap 8 MEQ/L Estimat Glomerular Filtration Rate 100 ML/MIN Culture Results Microbiology Date/Time Source Procedure Growth Status 03/19/17 11:38 Blood Peripheral Aerobic Blood Culture - Preliminary NO GROWTH IN 2 DAYS Resulted 03/19/17 11:38 Blood Peripheral Anaerobic Blood Culture - Final QNS - SEE AEROBE REPORT Resulted 03/19/17 10:31 Blood Peripheral Aerobic Blood Culture - Preliminary NO GROWTH IN 2 DAYS Resulted 03/19/17 10:31 Blood Peripheral Anaerobic Blood Culture - Preliminary NO GROWTH IN 2 DAYS Resulted 03/19/17 12:20 Urine Catheterized Urine Urine Culture - Preliminary NO GROWTH IN 24 HOURS. Resulted 03/18/17 15:30 Wound Lung Fungal Smear - Final NO FUNGAL ELEMENTS SEEN. Resulted 03/18/17 15:30 Wound Lung Fungal Culture Pending Resulted 03/18/17 15:30 Wound Lung Acid Fast Stain - Final NO ACID FAST BACILLI SEEN Resulted 03/18/17 15:30 Wound Lung Mycobacterial Culture Pending Resulted 03/18/17 15:30 Wound Lung Gram Stain - Final Complete 03/18/17 15:30 Wound Lung Wound Culture - Final NO GROWTH IN 72 HRS.--AEROBICALLY OR ... Complete Administered Medications Medications (Trade) Dose Ordered Sig/Chris Route PRN Reason Start Time Stop Time Status Last Admin Dose Admin Ondansetron HCl (Zofran Inj) 4 mg Q6HR PRN IV PUSH nausea/ vomiting 03/10/17 15:30 03/13/17 15:15 Sodium Chloride (NS Flush) 2 ml BID IV FLUSH 03/10/17 21:00 03/20/17 08:32 Acetaminophen (Tylenol) 650 mg Q6H PRN PO PAIN 1-10 AND/OR FEVER >101F 03/10/17 16:00 03/18/17 20:46 Morphine Sulfate (Morphine Inj) 2 mg Q4H PRN IV PUSH PAIN SCALE 6 TO 10 03/10/17 16:00 03/18/17 20:47 Metoclopramide HCl (Reglan Inj) 10 mg Q6H PRN IV PUSH NAUSEA OR VOMITING 03/10/17 16:00 03/12/17 22:25 Chlorhexidine Gluconate (Chlorhexidine 2% Cloth) Taper DAILY@04 TOP 03/11/17 04:00 03/07/18 03:59 03/14/17 04:00 Senna/Docusate Sodium (Libia-Colace) 1 tab BID PO 03/10/17 21:00 03/20/17 08:32 Magnesium Hydroxide (Milk Of Magnesia Liq) 30 ml Q12H PRN PO MILD - MODERATE CONSTIPATION 03/10/17 16:00 03/20/17 08:43 Sennosides (Senokot) 17.2 mg Q12H PRN PO MODERATE - SEVERE CONSTIPATION 03/10/17 16:00 03/18/17 20:46 Insulin Aspart (NovoLOG SUPPLEMENTAL SCALE) 1 Q6HR SQ 03/11/17 12:00 03/19/17 00:00 Chlorhexidine Gluconate (Peridex 0.12% Liq) 15 ml BID@08,20 MT 03/11/17 20:00 03/12/17 08:04 Digoxin (Lanoxin) 0.125 mg DAILY PO 03/13/17 09:00 03/21/17 09:24 Acetaminophen/ Codeine Phosphate (Tylenol - Codeine 120-12 Liq) 12.5 ml Q6H PRN PO COUGH 03/12/17 22:45 03/17/17 21:50 Potassium Chloride (KCl) 20 meq Q12HR PO 03/15/17 21:00 03/21/17 09:23 Famotidine (Pepcid) 10 mg BID PO 03/15/17 11:15 03/21/17 09:23 Aspirin (Ecotrin Ec) 81 mg DAILY PO 03/17/17 09:00 03/21/17 09:24 Sacubitril/ Valsartan (Entresto 24-26 Mg) 1 tab BID PO 03/16/17 21:00 03/20/17 21:43 Objective Remarks GENERAL: Elderly female supine in bed in nad. SKIN: Warm and dry. HEAD: Normocephalic. EYES: No injection or drainage. NECK: Supple, trachea midline. CARDIOVASCULAR: +S1/S2 RESPIRATORY: anterior le clear. GASTROINTESTINAL: Abdomen soft, non-tender, nondistended. EXTREMITIES: No cyanosis NEUROLOGICAL: awake and alert, lethargic. Assessment/Plan Problem List: (1) Non-small cell lung cancer (NSCLC) ICD Codes: C34.90 - Malignant neoplasm of unspecified part of unspecified bronchus or lung Plan: 03/21: fs faxed to [facility]. can be d/c to rehab. follow up in clinic after rehab History: 2-3 months ago--developed anorexia and early satiety. CT angiogram of the aorta showed 2.2 x 1.9 cm spiculated left lower lobe lung mass with essentially necrotic anterior tracheal mediastinal lymph node measuring 2.8 x 2.7 cm. There was also 2.7 x 2 centimeter left adnexal mass noted as well likely corresponding to the ovary. Malignancy was suspected. --biopsy of the lung mass 2 days ago-->showed spindle cell squamous cell carcinoma, one of the subtype of non-small cell lung cancer. --Clinically, she has at least stage III lung cancer. --will require outpatient PET scan to complete workup --MRI brain shows no mets (2) left adnexa mass Plan: --will obtain PET scan outpatient --2.7 x 2.0 cm mass in the left adnexa suspicious for ovarian cancer until proven otherwise. Assessment 81y/o female with recently diagnosed non-small cell lung cancer. history of hypothyroidism, hypercholesterolemia, peptic ulcer disease. Attending Statement The exam, history, and the medical decision-making described in the above note were completed with the assistance of the mid-level provider. I reviewed and agree with the findings presented. I attest that I had a [id number] encounter with the patient on the same day, and personally performed and documented my assessment and findings in the medical record. no new c/o MRI brain = no mets. OK to d/c to rehab need PET scan as outpt. fu as outpt Tasha Orta Mar 21, 2017 12:56 Douglas Burnette MD Mar 21, 2017 19:04
[2017-03-22] VITALS (16 sets, daily range): BP systolic 92–110; BP diastolic 49–71; PULSE 66–92; RESP 16–20; TEMP 97.4–98.1; O2SAT 94–96
--- NOTE | 2017-03-22 00:32 | HHI.PR ---
Subjective Remarks LATE ENTRY FOR 03/21/17 No new complaints. Objective Vitals Vital Signs Date Time Temp Pulse Resp B/P (MAP) Pulse Ox O2 Delivery O2 Flow Rate FiO2 03/21/17 21:17 Room Air 95 03/21/17 20:00 97.4 81 18 110/80 (90) 96 03/21/17 16:50 98.6 86 18 107/62 (77) 96 03/21/17 12:28 97.8 84 18 115/80 (92) 98 03/21/17 10:01 81 03/21/17 09:19 96.8 78 18 96/64 (75) 94 03/21/17 06:35 2.00 03/21/17 04:49 97.8 79 16 95/53 (67) 97 Result Diagram: 03/21/17 0433 03/21/17 0433 Imaging Last Impressions Chest X-Ray 03/13/17 0000 Signed Impressions: Service Date/Time: Monday, March 13, 2017 04:51 - CONCLUSION: Radiographic appearance consistent with pulmonary edema. Clifford Kahn Jr., MD Aorta CTA 03/10/17 0929 Signed Impressions: Service Date/Time: Friday, March 10, 2017 10:47 - CONCLUSION: 1. 2.2 x 1.9 cm spiculated left lower lobe posterior lung mass with apparently centrally necrotic anterior tracheal mediastinal lymph node measuring 2.8 x 2.7 cm. Subcentimeter mediastinal and confluent partially calcified right hilar lymph nodes are more nonspecific may be due to prior granulomatous disease. 2. 2.7 x 2.0 cm left adnexal mass likely corresponding to the ovary. This is abnormal given patients advanced age. Further evaluation may be performed with ultrasound of the pelvis. 3. Otherwise, no evidence for distant metastatic disease. 4. Focal 4 cm length distal descending thoracic aortic aneurysm measuring up to 3.7 cm in axial dimension. 5. No aortic dissection. 6. Additional ancillary findings, as above. Woo Covarrubias MD Lower Extremity Ultrasound 03/10/17 0000 Signed Impressions: Service Date/Time: Friday, March 10, 2017 18:19 - CONCLUSION: No DVT. Fermin Flores MD Objective Remarks General: frail 81 year old female Cardiac: irregular Respiratory: diminished bilateral bases Abdomen: s/nt ext: no edema Procedures [facility] (03/16/17) with Dr. Church Left lower lobe lung mass core biopsy and culture obtained. (03/18/17) Dr. Kahn A/P Problem List: (1) Respiratory failure ICD Codes: J96.90 - Respiratory failure, unspecified, unspecified whether with hypoxia or hypercapnia Plan: - Presented to [facility] and transferred to [facility] - Pt admitted with A. fib RVR - now rate controlled - Pt admitted with Acute Cardiomyopathy, decompensated systolic chf, with LVEF 10-15% ...nonischemic CM. [facility] neg for cad - Pt admitted with Cardiogenic shock, now resolved - Acute intravascular volume overload, resolved - Acute hypoxic respiratory failure - resolved - Metabolic acidosis - resolved - Elevated LFTs - shock liver/congestion- resolving. - Left adnexal mass (2cm) on CT - Descending thoracic aortic aneurysm - Suspected underlying COPD - CKD III - hypothyroidism [facility] (03/16/17) with Dr. Church 1. Left main coronary is angiographically normal. 2. Left anterior descending coronary has some minor luminal irregularities proximally, in the mid segment, 30% stenosis and some tortuosity. The diagonal branch is also tortuous but angiographically normal. 3. Left circumflex gives rise to an obtuse marginal branch which has minor luminal irregularities, otherwise circumflex is relatively free of disease. 4. Right coronary is occluded in the proximal segment but well collateralized via septal perforators from [id number]. - cardiology, pulmonary, and palliative medicine following palliative care has been consulted to clarify goals. -cont dig for afib -pt on asa and entresto per cardiology. monitor bp as it remains low. -arguello replaced last night after failed attempt at removal - discharge to SNF held d/t hypotensive with increasing WBC concern for infection/sepsis - Pt given IVF and abx vancomycin and zosyn - BP stabilized - NO obvious source of infection identified - ABX and fluids stopped 03/21/17 - follow cultures - pathology results reveal Spindle cell carcinoma - appreciate input from Oncology - Pt with Stage III Pulmonary Cancer - Pt with poor functional status & NOT a candidate for chemotherapy until strengthened - Case d/w pt//son/and [id number] at length - Will discharge to SNF 03/22/17 if pt remains stable - If pt does NOT improve at SNF, then possibly Hospice (2) Cardiomyopathy ICD Codes: I42.9 - Cardiomyopathy, unspecified Status: Acute Plan: - see above (3) Cardiogenic shock ICD Codes: R57.0 - Cardiogenic shock Status: Resolved Plan: - see above (4) Lung mass ICD Codes: R91.8 - Other nonspecific abnormal finding of lung field Status: Acute Plan: -see above (5) Afib ICD Codes: I48.91 - Unspecified atrial fibrillation Status: Chronic Plan: - digoxin (6) Descending thoracic aortic aneurysm ICD Codes: I71.2 - Thoracic aortic aneurysm, without rupture Status: Chronic (7) Hypothyroid ICD Codes: E03.9 - Hypothyroidism, unspecified Status: Chronic Edgard Estrada DO Mar 22, 2017 00:32
[2017-03-22] MEDS: CHLORHEXIDINE GLUCONATE 2 % 1 PACK (2 CLOTHS) TOP SCH (04:00)
[2017-03-22] MEDS: MORPHINE SULFATE 4 MG/ML INJ IV PUSH PRN (04:06)
[2017-03-22] MEDS: INSULIN ASPART SUPPLEMENTAL SCALE SQ SCH ×5 (06:00→22:47)
[2017-03-22] MEDS: CHLORHEXIDINE 0.12% (ORAL KIT) 15 ML CUP MT SCH ×2 (08:00→19:24)
[2017-03-22] MEDS ORDERED: POTA20TA5 PO (08:33)
[2017-03-22] MEDS ORDERED: IPRA0.02 INH (08:33)
[2017-03-22] MEDS ORDERED: ACET1TAB86 PO (08:33)
[2017-03-22] MEDS: SODIUM CHLORIDE 0.9% FLUSH 10 ML FLUSH IV FLUSH SCH ×2 (09:00→19:24)
--- NOTE | 2017-03-22 10:00 | PD.ONC.PN ---
Subjective Subjective Remarks Afebrile overnight. Patient resting in bed in nad. Wanting to start rehab soon. Objective Data Date Time Temp Pulse Resp B/P (MAP) Pulse Ox O2 Delivery O2 Flow Rate FiO2 03/22/17 09:15 94 Room Air 03/22/17 09:06 97.6 80 20 110/60 (77) 94 03/22/17 05:17 98.1 85 16 103/65 (78) 94 03/22/17 05:16 Room Air 94 03/22/17 01:40 97.4 85 18 109/71 (84) 95 03/22/17 00:32 Room Air 94 03/21/17 21:17 Room Air 95 03/21/17 20:00 75 03/21/17 20:00 97.4 81 18 110/80 (90) 96 03/21/17 16:50 98.6 86 18 107/62 (77) 96 03/21/17 12:28 97.8 84 18 115/80 (92) 98 03/21/17 10:01 81 Result Diagram: 03/21/17 0433 03/21/17 0433 Laboratory Results Laboratory Tests Test 03/22/17 07:16 Culture Results Microbiology Date/Time Source Procedure Growth Status 03/19/17 11:38 Blood Peripheral Aerobic Blood Culture - Preliminary NO GROWTH IN 2 DAYS Resulted 03/19/17 11:38 Blood Peripheral Anaerobic Blood Culture - Final QNS - SEE AEROBE REPORT Resulted 03/19/17 10:31 Blood Peripheral Aerobic Blood Culture - Preliminary NO GROWTH IN 2 DAYS Resulted 03/19/17 10:31 Blood Peripheral Anaerobic Blood Culture - Preliminary NO GROWTH IN 2 DAYS Resulted 03/19/17 12:20 Urine Catheterized Urine Urine Culture - Final NO GROWTH IN 48 HOURS. Complete Administered Medications Medications (Trade) Dose Ordered Sig/Chris Route PRN Reason Start Time Stop Time Status Last Admin Dose Admin Ondansetron HCl (Zofran Inj) 4 mg Q6HR PRN IV PUSH nausea/ vomiting 03/10/17 15:30 03/13/17 15:15 Sodium Chloride (NS Flush) 2 ml BID IV FLUSH 03/10/17 21:00 03/21/17 21:36 Acetaminophen (Tylenol) 650 mg Q6H PRN PO PAIN 1-10 AND/OR FEVER >101F 03/10/17 16:00 03/18/17 20:46 Morphine Sulfate (Morphine Inj) 2 mg Q4H PRN IV PUSH PAIN SCALE 6 TO 10 03/10/17 16:00 03/22/17 04:06 Metoclopramide HCl (Reglan Inj) 10 mg Q6H PRN IV PUSH NAUSEA OR VOMITING 03/10/17 16:00 03/12/17 22:25 Chlorhexidine Gluconate (Chlorhexidine 2% Cloth) Taper DAILY@04 TOP 03/11/17 04:00 03/07/18 03:59 03/14/17 04:00 Senna/Docusate Sodium (Libia-Colace) 1 tab BID PO 03/10/17 21:00 03/20/17 08:32 Magnesium Hydroxide (Milk Of Magnesia Liq) 30 ml Q12H PRN PO MILD - MODERATE CONSTIPATION 03/10/17 16:00 03/20/17 08:43 Sennosides (Senokot) 17.2 mg Q12H PRN PO MODERATE - SEVERE CONSTIPATION 03/10/17 16:00 03/18/17 20:46 Insulin Aspart (NovoLOG SUPPLEMENTAL SCALE) 1 Q6HR SQ 03/11/17 12:00 03/19/17 00:00 Chlorhexidine Gluconate (Peridex 0.12% Liq) 15 ml BID@08,20 MT 03/11/17 20:00 03/12/17 08:04 Digoxin (Lanoxin) 0.125 mg DAILY PO 03/13/17 09:00 03/21/17 09:24 Acetaminophen/ Codeine Phosphate (Tylenol - Codeine 120-12 Liq) 12.5 ml Q6H PRN PO COUGH 03/12/17 22:45 03/17/17 21:50 Potassium Chloride (KCl) 20 meq Q12HR PO 03/15/17 21:00 03/21/17 21:36 Famotidine (Pepcid) 10 mg BID PO 03/15/17 11:15 03/21/17 21:33 Aspirin (Ecotrin Ec) 81 mg DAILY PO 03/17/17 09:00 03/21/17 09:24 Sacubitril/ Valsartan (Entresto 24-26 Mg) 1 tab BID PO 03/16/17 21:00 03/21/17 21:33 Objective Remarks GENERAL: Elderly female supine in bed resting. SKIN: Warm and dry. HEAD: Normocephalic. EYES: No injection or drainage. NECK: Supple, trachea midline. CARDIOVASCULAR: +S1/S2 RESPIRATORY: anterior le clear. GASTROINTESTINAL: Abdomen soft, non-tender, nondistended. EXTREMITIES: No cyanosis NEUROLOGICAL: awake and alert, lethargic. Assessment/Plan Problem List: (1) Non-small cell lung cancer (NSCLC) ICD Codes: C34.90 - Malignant neoplasm of unspecified part of unspecified bronchus or lung Plan: 03/22: clear for d/c to rehab. follow up in clinic in 1-2 weeks History: 2-3 months ago--developed anorexia and early satiety. CT angiogram of the aorta showed 2.2 x 1.9 cm spiculated left lower lobe lung mass with essentially necrotic anterior tracheal mediastinal lymph node measuring 2.8 x 2.7 cm. There was also 2.7 x 2 centimeter left adnexal mass noted as well likely corresponding to the ovary. Malignancy was suspected. --biopsy of the lung mass 2 days ago-->showed spindle cell squamous cell carcinoma, one of the subtype of non-small cell lung cancer. --Clinically, she has at least stage III lung cancer. --will require outpatient PET scan to complete workup --MRI brain shows no mets (2) left adnexa mass Plan: --will obtain PET scan outpatient --2.7 x 2.0 cm mass in the left adnexa suspicious for ovarian cancer until proven otherwise. Assessment 81y/o female with recently diagnosed non-small cell lung cancer. history of hypothyroidism, hypercholesterolemia, peptic ulcer disease. Attending Statement The exam, history, and the medical decision-making described in the above note were completed with the assistance of the mid-level provider. I reviewed and agree with the findings presented. I attest that I had a [id number] encounter with the patient on the same day, and personally performed and documented my assessment and findings in the medical record. Denies any new c/o Family and hospice at bedside. Pt has elected for home with hospice. states if and when she gets stronger than will call office to make appt for chemo. sign off available prn. Tasha Orta Mar 22, 2017 10:00 Douglas Burnette MD Mar 22, 2017 17:07
--- NOTE | 2017-03-22 10:24 | HHI.PR ---
Subjective Remarks Patient in good spirits today feels fatigued offers no other complaints Objective Vitals Vital Signs Date Time Temp Pulse Resp B/P (MAP) Pulse Ox O2 Delivery O2 Flow Rate FiO2 03/22/17 09:15 94 Room Air 03/22/17 09:06 97.6 80 20 110/60 (77) 94 03/22/17 05:17 98.1 85 16 103/65 (78) 94 03/22/17 05:16 Room Air 94 03/22/17 01:40 97.4 85 18 109/71 (84) 95 03/22/17 00:32 Room Air 94 03/21/17 21:17 Room Air 95 03/21/17 20:00 75 03/21/17 20:00 97.4 81 18 110/80 (90) 96 03/21/17 16:50 98.6 86 18 107/62 (77) 96 03/21/17 12:28 97.8 84 18 115/80 (92) 98 Result Diagram: 03/21/17 0433 03/21/17 0433 Other Results Laboratory Tests Test 03/19/17 12:20 03/20/17 05:15 03/20/17 21:13 03/21/17 04:33 Urine Color YELLOW Urine Turbidity CLEAR Urine pH 6.0 Urine Specific [place] 1.025 Urine Protein NEG mg/dL Urine Glucose (UA) NEG mg/dL Urine Ketones NEG mg/dL Urine Occult Blood NEG Urine Nitrite NEG Urine Bilirubin NEG Urine Urobilinogen LESS THAN 2.0 MG/DL Urine Leukocyte Esterase NEG Urine RBC 1 /hpf Urine WBC 2 /hpf Urine Bacteria RARE /hpf Urine Hyaline Casts 4 /lpf Urine Mucus FEW /lpf Microscopic Urinalysis Comment CATH-CULTURE IND White Blood Count 19.5 TH/MM3 19.9 TH/MM3 Red Blood Count 4.64 MIL/MM3 4.13 MIL/MM3 Hemoglobin 13.0 GM/DL 11.6 GM/DL Hematocrit 39.5 % 34.8 % Mean Corpuscular Volume 85.1 FL 84.2 FL Mean Corpuscular Hemoglobin 28.0 PG 28.1 PG Mean Corpuscular Hemoglobin Concent 32.9 % 33.4 % Red Cell Distribution Width 16.1 % 16.3 % Platelet Count 221 TH/MM3 252 TH/MM3 Mean Platelet Volume 9.6 FL 9.1 FL Blood Urea Nitrogen 26 MG/DL 18 MG/DL Creatinine 0.72 MG/DL 0.58 MG/DL Random Glucose 93 MG/DL 88 MG/DL Calcium Level 8.0 MG/DL 7.8 MG/DL Sodium Level 132 MEQ/L 132 MEQ/L Potassium Level 4.4 MEQ/L 4.3 MEQ/L Chloride Level 102 MEQ/L 102 MEQ/L Carbon Dioxide Level 22.8 MEQ/L 22.4 MEQ/L Anion Gap 7 MEQ/L 8 MEQ/L Estimat Glomerular Filtration Rate 78 ML/MIN 100 ML/MIN CA 125 Antigen 22.6 U/ML Test 03/22/17 07:16 Imaging Last Impressions Chest X-Ray 03/13/17 0000 Signed Impressions: Service Date/Time: Monday, March 13, 2017 04:51 - CONCLUSION: Radiographic appearance consistent with pulmonary edema. Clifford Kahn Jr., MD Aorta CTA 03/10/17 0929 Signed Impressions: Service Date/Time: Friday, March 10, 2017 10:47 - CONCLUSION: 1. 2.2 x 1.9 cm spiculated left lower lobe posterior lung mass with apparently centrally necrotic anterior tracheal mediastinal lymph node measuring 2.8 x 2.7 cm. Subcentimeter mediastinal and confluent partially calcified right hilar lymph nodes are more nonspecific may be due to prior granulomatous disease. 2. 2.7 x 2.0 cm left adnexal mass likely corresponding to the ovary. This is abnormal given patients advanced age. Further evaluation may be performed with ultrasound of the pelvis. 3. Otherwise, no evidence for distant metastatic disease. 4. Focal 4 cm length distal descending thoracic aortic aneurysm measuring up to 3.7 cm in axial dimension. 5. No aortic dissection. 6. Additional ancillary findings, as above. Woo Covarrubias MD Lower Extremity Ultrasound 03/10/17 0000 Signed Impressions: Service Date/Time: Friday, March 10, 2017 18:19 - CONCLUSION: No DVT. Fermin Flores MD Objective Remarks General: frail 81 year old female Cardiac: irregular Respiratory: diminished bilateral bases Abdomen: s/nt ext: no edema Procedures [facility] (03/16/17) with Dr. Church Left lower lobe lung mass core biopsy and culture obtained. (03/18/17) Dr. Kahn A/P Problem List: (1) Respiratory failure ICD Codes: J96.90 - Respiratory failure, unspecified, unspecified whether with hypoxia or hypercapnia Plan: - Presented to [facility] and transferred to [facility] - Pt admitted with A. fib RVR - now rate controlled - Pt admitted with Acute Cardiomyopathy, decompensated systolic chf, with LVEF 10-15% ...nonischemic CM. [facility] neg for cad - Pt admitted with Cardiogenic shock, now resolved - Acute intravascular volume overload, resolved - Acute hypoxic respiratory failure - resolved - Metabolic acidosis - resolved - Elevated LFTs - shock liver/congestion- resolving. - Left adnexal mass (2cm) on CT - Descending thoracic aortic aneurysm - Suspected underlying COPD - CKD III - hypothyroidism [facility] (03/16/17) with Dr. Church 1. Left main coronary is angiographically normal. 2. Left anterior descending coronary has some minor luminal irregularities proximally, in the mid segment, 30% stenosis and some tortuosity. The diagonal branch is also tortuous but angiographically normal. 3. Left circumflex gives rise to an obtuse marginal branch which has minor luminal irregularities, otherwise circumflex is relatively free of disease. 4. Right coronary is occluded in the proximal segment but well collateralized via septal perforators from [id number]. - cardiology, pulmonary, and palliative medicine following palliative care has been consulted to clarify goals. -cont dig for afib -pt on asa and entresto per cardiology. monitor bp as it remains low. -arguello replaced last night after failed attempt at removal - discharge to SNF held d/t hypotensive with increasing WBC concern for infection/sepsis - Pt given IVF and abx vancomycin and zosyn - BP stabilized - NO obvious source of infection identified - ABX and fluids stopped 03/21/17 - follow cultures - pathology results reveal Spindle cell carcinoma - appreciate input from Oncology - Pt with Stage III Pulmonary Cancer - Pt with poor functional status & NOT a candidate for chemotherapy until strengthened - Case d/w pt//son/and [id number] at length 03/21/17 and 03/22/17 03/22/17 - Patient had 9 beat run of NSVT, Dr. Estrada discussed with patient and family. Patient and family do not want further work up or lifevest. Patient and family wish to go home with hospice tomorrow (2) Cardiomyopathy ICD Codes: I42.9 - Cardiomyopathy, unspecified Status: Acute Plan: - see above (3) Cardiogenic shock ICD Codes: R57.0 - Cardiogenic shock Status: Resolved Plan: - see above (4) Lung mass ICD Codes: R91.8 - Other nonspecific abnormal finding of lung field Status: Acute Plan: -see above (5) Afib ICD Codes: I48.91 - Unspecified atrial fibrillation Status: Chronic Plan: - digoxin (6) Descending thoracic aortic aneurysm ICD Codes: I71.2 - Thoracic aortic aneurysm, without rupture Status: Chronic (7) Hypothyroid ICD Codes: E03.9 - Hypothyroidism, unspecified Status: Chronic Assessment and Plan Patient examined. Assessment and plan formulated with Deann Reyna PA-C. I agree with the above. Deann Reyna Mar 22, 2017 10:24 Edgard Estrada DO Mar 25, 2017 11:13
[2017-03-22] MEDS: POTASSIUM CHLORIDE 20 MEQ CONTROLLED RELEASE TAB PO SCH ×2 (10:38→19:24)
[2017-03-22] MEDS: ASPIRIN EC 81 MG TABEC PO SCH (10:38)
[2017-03-22] MEDS: SACUBITRIL/VALSARTAN 24 MG-26 MG TAB PO SCH ×2 (10:38→19:24)
[2017-03-22] MEDS: FAMOTIDINE 20 MG TAB PO SCH ×2 (10:38→19:24)
[2017-03-22] MEDS: DIGOXIN 0.125 MG TAB PO SCH (10:39)
[2017-03-22] MEDS: DOCUSATE SODIUM 50 MG/SENNA 8.6 MG TAB PO SCH ×2 (10:40→19:24)
--- NOTE | 2017-03-22 11:48 | HHI.PR ---
Subjective Remarks ALERT NO SOB AT REST Objective Vital Signs Date Time Temp Pulse Resp B/P (MAP) Pulse Ox O2 Delivery O2 Flow Rate FiO2 03/22/17 09:15 94 Room Air 03/22/17 09:06 97.6 80 20 110/60 (77) 94 03/22/17 05:17 98.1 85 16 103/65 (78) 94 03/22/17 05:16 Room Air 94 03/22/17 01:40 97.4 85 18 109/71 (84) 95 03/22/17 00:32 Room Air 94 03/21/17 21:17 Room Air 95 03/21/17 20:00 75 03/21/17 20:00 97.4 81 18 110/80 (90) 96 03/21/17 16:50 98.6 86 18 107/62 (77) 96 03/21/17 12:28 97.8 84 18 115/80 (92) 98 I/O 03/21/17 03/21/17 03/21/17 03/22/17 03/22/17 03/22/17 06:59 14:59 22:59 06:59 14:59 22:59 Intake Total 260 ml 380 ml Balance 260 ml 380 ml Intake Oral 260 ml 330 ml IV Total 50 ml # Voids 1 3 4 # Bowel Movements 4 Result Diagram: 03/21/1743203/21/17432 Objective Remarks GENERAL: SKIN: Warm and dry. HEAD: Atraumatic. Normocephalic. EYES: Pupils equal and round. No scleral icterus. No injection or drainage. ENT: No nasal bleeding or discharge. Mucous membranes pink and moist. NECK: Trachea midline. No JVD. CARDIOVASCULAR: Regular rate and rhythm. RESPIRATORY: No accessory muscle use. Clear to auscultation. Breath sounds equal bilaterally. GASTROINTESTINAL: Abdomen soft, non-tender, nondistended. Hepatic and splenic margins not palpable. MUSCULOSKELETAL: Extremities without clubbing, cyanosis, or edema. No obvious deformities. NEUROLOGICAL: Awake and alert. No obvious cranial nerve deficits. Motor grossly within normal limits. Five out of 5 muscle strength in the arms and legs. Normal speech. PSYCHIATRIC: Appropriate mood and affect; insight and judgment normal. Assessment and Plan Assessment and Plan COPD LUNG MASS CHF AFIB PLAN O2 NEEDED bronchodilators increase activity Dimas Cochran MD Mar 22, 2017 11:48
[2017-03-22] MEDS: ACETAMINOPHEN/CODEINE ELIX 120 MG/12 MG/5 ML CUP PO PRN ×2 (14:52→21:35)
[2017-03-23 00:02] VITALS: BP 92/58; PULSE 76; RESP 16; TEMP 97.5; O2SAT 93
[2017-03-23] MEDS: CHLORHEXIDINE GLUCONATE 2 % 1 PACK (2 CLOTHS) TOP SCH (00:33)
[2017-03-23 04:09] VITALS: BP 92/58; PULSE 76; RESP 16; TEMP 97.5; O2SAT 93
[2017-03-23 04:11] VITALS: BP_SYST 82; BP_SYST 94; BP_DIAS 48; BP_DIAS 53; PULSE 62; RESP 16; TEMP 97.6; O2SAT 95
[2017-03-23] MEDS: INSULIN ASPART SUPPLEMENTAL SCALE SQ SCH ×2 (04:44→12:00)
--- NOTE | 2017-03-23 07:40 | HHI.PR ---
Subjective Remarks eager for d/c no complaints Objective Vitals heart reg lung diminished bs bases abd s/nt ext no edema Vital Signs Date Time Temp Pulse Resp B/P (MAP) Pulse Ox O2 Delivery O2 Flow Rate FiO2 03/23/17 04:11 97.6 62 16 94/48 (63) 95 82/53 (63) 03/23/17 04:09 95 Room Air 03/23/17 00:02 97.5 76 16 92/58 (69) 93 Automatic Cuff 03/23/17 00:00 95 Room Air 03/22/17 22:23 18 03/22/17 21:30 79 03/22/17 21:06 95 Room Air 03/22/17 20:00 97.8 66 18 92/49 (63) 95 03/22/17 18:00 84 03/22/17 17:00 84 03/22/17 16:00 97.5 75 18 94/56 (69) 96 03/22/17 16:00 96 Room Air 03/22/17 14:00 82 03/22/17 13:00 78 03/22/17 12:00 90 03/22/17 11:00 92 03/22/17 10:00 78 03/22/17 09:15 94 Room Air 03/22/17 09:06 97.6 80 20 110/60 (77) 94 03/22/17 09:00 72 03/22/17 08:00 86 Result Diagram: 03/21/17 0433 03/21/17 0433 Imaging Last Impressions Chest X-Ray 03/13/17 0000 Signed Impressions: Service Date/Time: Monday, March 13, 2017 04:51 - CONCLUSION: Radiographic appearance consistent with pulmonary edema. Clifford Kahn Jr., MD Aorta CTA 03/10/17 0929 Signed Impressions: Service Date/Time: Friday, March 10, 2017 10:47 - CONCLUSION: 1. 2.2 x 1.9 cm spiculated left lower lobe posterior lung mass with apparently centrally necrotic anterior tracheal mediastinal lymph node measuring 2.8 x 2.7 cm. Subcentimeter mediastinal and confluent partially calcified right hilar lymph nodes are more nonspecific may be due to prior granulomatous disease. 2. 2.7 x 2.0 cm left adnexal mass likely corresponding to the ovary. This is abnormal given patients advanced age. Further evaluation may be performed with ultrasound of the pelvis. 3. Otherwise, no evidence for distant metastatic disease. 4. Focal 4 cm length distal descending thoracic aortic aneurysm measuring up to 3.7 cm in axial dimension. 5. No aortic dissection. 6. Additional ancillary findings, as above. Woo Covarrubias MD Lower Extremity Ultrasound 03/10/17 0000 Signed Impressions: Service Date/Time: Friday, March 10, 2017 18:19 - CONCLUSION: No DVT. Femrin Flores MD Procedures [facility] (03/16/17) with Dr. Church Left lower lobe lung mass core biopsy and culture obtained. (03/18/17) Dr. Kahn A/P Problem List: (1) Respiratory failure ICD Codes: J96.90 - Respiratory failure, unspecified, unspecified whether with hypoxia or hypercapnia Plan: - Presented to [facility] and transferred to [facility] - Pt admitted with A. fib RVR - now rate controlled - Pt admitted with Acute Cardiomyopathy, decompensated systolic chf, with LVEF 10-15% ...nonischemic CM. [facility] neg for cad - Pt admitted with Cardiogenic shock, now resolved - Acute intravascular volume overload, resolved - Acute hypoxic respiratory failure - resolved - Metabolic acidosis - resolved - Elevated LFTs - shock liver/congestion- resolving. - Left adnexal mass (2cm) on CT - Descending thoracic aortic aneurysm - Suspected underlying COPD - CKD III - hypothyroidism [facility] (03/16/17) with Dr. Church 1. Left main coronary is angiographically normal. 2. Left anterior descending coronary has some minor luminal irregularities proximally, in the mid segment, 30% stenosis and some tortuosity. The diagonal branch is also tortuous but angiographically normal. 3. Left circumflex gives rise to an obtuse marginal branch which has minor luminal irregularities, otherwise circumflex is relatively free of disease. 4. Right coronary is occluded in the proximal segment but well collateralized via septal perforators from [id number]. - cardiology, pulmonary, and palliative medicine following palliative care has been consulted to clarify goals. -cont dig for afib -pt on asa and entresto per cardiology. monitor bp as it remains low. -arguello replaced after failed attempt at removal - discharge to SNF held d/t hypotensive with increasing WBC concern for infection/sepsis - Pt given IVF and abx vancomycin and zosyn - BP stabilized - NO obvious source of infection identified - ABX and fluids stopped 03/21/17 - follow cultures - pathology results reveal Spindle cell carcinoma - appreciate input from Oncology - Pt with Stage III Pulmonary Cancer - Pt with poor functional status & NOT a candidate for chemotherapy until strengthened - Case d/w pt//son/and [id number] at length 03/21/17 and 03/22/17 03/22/17 - Patient had 9 beat run of NSVT, Dr. Estrada discussed with patient and family. Patient and family do not want further work up or lifevest. ---Patient and family wish to go home with hospice today. bp to low and entresto being held most of the time. (2) Cardiomyopathy ICD Codes: I42.9 - Cardiomyopathy, unspecified Status: Acute Plan: - see above (3) Cardiogenic shock ICD Codes: R57.0 - Cardiogenic shock Status: Resolved Plan: - see above (4) Lung mass ICD Codes: R91.8 - Other nonspecific abnormal finding of lung field Status: Acute Plan: -see above (5) Afib ICD Codes: I48.91 - Unspecified atrial fibrillation Status: Chronic Plan: - digoxin (6) Descending thoracic aortic aneurysm ICD Codes: I71.2 - Thoracic aortic aneurysm, without rupture Status: Chronic (7) Hypothyroid ICD Codes: E03.9 - Hypothyroidism, unspecified Status: Chronic Danny Cabrera MD Mar 23, 2017 07:40
[2017-03-23] MEDS: SODIUM CHLORIDE 0.9% FLUSH 10 ML FLUSH IV FLUSH SCH (09:00)
[2017-03-23] MEDS: SACUBITRIL/VALSARTAN 24 MG-26 MG TAB PO SCH (09:00)
[2017-03-23] MEDS: ASPIRIN EC 81 MG TABEC PO SCH (09:00)
[2017-03-23] MEDS: POTASSIUM CHLORIDE 20 MEQ CONTROLLED RELEASE TAB PO SCH (10:38)
[2017-03-23] MEDS: DOCUSATE SODIUM 50 MG/SENNA 8.6 MG TAB PO SCH (10:38)
[2017-03-23] MEDS: DIGOXIN 0.125 MG TAB PO SCH (10:39)
[2017-03-23] MEDS: FAMOTIDINE 20 MG TAB PO SCH (10:41)
[2017-03-23 11:39] VITALS: BP 90/59; PULSE 84; RESP 20; TEMP 98.8
[2017-03-23] MEDS: ACETAMINOPHEN/CODEINE ELIX 120 MG/12 MG/5 ML CUP PO PRN (13:13)
== END 2017-03-23 13:31 | disposition hospice, home (50) | DRG 286 ==
LOC: PHED 08:57 → PHEDA 12:03 → HCVI 14:42 → HCPC 03-14 17:33 → HCIS 03-16 14:56
PROVIDERS: ADMIT Internal Medicine Critical Care Medicine; ATTEND Hospitalist
PROC: 0BH18EZ Insertion of Endotracheal Airway into Trachea, Via Natural or Artificial Opening Endoscopic (ICD-10-PCS; 2017-03-10)
PROC: 03HY32Z Insertion of Monitoring Device into Upper Artery, Percutaneous Approach (ICD-10-PCS; 2017-03-10)
PROC: 5A1945Z Respiratory Ventilation, 24-96 Consecutive Hours (ICD-10-PCS; 2017-03-10)
PROC: 02HV33Z Insertion of Infusion Device into Superior Vena Cava, Percutaneous Approach (ICD-10-PCS; 2017-03-10)
PROC: B2111ZZ Fluoroscopy of Multiple Coronary Arteries using Low Osmolar Contrast (ICD-10-PCS; 2017-03-16)
PROC: B2151ZZ Fluoroscopy of Left Heart using Low Osmolar Contrast (ICD-10-PCS; 2017-03-16)
PROC: 4A023N7 Measurement of Cardiac Sampling and Pressure, Left Heart, Percutaneous Approach (ICD-10-PCS; principal; 2017-03-16 12:30)
PROC: 0BBJ3ZX Excision of Left Lower Lung Lobe, Percutaneous Approach, Diagnostic (ICD-10-PCS; 2017-03-18)
DX: I48.91 Unspecified atrial fibrillation (principal); J96.01 Acute respiratory failure with hypoxia; R57.0 Cardiogenic shock; K72.00 Acute and subacute hepatic failure without coma; I50.21 Acute systolic (congestive) heart failure; N17.9 Acute kidney failure, unspecified; I47.2 Ventricular tachycardia; I95.9 Hypotension, unspecified; I42.8 Other cardiomyopathies; N18.3 Chronic kidney disease, stage 3 (moderate); C34.32 Malignant neoplasm of lower lobe, left bronchus or lung; E46 Unspecified protein-calorie malnutrition; E87.2 Acidosis; I71.2 Thoracic aortic aneurysm, without rupture; J44.9 Chronic obstructive pulmonary disease, unspecified; E03.9 Hypothyroidism, unspecified; R59.0 Localized enlarged lymph nodes; Z68.23 Body mass index [BMI] 23.0-23.9, adult; R73.9 Hyperglycemia, unspecified; R19.09 Other intra-abdominal and pelvic swelling, mass and lump; I25.10 Atherosclerotic heart disease of native coronary artery without angina pectoris; I25.9 Chronic ischemic heart disease, unspecified; T38.0X5A Adverse effect of glucocorticoids and synthetic analogues, initial encounter; Z51.5 Encounter for palliative care; E78.00 Pure hypercholesterolemia, unspecified; Z87.891 Personal history of nicotine dependence
CPT/HCPCS: 31500; 32405; 36556; 36600; 70553; 71010; 71275; 74174; 76937; 77012; 80048; 80053; 80076; 80162; 81001; 82550; 82805; 82948; 83036; 83605; 83690; 83735; 83880; 84100; 84132; 84443; 84484; 85007; 85014; 85025; 85027; 85379; 85610; 85730; 86304; 87015; 87040; 87070; 87086; 87102; 87116; 87176; 87205; 87206; 87641; 88305; 88341; 93005; 93306; 93308; 93454; 93970; 94002; 94003; 94150; 94640; 94664; 96361; 96374; 96375; A9579; C1769; C1893; C9113; J0282; J0330; J0456; J1120; J1160; J1250; J1644; J1815; J1940; J1956; J2250; J2270; J2405; J2543; J2765; J2920; J2930; J3010; J3370; J3480; J7030; J7040; J7050; J7060; J7644; P9047; Q9967